=== PATIENT | female | born 1965 | race Caucasian/White ===

== ENCOUNTER 2017-07-15 03:47 | Emergency (ER) | payer SELFPAY ==
[2017-07-15 04:16] VITALS: BMI 27.4
[2017-07-15] MEDS ORDERED: morphine CARPU-JECT 10 MG/1 ML DISP.SYRIN IVPUSH ONE (05:07)
[2017-07-15] MEDS ORDERED: SODIUM CHLORIDE 1,000 ML IV STA (05:07)
[2017-07-15] MEDS ORDERED: PANTOPRAZOLE SODIUM 40 MG in SODIUM CHLORIDE 100 ML IVPB ONE (05:07)
[2017-07-15] MEDS ORDERED: ONDANSETRON 4 MG/2 ML VIAL IVPUSH ONE (05:07)
--- NOTE | 2017-07-15 05:13 | PDOC ---
History of Present Illness - General Chief Complaint: Pain, Acute Stated Complaint: ABDOMINAL PAIN, VOMITING Time Seen by Provider: 07/15/17 04:54 History Source: Patient Exam Limitations: No Limitations - History of Present Illness Travel History: No Initial Comments: 07/15/17 05:09 51yo Female patient w/ PmHx: Migraines, GERD, PID, Tubal Ligation, Chronic Back Pain, Gastritis, Cholecystectomy presents to ED c/o generalized abdominal pain starting yesterday that radiates to her back. Associated diarrhea, decreased appetite reported. Patient denies vomiting, fever, CP, diff breathing, rash, or any other complaints at this time. LNMP: Menopause Timing/Duration: reports: changing over time. denies: constant, getting worse, intermittent, resolved prior to arrival, gone now, other Quality: reports: moderate. denies: mild, severe, aching, burning, cramping, dullness, fullness, sharpness, stabbing, throbbing, other Abdominal Pain Onset Location: reports: generalized abdomen. denies: RUQ, LUQ, RLQ, LLQ, epigastric, periumbilical, suprapubic, flank, unknown, other Pain Radiation: reports: back. denies: no radiation, RUQ, LUQ, RLQ, LLQ, epigastric, periumbilical, flank, groin, scapula, shoulder, chest, other Activities at Onset: reports: no specific activity. denies: none, exertion, emotional upset, rest, sleep, eating, working, sexual intercourse, other Treatment Prior to Arrive: worse with: analgesics, antacids, cold pack, heat, laxative, enema, other Past History - Travel Traveled outside of the country in the last 30 days: No Close contact w/someone who was outside of country & ill: No - Past Medical History Allergies/Adverse Reactions: Allergies Allergy/AdvReac Type Severity Reaction Status Date / Time codeine Allergy Rash Verified 07/15/17 04:11 Home Medications: Ambulatory Orders NK [No Known Home Medication] 06/06/16 GI Disorders: Yes (GERD) Disorders: No Suicide Attempt (Hx): No - Surgical History Abdominal Surgery: Yes Cholecystectomy: Yes - Immunization History Immunization Up to Date: Yes - Psycho/Social/Smoking Cessation Hx Anxiety: No Suicidal Ideation: No Smoking Status: Yes Smoking History: Never smoked Have you smoked in the past 12 months: No Number of Cigarettes Smoked Daily: 10 Cigars Per Day: 0 Information on smoking cessation initiated: No 'Breaking Loose' booklet given: 12/12/15 Hx Alcohol Use: No Drug/Substance Use Hx: No Substance Use Type: None Abd/GI Specific PMHX - Complaint Specific PMHX Colitis: No Diverticulitis: No Gall Bladder Disease: No GERD: Yes Hepatitis: No Irritable Bowel Synd (IBS): No Pancreatitis: No GI Ulcer Disease: No Review of Systems - Review of Systems Able to Perform ROS?: Yes Is the patient limited [place] proficient: No Constitutional: No: Chills, Fever Respiratory: No: Cough, Shortness of Breath, Stridor, Wheezing Cardiac (ROS): No: Chest Pain, Chest Tightness ABD/GI: Yes: Diarrhea, Nausea, Abdominal cramping. No: Abdominal Distended, Difficulty Swallowing, Poor Appetite, Poor Fluid Intake, Rectal Bleeding, Vomiting : Yes: Flank Pain. No: Burning, Dysuria, Discharge, Hematuria, Pain Musculoskeletal: Yes: Back Pain. No: Muscle Weakness Integumentary: No: Bruising, Erythema, Rash, Sweating *Physical Exam - Vital Signs Last Vital Signs Temp Pulse Resp BP Pulse Ox 97.5 F L 64 18 114/57 98 07/15/17 04:11 07/15/17 04:11 07/15/17 04:11 07/15/17 04:15 07/15/17 04:11 - Physical Exam General Appearance: Yes: Appropriately Dressed, Thin. No: Apparent Distress, Mild Distress, Moderate Distress, Severe Distress Neck: positive: Trachea midline, Supple. negative: Decreased range of motion, Stridor, Lymphadenopathy (R), Lymphadenopathy (L) Respiratory/Chest: positive: Lungs Clear, Normal Breath Sounds. negative: Chest Tender, Respiratory Distress, Accessory Muscle Use, Labored Respiration, Rhonchi, Stridor, Wheezing Cardiovascular: positive: Regular Rhythm, Regular Rate Gastrointestinal/Abdominal: positive: Tender, Flat, Soft, Guarding, Rebound, Tenderness (Generalized abdomen). negative: Distended Musculoskeletal: positive: Normal Inspection, CVA Tenderness, CVA Tenderness (R) , CVA Tenderness (L). negative: Decreased Range of Motion, Muscle Spasm, Vertebral Tenderness Extremity: positive: Normal Capillary Refill, Normal Inspection, Normal Range of Motion. negative: Pedal Edema, Swelling, Calf Tenderness, Erythema, Inflammation Integumentary: positive: Normal Color, Dry Neurologic: positive: liaison planner II-XII NML intact, Fully Oriented, Alert, Normal Mood/ Affect, Normal Response, Motor Strength 03/11 ED Treatment Course - RADIOLOGY Radiology Studies Ordered: Category Date Time Status ABDOMEN CT WITHOUT CONTRAST [CT] Stat CT Scan 07/15/17 05:07 Ordered
--- NOTE | 2017-07-15 05:19 | PDOC ---
*Physical Exam - Vital Signs Last Vital Signs Temp Pulse Resp BP Pulse Ox 97.5 F L 64 18 114/57 98 07/15/17 04:11 07/15/17 04:11 07/15/17 04:11 07/15/17 04:15 07/15/17 04:11 ED Treatment Course - LABORATORY CBC & Chemistry Diagram: 07/15/17 05:32 07/15/17 05:32 Medical Decision Making - Medical Decision Making 07/15/17 05:18 agree with care from JUAN Esquivel *DC/Admit/Observation/Transfer Diagnosis at time of Disposition: Abdominal pain - Discharge Dispostion Disposition: HOME Condition at time of disposition: Good - Referrals Referrals: Keron Mason MD [Staff Physician] - - Patient Instructions Printed Discharge Instructions: DI for Abdominal Pain-Adult Additional Instructions: Please follow up with referred extension professor and eat well-balanced meals.
[2017-07-15] MEDS ORDERED: morphine CARPU-JECT 2 MG/1 ML DISP.SYRIN ONE (05:46)
[2017-07-15] MEDS ORDERED: morphine CARPU-JECT 4 MG/1 ML DISP.SYRIN ONE (05:47)
[2017-07-15] MEDS ORDERED: ONDANSETRON 4 MG/2 ML VIAL ONE (05:47)
[2017-07-15] MEDS ORDERED: PANTOPRAZOLE SODIUM 100 ML IVPB ONE (05:47)
[2017-07-15 05:55] LABS: BASOPHIL 0.5 % (0-2.0); EOSINOPHIL 1.2 % (0-4.5); MCH 30.9 pg (25.7-33.7); MCHC 33.9 g/dl (32.0-36.0); MEAN CELL VOLUME 91.1 fl (80-96); MEAN PLT VOLUME 8.4 fl (7.5-11.1); NEUTROPHILS 62.7 % (42.8-82.8); PLATELET COUNT 252 K/MM3 (134-434); RDW 12.6 % (11.6-15.6); WHITE BLOOD COUNT 9.5 K/mm3 (4.0-10.0)
[2017-07-15 06:19] LABS: ALBUMIN 3.9 g/dl (3.4-5.0); AMYLASE 31 U/L (25-115); ANION GAP 11 (8-16); BILIRUBIN,DIRECT < 0.1 mg/dL (0.0-0.2); BILIRUBIN,TOTAL 0.3 mg/dL (0.2-1.0); CO2 24 mmol/L (21-32); CREATININE 0.5 mg/dL (0.55-1.02); GLUCOSE,RANDOM 86 mg/dL (74-106); SGOT/AST 19 U/L (15-37); SGPT/ALT 28 U/L (12-78); TOT PROT 6.7 g/dl (6.4-8.2)
[2017-07-15 06:22] LABS: ALK PHOS 73 U/L (45-117)
--- NOTE | 2017-07-15 06:25 | PDOC ---
*Physical Exam - Vital Signs Last Vital Signs Temp Pulse Resp BP Pulse Ox 97.5 F L 64 18 114/57 98 07/15/17 04:11 07/15/17 04:11 07/15/17 04:11 07/15/17 04:15 07/15/17 04:11 07/15/17 09:12 CT shows no acute findings and the pelvis or abdomen. ED Treatment Course - LABORATORY CBC & Chemistry Diagram: 07/15/17 05:32 07/15/17 05:32 - ADDITIONAL ORDERS Additional order review: 07/15/17 05:32 RBC 4.04 MCV 91.1 MCHC 33.9 RDW 12.6 MPV 8.4 Neutrophils % 62.7 Lymphocytes % 28.7 D Monocytes % 6.9 Eosinophils % 1.2 Basophils % 0.5 - Medications Given in the ED: ED Medications Discontinued Medications Generic Name Dose Route Start Last Admin Trade Name Edilbertoq PRN Reason Stop Dose Admin Pantoprazole Sodium 40 mg/ 100 mls @ 200 mls/hr 07/15/17 05:07 07/15/17 06:00 Sodium Chloride IVPB 07/15/17 05:36 200 mls/hr ONCE ONE Administration Sodium Chloride 1,000 mls @ 1,000 mls/hr 07/15/17 05:07 07/15/17 06:00 Normal Saline - IV 07/15/17 06:06 1,000 mls/hr ASDIR STA Administration Morphine Sulfate 6 mg 07/15/17 05:07 07/15/17 05:59 Morphine Injection - IVPUSH 07/15/17 05:08 6 mg ONCE ONE Administration Ondansetron HCl 4 mg 07/15/17 05:07 07/15/17 06:00 Zofran Injection IVPUSH 07/15/17 05:08 4 mg ONCE ONE Administration Medical Decision Making - Medical Decision Making 07/15/17 06:20 Patient received in sign out from JUAN Arcos. Patient awaiting abdominal CT secondary nausea vomiting and abdominal pain. 07/15/17 07:47 Laboratory Tests 07/15/17 07/15/17 06:54 06:54 Urine Ketones Negative Urine Nitrite Negative Ur Leukocyte Esterase Negative Opiates Screen Positive Barbiturate Screen Positive Pt went for CT. Pt requesting more pain meds. MSO4 4mg ordered since pt refused toradol. 07/15/17 08:09 Laboratory Tests 07/15/17 07/15/17 06:54 06:54 Urine Ketones Negative Urine Nitrite Negative Ur Leukocyte Esterase Negative Opiates Screen Positive Barbiturate Screen Positive Pt requesting to leave before abdominal ct results. Will discharge patient as per her request. *DC/Admit/Observation/Transfer Diagnosis at time of Disposition: Abdominal pain Qualifiers: Abdominal location: generalized Qualified Code(s): R10.84 - Generalized abdominal pain - Discharge Dispostion Disposition: HOME Condition at time of disposition: Good - Referrals Referrals: Keron Mason MD [Staff Physician] - - Patient Instructions Printed Discharge Instructions: DI for Abdominal Pain-Adult Additional Instructions: Please follow up with referred glass lined tank repairer and eat well-balanced meals.
[2017-07-15] MEDS ORDERED: KETOROLAC TROMETHAMINE 30 MG/1 ML VIAL IVPUSH STA (06:55)
[2017-07-15 07:05] LABS: URINE APPEARANCE SLCLOUDY; URINE BILIRUBIN NEGATIVE (NEGATIVE); URINE BLOOD NEGATIVE (NEGATIVE); URINE COLOR YELLOW; URINE GLUCOSE (UA) NEGATIVE (NEGATIVE); URINE KETONE NEGATIVE (NEGATIVE); URINE LEUK ESTERASE NEGATIVE (NEGATIVE); URINE NITRITE NEGATIVE (NEGATIVE); URINE PROTEIN NEGATIVE (NEGATIVE); URINE UROBILINOGEN NEGATIVE mg/dL (0.2-1.0)
[2017-07-15 07:16] LABS: URINE MARIJUANA THC NEGATIVE ng/ml (CUTOFF=50)
[2017-07-15] MEDS ORDERED: morphine CARPU-JECT 2 MG/1 ML DISP.SYRIN IVPUSH ONE (07:26)
[2017-07-15 07:56] VITALS: BP 103/67; PULSE 63; TEMP 97.7
== END 2017-07-15 08:33 | disposition home or self-care (01) ==
LOC: JER 03:47
PROC: 3E033GC Introduction of Other Therapeutic Substance into Peripheral Vein, Percutaneous Approach (ICD-10-PCS; principal; 2017-07-15)
PROC: 3E033GC Introduction of Other Therapeutic Substance into Peripheral Vein, Percutaneous Approach (ICD-10-PCS; 2017-07-15)
PROC: 3E033NZ Introduction of Analgesics, Hypnotics, Sedatives into Peripheral Vein, Percutaneous Approach (ICD-10-PCS; 2017-07-15)
DX: R10.84 Generalized abdominal pain (principal); K21.9 Gastro-esophageal reflux disease without esophagitis; Z86.69 Personal history of other diseases of the nervous system and sense organs; M54.89 Other dorsalgia; G89.29 Other chronic pain
CPT/HCPCS: 36415; 74150-TC; 80048; 80076; 80307; 81003; 82150; 83690; 85025; 99284-25

== ENCOUNTER → 2017-07-26 | Emergency (ER) | payer SELFPAY ==
[~2017-07-26] MED LIST: LIDOCAINE VISCOUS 2% ORAL/TOP 20 ML UNIT-DOSE CUP MM ONE; MAG HYDROX/AL HYDROX/SIMETH 30 ML UNIT-DOSE CUP PO ONE; ONDANSETRON *ODT* 4 MG TABLET ONE; ONDANSETRON *ODT* 4 MG TABLET SL ONE
[2017-07-26 04:57] VITALS: BP 115/64; PULSE 73; TEMP 97.9; BMI 23.1
[2017-07-26 06:32] LABS: BASOPHIL 0.8 % (0-2.0); EOSINOPHIL 2.3 % (0-4.5); MCHC 33.3 g/dl (32.0-36.0); MEAN PLT VOLUME 9.1 fl (7.5-11.1); NEUTROPHILS 45.2 % (42.8-82.8); PLATELET COUNT 210 K/MM3 (134-434); RDW 12.7 % (11.6-15.6); WHITE BLOOD COUNT 7.1 K/mm3 (4.0-10.0)
[2017-07-26 06:48] LABS: ALBUMIN 3.7 g/dl (3.4-5.0); ANION GAP 8 (8-16); BILIRUBIN,TOTAL 0.3 mg/dL (0.2-1.0); CALCIUM 8.4 mg/dL (8.5-10.1); CO2 25 mmol/L (21-32); CREATININE 0.5 mg/dL (0.55-1.02); GLUCOSE,RANDOM 92 mg/dL (74-106); SGOT/AST 46 U/L (15-37); SGPT/ALT 63 U/L (12-78); TOT PROT 6.7 g/dl (6.4-8.2)
[2017-07-26 06:49] LABS: ALK PHOS 73 U/L (45-117)
--- NOTE | 2017-07-26 08:33 | PDOC ---
History of Present Illness - General Chief Complaint: Pain Stated Complaint: ABD PAIN, VOMITING History Source: Patient Exam Limitations: No Limitations - History of Present Illness Initial Comments: 07/26/17 08:31 51 yo F with h/o chronic abd pain, refererd to see pain management, here tody c/ o suprapubic and epigastric abd pain. no mod factors. pt was seen in emergency one week ago had ct a/p and ua all which were unremarkable. does not have any mod factors. tolerating po at homee. 07/26/17 08:34 Past History - Past Medical History Allergies/Adverse Reactions: Allergies Allergy/AdvReac Type Severity Reaction Status Date / Time codeine Allergy Rash Verified 07/26/17 04:52 Home Medications: Ambulatory Orders NK [No Known Home Medication] 06/06/16 GI Disorders: Yes (GERD) Disorders: No - Surgical History Abdominal Surgery: Yes Cholecystectomy: Yes - Immunization History Immunization Up to Date: Yes - Suicide/Smoking/Psychosocial Hx Smoking Status: Yes Smoking History: Never smoked Have you smoked in the past 12 months: No Number of Cigarettes Smoked Daily: 10 Cigars Per Day: 0 Information on smoking cessation initiated: No 'Breaking Loose' booklet given: 12/12/15 Hx Alcohol Use: No Drug/Substance Use Hx: No Substance Use Type: None Review of Systems - Review of Systems Constitutional: No: Chills, Diaphoresis, Fever Respiratory: No: Orthopnea Cardiac (ROS): No: Chest Pain, Edema ABD/GI: No: Abd. Pain w/ defecation, Blood Streaked Bowels Musculoskeletal: Yes: Back Pain, Other (abd pain) Integumentary: No: Bruising, Change in Color Psychiatric: No: Frequent Crying, Stressors All Other Systems: Reviewed and Negative *Physical Exam - Vital Signs Last Vital Signs Temp Pulse Resp BP Pulse Ox 97.9 F 73 14 115/64 96 07/26/17 04:55 07/26/17 04:55 07/26/17 04:55 07/26/17 04:55 07/26/17 04:55 - Physical Exam General Appearance: Yes: Appropriately Dressed HEENT: positive: [place] Neck: positive: Trachea midline Respiratory/Chest: positive: Lungs Clear, Normal Breath Sounds. negative: Chest Tender Cardiovascular: positive: Regular Rhythm, Regular Rate, S1, S2 Gastrointestinal/Abdominal: positive: Tender, Flat, Soft, Other (mild epigatric ttp, mild suprapubic ttp. no rebound no guarding) Neurologic: positive: carpet mechanic II-XII NML intact, Fully Oriented, Alert ED Treatment Course - LABORATORY CBC & Chemistry Diagram: 07/26/17 06:18 07/26/17 06:18 - ADDITIONAL ORDERS Additional order review: Laboratory Results 07/26/17 06:18 Sodium 143 Potassium 3.9 Chloride 110 H Carbon Dioxide 25 Anion Gap 8 BUN 15 D Creatinine 0.5 L Creat Clearance w eGFR > 60 Random Glucose 92 Calcium 8.4 L Total Bilirubin 0.3 AST 46 H D ALT 63 D Alkaline Phosphatase 73 Total Protein 6.7 Albumin 3.7 Lipase 212 07/26/17 06:18 RBC 3.84 MCV 93.0 MCHC 33.3 RDW 12.7 MPV 9.1 Neutrophils % 45.2 D Lymphocytes % 43.4 H D Monocytes % 8.3 Eosinophils % 2.3 D Basophils % 0.8 - Medications Given in the ED: ED Medications Discontinued Medications Generic Name Dose Route Start Last Admin Trade Name Freq PRN Reason Stop Dose Admin Ondansetron HCl 4 mg 07/26/17 07:00 07/26/17 07:24 Zofran Odt - SL 07/26/17 07:01 Not Given ONCE ONE Medical Decision Making - Medical Decision Making 07/26/17 08:35 51 yo F well known to ed with multiple evaluations and recently ct a/p here wtih epigastric pain. minimal tenderness on exam. plan treat for gerd, gastritis. celia avoid narcotics as pt to follow up with pain management. labs . reassess. *DC/Admit/Observation/Transfer Diagnosis at time of Disposition: Gastritis
== END | disposition left against medical advice (07) ==
LOC: JER 04:22
DX: K29.70 Gastritis, unspecified, without bleeding (principal)
CPT/HCPCS: 36415; 80053; 83690; 85025; 99281-25

== ENCOUNTER 2017-12-17 19:29 | Emergency (ER) | payer OTHER ==
[2017-12-17 19:41] VITALS: BP 90/64; PULSE 77; TEMP 97.9; BMI 16.1
--- NOTE | 2017-12-17 19:53 | PDOC ---
History of Present Illness - General Chief Complaint: Nausea/Vomiting Stated Complaint: VOMITING, WEAKNESS Time Seen by Provider: 12/17/17 19:53 - History of Present Illness Initial Comments: 12/17/17 20:16 Ms. Alcala is a 52 yo female w/ pmh of chronic back pain who reports to the ED c /o a 4 day history of left lower quadrant pain radiating around to her left flank. She reports that she has also had limited vomiting with nausea and that she has recently experienced pain during urination over this time. She denies any other symptoms. Allergies: Codeine Past History - Past Medical History Allergies/Adverse Reactions: Allergies Allergy/AdvReac Type Severity Reaction Status Date / Time codeine Allergy Rash Verified 12/17/17 19:38 Home Medications: Ambulatory Orders NK [No Known Home Medication] 06/06/16 COPD: No GI Disorders: Yes (GERD) Disorders: No - Surgical History Abdominal Surgery: Yes Cholecystectomy: Yes - Immunization History Immunization Up to Date: Yes - Suicide/Smoking/Psychosocial Hx Smoking Status: Yes Smoking History: Never smoked Have you smoked in the past 12 months: No Number of Cigarettes Smoked Daily: 10 Cigars Per Day: 0 Information on smoking cessation initiated: No 'Breaking Loose' booklet given: 12/12/15 Hx Alcohol Use: No Drug/Substance Use Hx: No Substance Use Type: None Review of Systems - Review of Systems Comments:: 12/17/17 20:17 GENERAL/CONSTITUTIONAL: +Isolated fever yesterday. No chills. No weakness. HEAD, EYES, EARS, NOSE AND THROAT: No change in vision. No ear pain or discharge. No sore throat. CARDIOVASCULAR: No chest pain or shortness of breath RESPIRATORY: No cough, wheezing, or hemoptysis. GASTROINTESTINAL: +Isolated nausea with vomiting, no diarrhea or constipation. GENITOURINARY: +Dysuria x4 days without frequency extending to left flank. MUSCULOSKELETAL: No joint or muscle swelling or pain. No neck or back pain. SKIN: No rash NEUROLOGIC: No headache, vertigo, loss of consciousness, or change in strength/ sensation. ENDOCRINE: No increased thirst. No abnormal weight change HEMATOLOGIC/LYMPHATIC: No anemia, easy bleeding, or history of blood clots. ALLERGIC/IMMUNOLOGIC: No hives or skin allergy. *Physical Exam - Vital Signs Last Vital Signs Temp Pulse Resp BP Pulse Ox 97.9 F 77 18 90/64 100 12/17/17 19:39 12/17/17 19:39 12/17/17 19:39 12/17/17 19:39 12/17/17 19:39 - Physical Exam Comments: 12/17/17 20:18 GENERAL: Awake, alert, and fully oriented, in no acute distress HEAD: No signs of trauma, normocephalic, atraumatic EYES: PERRLA, EOMI, sclera anicteric, conjunctiva clear ENT: Auricles normal inspection, hearing grossly normal, nares patent, oropharynx clear without exudates. Moist mucosa NECK: Normal ROM, supple, no lymphadenopathy, JVD, or masses LUNGS: No distress, speaks full sentences, clear to auscultation bilaterally HEART: Regular rate and rhythm, normal S1 and S2, no murmurs, rubs or gallops, peripheral pulses normal and equal bilaterally. ABDOMEN: +LLQ Pain to palpation. Soft, normoactive bowel sounds. No guarding, no rebound. No masses EXTREMITIES: Normal inspection, Normal range of motion, no edema. No clubbing or cyanosis. NEUROLOGICAL: Cranial nerves II through XII grossly intact. Normal speech, normal gait, no focal sensorimotor deficits SKIN: Warm, Dry, normal turgor, no rashes or lesions noted. ED Treatment Course - LABORATORY CBC & Chemistry Diagram: 12/17/17 20:10 12/17/17 21:09 Medical Decision Making - Medical Decision Making 12/17/17 22:14 Ms. Alcala is a well known patient presenting for abdominal pain. Noted to be hypotensive on exam but patient is refusing normal saline and demanding only pain medications be given. Origin of reported pain unclear, spiral CT currently pending read. Patient reports toradol did nothing for pain and is threatening she will leave if she does not receive more pain medications. Patient CT negative for acute findings, patient elected to leave AMA from ED. Patient explained risks of hypotension and leaving without further workup and signed/verbalized understanding. *DC/Admit/Observation/Transfer Diagnosis at time of Disposition: Abdominal pain in female - Discharge Dispostion Disposition: HOME - Referrals Referrals: Dino Beauchamp [Primary Care Provider] - - Patient Instructions Printed Discharge Instructions: DI for Abdominal Pain-Adult Additional Instructions: Please return if any increase or continuation of pain. We hope you feel better soon. - Post Discharge Activity
[2017-12-17] MEDS ORDERED: KETOROLAC TROMETHAMINE 15 MG/ML VIAL IVPUSH ONE (20:00)
[2017-12-17] MEDS ORDERED: ONDANSETRON 4 MG/2 ML VIAL IVPUSH ONE (20:14)
[2017-12-17 20:22] LABS: BASO % 0.8 % (0-2.0); EOS % 1.5 % (0-4.5); HEMATOCRIT 37.2 % (32.4-45.2); HEMOGLOBIN 12.2 GM/dL (10.7-15.3); LYMPH % 28.9 % (8-40); MCH 30.8 pg (25.7-33.7); MCHC 32.9 g/dl (32.0-36.0); MEAN CELL VOLUME 93.6 fl (80-96); MEAN PLT VOLUME 8.7 fl (7.5-11.1); MONO % 6.7 % (3.8-10.2); NEUT % 62.1 % (42.8-82.8); PLATELET COUNT 223 K/MM3 (134-434); RBC 3.98 M/mm3 (3.60-5.2); RDW 12.4 % (11.6-15.6); WHITE BLOOD COUNT 5.8 K/mm3 (4.0-10.0)
--- NOTE | 2017-12-17 20:59 | PDOC ---
Attending Attestation - Medical Decision Making 12/17/17 22:20 EXAM: CT ABDOMEN AND PELVIS WITHOUT IV CONTRAST TECHNIQUE: axial images from the lung bases to the symphysis pubis utilizing spiral imaging technique with multiplanar reconstructions from the axial data set. Oral contrast: Yes. INDICATION: Clinical concern for left renal stone COMPARISON: March 28, 2016 FINDINGS: The lung bases are: Unremarkable ABDOMEN: LIVER, SPLEEN, PANCREAS AND ADRENAL GLANDS ARE:The pancreas is displaced in the left abdomen possibly due to hypertrophy of the left lobe of the liver inferior margin. The solid organs are incompletely characterized without IV contrast, solid masses are not excluded. GALLBLADDER AND BILIARY SYSTEM: The gallbladder appears surgically absent. KIDNEYS: The bilateral kidneys are normal in size. There is no hydronephrosis, perinephric inflammation or urinary tract calculi. STOMACH AND BOWEL: The stomach, small bowel and colon appear unremarkable. There is no bowel dilatation, or evidence of obstruction. The appendix is visualized and appears normal. PERITONEUM/RETROPERITONEUM: There is no free intraperitoneal air or fluid. There is no bulky lymphadenopathy within the abdomen or pelvis. VESSELS: The abdominal aorta and its major branching vessels are remarkable for atherosclerotic changes, mild BONES: No acute or aggressive osseous lesion. VENTRAL ABDOMINAL WALL: unremarkable PELVIS: non acute. Several pelvic phleboliths. The gynecologic structures are incompletely characterized on CT. IMPRESSION: No hydroureteronephrosis or nephroureterolithiasis. Unremarkable appendix. No acute finding. Read by: Rebecca Baumann MD <Andrew Arguelles - Last Filed: 12/17/17 22:20> - Resident Resident Name: Gil Bliss - ED Attending Attestation I have performed the following: I have examined & evaluated the patient, The case was reviewed & discussed with the resident, I agree w/resident's findings & plan - HPI HPI: 12/17/17 22:23 Pt comes with flank pain and abd pain and she is demanding pain meds. Pt is afebrile and hypotensive. She is refusing IV hydration, and as we provide her with toradol she is demanding more pain meds, as the pain meds we are giving is not helping her. - Physicial Exam PE: 12/17/17 22:24 Agree with resident exam - Medical Decision Making 12/17/17 22:25 Pt wants to sign AMA. SHe is stable to go home, though we would have liked to hydrate her, as she is hypotensive. 12/17/17 22:26 Pt also didn't provide us with a urine sample so we were unable to assess her for dysuria. <Ginny Vazquez - Last Filed: 12/17/17 22:26> Attestations - Attestations 12/17/17 22:21 Documentation prepared by Andrew Arguelles, acting as medical tech for Ginny Vazquez MD. <Andrew Arguelles - Last Filed: 12/17/17 22:20>
[2017-12-17 21:53] LABS: ALBUMIN 3.7 g/dl (3.4-5.0); ALK PHOS 89 U/L (45-117); ANION GAP 5 (8-16); BILIRUBIN,TOTAL 0.1 mg/dL (0.2-1.0); BLOOD UREA NITROGEN 9 mg/dL (7-18); CALCIUM 8.2 mg/dL (8.5-10.1); CHLORIDE 113 mmol/L (98-107); CO2 24 mmol/L (21-32); CREATININE 0.4 mg/dL (0.55-1.02); GLUCOSE,RANDOM 79 mg/dL (74-106); POTASSIUM 3.8 mmol/L (3.5-5.1); SGOT/AST 50 U/L (15-37); SGPT/ALT 46 U/L (12-78); SODIUM 142 mmol/L (136-145); TOT PROT 6.7 g/dl (6.4-8.2)
[2017-12-17] MEDS ORDERED: SODIUM CHLORIDE 0.9% 500 ML INFUS.BAG IV ONE (21:58)
== END 2017-12-17 22:38 | disposition home or self-care (01) ==
LOC: JER 19:29
PROC: 3E0333Z Introduction of Anti-inflammatory into Peripheral Vein, Percutaneous Approach (ICD-10-PCS; principal; 2017-12-17)
PROC: 3E033GC Introduction of Other Therapeutic Substance into Peripheral Vein, Percutaneous Approach (ICD-10-PCS; 2017-12-17)
DX: R10.32 Left lower quadrant pain (principal)
CPT/HCPCS: 36415; 74176; 80053; 85025; 96374; 96375; 99282-25

== ENCOUNTER 2018-01-15 03:16 | Emergency (ER) | payer OTHER ==
[2018-01-15 04:01] VITALS: TEMP 98.2; BMI 20.9
--- NOTE | 2018-01-15 04:12 | PDOC ---
History of Present Illness - General History Source: Patient Exam Limitations: No Limitations - History of Present Illness Initial Comments: 01/15/18 05:12 The patient is a 52 year old female, with a significant past medical history of PID, GERD, and migraines, who presents to the emergency department with, left flank pain, suprapubic pain, and dysuria. The patient has had similar symptoms before. Secondary to her symptoms, she reports nausea and vomiting. She denies recent fevers, chills, headache or dizziness. She denies recent diarrhea or constipation. She denies recent frequency, urgency or hematuria. She denies recent chest pain or shortness of breath. Allergies: Codeine Primary Care Physician: Dr. Dino Beauchamp <Andrew Arguelles - Last Filed: 01/15/18 07:06> <Ginny Vazquez - Last Filed: 01/15/18 21:03> - General Chief Complaint: Pain, Acute Stated Complaint: VOMITING, PAIN Time Seen by Provider: 01/15/18 03:53 Past History <Andrew Arguelles - Last Filed: 01/15/18 07:06> - Past Medical History COPD: No GI Disorders: Yes (GERD) Disorders: No - Surgical History Abdominal Surgery: Yes Cholecystectomy: Yes - Immunization History Immunization Up to Date: Yes - Suicide/Smoking/Psychosocial Hx Smoking Status: Yes Smoking History: Never smoked Have you smoked in the past 12 months: No Number of Cigarettes Smoked Daily: 10 Cigars Per Day: 0 Information on smoking cessation initiated: No 'Breaking Loose' booklet given: 12/12/15 Hx Alcohol Use: No Drug/Substance Use Hx: No Substance Use Type: None <Ginny Vazquez - Last Filed: 01/15/18 21:03> - Past Medical History Allergies/Adverse Reactions: Allergies Allergy/AdvReac Type Severity Reaction Status Date / Time codeine Allergy Rash Verified 01/15/18 04:01 Home Medications: Ambulatory Orders Butalb/Acetaminophen/Caffeine [Fioricet 50-300-40 mg Capsule] 2 each PO BID #20 capsule 01/15/18 Metoclopramide HCl [Reglan] 10 mg PO TID #21 tablet 01/15/18 Review of Systems - Review of Systems Able to Perform ROS?: Yes Comments:: 01/15/18 05:13 GENERAL/CONSTITUTIONAL: No fever or chills. No weakness. HEAD, EYES, EARS, NOSE AND THROAT: No change in vision. No ear pain or discharge. No sore throat. CARDIOVASCULAR: No chest pain or shortness of breath. RESPIRATORY: No cough, wheezing, or hemoptysis. GASTROINTESTINAL: +Flank pain. +Nausea. +Emesis. No diarrhea or constipation. GENITOURINARY: No dysuria, frequency, or change in urination. MUSCULOSKELETAL: No joint or muscle swelling or pain. No neck. SKIN: No rash NEUROLOGIC: No headache, vertigo, loss of consciousness, or change in strength/ sensation. ENDOCRINE: No increased thirst. No abnormal weight change. HEMATOLOGIC/LYMPHATIC: No anemia, easy bleeding, or history of blood clots. ALLERGIC/IMMUNOLOGIC: No hives or skin allergy. All Other Systems: Reviewed and Negative <Andrew Arguelles - Last Filed: 01/15/18 07:06> *Physical Exam - Vital Signs Last Vital Signs Temp Pulse Resp BP Pulse Ox 98.2 F 82 16 99/56 100 01/15/18 03:51 01/15/18 03:51 01/15/18 03:51 01/15/18 03:51 01/15/18 03:51 - Physical Exam Comments: 01/15/18 07:07 GENERAL: Awake, alert, and fully oriented, in no acute distress HEAD: No signs of trauma EYES: PERRLA, EOMI, sclera anicteric, conjunctiva clear ENT: Auricles normal inspection, hearing grossly normal, nares patent, oropharynx clear without exudates. Moist mucosa NECK: Normal ROM, supple, no lymphadenopathy, JVD, or masses LUNGS: Breath sounds equal, clear to auscultation bilaterally. No wheezes, and no crackles HEART: Regular rate and rhythm, normal S1 and S2, no murmurs, rubs or gallops ABDOMEN: +Right upper and lower quadrant tenderness. Soft, normoactive bowel sounds. No guarding, no rebound. No masses EXTREMITIES: Normal range of motion, no edema. No clubbing or cyanosis. No cords, erythema, or tenderness NEUROLOGICAL: Cranial nerves II through XII grossly intact. Normal speech, normal gait SKIN: Warm, Dry, normal turgor, no rashes or lesions noted. <Andrew Arguelles - Last Filed: 01/15/18 07:06> - Vital Signs Last Vital Signs Temp Pulse Resp BP Pulse Ox 98.2 F 82 16 99/56 100 01/15/18 03:51 01/15/18 03:51 01/15/18 03:51 01/15/18 03:51 01/15/18 03:51 <Ginny Vazquez - Last Filed: 01/15/18 21:03> Medical Decision Making - Medical Decision Making 01/15/18 21:01 Pt comes requesting pain meds for her migraine and meds for nausea. SHe is refusing to give us a urine sample and she is refusing any blood draws. Pt will be given fioricet as well as reglan. She slept comfortably in the ER for a few hours and she is ready to go home. She is feeling well. <Ginny Vazquez - Last Filed: 01/15/18 21:03> *DC/Admit/Observation/Transfer - Attestations Scribe Attestion: 01/15/18 05:13 Documentation prepared by Andrew Arguelles, acting as hospital medical biller for Ginny Vazquez MD. <Andrew Arguelles - Last Filed: 01/15/18 07:06> - Discharge Dispostion Admit: No <Ginny Vazquez - Last Filed: 01/15/18 21:03> Diagnosis at time of Disposition: Medication refill - Discharge Dispostion Disposition: HOME Condition at time of disposition: Stable - Prescriptions Prescriptions: Butalb/Acetaminophen/Caffeine [Fioricet 50-300-40 mg Capsule] 2 each PO BID #20 capsule Metoclopramide HCl [Reglan] 10 mg PO TID #21 tablet - Referrals Referrals: Dino Beauchamp [Primary Care Provider] - - Patient Instructions Printed Discharge Instructions: Migraine -- Adult - Post Discharge Activity
[2018-01-15 07:47] VITALS: BP 106/74; PULSE 80
== END 2018-01-15 07:35 | disposition home or self-care (01) ==
LOC: JER 03:16
DX: G43.909 Migraine, unspecified, not intractable, without status migrainosus (principal); Z76.0 Encounter for issue of repeat prescription
CPT/HCPCS: 99283-25

== ENCOUNTER 2018-03-26 16:09 | Emergency (ER) | payer OTHER ==
[2018-03-26 16:21] VITALS: BP 92/57; PULSE 104; TEMP 98.2; BMI 18.6
[2018-03-26] MEDS ORDERED: ACETAMINOPHEN/CAFFEINE/BUTALBITAL 1 TAB PO ONE (17:06)
[2018-03-26] MEDS ORDERED: MAG HYDROX/AL HYDROX/SIMETH 30 ML UNIT-DOSE CUP PO ONE (17:06)
[2018-03-26] MEDS ORDERED: SODIUM CHLORIDE 1,000 ML IV STA (17:06)
[2018-03-26] MEDS ORDERED: METOCLOPRAMIDE HCL INJECTION 10 MG/2 ML VIAL IVPUSH ONE (17:06)
[2018-03-26] MEDS ORDERED: METOCLOPRAMIDE HCL 10 MG TABLET (FP) PO ONE ×2 (17:25→17:44)
[2018-03-26] MEDS ORDERED: ACETAMINOPHEN/CAFFEINE/BUTALBITAL 1 TAB ONE (17:44)
[2018-03-26] MEDS ORDERED: MAG HYDROX/AL HYDROX/SIMETH 30 ML UNIT-DOSE CUP ONE (17:44)
--- NOTE | 2018-03-26 17:48 | PDOC ---
History of Present Illness - General Chief Complaint: Pain Stated Complaint: STOMACH PAIN Time Seen by Provider: 03/26/18 16:50 History Source: Patient Exam Limitations: No Limitations - History of Present Illness Initial Comments: 03/26/18 17:44 Patient is a 52F with history of chronic abdominal pain and migraines here today complaining of epigastric abdominal pain and headache. She states the abdominal pain is burning with nausea, denies fevers, chills, vomiting. Denies pain with urination. Last bowel movement today. Headache onset insidiously two weeks ago and has associated light sensitivity. She describes it as her chronic headache but states that it is worse than normal. Patient is asking for additional fioricet prescription to take home. Past History - Past Medical History Allergies/Adverse Reactions: Allergies Allergy/AdvReac Type Severity Reaction Status Date / Time codeine Allergy Rash Verified 03/26/18 16:21 Home Medications: Ambulatory Orders Butalb/Acetaminophen/Caffeine [Fioricet 50-300-40 mg Capsule] 2 each PO BID #20 capsule 01/15/18 Metoclopramide HCl [Reglan] 10 mg PO TID #21 tablet 01/15/18 Acetaminophen/Caffeine/Butalb [Fioricet -] 1 tab PO Q6H #28 tablet MDD 3 Omeprazole 10 mg PO DAILY #30 capsule. 03/26/18 COPD: No GI Disorders: Yes (GERD) Disorders: No - Surgical History Abdominal Surgery: Yes Cholecystectomy: Yes - Immunization History Immunization Up to Date: Yes - Suicide/Smoking/Psychosocial Hx Smoking Status: Yes Smoking History: Never smoked Have you smoked in the past 12 months: No Number of Cigarettes Smoked Daily: 10 Cigars Per Day: 0 'Breaking Loose' booklet given: 12/12/15 Hx Alcohol Use: No Drug/Substance Use Hx: No Substance Use Type: None Review of Systems - Review of Systems Comments:: 03/26/18 17:46 GENERAL/CONSTITUTIONAL: No fever or chills. No weakness. HEAD, EYES, EARS, NOSE AND THROAT: No change in vision. No sore throat. CARDIOVASCULAR: No chest pain or shortness of breath RESPIRATORY: No cough, wheezing, or hemoptysis. GASTROINTESTINAL: Positive for nausea. Negative for vomiting, diarrhea or constipation. GENITOURINARY: No dysuria, frequency, or change in urination. MUSCULOSKELETAL: No joint or muscle swelling or pain. No neck or back pain. SKIN: No rash NEUROLOGIC: Positive for headache. Negative for vertigo, loss of consciousness, or change in strength/sensation. HEMATOLOGIC/LYMPHATIC: No anemia, easy bleeding, or history of blood clots. ALLERGIC/IMMUNOLOGIC: No hives or skin allergy. *Physical Exam - Vital Signs Last Vital Signs Temp Pulse Resp BP Pulse Ox 98.2 F 104 H 20 92/57 99 03/26/18 16:19 03/26/18 16:19 03/26/18 16:19 03/26/18 16:19 03/26/18 16:19 - Physical Exam Comments: 03/26/18 17:46 GENERAL: Awake, alert, and fully oriented, in no acute distress, sitting up comfortably with sunglasses on HEAD: No signs of trauma, normocephalic, atraumatic EYES: PERRLA, EOMI, sclera anicteric, conjunctiva clear ENT: Auricles normal inspection, hearing grossly normal, nares patent, oropharynx clear without exudates. Moist mucosa NECK: Normal ROM, supple, no lymphadenopathy, JVD, or masses LUNGS: No distress, speaks full sentences, clear to auscultation bilaterally HEART: Regular rate and rhythm, normal S1 and S2, no murmurs, rubs or gallops, peripheral pulses normal and equal bilaterally. ABDOMEN: Soft, nontender, normoactive bowel sounds. No guarding, no rebound. No masses EXTREMITIES: Normal inspection, Normal range of motion, no edema. No clubbing or cyanosis. NEUROLOGICAL: Cranial nerves II through XII grossly intact. Normal speech, normal gait, no focal sensorimotor deficits SKIN: Warm, Dry, normal turgor, no rashes or lesions noted. Medical Decision Making - Medical Decision Making 03/26/18 17:47 Patient is 52F with history of chronic abdominal pain and migraines here today with headache and abdominal pain. Vital signs notable for tachycardia. HR of 84 on my exam. Nontender abdomen. Normal neuro exam. Patient is refusing blood draws and IVs. Will give PO fioricet, reglan and maalox. 03/26/18 18:04 Patient states that her symptoms have greatly improved after medications. Asking to go home with refills of fioricet and omeprazole. Discharged with return precautions. *DC/Admit/Observation/Transfer Diagnosis at time of Disposition: Abdominal pain, Headache - Discharge Dispostion Disposition: HOME Condition at time of disposition: Good Decision to Admit order: No - Prescriptions Prescriptions: Acetaminophen/Caffeine/Butalb [Fioricet -] 1 tab PO Q6H #28 tablet MDD 3 Omeprazole 10 mg PO DAILY #30 capsule.dr - Referrals Referrals: Dino Beauchamp [Primary Care Provider] - - Patient Instructions Printed Discharge Instructions: DI for Abdominal Pain-Adult, DI for Headache Additional Instructions: Please follow up with your primary care physician this week. Please return if you have any new, worsening or concerning symptoms. - Post Discharge Activity
--- NOTE | 2018-03-26 18:19 | PDOC ---
Attending Attestation - Resident Resident Name: Jared Costa - ED Attending Attestation I have performed the following: I have examined & evaluated the patient, The case was reviewed & discussed with the resident, I agree w/resident's findings & plan, Exceptions are as noted - HPI HPI: 03/26/18 18:17 52 yo p/w migraine and acid reflux. She does not want any labs done. She wants to have her fiorocet amd omeprozole prescriptions renewed -no active vomiting,no focal abd pain - Physicial Exam PE: 03/26/18 18:23 thin 52 yo female in no acute distress 03/26/18 18:27 head ncat lungs cta b.l cvs [id number] abd flat ,no rebound ext no edema neuro axox3,ambulatory,no gross focal neuro deficits - Medical Decision Making 03/26/18 18:28 RX fiorocet pt to follow up with her PCP
[2018-03-26] MEDS ORDERED: FAMOTIDINE IV 20 MG/12 ML VIAL IVPUSH SCH (22:00)
== END 2018-03-26 18:25 | disposition home or self-care (01) ==
LOC: JER 16:09
DX: R10.84 Generalized abdominal pain (principal); G43.909 Migraine, unspecified, not intractable, without status migrainosus
CPT/HCPCS: 99282-25

== ENCOUNTER 2018-05-16 02:36 | Inpatient (IN) | payer OTHER ==
[2018-05-16] MEDS ORDERED: PANTOPRAZOLE SODIUM 40 MG in SODIUM CHLORIDE 100 ML IVPB ONE (03:33)
[2018-05-16] MEDS ORDERED: KETOROLAC TROMETHAMINE 30 MG/1 ML VIAL IVPUSH ONE (03:33)
[2018-05-16] MEDS ORDERED: ONDANSETRON 4 MG/2 ML VIAL IVPUSH STA (03:33)
--- NOTE | 2018-05-16 03:33 | PDOC ---
History of Present Illness - General History Source: Patient <Seema Bakeran - Last Filed: 05/16/18 03:32> - General Exam Limitations: No Limitations - History of Present Illness Initial Comments: 05/16/18 05:36 Patient is a n52 year old female with a significant past medical history of asthma, chronic abdominal pain, and migraines who presents to the ED with complaints of vomiting and diarrhea that began x3 days ago. Patient reports experiencing multiple episodes of vomiting and diarrhea that has increased in frequency over time, prompting her to come into the ED for further evaluation. Denies chest pain, Sob. Denies fevers,chills. Denies contact with sick individuals, out of state travelling. Denies any other symptoms. Allergies: Codeine Social History: Current smoker (6 cigarettes per day). No alcohol. No illicit drugs. Surgical history: Cholecystectomy, PMD: Dr. Dino mckay <Markus Pillai - Last Filed: 05/16/18 05:36> <Arie Pinzon - Last Filed: 05/16/18 14:02> - General Chief Complaint: Vomiting/Diarrhea Stated Complaint: VOMITING Time Seen by Provider: 05/16/18 03:31 Past History - Past Medical History COPD: No GI Disorders: Yes (GERD) Disorders: No - Surgical History Abdominal Surgery: Yes Cholecystectomy: Yes - Immunization History Immunization Up to Date: Yes - Suicide/Smoking/Psychosocial Hx Smoking Status: Yes Smoking History: Never smoked Have you smoked in the past 12 months: No Number of Cigarettes Smoked Daily: 10 Cigars Per Day: 0 Information on smoking cessation initiated: No 'Breaking Loose' booklet given: 04/17/18 Hx Alcohol Use: No Drug/Substance Use Hx: No Substance Use Type: None <DeandreGerardo esqueda - Last Filed: 05/16/18 03:32> <Markus Pillai - Last Filed: 05/16/18 05:36> <Arie Pinzon - Last Filed: 05/16/18 14:02> - Past Medical History Allergies/Adverse Reactions: Allergies Allergy/AdvReac Type Severity Reaction Status Date / Time codeine Allergy Rash Verified 05/16/18 03:19 Home Medications: Ambulatory Orders Butalb/Acetaminophen/Caffeine [Fioricet 50-300-40 mg Capsule] 1 each PO QID PRN #28 capsule 03/26/18 Omeprazole 10 mg PO DAILY #30 capsule. 03/26/18 Albuterol Sulfate [Proair Hfa] 2 inh IH QID PRN 05/06/18 Metoclopramide HCl [Reglan] 10 mg PO TID PRN 05/06/18 Review of Systems - Review of Systems Able to Perform ROS?: Yes Comments:: 05/16/18 05:36 CONSTITUTIONAL: Absent: fever, no chills, no fatigue EYES: Absent: visual changes ENT: Absent: ear pain, no sore throat CARDIOVASCULAR: Absent: chest pain, no palpitations RESPIRATORY: Absent: cough, no SOB GI: +Vomiting. +Diarrhea. Absent: abdominal pain, no nausea, no constipation, GENITOURINARY: Absent: dysuria, no frequency, no hematuria MUSCULOSKELETAL: Absent: back pain, no arthralgia, no myalgia SKIN: Absent: rash <Markus Pillai - Last Filed: 05/16/18 05:36> *Physical Exam - Vital Signs Last Vital Signs Temp Pulse Resp BP Pulse Ox 98.7 F 75 18 116/85 100 05/16/18 03:16 05/16/18 03:16 05/16/18 03:16 05/16/18 03:16 05/16/18 03:16 <Gerardo Baker - Last Filed: 05/16/18 03:32> - Vital Signs Last Vital Signs Temp Pulse Resp BP Pulse Ox 98.7 F 75 18 116/85 100 05/16/18 03:16 05/16/18 03:16 05/16/18 03:16 05/16/18 03:16 05/16/18 03:16 - Physical Exam Comments: 05/16/18 05:36 GENERAL: Well-appearing, well-nourished. No apparent distress. HEENT: +Very dry oral mucosa Normocephalic, atraumatic. PERRL, EOM intact. CARDIOVASCULAR: Normal S1, S2. Regular rate and rhythm. PULMONARY: Clear to auscultation bilaterally. ABDOMEN: Soft, non-distended, non-tender. EXTREMITIES: Normal ROM in all four extremities. No gross deformities. SKIN: Warm, dry. No rash NEUROLOGICAL: No focal neurological deficits. <Markus Pillai - Last Filed: 05/16/18 05:36> - Vital Signs Last Vital Signs Temp Pulse Resp BP Pulse Ox 98.7 F 75 18 116/85 100 05/16/18 03:16 05/16/18 03:16 05/16/18 03:16 05/16/18 03:16 05/16/18 03:16 <Arie Pinzon - Last Filed: 05/16/18 14:02> ED Treatment Course - LABORATORY CBC & Chemistry Diagram: 05/16/18 04:30 05/16/18 04:30 - ADDITIONAL ORDERS Additional order review: Laboratory Results 05/16/18 05/16/18 05/16/18 04:30 04:30 04:30 PT with INR 15.70 H INR 1.39 H D Sodium 141 Potassium 3.8 Chloride 106 Carbon Dioxide 21 Anion Gap 14 BUN 20 H Creatinine 1.0 Creat Clearance w eGFR 58.00 Random Glucose 110 H Calcium 9.0 Magnesium 2.5 H Total Bilirubin 0.4 AST 28 ALT 47 Alkaline Phosphatase 152 H D Creatine Kinase 91 Troponin I < 0.02 Total Protein 8.7 H Albumin 4.1 Lipase 160 Urine Color Corry Urine Appearance Cloudy Urine pH 5.0 Ur Specific Drummond 1.031 Urine Protein 2+ H Urine Glucose (UA) 1+ H Urine Ketones Trace H Urine Blood Negative Urine Nitrite Negative Urine Bilirubin 4.0 Urine Urobilinogen 2.0 H Ur Leukocyte Esterase Negative 05/16/18 04:30 RBC 4.77 MCV 91.2 MCHC 33.3 RDW 12.7 MPV 8.2 Neutrophils % 79.8 D Lymphocytes % 10.8 D Monocytes % 8.9 Eosinophils % 0.0 D Basophils % 0.5 - Medications Given in the ED: ED Medications Discontinued Medications Generic Name Dose Route Start Last Admin Trade Name Freq PRN Reason Stop Dose Admin Pantoprazole Sodium 40 mg/ 100 mls @ 200 mls/hr 05/16/18 03:33 05/16/18 04:30 Sodium Chloride IVPB 05/16/18 04:02 200 mls/hr ONCE ONE Administration Sodium Chloride 1,000 mls @ 1,000 mls/hr 05/16/18 03:34 05/16/18 04:30 Normal Saline - IV 05/16/18 04:33 1,000 mls/hr ASDIR STA Administration Sodium Chloride 1,000 mls @ 1,000 mls/hr 05/16/18 03:34 05/16/18 04:30 Normal Saline - IV 05/16/18 04:33 1,000 mls/hr ASDIR STA Administration Ketorolac Tromethamine 30 mg 05/16/18 03:33 05/16/18 04:30 Toradol Injection - IVPUSH 05/16/18 03:34 30 mg ONCE ONE Administration Ondansetron HCl 4 mg 05/16/18 03:33 05/16/18 04:30 Zofran Injection IVPUSH 05/16/18 03:34 4 mg ONCE STA Administration <RosasMarkus - Last Filed: 05/16/18 05:36> - LABORATORY CBC & Chemistry Diagram: 05/16/18 04:30 05/16/18 04:30 - ADDITIONAL ORDERS Additional order review: Laboratory Results 05/16/18 05/16/18 05/16/18 04:30 04:30 04:30 PT with INR 15.70 H INR 1.39 H D Sodium 141 Potassium 3.8 Chloride 106 Carbon Dioxide 21 Anion Gap 14 BUN 20 H Creatinine 1.0 Creat Clearance w eGFR 58.00 Random Glucose 110 H Calcium 9.0 Magnesium 2.5 H Total Bilirubin 0.4 AST 28 ALT 47 Alkaline Phosphatase 152 H D Creatine Kinase 91 Troponin I < 0.02 Total Protein 8.7 H Albumin 4.1 Lipase 160 Urine Color Corry Urine Appearance Cloudy Urine pH 5.0 Ur Specific [place] 1.031 Urine Protein 2+ H Urine Glucose (UA) 1+ H Urine Ketones Trace H Urine Blood Negative Urine Nitrite Negative Urine Bilirubin 4.0 Urine Urobilinogen 2.0 H Ur Leukocyte Esterase Negative Urine WBC (Auto) 33 Urine RBC (Auto) 5 Ur Epithelial Cells Moderate Hyaline Casts 160 Urine Mucus Many 05/16/18 04:30 RBC 4.77 MCV 91.2 MCHC 33.3 RDW 12.7 MPV 8.2 Neutrophils % 79.8 D Lymphocytes % 10.8 D Monocytes % 8.9 Eosinophils % 0.0 D Basophils % 0.5 - Medications Given in the ED: ED Medications Discontinued Medications Generic Name Dose Route Start Last Admin Trade Name Freq PRN Reason Stop Dose Admin Diphenhydramine HCl 25 mg 05/16/18 07:51 05/16/18 07:55 Benadryl Injection - IVPB 05/16/18 07:52 25 mg ONCE ONE Administration Pantoprazole Sodium 40 mg/ 100 mls @ 200 mls/hr 05/16/18 03:33 05/16/18 04:30 Sodium Chloride IVPB 05/16/18 04:02 200 mls/hr ONCE ONE Administration Sodium Chloride 1,000 mls @ 1,000 mls/hr 05/16/18 03:34 05/16/18 04:30 Normal Saline - IV 05/16/18 04:33 1,000 mls/hr ASDIR STA Administration Sodium Chloride 1,000 mls @ 1,000 mls/hr 05/16/18 03:34 05/16/18 04:30 Normal Saline - IV 05/16/18 04:33 1,000 mls/hr ASDIR STA Administration Ketorolac Tromethamine 30 mg 05/16/18 03:33 05/16/18 04:30 Toradol Injection - IVPUSH 05/16/18 03:34 30 mg ONCE ONE Administration Metoclopramide HCl 10 mg 05/16/18 07:51 05/16/18 07:55 Reglan Injection - IVPB 05/16/18 07:52 10 mg ONCE ONE Administration Ondansetron HCl 4 mg 05/16/18 03:33 05/16/18 04:30 Zofran Injection IVPUSH 05/16/18 03:34 4 mg ONCE STA Administration Sodium Chloride 1,000 ml 05/16/18 07:51 05/16/18 07:55 Normal Saline - IV 05/16/18 07:52 1,000 ml ONCE ONE Administration <Arie Pinzon - Last Filed: 05/16/18 14:02> Medical Decision Making - Medical Decision Making 05/16/18 14:01 Patient with multiple episodes of nausea vomiting diarrhea left-sided abdominal discomfort On CAT scan bilateral pneumonia left greater than right as well as left UVJ stone. Urinalysis does show some white blood cells as well as red cells but no obvious nitrites or leuk esterase At this point low suspicion for infected stone however we'll have urology consult No fever no significantly elevated white blood cell count Case discussed with Dr. Villafana we will admit to medicine for further management Levaquin given for pneumonia we'll hydrate pain management have urology and pulmonary consult on patient <Arie Pinzon - Last Filed: 05/16/18 14:02> *DC/Admit/Observation/Transfer <Gerardo Baker - Last Filed: 05/16/18 03:32> - Attestations Scribe Attestion: 05/16/18 05:36 Documentation prepared by Markus Pillai, acting as medical payment poster for Gerardo Baker DO. <Markus Pillai - Last Filed: 05/16/18 05:36> - Discharge Dispostion Decision to Admit order: Yes <Arie Pinzon - Last Filed: 05/16/18 14:02> Diagnosis at time of Disposition: Renal colic Pneumonia Qualifiers: Pneumonia type: due to unspecified organism Laterality: bilateral Lung location : lower lobe of lung Qualified Code(s): J18.1 - Lobar pneumonia, unspecified organism - Discharge Dispostion Condition at time of disposition: Fair
[2018-05-16] MEDS ORDERED: SODIUM CHLORIDE 1,000 ML IV STA ×2 (03:34)
[2018-05-16 04:35] LABS: BASO % 0.5 % (0-2.0); HEMATOCRIT 43.4 % (32.4-45.2); HEMOGLOBIN 14.5 GM/dL (10.7-15.3); LYMPH % 10.8 % (8-40); MCH 30.3 pg (25.7-33.7); MCHC 33.3 g/dl (32.0-36.0); MEAN CELL VOLUME 91.2 fl (80-96); MEAN PLT VOLUME 8.2 fl (7.5-11.1); MONO % 8.9 % (3.8-10.2); NEUT % 79.8 % (42.8-82.8); PLATELET COUNT 499 K/MM3 (134-434); RBC 4.77 M/mm3 (3.60-5.2); RDW 12.7 % (11.6-15.6); WHITE BLOOD COUNT 11.6 K/mm3 (4.0-10.0)
[2018-05-16 04:36] LABS: URINE APPEARANCE CLOUDY; URINE COLOR AMBER; URINE GLUCOSE (UA) 1+ (NEGATIVE); URINE KETONE TRACE (NEGATIVE); URINE LEUK ESTERASE NEGATIVE (NEGATIVE); URINE NITRITE NEGATIVE (NEGATIVE); URINE PROTEIN 2+ (NEGATIVE)
[2018-05-16 04:38] LABS: EPI CELLS MODERATE /HPF (FEW); URINE HYALINE CAST 160 /lpf; URINE MUCUS MANY
[2018-05-16 04:47] LABS: INR 1.39 (0.82-1.09); PROTHROMBIN TIME (PATIENT) 15.7 SEC (9.7-13.0)
[2018-05-16 04:57] LABS: ALBUMIN 4.1 g/dl (3.4-5.0); ANION GAP 14 (8-16); BILIRUBIN,TOTAL 0.4 mg/dL (0.2-1.0); BLOOD UREA NITROGEN 20 mg/dL (7-18); CHLORIDE 106 mmol/L (98-107); CO2 21 mmol/L (21-32); GLUCOSE,RANDOM 110 mg/dL (74-106); LIPASE 160 U/L (73-393); SGPT/ALT 47 U/L (12-78); SODIUM 141 mmol/L (136-145); TOT PROT 8.7 g/dl (6.4-8.2)
[2018-05-16 05:01] LABS: ALK PHOS 152 U/L (45-117)
[2018-05-16 05:19] LABS: MAGNESIUM 2.5 mg/dL (1.8-2.4); POTASSIUM 3.8 mmol/L (3.5-5.1); SGOT/AST 28 U/L (15-37)
[2018-05-16] MEDS ORDERED: METOCLOPRAMIDE HCL INJECTION 10 MG/2 ML VIAL IVPB ONE (07:51)
[2018-05-16] MEDS ORDERED: SODIUM CHLORIDE 0.9% 1000 ML INFUS.BAG IV ONE (07:51)
[2018-05-16] MEDS ORDERED: METOCLOPRAMIDE HCL INJECTION 10 MG/2 ML VIAL ONE (08:08)
[2018-05-16] MEDS ORDERED: ACETAMINOPHEN 325 MG TABLET (FP) PO ONE (10:14)
--- NOTE | 2018-05-16 15:01 | HP ---
Admitting History and Physical - Primary Care Physician PCP: Tab Fitzgerald - Admission Chief Complaint: FLANK PAIN/RESP DISTRESS History of Present Illness: PATIENT CAME TO ER WITH FLANK PAIN AND COUGH, SOB WITH COUGH. CT SCAN SHOWS LEFT LUNG INFILTRATE WITH LEFT RENAL CALCULI/COLLECTION. History Source: Patient, Medical Record - Past Medical History ...LMP: 04/07/10 - Past Surgical History Past Surgical History: Yes: , Cholecystectomy - Smoking History Smoking history: Never smoked Have you smoked in the past 12 months: No Aproximately how many cigarettes per day: 10 - Alcohol/Substance Use Hx Alcohol Use: No Home Medications - Allergies Allergies/Adverse Reactions: Allergies Allergy/AdvReac Type Severity Reaction Status Date / Time codeine Allergy Rash Verified 05/16/18 03:19 - Home Medications Home Medications: Ambulatory Orders Butalb/Acetaminophen/Caffeine [Fioricet 50-300-40 mg Capsule] 1 each PO QID PRN #28 capsule 03/26/18 Omeprazole 10 mg PO DAILY #30 capsule. 03/26/18 Albuterol Sulfate [Proair Hfa] 2 inh IH QID PRN 05/06/18 Metoclopramide HCl [Reglan] 10 mg PO TID PRN 05/06/18 Family Disease History - Family Disease History Family Disease History: Diabetes: Mother, Heart Disease: Mother, Other: Father ( Prostate) Review of Systems - Review of Systems Constitutional: reports: Chills Eyes: reports: No Symptoms HENT: reports: No Symptoms Neck: reports: No Symptoms Cardiovascular: reports: Shortness of Breath Respiratory: reports: Cough, SOB on Exertion Gastrointestinal: reports: Abdominal Pain Genitourinary: reports: Flank Pain Musculoskeletal: reports: No Symptoms Integumentary: reports: No Symptoms Neurological: reports: No Symptoms Endocrine: reports: No Symptoms Hematology/Lymphatic: reports: No Symptoms Psychiatric: reports: No Symptoms Physical Examination Vital Signs: Vital Signs Temperature 98.7 F 05/16/18 03:16 Pulse Rate 75 05/16/18 03:16 Respiratory Rate 18 05/16/18 03:16 Blood Pressure 116/85 05/16/18 03:16 O2 Sat by Pulse Oximetry (%) 100 05/16/18 03:16 Constitutional: Yes: Mild Distress Eyes: Yes: WNL HENT: Yes: WNL Neck: Yes: WNL Cardiovascular: Yes: WNL Respiratory: Yes: Cough, On Nasal O2, Rhonchi, SOB Gastrointestinal: Yes: Tenderness Renal/: Yes: CVA Tenderness - Left Musculoskeletal: Yes: WNL Extremities: Yes: WNL Edema: No Peripheral Pulses WNL: Yes Integumentary: Yes: WNL Wound/Incision: Yes: Clean/Dry Neurological: Yes: WNL ...Motor Strength: WNL Psychiatric: Yes: WNL Labs: CBC, BMP 05/16/18 04:30 05/16/18 04:30 Imaging - Results Cat Scan: Report Reviewed Problem List - Problems (1) Pneumonia Code(s): J18.9 - PNEUMONIA, UNSPECIFIED ORGANISM Qualifiers: Pneumonia type: due to unspecified organism Laterality: bilateral Lung location: lower lobe of lung Qualified Code(s): J18.1 - Lobar pneumonia, unspecified organism (2) Renal colic Code(s): N23 - UNSPECIFIED RENAL COLIC (3) Abdominal pain Code(s): R10.9 - UNSPECIFIED ABDOMINAL PAIN (4) Dysuria Code(s): R30.0 - DYSURIA (5) URI (upper respiratory infection) Code(s): J06.9 - ACUTE UPPER RESPIRATORY INFECTION, UNSPECIFIED Qualifiers: URI type: unspecified URI Qualified Code(s): J06.9 - Acute upper respiratory infection, unspecified Assessment/Plan TREAT PNEUMONIA AND RENAL COLLECTION WITH IV LEVAQUIN ID AND CONSULT CHECK LABS INCENTIVE SPIROMETRY NEBS 02 SUPPORT
[2018-05-16] MEDS ORDERED: ALBUTEROL SO4 2.5/IPRATROPIUM 0.5 INH SOL 3 ML VIAL.NEB. NEB PRN (17:38)
[2018-05-16] MEDS: traMADol HCL 50 MG TABLET PO PRN (19:07)
[2018-05-16] MEDS: ACETAMINOPHEN 325 MG TABLET (FP) PO ONE (23:26)
[2018-05-17] MEDS: ACETAMINOPHEN 325 MG TABLET (FP) PO ONE (00:33)
[2018-05-17 00:45] VITALS: BMI 15.5
[2018-05-17] MEDS ORDERED: KETOROLAC TROMETHAMINE 15 MG/ML VIAL IVPUSH ONE (01:15)
--- NOTE | 2018-05-17 08:47 | CON.GU ---
Consult Consult Specialty:: urology Referred by:: kelvin Reason for Consultation:: left ureteral stone with renal colic and hydro with nausea/vomiting and left lower lung infiltrate - History of Present Illness Chief Complaint: left renal colic History of Present Illness: Patient with lower ureteral 6+ mm stone with hydro and left lung infiltrate. Patient with severe left colic with nausea and vomiting - Past Medical History ...LMP: 04/07/10 ...: No - Past Surgical History Past Surgical History: Yes: , Cholecystectomy - Alcohol/Substance Use Hx Alcohol Use: Yes - Smoking History Smoking history: Current every day smoker Have you smoked in the past 12 months: Yes Aproximately how many cigarettes per day: 10 Home Medications - Allergies Allergies/Adverse Reactions: Allergies Allergy/AdvReac Type Severity Reaction Status Date / Time codeine Allergy Rash Verified 05/16/18 03:19 Family Disease History - Family Disease History Family Disease History: Diabetes: Mother, Heart Disease: Mother, Other: Father ( Prostate) Physical Exam- Vital Signs: Vital Signs Temperature 98.3 F 05/17/18 05:47 Pulse Rate 56 L 05/17/18 05:47 Respiratory Rate 20 05/17/18 05:47 Blood Pressure 125/72 05/17/18 05:47 O2 Sat by Pulse Oximetry (%) 99 05/16/18 23:00 Constitutional: Yes: Severe Distress, Other Eyes: Yes: WNL, Conjunctiva Clear HENT: Yes: WNL, Atraumatic Neck: Yes: WNL, Supple, Trachea Midline Cardiovascular: Yes: WNL Gastrointestinal: Yes: WNL, Hypoactive Bowel Sounds Renal/: Yes: CVA Tenderness - Left Kidneys: Yes: Flank Pain Left Pelvis: Yes: WNL External Genitalia: Yes: WNL Labs: CBC, BMP 05/16/18 04:30 05/16/18 04:30 Imaging - Results Cat Scan: Report Reviewed Assessment/Plan imp left renal colic left ureteral stone with hydro left lower lobe infiltrate plan will emergently schedule left ureteroscopic stone basketing and stent due to patient's severe distress, nause and vomiting discussed with patient x 20 minutes
--- NOTE | 2018-05-17 09:42 | PN ---
Progress Note, Physician - Current Medication List Current Medications: Active Medications Albuterol/Ipratropium (Duoneb -) 1 amp NEB Q6H PRN PRN Reason: SHORTNESS OF BREATH Levofloxacin (Levaquin 500 Mg Premixed Ivpb -) 500 mg in 100 mls @ 100 mls/hr IVPB DAILY KATIE; Protocol Ondansetron HCl (Zofran Odt -) 4 mg SL Q6H PRN PRN Reason: NAUSEA AND/OR VOMITING Pantoprazole Sodium (Protonix -) 40 mg PO DAILY KATIE Tramadol HCl (Ultram -) 50 mg PO Q6H PRN PRN Reason: PAIN LEVEL 7 - 10 Last Admin: 05/16/18 19:07 Dose: 50 mg - Objective Vital Signs: Vital Signs Temperature 98.3 F 05/17/18 05:47 Pulse Rate 56 L 05/17/18 05:47 Respiratory Rate 20 05/17/18 05:47 Blood Pressure 125/72 05/17/18 05:47 O2 Sat by Pulse Oximetry (%) 99 05/16/18 23:00 Cardiovascular: Yes: S1, S2 Respiratory: Yes: Diminished, Rales Gastrointestinal: Yes: Normal Bowel Sounds, Soft Labs: CBC, BMP 05/16/18 04:30 05/16/18 04:30 INR, PTT INR 1.39 (0.82-1.09) H D 05/16/18 04:30 Problem List - Problems (1) Pneumonia Assessment/Plan: -IV BAX -ID CONSULT -FOLLOW CXR AND CULTURES Code(s): J18.9 - PNEUMONIA, UNSPECIFIED ORGANISM Qualifiers: Pneumonia type: due to unspecified organism Laterality: bilateral Lung location: lower lobe of lung Qualified Code(s): J18.1 - Lobar pneumonia, unspecified organism (2) Renal colic Assessment/Plan: -IVF UROLOGY NOTED -OR ONCE CLEARED BY PULM AND ID Code(s): N23 - UNSPECIFIED RENAL COLIC
[2018-05-17 10:09] LABS: HEMATOCRIT 35.6 % (32.4-45.2); HEMOGLOBIN 11.9 GM/dL (10.7-15.3); MCH 30.5 pg (25.7-33.7); MCHC 33.4 g/dl (32.0-36.0); MEAN CELL VOLUME 91.4 fl (80-96); MEAN PLT VOLUME 8.2 fl (7.5-11.1); PLATELET COUNT 411 K/MM3 (134-434); RDW 12.7 % (11.6-15.6); WHITE BLOOD COUNT 9.3 K/mm3 (4.0-10.0)
[2018-05-17 11:22] LABS: ALBUMIN 3.1 g/dl (3.4-5.0); ALK PHOS 110 U/L (45-117); ANION GAP 8 (8-16); BILIRUBIN,TOTAL 0.4 mg/dL (0.2-1.0); BLOOD UREA NITROGEN 16 mg/dL (7-18); CALCIUM 8.6 mg/dL (8.5-10.1); CHLORIDE 108 mmol/L (98-107); CO2 26 mmol/L (21-32); CREATININE 0.5 mg/dL (0.55-1.02); GLUCOSE,RANDOM 145 mg/dL (74-106); POTASSIUM 3.2 mmol/L (3.5-5.1); SGOT/AST 76 U/L (15-37); SGPT/ALT 58 U/L (12-78); SODIUM 142 mmol/L (136-145); TOT PROT 6.4 g/dl (6.4-8.2)
[2018-05-17] MEDS: traMADol HCL 50 MG TABLET PO PRN (11:49)
[2018-05-17] MEDS: PANTOPRAZOLE 40 MG TABLET (FP) PO SCH (11:49)
[2018-05-17] MEDS: ONDANSETRON *ODT* 4 MG TABLET SL PRN (11:49)
--- NOTE | 2018-05-17 12:38 | CON.ID ---
Consult Consult Specialty:: infectious diseases Referred by:: Reason for Consultation:: pneumonia - History of Present Illness Chief Complaint: abd pain left side History of Present Illness: Patient is a 52 year old female with a significant past medical history of asthma, chronic abdominal pain, and migraines admitted to the hospital because she started having abd pain mainly on left side which was associated with nausea ,vomiting and dirrhoea patient after coming was worked up and on imaging was found to have stone in the left uvj for which urology wants to take the patient to the OR and get the stone removed also patient is found to have b/l lung infiltrates - History Source History Provided By: Patient Limitations to Obtaining History: Language Barrier - Past Medical History ...LMP: 04/07/10 ...: No - Past Surgical History Past Surgical History: Yes: , Cholecystectomy - Alcohol/Substance Use Hx Alcohol Use: Yes - Smoking History Smoking history: Current every day smoker Have you smoked in the past 12 months: Yes Aproximately how many cigarettes per day: 10 Home Medications - Allergies Allergies/Adverse Reactions: Allergies Allergy/AdvReac Type Severity Reaction Status Date / Time codeine Allergy Rash Verified 05/16/18 03:19 Family Disease History - Family Disease History Family Disease History: Diabetes: Mother, Heart Disease: Mother, Other: Father ( Prostate) Review of Systems - Review of Systems Constitutional: reports: Weakness Eyes: reports: No Symptoms HENT: reports: No Symptoms Neck: reports: No Symptoms Cardiovascular: reports: No Symptoms Respiratory: reports: No Symptoms Gastrointestinal: reports: No Symptoms Genitourinary: reports: Other (left suprapubic pain) Musculoskeletal: reports: No Symptoms Integumentary: reports: No Symptoms Neurological: reports: No Symptoms Endocrine: reports: No Symptoms Hematology/Lymphatic: reports: No Symptoms Psychiatric: reports: No Symptoms Physical Exam Vital Signs: Vital Signs Temperature 98.2 F 05/17/18 10:00 Pulse Rate 55 L 05/17/18 10:00 Respiratory Rate 18 05/17/18 10:00 Blood Pressure 114/65 05/17/18 10:00 O2 Sat by Pulse Oximetry (%) 99 05/16/18 23:00 Constitutional: Yes: Thin, Other Cardiovascular: Yes: Regular Rate and Rhythm Respiratory: Yes: Regular, Poor Air Entry (bases), Rhonchi Gastrointestinal: Yes: Normal Bowel Sounds, Soft Musculoskeletal: Yes: WNL Extremities: Yes: WNL Neurological: Yes: Alert, Oriented Psychiatric: Yes: Alert, Oriented Labs: CBC, BMP 05/17/18 09:45 05/17/18 09:45 Imaging - Results Cat Scan: Report Reviewed, Image Reviewed Assessment/Plan roblem List - Problems (1) Pneumonia Code(s): J18.9 - PNEUMONIA, UNSPECIFIED ORGANISM Qualifiers: Pneumonia type: due to unspecified organism Laterality: bilateral Lung location: lower lobe of lung Qualified Code(s): J18.1 - Lobar pneumonia, unspecified organism (2) Renal colic Code(s): N23 - UNSPECIFIED RENAL COLIC (3) Abdominal pain Code(s): R10.9 - UNSPECIFIED ABDOMINAL PAIN (4) Dysuria Code(s): R30.0 - DYSURIA (5) URI (upper respiratory infection) Code(s): J06.9 - ACUTE UPPER RESPIRATORY INFECTION, UNSPECIFIED Qualifiers: URI type: unspecified URI Qualified Code(s): J06.9 - Acute upper respiratory infection, unspecified plan will change abx to zosyn patient needs to get the stone removed discussed with the patient it seems her said not to get surgery and patients says she does not wants surgery await for all cx reports
[2018-05-17] MEDS ORDERED: PIPERACILLIN/TAZOBACTAM 3.375 GM VIAL IVPB ONE ×2 (13:54→17:02)
[2018-05-17] MEDS ORDERED: DEXTROSE 5%-WATER - 50 ML IVPB ONE ×2 (13:54→17:02)
--- NOTE | 2018-05-17 14:19 | EKG ---
Test Reason : Blood Pressure : / mmHG Vent. Rate : 058 BPM Atrial Rate : 058 BPM P-R Int : 152 ms QRS Dur : 078 ms QT Int : 462 ms P-R-T Axes : 032 045 064 degrees QTc Int : 453 ms SINUS BRADYCARDIA OTHERWISE NORMAL ECG WHEN COMPARED WITH ECG OF 06-JUN-2016 20:40, QRS AXIS SHIFTED RIGHT Confirmed by IRAIS GONZALEZ MD ([id number]) on 05/17/2018 2:19:19 PM Referred By: AL SEAY DR Confirmed By:IRAIS GONZALEZ MD
[2018-05-17] MEDS: PIPERACILLIN/TAZOB 3.375 GM 3.375 GM in DEXTROSE 5%-WATER - 50 ML IVPB SCH ×2 (14:32→17:20)
--- NOTE | 2018-05-17 14:53 | PN ---
Progress Note (short form) - Note Progress Note: PULMONARY CONSULTATION DICTATED 05/17/18 IMP LLL PNEUMONIA RENAL COLIC LEFT RENAL CALCULI WITH HYDRONEPHROSIS H/O ASTHMA TOBACCO ABUSE PLAN ABX PER ID IVF INHALED BRONCHODILATORS PRN CULTURES F/U CHEST X-RAY DR BOWSER Problem List - Problems (1) Pneumonia Code(s): J18.9 - PNEUMONIA, UNSPECIFIED ORGANISM Qualifiers: Pneumonia type: due to unspecified organism Laterality: bilateral Lung location: lower lobe of lung Qualified Code(s): J18.1 - Lobar pneumonia, unspecified organism (2) Renal colic Code(s): N23 - UNSPECIFIED RENAL COLIC (3) Abdominal pain Code(s): R10.9 - UNSPECIFIED ABDOMINAL PAIN (4) Vomiting Code(s): R11.10 - VOMITING, UNSPECIFIED Qualifiers: Vomiting type: bilious vomiting Nausea presence: with nausea Qualified Code(s): R11.14 - Bilious vomiting
[2018-05-17] MEDS ORDERED: POTASSIUM CHLORIDE TABS 20 MEQ TABLET.ER (FP) PO ONE (15:47)
[2018-05-17] MEDS: ACETAMINOPHEN/CAFFEINE/BUTALBITAL 1 TAB PO PRN (22:07)
--- NOTE | 2018-05-17 23:48 | CONS ---
DATE OF CONSULTATION: 05/17/2018 PULMONARY CONSULTATION REFERRING PHYSICIAN: Tab Fitzgerald M.D. HISTORY OF PRESENT ILLNESS: The patient is a 52-year-old female with a past medical history of asthma, chronic abdominal pain, migraine, admitted to [facility] on May 16 with complaint of abdominal pain, nausea, vomiting , as well as cough and shortness of breath. Patient denies any fevers, chills. Denies any hemoptysis. States that the cough is nonproductive. His symptoms started few days prior to admission. On admission in the emergency room she underwent a CT to the abdomen which revealed evidence of bilateral infiltrates. She was started on broad spectrum antibiotics. Patient was evaluated by Dr. Jayro Escobar for consultation. Patient was noted on CT abdomen to have a left ureteral 6-mm stone and with hydronephrosis and left lung infiltrate. Patient has a history of tobacco use, 8 to 10 cigarettes daily. Denies any history of occupational exposure to chemicals or fumes. PAST MEDICAL HISTORY: Again includes asthma, chronic abdominal pain. SOCIAL HISTORY: Born in [place] and moved to [facility] greater than 20 years ago. No occupational exposures. History of tobacco use. CURRENT MEDICATIONS: Include Zofran, piperacillin, DuoNeb, Ultram, and Protonix. REVIEW OF SYSTEMS: Positive cough. Positive shortness of breath. No wheezing. No bronchospasm. No chest pain. Positive nausea, abdominal pain. Positive flank pain. PHYSICAL EXAMINATION: General: The patient is a well-developed, well-nourished female, awake, alert, in no acute distress. Vital signs: She is currently afebrile. Blood pressure is 98/61, respiratory rate 18, O2 saturation 99% on room air. HEENT: Head is normocephalic, atraumatic. Neck: Supple. Heart: Regular. S1, S2. Chest: With crackles at the bases. Abdomen: Soft. Bowel sounds positive. Extremities: No cyanosis, edema. LABORATORY: Abdominal CT reveals infiltrates with atelectatic change in the left base, a 6-mm stone at left UV junction. There is also slight fulness to the left upper collecting system. WBC on admission was 11.6, currently 9.3 with hemoglobin 11.9, hematocrit 35.6 and platelet count of 411,000. BUN 16, creatinine 0.5, AST 76. Abdominal CT as noted. IMPRESSION: 1. Left renal colic. Nausea, vomiting secondary to left renal colic with hydronephrosis. 2. left lower lobe pneumonia 3. History of asthma. 4. Tobacco use. PLAN: Antibiotics. IV fluids. Analgesics. Supplemental O2 as needed. Supplemental O2 p.r.n. as well as followup chest x-ray. Obtain cultures. Yariel KEENAN/[id number] MTDD
[2018-05-18] MEDS ORDERED: PIPERACILLIN/TAZOBACTAM 3.375 GM VIAL IVPB ONE ×3 (01:18→17:09)
[2018-05-18] MEDS ORDERED: DEXTROSE 5%-WATER - 50 ML IVPB ONE ×3 (01:19→17:09)
[2018-05-18] MEDS: PIPERACILLIN/TAZOB 3.375 GM 3.375 GM in DEXTROSE 5%-WATER - 50 ML IVPB SCH ×3 (01:37→17:23)
[2018-05-18] MEDS: ACETAMINOPHEN/CAFFEINE/BUTALBITAL 1 TAB PO PRN ×4 (07:06→21:38)
--- NOTE | 2018-05-18 09:26 | PN ---
Progress Note, Physician History of Present Illness: pain improving says not much better - Current Medication List Current Medications: Active Medications Acetaminophen/Butalbital/Caffeine (Fioricet -) 1 tablet PO Q6H PRN PRN Reason: HEADACHE Last Admin: 05/18/18 07:06 Dose: 1 tablet Albuterol/Ipratropium (Duoneb -) 1 amp NEB Q6H PRN PRN Reason: SHORTNESS OF BREATH Piperacillin Sod/Tazobactam (Sod 3.375 gm/ Dextrose) 50 mls @ 100 mls/hr IVPB Q8H-IV KATIE; Protocol Last Admin: 05/18/18 01:37 Dose: 100 mls/hr Ondansetron HCl (Zofran Odt -) 4 mg SL Q6H PRN PRN Reason: NAUSEA AND/OR VOMITING Last Admin: 05/17/18 11:49 Dose: 4 mg Pantoprazole Sodium (Protonix -) 40 mg PO DAILY KATIE Last Admin: 05/17/18 11:49 Dose: 40 mg Tramadol HCl (Ultram -) 50 mg PO Q6H PRN PRN Reason: PAIN LEVEL 7 - 10 Last Admin: 05/16/18 19:07 Dose: 50 mg - Objective Vital Signs: Vital Signs Temperature 98.4 F 05/18/18 06:31 Pulse Rate 65 05/18/18 06:31 Respiratory Rate 18 05/18/18 06:31 Blood Pressure 109/56 05/18/18 06:31 O2 Sat by Pulse Oximetry (%) 99 05/17/18 21:00 Constitutional: Yes: No Distress, Calm Cardiovascular: Yes: Regular Rate and Rhythm Respiratory: Yes: Regular, CTA Bilaterally Gastrointestinal: Yes: Normal Bowel Sounds, Soft Musculoskeletal: Yes: WNL Extremities: Yes: WNL Neurological: Yes: Alert, Oriented Psychiatric: Yes: Alert, Oriented Labs: CBC, BMP 05/17/18 09:45 05/17/18 09:45 INR, PTT INR 1.39 (0.82-1.09) H D 05/16/18 04:30 Assessment/Plan Problem List - Problems (1) Pneumonia Code(s): J18.9 - PNEUMONIA, UNSPECIFIED ORGANISM Qualifiers: Pneumonia type: due to unspecified organism Laterality: bilateral Lung location: lower lobe of lung Qualified Code(s): J18.1 - Lobar pneumonia, unspecified organism (2) Renal colic Code(s): N23 - UNSPECIFIED RENAL COLIC (3) Abdominal pain Code(s): R10.9 - UNSPECIFIED ABDOMINAL PAIN (4) Vomiting Code(s): R11.10 - VOMITING, UNSPECIFIED Qualifiers: Vomiting type: bilious vomiting Nausea presence: with nausea Qualified Code(s): R11.14 - Bilious vomiting plan continue abx rest continue current mgmt still refusing surgery
[2018-05-18] MEDS: PANTOPRAZOLE 40 MG TABLET (FP) PO SCH (09:31)
--- NOTE | 2018-05-18 11:02 | PN ---
Progress Note (short form) - Note Progress Note: Congested cough. Some left posterior pleuritic type CP. No hemoptysis. Intake & Output 05/15/18 05/16/18 05/17/18 05/18/18 23:59 23:59 23:59 23:59 Intake Total 100 650 600 Balance 100 650 600 Weight 96 lb 7 oz Last Vital Signs Temp Pulse Resp BP Pulse Ox 98.3 F 71 20 100/61 99 05/18/18 09:36 05/18/18 09:36 05/18/18 09:36 05/18/18 09:36 05/18/18 09:00 Active Medications Acetaminophen/Butalbital/Caffeine (Fioricet -) 1 tablet PO Q6H PRN PRN Reason: HEADACHE Last Admin: 05/18/18 07:06 Dose: 1 tablet Albuterol/Ipratropium (Duoneb -) 1 amp NEB Q6H PRN PRN Reason: SHORTNESS OF BREATH Piperacillin Sod/Tazobactam (Sod 3.375 gm/ Dextrose) 50 mls @ 100 mls/hr IVPB Q8H-IV KATIE; Protocol Last Admin: 05/18/18 09:30 Dose: 100 mls/hr Ondansetron HCl (Zofran Odt -) 4 mg SL Q6H PRN PRN Reason: NAUSEA AND/OR VOMITING Last Admin: 05/17/18 11:49 Dose: 4 mg Pantoprazole Sodium (Protonix -) 40 mg PO DAILY KATIE Last Admin: 05/18/18 09:31 Dose: 40 mg Tramadol HCl (Ultram -) 50 mg PO Q6H PRN PRN Reason: PAIN LEVEL 7 - 10 Last Admin: 05/16/18 19:07 Dose: 50 mg Constitutional: Yes: No Distress, Calm Cardiovascular: Yes: Regular Rate and Rhythm Respiratory: Yes: few basilar rhonchi, no wheeze Gastrointestinal: Yes: Normal Bowel Sounds, Soft Musculoskeletal: Yes: WNL Extremities: Yes: WNL Neurological: Yes: Alert, Oriented Psychiatric: Yes: Alert, Oriented Labs: Laboratory Results - last 24 hr 05/17/18 05/17/18 09:45 09:45 Sodium 142 Potassium 3.2 L Chloride 108 H Carbon Dioxide 26 Anion Gap 8 BUN 16 Creatinine 0.5 L Creat Clearance w eGFR > 60 Random Glucose 145 H Hemoglobin A1c % 4.8 Calcium 8.6 Total Bilirubin 0.4 AST 76 H ALT 58 Alkaline Phosphatase 110 D Total Protein 6.4 D Albumin 3.1 L Problem List - Problems (1) Pneumonia Code(s): J18.9 - PNEUMONIA, UNSPECIFIED ORGANISM Qualifiers: Pneumonia type: due to unspecified organism Laterality: bilateral Lung location: lower lobe of lung Qualified Code(s): J18.1 - Lobar pneumonia, unspecified organism (2) Renal colic Code(s): N23 - UNSPECIFIED RENAL COLIC (3) Abdominal pain Code(s): R10.9 - UNSPECIFIED ABDOMINAL PAIN (4) Vomiting Code(s): R11.10 - VOMITING, UNSPECIFIED Qualifiers: Vomiting type: bilious vomiting Nausea presence: with nausea Qualified Code(s): R11.14 - Bilious vomiting IMP LLL PNEUMONIA RENAL COLIC LEFT RENAL CALCULI WITH HYDRONEPHROSIS H/O ASTHMA TOBACCO ABUSE PLAN ABX PER ID IVF INHALED BRONCHODILATORS PRN FOLLOW CULTURES DR PEREZ
[2018-05-18] MEDS: methylPREDNISolone NA SUCC 40 MG/1 ML VIAL IVPUSH SCH (12:18)
[2018-05-18] MEDS ORDERED: POTASSIUM CHLORIDE TABS 20 MEQ TABLET.ER (FP) PO ONE (12:43)
--- NOTE | 2018-05-18 12:57 | PN ---
Progress Note, Physician Chief Complaint: patient in bed eating still have left sided pain does not want surgery - Current Medication List Current Medications: Active Medications Acetaminophen/Butalbital/Caffeine (Fioricet -) 1 tablet PO Q6H PRN PRN Reason: HEADACHE Last Admin: 05/18/18 12:17 Dose: 1 tablet Albuterol/Ipratropium (Duoneb -) 1 amp NEB Q6H PRN PRN Reason: SHORTNESS OF BREATH Piperacillin Sod/Tazobactam (Sod 3.375 gm/ Dextrose) 50 mls @ 100 mls/hr IVPB Q8H-IV KATIE; Protocol Last Admin: 05/18/18 09:30 Dose: 100 mls/hr Methylprednisolone Sodium Succinate (Solu-Medrol -) 40 mg IVPUSH DAILY KATIE Stop: 05/22/18 10:01 Last Admin: 05/18/18 12:18 Dose: 40 mg Ondansetron HCl (Zofran Odt -) 4 mg SL Q6H PRN PRN Reason: NAUSEA AND/OR VOMITING Last Admin: 05/17/18 11:49 Dose: 4 mg Pantoprazole Sodium (Protonix -) 40 mg PO DAILY KATIE Last Admin: 05/18/18 09:31 Dose: 40 mg Potassium Chloride (K-Dur -) 40 meq PO ONCE ONE Stop: 05/18/18 12:44 Tramadol HCl (Ultram -) 50 mg PO Q6H PRN PRN Reason: PAIN LEVEL 7 - 10 Last Admin: 05/16/18 19:07 Dose: 50 mg - Objective Vital Signs: Vital Signs Temperature 98.3 F 05/18/18 09:36 Pulse Rate 71 05/18/18 09:36 Respiratory Rate 20 05/18/18 09:36 Blood Pressure 100/61 05/18/18 09:36 O2 Sat by Pulse Oximetry (%) 99 05/18/18 09:00 Constitutional: Yes: Calm, Thin Cardiovascular: Yes: Regular Rate and Rhythm, S1, S2 Respiratory: Yes: Diminished Gastrointestinal: Yes: Normal Bowel Sounds, Soft, Tenderness (cva left sided) Genitourinary: Yes: CVA Tenderness - Left Edema: No Neurological: Yes: Alert, Oriented Labs: CBC, BMP 05/17/18 09:45 05/17/18 09:45 INR, PTT INR 1.39 (0.82-1.09) H D 05/16/18 04:30 Problem List - Problems (1) Renal colic Assessment/Plan: spoke to patient today and explained to her need for surgery but she is refusing it patient has 6 mm calculus at left UVJ and hydronephrosis with renal colic seen by urology refusing uteroscopic stone basketing and stent placement Code(s): N23 - UNSPECIFIED RENAL COLIC (2) Pneumonia Assessment/Plan: LLL pna on zosyn Code(s): J18.9 - PNEUMONIA, UNSPECIFIED ORGANISM Qualifiers: Pneumonia type: due to unspecified organism Laterality: bilateral Lung location: lower lobe of lung Qualified Code(s): J18.1 - Lobar pneumonia, unspecified organism (3) Weight loss Assessment/Plan: will have GI see patient Code(s): R63.4 - ABNORMAL WEIGHT LOSS Assessment/Plan repeat BMP to check potassium level
[2018-05-18 16:20] LABS: ANION GAP 11 (8-16); BLOOD UREA NITROGEN 13 mg/dL (7-18); CALCIUM 8.4 mg/dL (8.5-10.1); CHLORIDE 108 mmol/L (98-107); CO2 23 mmol/L (21-32); CREATININE 0.6 mg/dL (0.55-1.02); GLUCOSE,RANDOM 152 mg/dL (74-106); POTASSIUM 3.9 mmol/L (3.5-5.1); SODIUM 142 mmol/L (136-145)
[2018-05-18 16:25] LABS: BASO % 0.7 % (0-2.0); EOS % 0.2 % (0-4.5); HEMATOCRIT 36.4 % (32.4-45.2); HEMOGLOBIN 12.2 GM/dL (10.7-15.3); LYMPH % 8.9 % (8-40); MCH 30.7 pg (25.7-33.7); MCHC 33.5 g/dl (32.0-36.0); MEAN CELL VOLUME 91.7 fl (80-96); MEAN PLT VOLUME 8.4 fl (7.5-11.1); MONO % 3.2 % (3.8-10.2); PLATELET COUNT 451 K/MM3 (134-434); RBC 3.97 M/mm3 (3.60-5.2); RDW 12.8 % (11.6-15.6)
[2018-05-19] MEDS ORDERED: PIPERACILLIN/TAZOBACTAM 3.375 GM VIAL IVPB ONE ×3 (01:20→15:06)
[2018-05-19] MEDS ORDERED: DEXTROSE 5%-WATER - 50 ML IVPB ONE ×3 (01:21→15:06)
[2018-05-19] MEDS: PIPERACILLIN/TAZOB 3.375 GM 3.375 GM in DEXTROSE 5%-WATER - 50 ML IVPB SCH ×3 (01:30→17:31)
[2018-05-19] MEDS: ACETAMINOPHEN/CAFFEINE/BUTALBITAL 1 TAB PO PRN ×4 (05:18→20:30)
[2018-05-19 08:15] LABS: CHLORIDE 106 mmol/L (98-107); POTASSIUM 3.6 mmol/L (3.5-5.1); SODIUM 142 mmol/L (136-145)
[2018-05-19 08:28] LABS: ALBUMIN 3.1 g/dl (3.4-5.0); ALK PHOS 109 U/L (45-117); ANION GAP 8 (8-16); BILIRUBIN,TOTAL 0.3 mg/dL (0.2-1.0); BLOOD UREA NITROGEN 16 mg/dL (7-18); CALCIUM 8.3 mg/dL (8.5-10.1); CO2 28 mmol/L (21-32); CREATININE 0.6 mg/dL (0.55-1.02); GLUCOSE,RANDOM 102 mg/dL (74-106); SGOT/AST 73 U/L (15-37); SGPT/ALT 105 U/L (12-78); TOT PROT 6.5 g/dl (6.4-8.2)
[2018-05-19] MEDS: methylPREDNISolone NA SUCC 40 MG/1 ML VIAL IVPUSH SCH (09:47)
[2018-05-19] MEDS: ONDANSETRON *ODT* 4 MG TABLET SL PRN (09:47)
[2018-05-19] MEDS: PANTOPRAZOLE 40 MG TABLET (FP) PO SCH (09:47)
--- NOTE | 2018-05-19 10:50 | PN ---
Progress Note, Physician History of Present Illness: pain improving says not much better pain improving - Current Medication List Current Medications: Active Medications Acetaminophen/Butalbital/Caffeine (Fioricet -) 1 tablet PO Q4H PRN PRN Reason: HEADACHE Last Admin: 05/19/18 05:18 Dose: 1 tablet Albuterol/Ipratropium (Duoneb -) 1 amp NEB Q6H PRN PRN Reason: SHORTNESS OF BREATH Piperacillin Sod/Tazobactam (Sod 3.375 gm/ Dextrose) 50 mls @ 100 mls/hr IVPB Q8H-IV KATIE; Protocol Last Admin: 05/19/18 09:47 Dose: 100 mls/hr Methylprednisolone Sodium Succinate (Solu-Medrol -) 40 mg IVPUSH DAILY KATIE Stop: 05/22/18 10:01 Last Admin: 05/19/18 09:47 Dose: 40 mg Ondansetron HCl (Zofran Odt -) 4 mg SL Q6H PRN PRN Reason: NAUSEA AND/OR VOMITING Last Admin: 05/19/18 09:47 Dose: 4 mg Pantoprazole Sodium (Protonix -) 40 mg PO DAILY KATIE Last Admin: 05/19/18 09:47 Dose: 40 mg Tramadol HCl (Ultram -) 50 mg PO Q6H PRN PRN Reason: PAIN LEVEL 7 - 10 Last Admin: 05/16/18 19:07 Dose: 50 mg - Objective Vital Signs: Vital Signs Temperature 97.9 F 05/19/18 09:30 Pulse Rate 77 05/19/18 09:30 Respiratory Rate 16 05/19/18 09:30 Blood Pressure 92/73 05/19/18 09:30 O2 Sat by Pulse Oximetry (%) 99 05/18/18 21:00 Constitutional: Yes: Calm, Mild Distress Eyes: Yes: Conjunctiva Clear Cardiovascular: Yes: Regular Rate and Rhythm Respiratory: Yes: Regular, CTA Bilaterally Gastrointestinal: Yes: Normal Bowel Sounds, Soft Musculoskeletal: Yes: WNL Extremities: Yes: WNL Neurological: Yes: Alert, Oriented Psychiatric: Yes: Alert, Oriented Labs: CBC, BMP 05/18/18 15:00 05/19/18 06:30 INR, PTT INR 1.39 (0.82-1.09) H D 05/16/18 04:30 Assessment/Plan Problem List - Problems (1) Pneumonia Code(s): J18.9 - PNEUMONIA, UNSPECIFIED ORGANISM Qualifiers: Pneumonia type: due to unspecified organism Laterality: bilateral Lung location: lower lobe of lung Qualified Code(s): J18.1 - Lobar pneumonia, unspecified organism (2) Renal colic Code(s): N23 - UNSPECIFIED RENAL COLIC (3) Abdominal pain Code(s): R10.9 - UNSPECIFIED ABDOMINAL PAIN (4) Vomiting Code(s): R11.10 - VOMITING, UNSPECIFIED Qualifiers: Vomiting type: bilious vomiting Nausea presence: with nausea Qualified Code(s): R11.14 - Bilious vomiting plan continue abx rest continue current mgmt still refusing surgery await for final plan will deescalate abx to oral tomorrow
--- NOTE | 2018-05-19 11:52 | PN ---
Progress Note, Physician Chief Complaint: left ureteral stone with renal colic and hydro with nausea/vomiting and left lower lung infiltrate History of Present Illness: NAD complaining of mild pain- not being controlled by Tramadol -Refusing any surgical intervention -Seenby ID -On IV abx - Current Medication List Current Medications: Active Medications Acetaminophen/Butalbital/Caffeine (Fioricet -) 1 tablet PO Q4H PRN PRN Reason: HEADACHE Last Admin: 05/19/18 10:53 Dose: 1 tablet Albuterol/Ipratropium (Duoneb -) 1 amp NEB Q6H PRN PRN Reason: SHORTNESS OF BREATH Piperacillin Sod/Tazobactam (Sod 3.375 gm/ Dextrose) 50 mls @ 100 mls/hr IVPB Q8H-IV KATIE; Protocol Last Admin: 05/19/18 09:47 Dose: 100 mls/hr Methylprednisolone Sodium Succinate (Solu-Medrol -) 40 mg IVPUSH DAILY KATIE Stop: 05/22/18 10:01 Last Admin: 05/19/18 09:47 Dose: 40 mg Ondansetron HCl (Zofran Odt -) 4 mg SL Q6H PRN PRN Reason: NAUSEA AND/OR VOMITING Last Admin: 05/19/18 09:47 Dose: 4 mg Pantoprazole Sodium (Protonix -) 40 mg PO DAILY KATIE Last Admin: 05/19/18 09:47 Dose: 40 mg Tramadol HCl (Ultram -) 50 mg PO Q6H PRN PRN Reason: PAIN LEVEL 7 - 10 Last Admin: 05/16/18 19:07 Dose: 50 mg - Objective Vital Signs: Vital Signs Temperature 97.9 F 05/19/18 09:30 Pulse Rate 77 05/19/18 09:30 Respiratory Rate 16 05/19/18 09:30 Blood Pressure 92/73 05/19/18 09:30 O2 Sat by Pulse Oximetry (%) 99 05/18/18 21:00 Constitutional: Yes: Well Nourished, No Distress, Calm Cardiovascular: Yes: Regular Rate and Rhythm Respiratory: Yes: Regular Gastrointestinal: Yes: Normal Bowel Sounds, Soft Musculoskeletal: Yes: WNL Extremities: Yes: WNL Edema: No Peripheral Pulses WNL: Yes Neurological: Yes: Alert, Oriented Psychiatric: Yes: Alert, Oriented Labs: CBC, BMP 05/18/18 15:00 05/19/18 06:30 INR, PTT INR 1.39 (0.82-1.09) H D 05/16/18 04:30 Problem List - Problems (1) Pneumonia Assessment/Plan: -ID consult -Pulmonary consult -IV abx -Afebrile -change to PO in AM as per ID -On IV steroids-> change to po in am -Bronchodilators PRN Code(s): J18.9 - PNEUMONIA, UNSPECIFIED ORGANISM Qualifiers: Pneumonia type: due to unspecified organism Laterality: bilateral Lung location: lower lobe of lung Qualified Code(s): J18.1 - Lobar pneumonia, unspecified organism (2) Renal colic Assessment/Plan: -Seen by Urology -refuses surgical stent placement -pain management -f/u outpatient Code(s): N23 - UNSPECIFIED RENAL COLIC Assessment/Plan see problem list
--- NOTE | 2018-05-19 11:57 | PN ---
Progress Note (short form) - Note Progress Note: PULMONARY APPEARS THIN AND CHRONICALLY ILL VSS/AFEBRILE OOB TO CHAIR ANICTERIC DIMINISHED BREATH SOUNDS S1S2 BS+ NO EDEMA LABS/MEDS/IMAGES/NOTES/MICRO REVIEWED LFT'S NOW INCREASED IMP LLL PNEUMONIA RENAL COLIC LEFT RENAL CALCULI WITH HYDRONEPHROSIS H/O ASTHMA TOBACCO ABUSE PLAN ABX PER ID IVF INHALED BRONCHODILATORS PRN FOLLOW CULTURES/CXR ORDERED Beatriz CRAWFORD MD
[2018-05-19] MEDS: traMADol HCL 50 MG TABLET PO PRN (21:32)
[2018-05-20] MEDS ORDERED: PIPERACILLIN/TAZOBACTAM 3.375 GM VIAL IVPB ONE ×2 (02:03→08:51)
[2018-05-20] MEDS ORDERED: DEXTROSE 5%-WATER - 50 ML IVPB ONE ×2 (02:03→08:51)
[2018-05-20] MEDS: PIPERACILLIN/TAZOB 3.375 GM 3.375 GM in DEXTROSE 5%-WATER - 50 ML IVPB SCH ×2 (02:31→09:29)
[2018-05-20] MEDS: ACETAMINOPHEN/CAFFEINE/BUTALBITAL 1 TAB PO PRN ×5 (04:43→20:53)
[2018-05-20] MEDS: traMADol HCL 50 MG TABLET PO PRN ×2 (06:12→14:22)
[2018-05-20] MEDS: PANTOPRAZOLE 40 MG TABLET (FP) PO SCH (09:30)
[2018-05-20] MEDS: methylPREDNISolone NA SUCC 40 MG/1 ML VIAL IVPUSH SCH (09:30)
--- NOTE | 2018-05-20 10:56 | PN ---
Progress Note, Physician Chief Complaint: AWAKE FAMILY BEDSIDE COUGH STILL +APPETITE AND BM NO FEVERS - Current Medication List Current Medications: Active Medications Acetaminophen/Butalbital/Caffeine (Fioricet -) 1 tablet PO Q4H PRN PRN Reason: HEADACHE Last Admin: 05/20/18 08:52 Dose: 1 tablet Albuterol/Ipratropium (Duoneb -) 1 amp NEB Q6H PRN PRN Reason: SHORTNESS OF BREATH Piperacillin Sod/Tazobactam (Sod 3.375 gm/ Dextrose) 50 mls @ 100 mls/hr IVPB Q8H-IV KATIE; Protocol Last Admin: 05/20/18 09:29 Dose: 100 mls/hr Methylprednisolone Sodium Succinate (Solu-Medrol -) 40 mg IVPUSH DAILY KATIE Stop: 05/22/18 10:01 Last Admin: 05/20/18 09:30 Dose: 40 mg Ondansetron HCl (Zofran Odt -) 4 mg SL Q6H PRN PRN Reason: NAUSEA AND/OR VOMITING Last Admin: 05/19/18 09:47 Dose: 4 mg Pantoprazole Sodium (Protonix -) 40 mg PO DAILY KATIE Last Admin: 05/20/18 09:30 Dose: 40 mg Tramadol HCl (Ultram -) 100 mg PO Q6H PRN PRN Reason: PAIN LEVEL 7 - 10 Last Admin: 05/20/18 06:12 Dose: 100 mg - Objective Vital Signs: Vital Signs Temperature 98.2 F 05/20/18 09:00 Pulse Rate 75 05/20/18 09:00 Respiratory Rate 18 05/20/18 09:00 Blood Pressure 96/60 05/20/18 09:00 O2 Sat by Pulse Oximetry (%) 99 05/19/18 20:36 Constitutional: Yes: Mild Distress Eyes: Yes: WNL HENT: Yes: WNL Neck: Yes: WNL Cardiovascular: Yes: WNL Respiratory: Yes: Cough, On Nasal O2, Rhonchi Gastrointestinal: Yes: WNL Genitourinary: Yes: WNL Musculoskeletal: Yes: WNL Extremities: Yes: WNL Edema: No Peripheral Pulses WNL: Yes Integumentary: Yes: WNL Wound/Incision: Yes: Clean/Dry Neurological: Yes: WNL ...Motor Strength: WNL Psychiatric: Yes: WNL Labs: CBC, BMP 05/18/18 15:00 05/19/18 06:30 INR, PTT INR 1.39 (0.82-1.09) H D 05/16/18 04:30 Problem List - Problems (1) Pneumonia Code(s): J18.9 - PNEUMONIA, UNSPECIFIED ORGANISM Qualifiers: Pneumonia type: due to unspecified organism Laterality: bilateral Lung location: lower lobe of lung Qualified Code(s): J18.1 - Lobar pneumonia, unspecified organism (2) Renal colic Code(s): N23 - UNSPECIFIED RENAL COLIC (3) Abdominal pain Code(s): R10.9 - UNSPECIFIED ABDOMINAL PAIN (4) Dysuria Code(s): R30.0 - DYSURIA (5) URI (upper respiratory infection) Code(s): J06.9 - ACUTE UPPER RESPIRATORY INFECTION, UNSPECIFIED Qualifiers: URI type: unspecified URI Qualified Code(s): J06.9 - Acute upper respiratory infection, unspecified Assessment/Plan CHANGING TO PO PREDNISONE AND ABX NEBS PAIN CONTROL DC PLANNING TOMORROW
--- NOTE | 2018-05-20 10:58 | PN ---
Progress Note (short form) - Note Progress Note: PULMONARY APPEARS THIN AND CHRONICALLY ILL OOB TO CHAIR VSS/AFEBRILE OOB TO CHAIR ANICTERIC DIMINISHED BREATH SOUNDS S1S2 BS+ NO EDEMA LABS/MEDS/IMAGES/NOTES/MICRO REVIEWED LFT'S NOW INCREASED IMP LLL PNEUMONIA RENAL COLIC LEFT RENAL CALCULI WITH HYDRONEPHROSIS H/O ASTHMA TOBACCO ABUSE PLAN ABX PER ID IVF INHALED BRONCHODILATORS PRN FOLLOW CULTURES/CXR ORDERED Beatriz CRAWFORD MD
--- NOTE | 2018-05-20 12:06 | CON.ID ---
Consult Consult Specialty:: infectious diseases Reason for Consultation:: tb/hemoptysis - Past Medical History ...LMP: 04/07/10 ...: No - Past Surgical History Past Surgical History: Yes: , Cholecystectomy - Alcohol/Substance Use Hx Alcohol Use: Yes - Smoking History Smoking history: Current every day smoker Have you smoked in the past 12 months: Yes Aproximately how many cigarettes per day: 10 Home Medications - Allergies Allergies/Adverse Reactions: Allergies Allergy/AdvReac Type Severity Reaction Status Date / Time codeine Allergy Rash Verified 05/16/18 03:19 Family Disease History - Family Disease History Family Disease History: Diabetes: Mother, Heart Disease: Mother, Other: Father ( Prostate) Physical Exam Vital Signs: Vital Signs Temperature 98.2 F 05/20/18 09:00 Pulse Rate 75 05/20/18 09:00 Respiratory Rate 18 05/20/18 09:00 Blood Pressure 96/60 05/20/18 09:00 O2 Sat by Pulse Oximetry (%) 99 05/19/18 20:36 Labs: CBC, BMP 05/18/18 15:00 05/19/18 06:30
--- NOTE | 2018-05-20 12:08 | PN ---
Progress Note, Physician History of Present Illness: stable no complaints - Current Medication List Current Medications: Active Medications Acetaminophen/Butalbital/Caffeine (Fioricet -) 1 tablet PO Q4H PRN PRN Reason: HEADACHE Last Admin: 05/20/18 08:52 Dose: 1 tablet Albuterol/Ipratropium (Duoneb -) 1 amp NEB Q6H PRN PRN Reason: SHORTNESS OF BREATH Piperacillin Sod/Tazobactam (Sod 3.375 gm/ Dextrose) 50 mls @ 100 mls/hr IVPB Q8H-IV KATIE; Protocol Last Admin: 05/20/18 09:29 Dose: 100 mls/hr Methylprednisolone Sodium Succinate (Solu-Medrol -) 40 mg IVPUSH DAILY KATIE Stop: 05/22/18 10:01 Last Admin: 05/20/18 09:30 Dose: 40 mg Ondansetron HCl (Zofran Odt -) 4 mg SL Q6H PRN PRN Reason: NAUSEA AND/OR VOMITING Last Admin: 05/19/18 09:47 Dose: 4 mg Pantoprazole Sodium (Protonix -) 40 mg PO DAILY KATIE Last Admin: 05/20/18 09:30 Dose: 40 mg Tramadol HCl (Ultram -) 100 mg PO Q6H PRN PRN Reason: PAIN LEVEL 7 - 10 Last Admin: 05/20/18 06:12 Dose: 100 mg - Objective Vital Signs: Vital Signs Temperature 98.2 F 05/20/18 09:00 Pulse Rate 75 05/20/18 09:00 Respiratory Rate 18 05/20/18 09:00 Blood Pressure 96/60 05/20/18 09:00 O2 Sat by Pulse Oximetry (%) 99 05/19/18 20:36 Constitutional: Yes: No Distress, Calm Cardiovascular: Yes: Regular Rate and Rhythm Respiratory: Yes: Regular, Poor Air Entry, Rhonchi Gastrointestinal: Yes: Normal Bowel Sounds, Soft Musculoskeletal: Yes: WNL Extremities: Yes: WNL Neurological: Yes: Alert, Oriented Psychiatric: Yes: Alert, Oriented Labs: CBC, BMP 05/18/18 15:00 05/19/18 06:30 INR, PTT INR 1.39 (0.82-1.09) H D 05/16/18 04:30 Assessment/Plan Problem List - Problems (1) Pneumonia Code(s): J18.9 - PNEUMONIA, UNSPECIFIED ORGANISM Qualifiers: Pneumonia type: due to unspecified organism Laterality: bilateral Lung location: lower lobe of lung Qualified Code(s): J18.1 - Lobar pneumonia, unspecified organism (2) Renal colic Code(s): N23 - UNSPECIFIED RENAL COLIC (3) Abdominal pain Code(s): R10.9 - UNSPECIFIED ABDOMINAL PAIN (4) Vomiting Code(s): R11.10 - VOMITING, UNSPECIFIED Qualifiers: Vomiting type: bilious vomiting Nausea presence: with nausea Qualified Code(s): R11.14 - Bilious vomiting plan continue abx rest continue current mgmt still refusing surgery await for final plan will change abx to oral augmentin
[2018-05-20] MEDS: ONDANSETRON *ODT* 4 MG TABLET SL PRN (16:59)
[2018-05-20] MEDS: AMOX TR/POT CLAV 500MG/125MG TABLETS (FP) PO SCH (18:00)
[2018-05-20] MEDS ORDERED: PT OWN MED DRAWER 7, Y5N ONE (20:46)
[2018-05-21] MEDS: ONDANSETRON *ODT* 4 MG TABLET SL PRN (05:59)
[2018-05-21] MEDS: ACETAMINOPHEN/CAFFEINE/BUTALBITAL 1 TAB PO PRN (05:59)
[2018-05-21 06:26] VITALS: TEMP 98.3
[2018-05-21] MEDS: AMOX TR/POT CLAV 500MG/125MG TABLETS (FP) PO SCH (07:57)
--- NOTE | 2018-05-21 08:06 | PN ---
Progress Note, Physician History of Present Illness: patient refusing to take oral abx has refused surgery so far pain continues - Current Medication List Current Medications: Active Medications Acetaminophen/Butalbital/Caffeine (Fioricet -) 1 tablet PO Q4H PRN PRN Reason: HEADACHE Last Admin: 05/21/18 05:59 Dose: 1 tablet Albuterol/Ipratropium (Duoneb -) 1 amp NEB Q6H PRN PRN Reason: SHORTNESS OF BREATH Amoxicillin/Clavulanate Potassium (Augmentin - 500mg Tablet) 1 tab PO BID@0800, 1730 [facility] Last Admin: 05/21/18 07:57 Dose: Not Given Methylprednisolone Sodium Succinate (Solu-Medrol -) 40 mg IVPUSH DAILY [facility] Stop: 05/22/18 10:01 Last Admin: 05/20/18 09:30 Dose: 40 mg Ondansetron HCl (Zofran Odt -) 4 mg SL Q6H PRN PRN Reason: NAUSEA AND/OR VOMITING Last Admin: 05/21/18 05:59 Dose: 4 mg Pantoprazole Sodium (Protonix -) 40 mg PO DAILY [facility] Last Admin: 05/20/18 09:30 Dose: 40 mg Tramadol HCl (Ultram -) 100 mg PO Q6H PRN PRN Reason: PAIN LEVEL 7 - 10 Last Admin: 05/20/18 14:22 Dose: 100 mg - Objective Vital Signs: Vital Signs Temperature 98.3 F 05/21/18 06:00 Pulse Rate 81 05/21/18 06:00 Respiratory Rate 20 05/21/18 06:00 Blood Pressure 114/67 05/21/18 06:00 O2 Sat by Pulse Oximetry (%) 99 05/20/18 21:04 Constitutional: Yes: Calm, Mild Distress Cardiovascular: Yes: Regular Rate and Rhythm Respiratory: Yes: Regular, CTA Bilaterally Gastrointestinal: Yes: Normal Bowel Sounds, Soft Musculoskeletal: Yes: WNL Extremities: Yes: WNL Neurological: Yes: Alert, Oriented Psychiatric: Yes: Alert, Oriented Labs: CBC, BMP 05/18/18 15:00 05/19/18 06:30 INR, PTT INR 1.39 (0.82-1.09) H D 05/16/18 04:30 Assessment/Plan Problem List - Problems (1) Pneumonia Code(s): J18.9 - PNEUMONIA, UNSPECIFIED ORGANISM Qualifiers: Pneumonia type: due to unspecified organism Laterality: bilateral Lung location: lower lobe of lung Qualified Code(s): J18.1 - Lobar pneumonia, unspecified organism (2) Renal colic Code(s): N23 - UNSPECIFIED RENAL COLIC (3) Abdominal pain Code(s): R10.9 - UNSPECIFIED ABDOMINAL PAIN (4) Vomiting Code(s): R11.10 - VOMITING, UNSPECIFIED Qualifiers: Vomiting type: bilious vomiting Nausea presence: with nausea Qualified Code(s): R11.14 - Bilious vomiting plan patient refusing oral abx patient stable needs final plan ret as per the team
--- NOTE | 2018-05-21 09:36 | DS ---
Physical Examination Vital Signs: Vital Signs Temperature 98.3 F 05/21/18 06:00 Pulse Rate 81 05/21/18 06:00 Respiratory Rate 20 05/21/18 06:00 Blood Pressure 114/67 05/21/18 06:00 O2 Sat by Pulse Oximetry (%) 99 05/20/18 21:04 Constitutional: Yes: No Distress Eyes: Yes: WNL HENT: Yes: WNL Neck: Yes: WNL Cardiovascular: Yes: WNL Respiratory: Yes: WNL Gastrointestinal: Yes: WNL Renal/: Yes: WNL Musculoskeletal: Yes: WNL Extremities: Yes: WNL Edema: No Peripheral Pulses WNL: Yes Integumentary: Yes: WNL Wound/Incision: Yes: Clean/Dry Neurological: Yes: WNL ...Motor Strength: WNL Psychiatric: Yes: WNL Labs: CBC, BMP 05/18/18 15:00 05/19/18 06:30 Discharge Summary Reason For Visit: RENAL COLIC, PNEUMONIA Current Active Problems Pneumonia (Acute) Renal colic (Acute) Weight loss (Acute) Procedures: Principal: CT ABD Hospital Course: ACUTE RENAL COLIC WITH URI BRONCHITIS REST DISTRESS, TREATED IV STEROIDS, IV ABX , CAN F/U OUTPATIENT WITH UROLOGY AND PMD. I MADE HER APPT AT 11AM WITH HER PMD DR DINO BEAUCHAMP TOMORROW Condition: Improved - Instructions Diet, Activity, Other Instructions: SEE DR BEAUCHAMP 11AM TOMORROW LIQUID DIET FOR 2 DAYS F/U ASOUTPATIENT FOR RENAL COLIC STONE Referrals: Dino Beauchamp [Primary Care Provider] - Disposition: HOME - Home Medications Comprehensive Discharge Medication List: Ambulatory Orders Albuterol 2.5/Ipratropium 0.5 [Duoneb -] 1 amp NEB Q6H PRN #120 amp 05/21/18 Amox-Tr/K Cl [Augmentin 500-125mg Tablet -] 1 tab PO BID@0800,1730 #10 tablet Methylprednisolone [Medrol Dose Bienvenido] 4 mg PO ASDIR #21 tablet 05/21/18 Ondansetron [Zofran Odt -] 4 mg SL Q6H PRN #30 tab.rapdis 05/21/18 Pantoprazole Sodium [Protonix -] 40 mg PO DAILY #30 tablet.ec 05/21/18
[2018-05-21 09:37] VITALS: BP 105/62; PULSE 90
[2018-05-21] MEDS: methylPREDNISolone NA SUCC 40 MG/1 ML VIAL IVPUSH SCH (09:38)
[2018-05-21] MEDS: PANTOPRAZOLE 40 MG TABLET (FP) PO SCH (09:38)
--- NOTE | 2018-05-21 09:58 | PN ---
Progress Note (short form) - Note Progress Note: PULMONARY DRESSED AND READY TO GO HOME VSS/AFEBRILE OOB TO CHAIR ANICTERIC DIMINISHED BREATH SOUNDS S1S2 BS+ NO EDEMA LABS/MEDS/IMAGES/NOTES/MICRO REVIEWED IMP LLL PNEUMONIA RENAL COLIC LEFT RENAL CALCULI WITH HYDRONEPHROSIS H/O ASTHMA TOBACCO ABUSE PLAN AGREE WITH CONTINUING RX AN OUTPATIENT(UROLOGY/PMD) INHALED BRONCHODILATORS PRN TAPER PRED OUTPATIENT SMOKING CESSATION Beatriz CRAWFORD MD
--- NOTE | 2018-06-09 06:19 | PN ---
Progress Note (short form) - Note Progress Note: ADDENDUM DIAGNOSIS: SEVERE MALNUTRITION Problem List - Problems (1) Pneumonia Code(s): J18.9 - PNEUMONIA, UNSPECIFIED ORGANISM Qualifiers: Pneumonia type: due to unspecified organism Laterality: bilateral Lung location: lower lobe of lung Qualified Code(s): J18.1 - Lobar pneumonia, unspecified organism (2) Renal colic Code(s): N23 - UNSPECIFIED RENAL COLIC (3) Abdominal pain Code(s): R10.9 - UNSPECIFIED ABDOMINAL PAIN (4) Dysuria Code(s): R30.0 - DYSURIA (5) URI (upper respiratory infection) Code(s): J06.9 - ACUTE UPPER RESPIRATORY INFECTION, UNSPECIFIED Qualifiers: URI type: unspecified URI Qualified Code(s): J06.9 - Acute upper respiratory infection, unspecified
== END 2018-05-21 10:40 | disposition home or self-care (01) | DRG 139 ==
LOC: JER 02:36 → JERBED 10:13 → J7W 22:45
PROVIDERS: ADMIT Family Medicine; ATTEND Family Medicine
DX: J18.9 Pneumonia, unspecified organism (principal); R10.9 Unspecified abdominal pain; R30.0 Dysuria; J06.9 Acute upper respiratory infection, unspecified; N13.2 Hydronephrosis with renal and ureteral calculous obstruction; R63.4 Abnormal weight loss; Z68.1 Body mass index [BMI] 19.9 or less, adult; F17.210 Nicotine dependence, cigarettes, uncomplicated; J45.909 Unspecified asthma, uncomplicated; K21.9 Gastro-esophageal reflux disease without esophagitis; E43 Unspecified severe protein-calorie malnutrition
CPT/HCPCS: 36415; 71046-TC-FY; 74176; 80048; 80053; 81003; 81015; 82378; 82550; 83036; 83690; 83735; 84484; 85025; 85027; 85610; 87040; 87081; 93005; 93010; 99283-25; J7030; Q0162

== ENCOUNTER 2018-08-27 00:30 | Emergency (ER) | payer MEDICARE, OTHER ==
[2018-08-27 00:59] VITALS: BP 85/62; PULSE 78; TEMP 98.6; BMI 18.0
--- NOTE | 2018-08-27 01:07 | PDOC ---
Attending Attestation - HPI HPI: 08/27/18 01:54 52 year old female with past medical history of GERD, migraines, asthma, s/p cholecystectomy who presents to the ED with complaints of 3 days of right sided abdominal pain and nausea. Denies any vomiting or diarrhea. Upon presentation patient is a poor historian, very fatigued and only giving one word answers. Denies any recent illness, fevers or chills. - Physicial Exam PE: 08/27/18 01:58 - Medical Decision Making 08/27/18 01:58 Documentation prepared by Brenda Gage, acting as biomedical engineering professor for Ginny Vazquez MD. <Brenda Gage - Last Filed: 08/27/18 01:56> - Resident Resident Name: Nela Rodas - ED Attending Attestation I have performed the following: I have examined & evaluated the patient, The case was reviewed & discussed with the resident, I agree w/resident's findings & plan - Physicial Exam PE: 08/27/18 23:00 Agree with resident exam. Pt is very thin. However at this time she has no abd pain and no flank pain and she appears well. Afebrile; she is neither tachycardic nor SOB. - Medical Decision Making 08/27/18 23:01 Pt is feeling vastly improved with IVF and she wants to go home and wants to sign out AMA. Labs were drawn but hemolyzed and she left before we could redraw bloods. <Ginny Vazquez - Last Filed: 08/27/18 23:02>
[2018-08-27] MEDS ORDERED: SODIUM CHLORIDE 1,000 ML IV SCH (01:15)
--- NOTE | 2018-08-27 01:52 | PDOC ---
History of Present Illness - General Chief Complaint: Pain, Acute Stated Complaint: ABDOMINAL PAIN Time Seen by Provider: 08/27/18 01:01 - History of Present Illness Initial Comments: 08/27/18 01:51 3 days of R sided abdominal pain and 3 days of diarrhea without vomiting or fever. And with 3 days of dysuria w/ NO hematuria Patient reports pain feels similar to her prior kidney stones. Past History - Past Medical History Allergies/Adverse Reactions: Allergies Allergy/AdvReac Type Severity Reaction Status Date / Time acetaminophen Allergy Intermediate Itching Verified 08/27/18 00:57 [From Tylenol-Codeine] codeine Allergy Intermediate Itching Verified 08/27/18 00:57 [From Tylenol-Codeine] Home Medications: Ambulatory Orders Acetaminophen/Caffeine/Butalb [Fioricet -] 1 tab PO Q6H PRN 07/08/18 Lactobacillus Acidophilus [Bacid -] 1 each PO DAILY #30 capsule 07/13/18 Ondansetron [Zofran -] 4 mg PO TID PRN #21 tablet 07/13/18 Pantoprazole Sodium [Protonix -] 40 mg PO DAILY #30 tablet.ec 07/13/18 Vancomycin Oral Solution 125 mg PO Q6HPO #140 ml 07/13/18 oxyCODONE HCL [Roxicodone -] 5 mg PO Q6H PRN #20 tablet MDD 4 07/13/18 Anemia: No Asthma: No Cancer: No Cardiac Disorders: No CVA: No COPD: No CHF: No Dementia: No Diabetes: No GI Disorders: Yes (GERD) Disorders: No HTN: No Hypercholesterolemia: No Liver Disease: No Seizures: No Thyroid Disease: No - Surgical History Abdominal Surgery: Yes Appendectomy: No Cardiac Surgery: No Cholecystectomy: Yes Lung Surgery: No Neurologic Surgery: No Orthopedic Surgery: No - Immunization History Immunization Up to Date: Yes - Suicide/Smoking/Psychosocial Hx Smoking Status: Yes Smoking History: Never smoked Have you smoked in the past 12 months: No Number of Cigarettes Smoked Daily: 10 Cigars Per Day: 0 Information on smoking cessation initiated: No 'Breaking Loose' booklet given: 07/12/18 Hx Alcohol Use: No Drug/Substance Use Hx: No Substance Use Type: None Hx Substance Use Treatment: Yes *Physical Exam - Vital Signs Last Vital Signs Temp Pulse Resp BP Pulse Ox 98.6 F 78 20 85/62 L 98 08/27/18 00:40 08/27/18 00:40 08/27/18 00:40 08/27/18 00:40 08/27/18 00:40 - Physical Exam Comments: 08/27/18 01:53 + RUQ tenderness to palpation L CVA tenderness ED Treatment Course - RADIOLOGY Radiology Studies Ordered: Category Date Time Status CHEST X-RAY PORTABLE* [RAD] Stat Radiology 08/27/18 01:08 Ordered *DC/Admit/Observation/Transfer Diagnosis at time of Disposition: Abdominal pain - Discharge Dispostion Disposition: AGAINST MEDICAL ADVICE Condition at time of disposition: Stable Decision to Admit order: No - Referrals Referrals: Dino Beauchamp [Primary Care Provider] - - Patient Instructions Printed Discharge Instructions: DI for Abdominal Pain-Adult Additional Instructions: It is recommended that you be worked up further in the ED for your abdominal pain. The risks of leaving the hospital without complete evaluation for your abdominal pain include , cardiac arrest, heart attack, stroke or internal bleeding. These risks have been discussed with your for > 35min. You express understanding of these risks and still desire to leave the hospital against medical advice. - Post Discharge Activity
[2018-08-27] MEDS ORDERED: ACETAMINOPHEN 1000 MG/100 ML VIAL (NON FORMULARY) IVPB ONE (02:05)
[2018-08-27 02:29] LABS: BASO % 0.8 % (0-2.0); EOS % 2.5 % (0-4.5); HEMATOCRIT 33.9 % (32.4-45.2); HEMOGLOBIN 11.3 GM/dL (10.7-15.3); LYMPH % 64.4 % (8-40); MCH 31.3 pg (25.7-33.7); MCHC 33.4 g/dl (32.0-36.0); MEAN CELL VOLUME 93.8 fl (80-96); MEAN PLT VOLUME 9.6 fl (7.5-11.1); MONO % 7.5 % (3.8-10.2); NEUT % 24.8 % (42.8-82.8); PLATELET COUNT 181 K/MM3 (134-434); RBC 3.61 M/mm3 (3.60-5.2); WHITE BLOOD COUNT 5.5 K/mm3 (4.0-10.0)
[2018-08-27 02:41] LABS: INR 1.08 (0.83-1.09); PROTHROMBIN TIME (PATIENT) 12.7 SEC (9.7-13.0)
[2018-08-27 02:43] LABS: ACTIVATED PTT 30.9 SECONDS (25.2-36.5)
--- NOTE | 2018-08-27 11:09 | EKG ---
Test Reason : Blood Pressure : / mmHG Vent. Rate : 060 BPM Atrial Rate : 060 BPM P-R Int : 180 ms QRS Dur : 072 ms QT Int : 426 ms P-R-T Axes : 057 -19 047 degrees QTc Int : 426 ms NORMAL SINUS RHYTHM POSSIBLE LEFT ATRIAL ENLARGEMENT BORDERLINE ECG WHEN COMPARED WITH ECG OF 17-MAY-2018 13:31, NO SIGNIFICANT CHANGE WAS FOUND Confirmed by SARAH FERMIN, JIM ([id number]) on 08/27/2018 11:09:27 AM Referred By: Confirmed By:JIM SMITH MD
== END 2018-08-27 03:10 | disposition left against medical advice (07) ==
LOC: JER 00:30
DX: R10.31 Right lower quadrant pain (principal)
CPT/HCPCS: 36415; 83605; 85025; 85610; 85730; 93005; 93010; 99282-25; J7030

== ENCOUNTER 2018-09-14 11:09 | Inpatient (IN) | payer SELFPAY ==
--- NOTE | 2018-09-14 12:24 | PDOC ---
History of Present Illness - General Chief Complaint: Pain Stated Complaint: DIARRHEA, VOMITING Time Seen by Provider: 09/14/18 12:06 History Source: Patient Exam Limitations: No Limitations - History of Present Illness Initial Comments: 09/14/18 12:17 The patient is a 52F with a PMH of GERD, asthma, migraines, and cholecystectomy who presents to the ER with complaints of abdominal pain. The patient states that she's had 2 days of epigastric and suprapubic abdominal pain. The suprapubic pain radiates to her L flank. The pain has been constant, worsening, and associated with nausea, vomiting, and diarrhea. She denies hematemesis, hematochezia, and melena. She denies hematuria and any history of nephrolithiasis. She denies any history of EtOH abuse. Past History - Past Medical History Allergies/Adverse Reactions: Allergies Allergy/AdvReac Type Severity Reaction Status Date / Time acetaminophen Allergy Intermediate Itching Verified 09/14/18 11:14 [From Tylenol-Codeine] codeine Allergy Intermediate Itching Verified 09/14/18 11:14 [From Tylenol-Codeine] Home Medications: Ambulatory Orders Acetaminophen/Caffeine/Butalb [Fioricet -] 1 tablet PO PRN 09/14/18 Omeprazole 20 mg PO DAILY 09/14/18 Anemia: No Asthma: No Cancer: No Cardiac Disorders: No CVA: No COPD: No CHF: No Dementia: No Diabetes: No GI Disorders: Yes (GERD) Disorders: No HTN: No Hypercholesterolemia: No Kidney Stones: (kidney problems??) Liver Disease: No Seizures: No Thyroid Disease: No - Surgical History Abdominal Surgery: Yes Appendectomy: No Cardiac Surgery: No Cholecystectomy: Yes Lung Surgery: No Neurologic Surgery: No Orthopedic Surgery: No - Immunization History Immunization Up to Date: Yes - Suicide/Smoking/Psychosocial Hx Smoking Status: Yes Smoking History: Never smoked Have you smoked in the past 12 months: No Number of Cigarettes Smoked Daily: 6 Cigars Per Day: 0 Information on smoking cessation initiated: Yes 'Breaking Loose' booklet given: 09/14/18 Hx Alcohol Use: No Drug/Substance Use Hx: No Substance Use Type: None Hx Substance Use Treatment: Yes Review of Systems - Review of Systems Able to Perform ROS?: Yes Comments:: 09/14/18 12:25 GENERAL/CONSTITUTIONAL: No fever or chills. No weakness. HEAD, EYES, EARS, NOSE AND THROAT: No change in vision. No ear pain or discharge. No sore throat. CARDIOVASCULAR: No chest pain, palpitations, or lightheadedness. RESPIRATORY: No cough, wheezing, shortness of breath, or hemoptysis. GASTROINTESTINAL: Positive for abdominal pain, nausea, vomiting, and diarrhea. GENITOURINARY: No dysuria, frequency, hematuria, or change in urination. MUSCULOSKELETAL: No joint or muscle swelling or pain. No neck or back pain. SKIN: No rash or lesions. NEUROLOGIC: No headache, numbness, tingling, focal weakness, loss of consciousness, or change in strength/sensation. Is the patient limited Thai proficient: No *Physical Exam - Vital Signs Last Vital Signs Temp Pulse Resp BP Pulse Ox 99 F 101 H 19 98/77 100 09/14/18 11:11 09/14/18 11:11 09/14/18 11:11 09/14/18 11:11 09/14/18 11:11 - Physical Exam Comments: 09/14/18 12:26 GENERAL: Well developed, well nourished. Awake and alert. No acute distress. HEENT: Normocephalic, atraumatic. Hearing grossly normal. Moist mucous membranes. PERRLA, EOMI. No conjunctival pallor. Sclera are non-icteric. NECK: Supple. Full ROM. CARDIOVASCULAR: Regular rate and rhythm. No murmurs, rubs, or gallops. PULMONARY: No evidence of respiratory distress. Lungs clear to auscultation bilaterally. No wheezing, rales or rhonchi. ABDOMINAL: Soft. Tenderness to palpation over epigastrium and suprapubic abdomen. Non-distended. No rebound or guarding. GENITOURINARY: L CVA tenderness. MUSCULOSKELETAL: Normal range of motion at all joints. No bony deformities or tenderness. EXTREMITIES: No cyanosis. No clubbing. No edema. No calf tenderness or swelling. SKIN: Warm and dry. Normal capillary refill. No rashes. No jaundice. NEUROLOGICAL: Alert, awake, appropriate. Cranial nerves 2-12 grossly intact. Normal speech. Gait is normal without ataxia. PSYCHIATRIC: Cooperative. Good eye contact. Appropriate mood and affect. ED Treatment Course - LABORATORY CBC & Chemistry Diagram: 09/14/18 12:15 09/14/18 12:59 - RADIOLOGY Radiology Studies Ordered: Category Date Time Status ABDOMEN & PELVIS CT W/O CONTR [CT] Stat CT Scan 09/14/18 12:14 Ordered Medical Decision Making - Medical Decision Making 09/14/18 12:26 The patient is a 52F with a PMH of GERD, asthma, migraines, and cholecystectomy who presents to the ER with complaints of abdominal pain concerning for pancreatitis, nephrolithiasis, cystitis. Pending labs and CTAP due to tenderness. Urine pending. Low risk for ACS as the patient has no risk factors except for age. Will r/o with EKG. 09/14/18 14:18 CBC, CMP, EKG, troponin, lipase negative. AST, ALT, alk phos WNL for patient. CTAP shows partial SBO. Pt made NPO, given pain and antiemetics and pepcid. 09/14/18 15:[address] Fitzgerald for admission. Dr. Christine jose for consultation. *DC/Admit/Observation/Transfer Diagnosis at time of Disposition: SBO (small bowel obstruction) - Discharge Dispostion Condition at time of disposition: Guarded Decision to Admit order: Yes - Referrals Referrals: Dino Beauchamp [Primary Care Provider] - - Patient Instructions - Post Discharge Activity
[2018-09-14 12:31] LABS: BASO % 0.6 % (0-2.0); EOS % 0.3 % (0-4.5); HEMOGLOBIN 14.6 GM/dL (10.7-15.3); LYMPH % 17.7 % (8-40); MCH 30.9 pg (25.7-33.7); MCHC 33.1 g/dl (32.0-36.0); MEAN CELL VOLUME 93.2 fl (80-96); MEAN PLT VOLUME 9.9 fl (7.5-11.1); MONO % 7.6 % (3.8-10.2); NEUT % 73.8 % (42.8-82.8); PLATELET COUNT 281 K/MM3 (134-434); RBC 4.72 M/mm3 (3.60-5.2); RDW 12.8 % (11.6-15.6)
[2018-09-14 13:30] LABS: ALBUMIN 4.5 g/dl (3.4-5.0); ALK PHOS 122 U/L (45-117); ANION GAP 10 MMOL/L (8-16); BILIRUBIN,TOTAL 0.3 mg/dL (0.2-1); BLOOD UREA NITROGEN 15 mg/dL (7-18); CALCIUM 9.7 mg/dL (8.5-10.1); CHLORIDE 106 mmol/L (98-107); CO2 24 mmol/L (21-32); CREATININE 0.6 mg/dL (0.55-1.3); GLUCOSE,RANDOM 93 mg/dL (74-106); LIPASE 169 U/L (73-393); POTASSIUM 3.9 mmol/L (3.5-5.1); SGOT/AST 59 U/L (15-37); SGPT/ALT 72 U/L (13-61); SODIUM 141 mmol/L (136-145); TOT PROT 8.1 g/dl (6.4-8.2)
[2018-09-14] MEDS ORDERED: ONDANSETRON 4 MG/2 ML VIAL IVPUSH ONE (14:19)
[2018-09-14] MEDS ORDERED: FAMOTIDINE 20 MG/50 ML IVPB 20 MG/50 ML MG IVPB ONE (14:22)
[2018-09-14] MEDS ORDERED: morphine CARPU-JECT 4 MG/1 ML DISP.SYRIN IVPUSH ONE ×2 (14:22→18:04)
[2018-09-14] MEDS ORDERED: SODIUM CHLORIDE 0.9% 1000 ML INFUS.BAG IV ONE (14:22)
[2018-09-14] MEDS ORDERED: ONDANSETRON 4 MG/2 ML VIAL ONE (14:22)
[2018-09-14] MEDS ORDERED: morphine SULFATE 4 MG/ML VIAL ONE (14:22)
--- NOTE | 2018-09-14 14:37 | PDOC ---
Attending Attestation - Resident Resident Name: Romario Maldonado - ED Attending Attestation I have performed the following: I have examined & evaluated the patient, The case was reviewed & discussed with the resident, I agree w/resident's findings & plan, Exceptions are as noted - Medical Decision Making 09/14/18 14:36 A portion of this note was documented by scribe services under my direction. I have reviewed the details of the note, within reason, and agree with the documentation with the following case summary and management plan written by me. Patient treated in the ED. Nursing notes are reviewed and incorporated into the medical decision-making. Vital signs reviewed. Peripheral IV access obtained by the nurse, laboratory studies are drawn and sent, reviewed and interpreted by myself. Vital Signs Temp Pulse Resp BP Pulse Ox 99 F 101 H 19 98/77 100 09/14/18 11:11 09/14/18 11:11 09/14/18 11:11 09/14/18 11:11 09/14/18 11:11 52-year-old female patient with gastritis, cholecystectomy, asthma, migraines presents with abdominal pain since yesterday. Patient reports several episodes of nausea, vomiting or diarrhea. Reports left-sided abdominal pain include left flank pain but denies dysuria. No fevers or chills. Patient's CAT scan demonstrates partial small bowel obstruction. We'll also need a urinalysis to rule out pyelonephritis or urinary tract infection. Given these finds, the patient should be admitted to the hospital for further management. <Pedro Ferrer - Last Filed: 09/14/18 14:36> - HPI HPI: 09/14/18 14:38 Patient is a 52 year old female with a significant past medical history of GERD , Cholecystectomy, who presents to the ED with complaints of Epigastric pain with associated superpubic pain. Patient reports pain began x2 days ago and has gradually increased over time, prompting her to come into the ED for further evaluation. She reports superpubic pain is a sharp worsening pain that she states has begun to radiate to her left flank. Patient reports experiencing associated symptoms of nausea, vomiting, and diarrhea. Denies chest pain, Sob. Denies nausea, vomiting. Denies contact with sick individuals, out of state travelling. Denies dysuria, hematuria. Denies any other symptoms. Allergies: Acetaminophen, Codeine Social history: Current smoker (6 cigarettes per day). No alcohol. No illicit drugs. Surgical history: None PMD: Dr. Beauchamp - Physicial Exam PE: 09/14/18 14:38 GENERAL: Awake, alert, and fully oriented, in no acute distress HEAD: No signs of trauma EYES: PERRLA, EOMI, sclera anicteric, conjunctiva clear ENT: Auricles normal inspection, hearing grossly normal, nares patent, oropharynx clear without exudates. Moist mucosa NECK: Normal ROM, supple, no lymphadenopathy, JVD, or masses LUNGS: Breath sounds equal, clear to auscultation bilaterally. No wheezes, and no crackles HEART: Regular rate and rhythm, normal S1 and S2, no murmurs, rubs or gallops ABDOMEN: +Tenderness to palpation of the epigastrium. +Left CVA tenderness. Left lower quadrant tenderness. +superpubic tenderness to palpation. Soft, nontender, normoactive bowel sounds. No guarding, no rebound. No masses EXTREMITIES: Normal range of motion, no edema. No clubbing or cyanosis. No cords, erythema, or tenderness NEUROLOGICAL: Cranial nerves II through XII grossly intact. Normal speech, normal gait SKIN: Warm, Dry, normal turgor, no rashes or lesions noted. <Markus Pillai - Last Filed: 09/14/18 14:38>
[2018-09-14] MEDS ORDERED: ACETAMINOPHEN/CAFFEINE/BUTALBITAL 1 TAB PO ONE ×2 (15:33→20:05)
[2018-09-14] MEDS ORDERED: ACETAMINOPHEN/CAFFEINE/BUTALBITAL 1 TAB ONE (15:39)
[2018-09-14] MEDS ORDERED: ACETAMINOPHEN 650 MG SUPP.RECT PR PRN (16:45)
[2018-09-14] MEDS ORDERED: PANTOPRAZOLE SODIUM 40 MG VIAL ONE (16:52)
[2018-09-14] MEDS: SODIUM CHLORIDE 1,000 ML IV SCH (16:55)
[2018-09-14] MEDS: PANTOPRAZOLE SODIUM 40 MG VIAL IVPUSH SCH (16:55)
--- NOTE | 2018-09-14 17:10 | EKG ---
Test Reason : Blood Pressure : / mmHG Vent. Rate : 078 BPM Atrial Rate : 078 BPM P-R Int : 158 ms QRS Dur : 074 ms QT Int : 368 ms P-R-T Axes : 071 -50 069 degrees QTc Int : 419 ms NORMAL SINUS RHYTHM WITH SINUS ARRHYTHMIA POSSIBLE LEFT ATRIAL ENLARGEMENT LEFT AXIS DEVIATION ABNORMAL ECG WHEN COMPARED WITH ECG OF 27-AUG-2018 01:28, NO SIGNIFICANT CHANGE WAS FOUND Confirmed by SARAH FERMIN, JIM ([id number]) on 09/14/2018 5:10:02 PM Referred By: Confirmed By:JIM SMITH MD
[2018-09-14] MEDS ORDERED: IBUPROFEN 800 MG/8 ML IJ IVPB ONE (17:25)
[2018-09-14] MEDS: IBUPROFEN 800 MG/8 ML IJ IVPB PRN (17:35)
[2018-09-14] MEDS ORDERED: MORPHINE SULFATE 2 MG/ML VIAL ONE ×2 (18:27→18:28)
--- NOTE | 2018-09-14 19:48 | CONSULT ---
Consult Consult Specialty:: General surgery Reason for Consultation:: partial SBO on CT scan - History of Present Illness Chief Complaint: abdominal pain History of Present Illness: 52yo female PMH GERD, asthma, migraines, and s/p cholecystectomy (estimated 10 years ago) who presents to the ER with complaints of abdominal pain. She has had >10 admissions from the ED with abdominal pain since 2013. with a The patient states that she's had 2 days of epigastric and suprapubic abdominal pain. The suprapubic pain radiates to her Left flank. The pain has been constant , worsening, and associated with nausea, vomiting, and diarrhea. She denies hematemesis, hematochezia, and melena. She denies hematuria and any history of nephrolithiasis. She denies any history of EtOH abuse. We were asked to assess. 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 Pulmonary: Yes: Pneumonia Gastrointestinal: Yes: Diverticulosis, Other (previous colitis/enteritis) Renal/: Yes: Renal Calculi ...LMP: 04/07/10 Infectious Disease: Yes: MRSA (in stool 2013, negative screening 05/24) - Past Surgical History Past Surgical History: Yes: Cholecystectomy (laparoscopic), Colonoscopy, Tubal Ligation (laparoscopic), Upper Endoscopy - Alcohol/Substance Use Hx Alcohol Use: No History of Substance Use: reports: None - Smoking History Smoking history: Never smoked Have you smoked in the past 12 months: No Aproximately how many cigarettes per day: 6 - Social History ADL: Independent Home Medications - Allergies Allergies/Adverse Reactions: Allergies Allergy/AdvReac Type Severity Reaction Status Date / Time acetaminophen Allergy Intermediate Itching Verified 09/14/18 11:14 [From Tylenol-Codeine] codeine Allergy Intermediate Itching Verified 09/14/18 11:14 [From Tylenol-Codeine] - Home Medications Home Medications: Ambulatory Orders Acetaminophen/Caffeine/Butalb [Fioricet -] 1 tablet PO PRN 09/14/18 Omeprazole 20 mg PO DAILY 09/14/18 Family Disease History - Family Disease History Family Disease History: Diabetes: Mother, Heart Disease: Mother, Other: Father ( Prostate) Review of Systems - Review of Systems Constitutional: denies: Chills, Fever Eyes: denies: Blurred Vision, Recent Change in Vision Cardiovascular: denies: Chest Pain, Palpitations Respiratory: denies: Cough, SOB Gastrointestinal: reports: Abdominal Pain, Diarrhea, Nausea. denies: Bloating, Constipation Genitourinary: denies: Discharge, Dysuria Breasts: reports: No Symptoms Reported. denies: Pain Musculoskeletal: denies: Back Pain, Muscle Pain, Muscle Weakness Integumentary: denies: Lesions, Lump, Pallor Neurological: denies: Syncope, Tremors Endocrine: denies: Unexplained Weight Gain, Unexplained Weight Loss Hematology/Lymphatic: denies: Easily Bruised, Excessive Bleeding Psychiatric: denies: Anxiety, Depression Physical Exam Vital Signs: Vital Signs Temperature 99.0 F 09/14/18 18:18 Pulse Rate 79 09/14/18 18:18 Respiratory Rate 18 09/14/18 18:18 Blood Pressure 102/64 09/14/18 18:18 O2 Sat by Pulse Oximetry (%) 100 09/14/18 11:11 Vital Signs Period Temp Pulse Resp BP Sys/Ruth Pulse Ox Last 24 Hr 98 F-99.6 F 63-101 16-19 91-102/54-77 100 Constitutional: Yes: No Distress, Calm, Thin Eyes: Yes: Conjunctiva Clear, EOM Intact HENT: Yes: Atraumatic, Normocephalic Neck: Yes: Supple, Trachea Midline Cardiovascular: Yes: Regular Rate and Rhythm, S1, S2 Respiratory: Yes: Regular, CTA Bilaterally Gastrointestinal: Yes: Normal Bowel Sounds, Soft. No: Distention, Tenderness, Tenderness, Epigastrium, Tenderness, Rebound, Vomiting ...Rectal Exam: Yes: Deferred Renal/: No: CVA Tenderness - Left, CVA Tenderness - Right Musculoskeletal: No: Muscle Pain, Muscle Weakness Extremities: No: Cool, Cyanosis Neurological: Yes: Alert, Oriented Psychiatric: Yes: Alert, Oriented Labs: CBC, BMP 09/14/18 12:15 09/14/18 12:59 Problem List - Problems (1) Abdominal pain in female Assessment/Plan: 52yo female with recurrent abdominal pain after lap cholecystectomy. not vomiting, no NGT, not distended. possible gastroenteritis. No acute surgical intervention indicated. Follow up abdominal xray show non obstructive pattern, all air is contouring the colon. advance diet as tolerated serial exams antiemetic and antidiarreahal therapy GI for screening upper and lower endoscopy discharge at the discharge at the discretion of the PMD Thank you for the opportunity to participate in the care of this patient. Code(s): R10.9 - UNSPECIFIED ABDOMINAL PAIN (2) Abnormal CT of the abdomen Code(s): R93.5 - ABN FINDINGS ON DX IMAGING OF ABD REGIONS, INC RETROPERITON (3) Asthma Code(s): J45.909 - UNSPECIFIED ASTHMA, UNCOMPLICATED Qualifiers: Asthma severity: mild Asthma persistence: intermittent Asthma complication type: uncomplicated Qualified Code(s): J45.20 - Mild intermittent asthma, uncomplicated (4) Gastroenteritis Code(s): K52.9 - NONINFECTIVE GASTROENTERITIS AND COLITIS, UNSPECIFIED (5) Headache Code(s): R51 - HEADACHE Qualifiers: Headache type: unspecified Headache chronicity pattern: unspecified pattern Intractability: not intractable Qualified Code(s): R51 - Headache
[2018-09-14] MEDS ORDERED: PT OWN MED DRAWER 7, Y5N ONE (21:56)
[2018-09-14] MEDS: morphine SULFATE 4 MG/ML VIAL IVPUSH PRN (22:53)
[2018-09-14] MEDS: ONDANSETRON 4 MG/2 ML VIAL IVPB PRN (23:00)
[2018-09-15] MEDS ORDERED: PT OWN MED DRAWER 7, Y5N ONE (00:22)
[2018-09-15] MEDS: morphine SULFATE 4 MG/ML VIAL IVPUSH PRN ×3 (05:32→18:39)
[2018-09-15] MEDS: SODIUM CHLORIDE 1,000 ML IV SCH ×2 (06:17→17:17)
[2018-09-15 06:24] LABS: URINE APPEARANCE SLCLOUDY; URINE BILIRUBIN NEGATIVE (<2.0 mg/dL); URINE COLOR YELLOW; URINE GLUCOSE (UA) NEGATIVE (NEGATIVE); URINE KETONE NEGATIVE (NEGATIVE); URINE LEUK ESTERASE NEGATIVE (NEGATIVE); URINE NITRITE NEGATIVE (NEGATIVE); URINE PROTEIN 1+ (NEGATIVE); URINE UROBILINOGEN NEGATIVE mg/dL (0.2-1.0)
[2018-09-15 06:53] LABS: EPI CELLS RARE /HPF (FEW); URINE HYALINE CAST 7 /lpf; URINE MUCUS MANY
--- NOTE | 2018-09-15 07:32 | PN ---
Progress Note, Physician - Current Medication List Current Medications: Active Medications Sodium Chloride (Normal Saline -) 1,000 mls @ 100 mls/hr IV ASDIR [facility] Last Admin: 09/15/18 06:17 Dose: 100 mls/hr Ibuprofen (Caldolor Injection -) 400 mg IVPB Q6H PRN PRN Reason: FEVER Last Admin: 09/14/18 17:35 Dose: 400 mg Morphine Sulfate (Morphine Sulfate) 4 mg IVPUSH Q6H PRN PRN Reason: PAIN LEVEL 7 - 10 Last Admin: 09/15/18 05:32 Dose: 4 mg Ondansetron HCl (Zofran Injection) 8 mg IVPB Q6H PRN PRN Reason: NAUSEA Last Admin: 09/14/18 23:00 Dose: 8 mg Pantoprazole Sodium (Protonix Iv) 40 mg IVPUSH DAILY [facility] Last Admin: 09/14/18 16:55 Dose: 40 mg - Objective Vital Signs: Vital Signs Temperature 98 F 09/15/18 05:59 Pulse Rate 63 09/15/18 05:59 Respiratory Rate 16 09/15/18 06:32 Blood Pressure 91/54 L 09/15/18 06:32 O2 Sat by Pulse Oximetry (%) 100 09/14/18 11:11 Labs: CBC, BMP 09/14/18 12:15 09/14/18 12:59
[2018-09-15] MEDS: IBUPROFEN 800 MG/8 ML IJ IVPB PRN (10:08)
[2018-09-15] MEDS: PANTOPRAZOLE SODIUM 40 MG VIAL IVPUSH SCH (10:08)
[2018-09-15] MEDS ORDERED: ACETAMINOPHEN/CAFFEINE/BUTALBITAL 1 TAB PO PRN (13:12)
--- NOTE | 2018-09-15 13:13 | HP ---
Admitting History and Physical - Primary Care Physician PCP: Tab Fitzgerald - Admission Chief Complaint: ABD PAIN History of Present Illness: 52F admitted for evaluation of abdominal pain. She states that the pain started yesterday with associated nausea / vomiting. The pain was located diffusely, in both the upper and lower abdomen. She described associated abdominal distention. She states that her last bowel movement was this morning and was liquid. She denies rectal bleeding or melena. She had an EGD [address] Phuong Burton that revealed mild gastritis and was otherwise normal. She had an EGD with Dr. Phuong Hernandez in 2006 that revealed a large hiatal hernia, moderate gastritis and was otherwise normal. She had an enteroscopy performed by Dr. Ginger Luis in 2011 that revealed an antral diverticulum and was otherwise normal. She had a colonoscopy in [address] Pete Parikh however a report was unavailable for review. She also believes that she may had had a colonoscopy at [facility] some years ago. Her AST/ALT were elevated on admission. It appears that there has been some level of transaminase elevation from at least 05/24. ALP was also mildly elevated. She had a non contrast CT scan on admission revealed distended small bowel loops suspicious for PSBO. She had an AXR today revealing dilated small bowel loops suggestive of PSBO. She currently denies abdominal pain. There is no family history of colorectal cancer or other GI malignancy. She has had 13 CT scans of the abdomen and pelvis spanning from 2013. In 2011 celiac panel was unrevealing and serum gastrin level was mildly elevated. She denies known history of liver disease. 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 Pulmonary: Yes: Pneumonia Gastrointestinal: Yes: Diverticulosis, Other (previous colitis/enteritis) Renal/: Yes: Renal Calculi ...LMP: 04/07/10 Infectious Disease: Yes: MRSA (in stool 2013, negative screening 05/24) - Past Surgical History Past Surgical History: Yes: Cholecystectomy (laparoscopic), Colonoscopy, Tubal Ligation (laparoscopic), Upper Endoscopy - Smoking History Smoking history: Never smoked Have you smoked in the past 12 months: No Aproximately how many cigarettes per day: 6 - Alcohol/Substance Use Hx Alcohol Use: No History of Substance Use: reports: None - Social History ADL: Independent Home Medications - Allergies Allergies/Adverse Reactions: Allergies Allergy/AdvReac Type Severity Reaction Status Date / Time acetaminophen Allergy Intermediate Itching Verified 09/14/18 11:14 [From Tylenol-Codeine] codeine Allergy Intermediate Itching Verified 09/14/18 11:14 [From Tylenol-Codeine] - Home Medications Home Medications: Ambulatory Orders Acetaminophen/Caffeine/Butalb [Fioricet -] 1 tablet PO PRN 09/14/18 Omeprazole 20 mg PO DAILY 09/14/18 Family Disease History - Family Disease History Family Disease History: Diabetes: Mother, Heart Disease: Mother, Other: Father ( Prostate) Review of Systems - Review of Systems Constitutional: reports: Loss of Appetite, Weakness Eyes: reports: No Symptoms HENT: reports: No Symptoms Neck: reports: No Symptoms Cardiovascular: reports: No Symptoms Respiratory: reports: No Symptoms Gastrointestinal: reports: Abdominal Pain Genitourinary: reports: No Symptoms Musculoskeletal: reports: No Symptoms Integumentary: reports: No Symptoms Neurological: reports: No Symptoms Endocrine: reports: No Symptoms Hematology/Lymphatic: reports: No Symptoms Psychiatric: reports: No Symptoms Physical Examination Vital Signs: Vital Signs Temperature 97.6 F 09/15/18 10:07 Pulse Rate 60 09/15/18 10:07 Respiratory Rate 18 09/15/18 10:07 Blood Pressure 92/57 L 09/15/18 10:07 O2 Sat by Pulse Oximetry (%) 100 09/14/18 11:11 Constitutional: Yes: Mild Distress Eyes: Yes: WNL HENT: Yes: WNL Neck: Yes: WNL Cardiovascular: Yes: WNL Respiratory: Yes: WNL Gastrointestinal: Yes: Soft, Tenderness Renal/: Yes: WNL Musculoskeletal: Yes: WNL Extremities: Yes: WNL Edema: No Peripheral Pulses WNL: Yes Integumentary: Yes: WNL Wound/Incision: Yes: Clean/Dry Neurological: Yes: WNL ...Motor Strength: WNL Psychiatric: Yes: WNL Labs: CBC, BMP 09/14/18 12:15 09/14/18 12:59 Imaging - Results Cat Scan: Report Reviewed Problem List - Problems (1) Abnormal liver function tests Code(s): R94.5 - ABNORMAL RESULTS OF LIVER FUNCTION STUDIES (2) SBO (small bowel obstruction) Code(s): K56.609 - UNSP INTESTNL OBST, UNSP TO PARTIAL VERSUS COMPLETE OBST (3) Abdominal pain Code(s): R10.9 - UNSPECIFIED ABDOMINAL PAIN (4) Abnormal CT of the abdomen Code(s): R93.5 - ABN FINDINGS ON DX IMAGING OF ABD REGIONS, INC RETROPERITON Assessment/Plan GI AND SURGERY EVAL CLEAR DIET STARTED OOB TO CHAIR CHECK LABS CONSERVATIVE THERAPY AT THIS TIME FOR SBO, MONITOR DAILY LFT ELEVATED, AVOID TOXIC LIVER MEDS CHECK HEPATITIS PANEL
--- NOTE | 2018-09-15 15:06 | CON.GI ---
Consult Consult Specialty:: GI: Dr. Tracy covering for Dr. Luis Referred by:: Dr. Tab Fitzgerald Reason for Consultation:: Abdominal pain - History of Present Illness Chief Complaint: Abdominal pain, nausea, vomiting History of Present Illness: 52F admitted for evaluation of abdominal pain. She states that the pain started yesterday with associated nausea / vomiting. The pain was located diffusely, in both the upper and lower abdomen. She described associated abdominal distention. She states that her last bowel movement was this morning and was liquid. She denies rectal bleeding or melena. She had an EGD [address] Phuong Burton that revealed mild gastritis and was otherwise normal. She had an EGD with Dr. Phuong Hernandez in 2006 that revealed a large hiatal hernia, moderate gastritis and was otherwise normal. She had an enteroscopy performed by Dr. Ginger Luis in 2011 that revealed an antral diverticulum and was otherwise normal. She had a colonoscopy in [address] Pete Parikh however a report was unavailable for review. She also believes that she may had had a colonoscopy at [facility] some years ago. Her AST/ALT were elevated on admission. It appears that there has been some level of transaminase elevation from at least 05/24. ALP was also mildly elevated. She had a non contrast CT scan on admission revealed distended small bowel loops suspicious for PSBO. She had an AXR today revealing dilated small bowel loops suggestive of PSBO. She currently denies abdominal pain. There is no family history of colorectal cancer or other GI malignancy. She has had 13 CT scans of the abdomen and pelvis spanning from 2012. In 2011 celiac panel was unrevealing and serum gastrin level was mildly elevated. She denies known history of liver disease. 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 hysterectomy per her description), Upper Endoscopy - Alcohol/Substance Use Hx Alcohol Use: No History of Substance Use: reports: None - Smoking History Smoking history: Current every day smoker Have you smoked in the past 12 months: No Aproximately how many cigarettes per day: 6 - Social History Usual Living Arrangement: With Spouse ADL: Independent Place of : Other ([place]) Came to [place]year[place] 1980 History of Recent Travel: No Home Medications - Allergies Allergies/Adverse Reactions: Allergies Allergy/AdvReac Type Severity Reaction Status Date / Time acetaminophen Allergy Intermediate Itching Verified 09/14/18 11:14 [From Tylenol-Codeine] codeine Allergy Intermediate Itching Verified 09/14/18 11:14 [From Tylenol-Codeine] - Home Medications Home Medications: Ambulatory Orders Acetaminophen/Caffeine/Butalb [Fioricet -] 1 tablet PO PRN 09/14/18 Omeprazole 20 mg PO DAILY 09/14/18 Family Disease History - Family Disease History Family Disease History: Diabetes: Mother (Alive: DM II), Heart Disease: Mother, Other: Father (: Prostate cancer), Mother, Brother (3, healthy), Sister (4, healthy), Son (1, healthy), Daughter (1, healthy) Other Family History: No family history of colorectal cancer or other GI malignancy Review of Systems - Review of Systems Constitutional: reports: Chills. denies: Unintentional Wgt. Loss Cardiovascular: denies: Chest Pain Respiratory: denies: Cough, SOB Gastrointestinal: reports: Abdominal Pain, Bloating, Diarrhea, Nausea, Vomiting. denies: Melena, Rectal Bleeding, Vomiting Blood Physical Exam-GI Vital Signs: Vital Signs Temperature 98.4 F 09/15/18 14:23 Pulse Rate 74 09/15/18 14:23 Respiratory Rate 18 09/15/18 14:23 Blood Pressure 95/53 L 09/15/18 14:23 O2 Sat by Pulse Oximetry (%) 100 09/14/18 11:11 Constitutional: Yes: Calm Eyes: No: Sclera Icterus Cardiovascular: Yes: Regular Rate and Rhythm. No: Murmur Respiratory: Yes: CTA Bilaterally Gastrointestinal Inspection: Yes: Scars (healed trochar scars). No: Distention ...Auscultate: Yes: Normoactive Bowel Sounds ...Palpate: No: Hepatomegaly, Splenomegaly, Tenderness ...Percussion: No: Tympanitic ...Rectal Exam: Yes: Other (No external lesions, no masses, formed light brown stool in rectal vault, guaiac negative) Edema: No (No LE edema) Neurological: Yes: Alert (awake) Labs: CBC, BMP 09/14/18 12:15 09/14/18 12:59 Hepatic Panel Total Bilirubin 0.3 mg/dL (0.2-1) 09/14/18 12:59 AST 59 U/L (15-37) H 09/14/18 12:59 ALT 72 U/L (13-61) H 09/14/18 12:59 Alkaline Phosphatase 122 U/L (45-117) H 09/14/18 12:59 Albumin 4.5 g/dl (3.4-5.0) 09/14/18 12:59 Laboratory Tests 07/12/18 09/14/18 06:20 12:59 AST 44 H 59 H ALT 95 H 72 H Alkaline Phosphatase 89 D 122 H Imaging - Results Cat Scan: Report Reviewed Problem List - Problems (1) Abdominal pain Assessment/Plan: Chronic symptomatology. ? of partial small bowel obstruction noted on imaging CT enterography to definitively evaluate small bowel. Outpatient EGD / Colonoscopy Code(s): R10.9 - UNSPECIFIED ABDOMINAL PAIN (2) Abnormal liver function tests Assessment/Plan: Discontinued fiorecet Avoid hepatotoxic agents Abdominal US hepatitis serologies Monitor LFTs Code(s): R94.5 - ABNORMAL RESULTS OF LIVER FUNCTION STUDIES
[2018-09-15] MEDS: ONDANSETRON 4 MG/2 ML VIAL IVPB PRN (18:47)
[2018-09-16] MEDS: morphine SULFATE 4 MG/ML VIAL IVPUSH PRN ×3 (00:22→16:44)
[2018-09-16] MEDS: SODIUM CHLORIDE 1,000 ML IV SCH ×2 (05:33→16:50)
--- NOTE | 2018-09-16 08:17 | PN ---
Progress Note, Physician Chief Complaint: AWAKE ALERT LESS ABD PAIN TODAY - Current Medication List Current Medications: Active Medications Sodium Chloride (Normal Saline -) 1,000 mls @ 100 mls/hr IV ASDIR [facility] Last Admin: 09/16/18 05:33 Dose: 100 mls/hr Ibuprofen (Caldolor Injection -) 400 mg IVPB Q6H PRN PRN Reason: FEVER Last Admin: 09/14/18 17:35 Dose: 400 mg Morphine Sulfate (Morphine Sulfate) 4 mg IVPUSH Q6H PRN PRN Reason: PAIN LEVEL 7 - 10 Last Admin: 09/16/18 00:22 Dose: 4 mg Ondansetron HCl (Zofran Injection) 8 mg IVPB Q6H PRN PRN Reason: NAUSEA Last Admin: 09/15/18 18:47 Dose: 8 mg Pantoprazole Sodium (Protonix Iv) 40 mg IVPUSH DAILY [facility] Last Admin: 09/15/18 10:08 Dose: 40 mg - Objective Vital Signs: Vital Signs Temperature 97.3 F L 09/16/18 06:00 Pulse Rate 61 09/16/18 06:00 Respiratory Rate 20 09/16/18 06:00 Blood Pressure 89/60 L 09/16/18 06:00 O2 Sat by Pulse Oximetry (%) 100 09/15/18 21:00 Constitutional: Yes: Mild Distress Eyes: Yes: WNL HENT: Yes: WNL Neck: Yes: WNL Cardiovascular: Yes: WNL Respiratory: Yes: WNL Gastrointestinal: Yes: Normal Bowel Sounds, Soft Genitourinary: Yes: WNL Musculoskeletal: Yes: WNL Extremities: Yes: WNL Edema: No Peripheral Pulses WNL: Yes Integumentary: Yes: WNL Wound/Incision: Yes: Clean/Dry Neurological: Yes: WNL ...Motor Strength: WNL Psychiatric: Yes: WNL Labs: CBC, BMP 09/14/18 12:15 09/14/18 12:59 Problem List - Problems (1) Abnormal liver function tests Code(s): R94.5 - ABNORMAL RESULTS OF LIVER FUNCTION STUDIES (2) SBO (small bowel obstruction) Code(s): K56.609 - UNSP INTESTNL OBST, UNSP TO PARTIAL VERSUS COMPLETE OBST (3) Abdominal pain Code(s): R10.9 - UNSPECIFIED ABDOMINAL PAIN (4) Abnormal CT of the abdomen Code(s): R93.5 - ABN FINDINGS ON DX IMAGING OF ABD REGIONS, INC RETROPERITON Assessment/Plan RADIOLOGY RECOMMENDS AN MRI OF ABD TO FOLLOW UP CBD/LIVER GI EVAL APPRECIATED CAN ADVANCE DIET SLOWLY PPI PAIN CONTROL
[2018-09-16] MEDS: PANTOPRAZOLE SODIUM 40 MG VIAL IVPUSH SCH (09:01)
[2018-09-16 09:22] LABS: HEMATOCRIT 33.8 % (32.4-45.2); HEMOGLOBIN 11.1 GM/dL (10.7-15.3); MCH 30.8 pg (25.7-33.7); MCHC 32.9 g/dl (32.0-36.0); MEAN CELL VOLUME 93.6 fl (80-96); MEAN PLT VOLUME 9.1 fl (7.5-11.1); PLATELET COUNT 171 K/MM3 (134-434); RDW 12.2 % (11.6-15.6); WHITE BLOOD COUNT 6.4 K/mm3 (4.0-10.0)
[2018-09-16 09:50] LABS: ALBUMIN 3.3 g/dl (3.4-5.0); ALK PHOS 92 U/L (45-117); ANION GAP 9 MMOL/L (8-16); BILIRUBIN,TOTAL 0.3 mg/dL (0.2-1); BLOOD UREA NITROGEN 6 mg/dL (7-18); CALCIUM 8.2 mg/dL (8.5-10.1); CHLORIDE 108 mmol/L (98-107); CO2 23 mmol/L (21-32); CREATININE 0.4 mg/dL (0.55-1.3); GLUCOSE,RANDOM 80 mg/dL (74-106); MAGNESIUM 1.6 mg/dL (1.8-2.4); POTASSIUM 3.6 mmol/L (3.5-5.1); SGOT/AST 38 U/L (15-37); SGPT/ALT 56 U/L (13-61); SODIUM 140 mmol/L (136-145); TOT PROT 5.9 g/dl (6.4-8.2)
--- NOTE | 2018-09-16 09:58 | PN ---
GI Progress Note - Objective Vital Signs: Vital Signs Temperature 97.3 F L 09/16/18 06:00 Pulse Rate 61 09/16/18 06:00 Respiratory Rate 20 09/16/18 06:00 Blood Pressure 89/60 L 09/16/18 06:00 O2 Sat by Pulse Oximetry (%) 100 09/15/18 21:00 Labs: CBC, BMP 09/16/18 08:40 09/16/18 08:45 Problem List - Problems (1) Abdominal pain Code(s): R10.9 - UNSPECIFIED ABDOMINAL PAIN (2) Abnormal liver function tests Code(s): R94.5 - ABNORMAL RESULTS OF LIVER FUNCTION STUDIES
--- NOTE | 2018-09-16 10:16 | PN ---
GI Progress Note Subjective: States feeling well Still complains of diarrhea No abdominal pain. No vomiting - Objective Vital Signs: Vital Signs Temperature 97.3 F L 09/16/18 06:00 Pulse Rate 61 09/16/18 06:00 Respiratory Rate 20 09/16/18 06:00 Blood Pressure 89/60 L 09/16/18 06:00 O2 Sat by Pulse Oximetry (%) 100 09/15/18 21:00 Constitutional: Calm Eyes: No: Sclera Icterus Cardiovascular: Yes: Regular Rate and Rhythm Respiratory: Yes: CTA Bilaterally Gastrointestinal Inspection: No: Distention ...Auscultate: Yes: Normoactive Bowel Sounds ...Palpate: No: Hepatomegaly, Splenomegaly, Tenderness ...Percussion: No: Tympanitic Edema: No (No LE edema) Neurological: Yes: Alert Labs: CBC, BMP 09/16/18 08:40 09/16/18 08:45 Hepatic Panel Total Bilirubin 0.3 mg/dL (0.2-1) 09/16/18 08:45 AST 38 U/L (15-37) H 09/16/18 08:45 ALT 56 U/L (13-61) 09/16/18 08:45 Alkaline Phosphatase 92 U/L (45-117) 09/16/18 08:45 Albumin 3.3 g/dl (3.4-5.0) L 09/16/18 08:45 - ....Imaging Cat Scan: Report Reviewed (CT enterography: partial resolution of thickening of multiple small bowel loops as well as colon. It questioned rectal wall thickening and periportal edema.) Problem List - Problems (1) Abdominal pain Assessment/Plan: No abdominal pain complaints currently. Main complaint now is diarrhea ? Resolving gastroenteritis. No small bowel obstruction noted on enterography. LFTs normalizing without intervention Colonoscopy when acute issues are resolved to follow-up on CT scan findings. This can be pursued as an outpatient Stool culture, O&P, C. Diff ordered if diarrhea persists Advanced to low fiber diet Code(s): R10.9 - UNSPECIFIED ABDOMINAL PAIN (2) Abnormal liver function tests Assessment/Plan: LFTs normalizing without intervention Hepatitis serologies pending Unclear if the periportal edema finding is of clinical concern at this point CBD was described as somewhat more prominent on CT enterography. This can be followed up with MRCP. Code(s): R94.5 - ABNORMAL RESULTS OF LIVER FUNCTION STUDIES
[2018-09-16] MEDS: ACETAMINOPHEN/CAFFEINE/BUTALBITAL 1 TAB PO PRN ×2 (12:26→21:32)
[2018-09-16 20:49] VITALS: BMI 16.2
[2018-09-17] MEDS: morphine SULFATE 4 MG/ML VIAL IVPUSH PRN ×4 (00:28→20:53)
[2018-09-17] MEDS: ACETAMINOPHEN/CAFFEINE/BUTALBITAL 1 TAB PO PRN ×3 (04:26→17:23)
[2018-09-17] MEDS: SODIUM CHLORIDE 1,000 ML IV SCH ×2 (06:39→17:18)
[2018-09-17] MEDS ORDERED: MAGNESIUM SULF 50% (8.12 MEQ/2 ML-1 GM VIAL) IVPB ONE (07:03)
[2018-09-17] MEDS ORDERED: PT OWN MED DRAWER 7, Y5N ONE (09:13)
[2018-09-17] MEDS: PANTOPRAZOLE SODIUM 40 MG VIAL IVPUSH SCH (09:16)
--- NOTE | 2018-09-17 09:18 | PN ---
GI Progress Note Subjective: No acute events States that diarrhea improved abdominal pain improved Had MRCP last night - Objective Vital Signs: Vital Signs Temperature 97.6 F 09/17/18 07:14 Pulse Rate 62 09/17/18 07:14 Respiratory Rate 20 09/17/18 07:14 Blood Pressure 95/53 L 09/17/18 07:14 O2 Sat by Pulse Oximetry (%) 99 09/16/18 21:00 Constitutional: Calm Eyes: No: Sclera Icterus Cardiovascular: Yes: Regular Rate and Rhythm Respiratory: Yes: CTA Bilaterally Gastrointestinal Inspection: No: Distention ...Auscultate: Yes: Normoactive Bowel Sounds ...Palpate: No: Hepatomegaly, Splenomegaly, Tenderness ...Percussion: No: Tympanitic Edema: No (No LE edema) Neurological: Yes: Alert Labs: No Repeat for today Problem List - Problems (1) Abdominal pain Assessment/Plan: Overall improved as has diarrhea. Tolerating PO Code(s): R10.9 - UNSPECIFIED ABDOMINAL PAIN (2) Abnormal liver function tests Assessment/Plan: Were on an improving trend. Continue to monitor. Await MRCP Code(s): R94.5 - ABNORMAL RESULTS OF LIVER FUNCTION STUDIES
--- NOTE | 2018-09-17 10:53 | PN ---
Progress Note, Physician Chief Complaint: abdominal pain - Current Medication List Current Medications: Active Medications Acetaminophen/Butalbital/Caffeine (Fioricet -) 1 tablet PO Q4H PRN PRN Reason: HEADACHE Last Admin: 09/17/18 04:26 Dose: 1 tablet Sodium Chloride (Normal Saline -) 1,000 mls @ 100 mls/hr IV ASDIR KATIE Last Admin: 09/17/18 06:39 Dose: 100 mls/hr Ibuprofen (Caldolor Injection -) 400 mg IVPB Q6H PRN PRN Reason: FEVER Last Admin: 09/14/18 17:35 Dose: 400 mg Morphine Sulfate (Morphine Sulfate) 4 mg IVPUSH Q6H PRN PRN Reason: PAIN LEVEL 7 - 10 Last Admin: 09/17/18 07:48 Dose: 4 mg Ondansetron HCl (Zofran Injection) 8 mg IVPB Q6H PRN PRN Reason: NAUSEA Last Admin: 09/15/18 18:47 Dose: 8 mg Pantoprazole Sodium (Protonix Iv) 40 mg IVPUSH DAILY [facility] Last Admin: 09/17/18 09:16 Dose: 40 mg - Objective Vital Signs: Vital Signs Temperature 97.6 F 09/17/18 07:14 Pulse Rate 62 09/17/18 07:14 Respiratory Rate 20 09/17/18 07:14 Blood Pressure 95/53 L 09/17/18 07:14 O2 Sat by Pulse Oximetry (%) 99 09/16/18 21:00 Constitutional: Yes: No Distress, Cachectic Cardiovascular: Yes: Regular Rate and Rhythm Respiratory: Yes: Regular Labs: CBC, BMP 09/16/18 08:40 09/16/18 08:45
[2018-09-17 20:59] VITALS: PULSE 70
[2018-09-18] MEDS: ACETAMINOPHEN/CAFFEINE/BUTALBITAL 1 TAB PO PRN ×2 (00:10→08:32)
[2018-09-18] MEDS: SODIUM CHLORIDE 1,000 ML IV SCH (03:58)
[2018-09-18 05:54] VITALS: BP 98/49; TEMP 97.6
--- NOTE | 2018-09-18 06:45 | PN ---
Progress Note, Physician - Current Medication List Current Medications: Active Medications Acetaminophen/Butalbital/Caffeine (Fioricet -) 1 tablet PO Q4H PRN PRN Reason: HEADACHE Last Admin: 09/18/18 00:10 Dose: 1 tablet Sodium Chloride (Normal Saline -) 1,000 mls @ 100 mls/hr IV ASDIR KATIE Last Admin: 09/18/18 03:58 Dose: 100 mls/hr Ibuprofen (Caldolor Injection -) 400 mg IVPB Q6H PRN PRN Reason: FEVER Last Admin: 09/14/18 17:35 Dose: 400 mg Morphine Sulfate (Morphine Sulfate) 4 mg IVPUSH Q6H PRN PRN Reason: PAIN LEVEL 7 - 10 Last Admin: 09/17/18 20:53 Dose: 4 mg Ondansetron HCl (Zofran Injection) 8 mg IVPB Q6H PRN PRN Reason: NAUSEA Last Admin: 09/15/18 18:47 Dose: 8 mg Pantoprazole Sodium (Protonix Iv) 40 mg IVPUSH DAILY [facility] Last Admin: 09/17/18 09:16 Dose: 40 mg - Objective Vital Signs: Vital Signs Temperature 97.6 F 09/18/18 05:53 Pulse Rate 70 09/18/18 05:53 Respiratory Rate 18 09/18/18 05:53 Blood Pressure 98/49 L 09/18/18 05:53 O2 Sat by Pulse Oximetry (%) 99 09/17/18 21:00 Labs: CBC, BMP 09/16/18 08:40 09/16/18 08:45 Problem List - Problems (1) Abnormal liver function tests Code(s): R94.5 - ABNORMAL RESULTS OF LIVER FUNCTION STUDIES (2) SBO (small bowel obstruction) Code(s): K56.609 - UNSP INTESTNL OBST, UNSP TO PARTIAL VERSUS COMPLETE OBST (3) Abdominal pain Code(s): R10.9 - UNSPECIFIED ABDOMINAL PAIN (4) Abnormal CT of the abdomen Code(s): R93.5 - ABN FINDINGS ON DX IMAGING OF ABD REGIONS, INC RETROPERITON
[2018-09-18] MEDS: morphine SULFATE 4 MG/ML VIAL IVPUSH PRN (06:46)
--- NOTE | 2018-09-18 06:58 | DS ---
Physical Examination Vital Signs: Vital Signs Temperature 97.6 F 09/18/18 05:53 Pulse Rate 70 09/18/18 05:53 Respiratory Rate 18 09/18/18 05:53 Blood Pressure 98/49 L 09/18/18 05:53 O2 Sat by Pulse Oximetry (%) 99 09/17/18 21:00 Findings/Remarks: EVENTS AND NOTES REVIEWED PATIENT IS FEELING BETTER TOLERATING MEALS Constitutional: Yes: No Distress Eyes: Yes: WNL HENT: Yes: WNL Neck: Yes: WNL Cardiovascular: Yes: WNL Respiratory: Yes: WNL Gastrointestinal: Yes: WNL Renal/: Yes: WNL Musculoskeletal: Yes: WNL Extremities: Yes: WNL Edema: No Peripheral Pulses WNL: Yes Integumentary: Yes: WNL Wound/Incision: Yes: Clean/Dry Neurological: Yes: WNL ...Motor Strength: WNL Psychiatric: Yes: WNL Labs: CBC, BMP 09/16/18 08:40 09/16/18 08:45 Discharge Summary Reason For Visit: SMALL BOWEL OBSTRUCTION Current Active Problems Abnormal liver function tests (Acute) SBO (small bowel obstruction) (Acute) Procedures: Principal: MRCP/CT SCAN Hospital Course: ADMITTED R/O SBO HOWEVER PATIENT HAD AN MRCP DONE TO R/U BILIARY TRACT DILATION VERSUS OTHER PROCESS. MRCP SHOWED NORMAL BILIARY AND NO LITHISIS NOTES. PERIHEPATIC/PORTAL FLUID SEEN ON MRCP. PATIENT WILL NEED GI F/U OUTPATIENT Condition: Improved - Instructions Diet, Activity, Other Instructions: WILL NEED GI APPT OUTPATIENT DR LUIS SEE YOUR PRIMARY DOCTOR IN 2-3 DAYS AVOID ANY MEDICATIONS THAT ARE HEPATOTOXIC Referrals: Dino Beauchamp [Primary Care Provider] - Ginger Luis MD [Staff Physician] - Disposition: HOME - Home Medications Comprehensive Discharge Medication List: Ambulatory Orders Acetaminophen/Caffeine/Butalb [Fioricet -] 1 tablet PO PRN 09/14/18 Omeprazole 20 mg PO DAILY 09/14/18
[2018-09-18 07:54] LABS: BILIRUBIN,DIRECT 0.1 mg/dL (0.0-0.2); BILIRUBIN,TOTAL 0.1 mg/dL (0.2-1); TOT PROT 5.8 g/dl (6.4-8.2)
[2018-09-19 00:07] LABS: HBSAG SCREEN Negative (Negative); HEP A AB, IGM Negative (Negative); HEP B CORE AB, TOT Negative (Negative)
--- NOTE | 2018-09-27 06:50 | PN ---
Progress Note (short form) - Note Progress Note: ADDENDUM DIAGNOSIS: PLEASE ADD SEVERE MALNUTRITION Problem List - Problems (1) Abnormal liver function tests Code(s): R94.5 - ABNORMAL RESULTS OF LIVER FUNCTION STUDIES (2) SBO (small bowel obstruction) Code(s): K56.609 - UNSP INTESTNL OBST, UNSP TO PARTIAL VERSUS COMPLETE OBST (3) Abdominal pain Code(s): R10.9 - UNSPECIFIED ABDOMINAL PAIN (4) Abnormal CT of the abdomen Code(s): R93.5 - ABN FINDINGS ON DX IMAGING OF ABD REGIONS, INC RETROPERITON
== END 2018-09-18 13:30 | disposition home or self-care (01) | DRG 247 ==
LOC: JER 11:09 → JERBED 14:24 → J8W 19:45
PROVIDERS: ADMIT Family Medicine; ATTEND Family Medicine
DX: K56.600 Partial intestinal obstruction, unspecified as to cause (principal); E43 Unspecified severe protein-calorie malnutrition; K52.9 Noninfective gastroenteritis and colitis, unspecified; R64 Cachexia; K21.9 Gastro-esophageal reflux disease without esophagitis; J45.909 Unspecified asthma, uncomplicated; G43.909 Migraine, unspecified, not intractable, without status migrainosus; Z68.1 Body mass index [BMI] 19.9 or less, adult; R94.5 Abnormal results of liver function studies
CPT/HCPCS: 36415; 74019-TC-FY; 74176-TC; 74177-TC; 74181-TC; 76705-TC; 80053; 80076; 81003; 81015; 82550; 83690; 83735; 84484; 84703; 85025; 85027; 86704; 86706; 86708; 86803; 86850; 86900; 86901; 87086; 87340; 93005; 93010; 99283-25; J7030

== ENCOUNTER 2018-10-10 07:25 | Inpatient (IN) | payer SELFPAY ==
--- NOTE | 2018-10-10 07:43 | PDOC ---
History of Present Illness - General History Source: Patient Exam Limitations: No Limitations - History of Present Illness Initial Comments: 10/10/18 07:55 52 year old female with PMH migraines, GERD, asthma presented to ED for abdominal pain x3 days. She stated her pain is located to her LLQ, suprapubic and RLQ, equal in all regions, sharp, constant, no alleviating or aggravating factors, radiating to her low back. She stated her pain is associated with three days of loose watery diarrhea ("Donna lost count how many times a day"), and vomiting (yellow, "Donna lost count how many times a day") starting yesterday. She denied blood in stool, hematemesis, fever, chest pain, cough, constipation. Pt was recently admitted for partial SBO with transaminitis. XR/CT showed partial bowel obstruction, biliary dilation. Pt was seen and evaluated by surgery, Dr. Gramajo, stated air progressed through to the colon, nonobstructive. Pt seen and evaluated by GI, Dr. Luis, MRCP was performed, showed normal biliary tree, transaminitis improved with no intervention, pt was discharged with instructions to follow up with GI. Pt did not follow up secondary to not having medical insurance. Past surgical history: cholecytectomy, tubal ligation PCP: Dr. Dino Beauchamp. <Negin Rodrigues - Last Filed: 10/10/18 17:58> <Candy Romero - Last Filed: 10/10/18 18:05> - General Chief Complaint: Nausea/Vomiting Stated Complaint: PAIN Time Seen by Provider: 10/10/18 07:43 Past History - Past Medical History Anemia: No Asthma: No Cancer: No Cardiac Disorders: No CVA: No COPD: No CHF: No Dementia: No Diabetes: No GI Disorders: Yes (GERD) Disorders: No HTN: No Hypercholesterolemia: No Kidney Stones: (kidney problems??) Liver Disease: No Seizures: No Thyroid Disease: No - Surgical History Abdominal Surgery: Yes Appendectomy: No Cardiac Surgery: No Cholecystectomy: Yes Lung Surgery: No Neurologic Surgery: No Orthopedic Surgery: No - Immunization History Immunization Up to Date: Yes - Suicide/Smoking/Psychosocial Hx Smoking Status: Yes Smoking History: Current every day smoker Have you smoked in the past 12 months: No Number of Cigarettes Smoked Daily: 5 Cigars Per Day: 0 Information on smoking cessation initiated: No 'Breaking Loose' booklet given: 09/14/18 Hx Alcohol Use: No Drug/Substance Use Hx: No Substance Use Type: None Hx Substance Use Treatment: Yes <Negin Rodrigues - Last Filed: 10/10/18 17:58> <Candy Romero - Last Filed: 10/10/18 18:05> - Past Medical History Allergies/Adverse Reactions: Allergies Allergy/AdvReac Type Severity Reaction Status Date / Time acetaminophen Allergy Intermediate Itching Verified 10/10/18 07:31 [From Tylenol-Codeine] codeine Allergy Intermediate Itching Verified 10/10/18 07:31 [From Tylenol-Codeine] Home Medications: Ambulatory Orders Omeprazole 20 mg PO DAILY 09/14/18 Ibuprofen 600 mg PO BID PRN #30 tablet MDD 2 09/18/18 Ondansetron [Ondansetron Odt] 8 mg PO TID PRN #30 tab.rapdis MDD 3 09/18/18 Acetaminophen/Caffeine/Butalb [Fioricet -] 1 tab PO Q6H PRN 10/10/18 Review of Systems - Review of Systems Able to Perform ROS?: Yes Comments:: 10/10/18 08:14 General: denied fever, chills, night sweats, generalized weakness. HEENT: denied sore throat, rhinorrhea, ear pain. Heart: denied chest pain, palpitations, syncope, lower extremity swelling, diaphoresis. Respiratory: denied shortness of breath, cough, sputum production, hemoptysis. Abdomen: admitted to abdominal pain, nausea, vomiting, diarrhea. denied hematemesis, constipation, blood in stool. : denied dysuria, increased urinary frequency, hematuria, urinary incontinence , flank pain. Back: admitted to back pain. Musculoskeletal: denied joint pain, muscle pain, joint swelling. Neurological: denied headache, dizziness, numbness, tingling, weakness. Skin: denied rash, laceration, abrasion. <RaviNegin - Last Filed: 10/10/18 17:58> *Physical Exam - Vital Signs Last Vital Signs Temp Pulse Resp BP Pulse Ox 98.7 F 100 H 18 106/69 100 10/10/18 07:31 10/10/18 07:31 10/10/18 07:31 10/10/18 07:31 10/10/18 07:31 - Physical Exam Comments: 10/10/18 08:15 Constitutional: Well-nourished, Well-developed, appearing stated age. appears in pain. HEENT: head is normocephalic, atraumatic. EOMI. PERRLA. Neck: supple. Full ROM. Heart: regular rhythm. no murmurs, rubs or gallops. Lungs: clear to auscultation bilaterally. no crackles, rhonchi or wheezing. no stridor. Abdomen: soft, flat. diffuse tenderness to palpation. decreased bowel sounds. no rebound, guarding, masses. Extremities: Peripheral pulses intact. No lower extremity edema. Neurological: CN 2-12 grossly intact. Moves all four extremities. Psych: awake, alert, oriented x3. Follows commands. Answers questions appropriately. <Negin Rodrigues - Last Filed: 10/10/18 17:58> - Vital Signs Last Vital Signs Temp Pulse Resp BP Pulse Ox 98.6 F 76 16 100/47 L 97 10/10/18 15:09 10/10/18 15:09 10/10/18 15:09 10/10/18 15:09 10/10/18 15:09 <Candy Romero - Last Filed: 10/10/18 18:05> Moderate Sedation - Procedure Monitoring Vital Signs: Procedure Monitoring Vital Signs Temperature 98.7 F 10/10/18 07:31 Pulse Rate 100 H 10/10/18 07:31 Respiratory Rate 18 10/10/18 07:31 Blood Pressure 106/69 10/10/18 07:31 O2 Sat by Pulse Oximetry (%) 100 10/10/18 07:31 <Negin Rodrigues - Last Filed: 10/10/18 17:58> - Procedure Monitoring Vital Signs: Procedure Monitoring Vital Signs Temperature 98.6 F 10/10/18 15:09 Pulse Rate 76 10/10/18 15:09 Respiratory Rate 16 10/10/18 15:09 Blood Pressure 100/47 L 10/10/18 15:09 O2 Sat by Pulse Oximetry (%) 97 10/10/18 15:09 <Candy Romero - Last Filed: 10/10/18 18:05> ED Treatment Course - LABORATORY CBC & Chemistry Diagram: 10/10/18 08:00 10/10/18 08:00 <Negin Rodrigues - Last Filed: 10/10/18 17:58> - LABORATORY CBC & Chemistry Diagram: 10/10/18 08:00 10/10/18 08:00 - ADDITIONAL ORDERS Additional order review: Laboratory Results 10/10/18 10/10/18 10/10/18 08:00 08:00 08:00 PT with INR 14.50 H INR 1.23 H PTT (Actin FS) Sodium Potassium Chloride Carbon Dioxide Anion Gap BUN Creatinine Creat Clearance w eGFR Random Glucose Calcium Magnesium Total Bilirubin AST ALT Alkaline Phosphatase Ammonia 32.20 H Creatine Kinase Troponin I Total Protein Albumin Lipase Blood Type A POSITIVE Antibody Screen Negative 10/10/18 10/10/18 08:00 08:00 PT with INR INR PTT (Actin FS) 29.9 Sodium 142 Potassium 3.7 Chloride 109 H Carbon Dioxide 22 Anion Gap 11 BUN 18 Creatinine 0.7 Creat Clearance w eGFR > 60 Random Glucose 110 H Calcium 9.3 Magnesium 2.1 Total Bilirubin 0.4 AST 28 ALT 44 Alkaline Phosphatase 131 H Ammonia Creatine Kinase 49 Troponin I < 0.02 Total Protein 8.0 Albumin 4.2 Lipase 132 Blood Type Antibody Screen 10/10/18 08:00 RBC 4.56 MCV 93.2 MCHC 34.5 RDW 13.0 MPV 9.3 Neutrophils % 78.0 Lymphocytes % 14.2 Monocytes % 7.4 Eosinophils % 0.1 Basophils % 0.3 - Medications Given in the ED: ED Medications Discontinued Medications Generic Name Dose Route Start Last Admin Trade Name Freq PRN Reason Stop Dose Admin Al Hydroxide/Mg Hydroxide 30 ml 10/10/18 08:09 10/10/18 08:20 Mylanta Oral Suspension - PO 10/10/18 08:10 30 ml ONCE ONE Administration Famotidine/Sodium Chloride 20 mg in 50 mls @ 100 mls/hr 10/10/18 08:09 08:20 Pepcid 20 Mg Premixed Ivpb - IVPB 10/10/18 08:38 100 mls/hr ONCE ONE Administration Sodium Chloride 1,000 mls @ 1,000 mls/hr 10/10/18 08:13 10/10/18 08:20 Normal Saline - IV 10/10/18 09:12 1,000 mls/hr ASDIR STA Administration Morphine Sulfate 2 mg 10/10/18 08:40 10/10/18 09:40 Morphine Injection - IVPUSH 10/10/18 08:41 2 mg ONCE ONE Administration Ondansetron HCl 4 mg 10/10/18 08:09 10/10/18 08:20 Zofran Injection IVPUSH 10/10/18 08:10 4 mg ONCE ONE Administration Ondansetron HCl 4 mg 10/10/18 13:22 10/10/18 13:28 Zofran Injection IVPUSH 10/10/18 13:23 4 mg ONCE ONE Administration <Candy Romero - Last Filed: 10/10/18 18:05> Medical Decision Making - Medical Decision Making 10/10/18 08:16 52 year old female with above PMH presented to ED for abdominal pain with n/v/d , recently admitted 09/14 for similar complaints. Initial Vital Signs Temp Pulse Resp BP Pulse Ox 98.7 F 100 H 18 106/69 100 10/10/18 07:31 10/10/18 07:31 10/10/18 07:31 10/10/18 07:31 10/10/18 07:31 Afebrile. Mildly tachycardic. No tachypnea. Mild hypotension. No hypoxia on room air. Pepcid, maalox, zofran ordered for nausea/vomiting. Morphine 2 mg ordered for pain, pt stated allergy, but received morphine during last admission with no adverse reaction. 1000 cc bolus normal saline ordered for hydration. Pending labs. Pending KUB, CXR, EKG. EKG performed at 0817: rate 69, regular rhythm, normal axis, normal intervals, flipped T in V2. Similar to prior 09/14/18. 10/10/18 08:34 CBC WBC 11.7 K/mm3 (4.0-10.0) H 10/10/18 08:00 RBC 4.56 M/mm3 (3.60-5.2) 10/10/18 08:00 Hgb 14.7 GM/dL (10.7-15.3) 10/10/18 08:00 Hct 42.4 % (32.4-45.2) D 10/10/18 08:00 MCV 93.2 fl (80-96) 10/10/18 08:00 MCH 32.2 pg (25.7-33.7) 10/10/18 08:00 MCHC 34.5 g/dl (32.0-36.0) 10/10/18 08:00 RDW 13.0 % (11.6-15.6) 10/10/18 08:00 Plt Count 284 K/MM3 (134-434) D 10/10/18 08:00 MPV 9.3 fl (7.5-11.1) 10/10/18 08:00 Absolute Neuts (auto) 9.1 K/mm3 (1.5-8.0) H 10/10/18 08:00 Neutrophils % 78.0 % (42.8-82.8) 10/10/18 08:00 Lymphocytes % 14.2 % (8-40) 10/10/18 08:00 Monocytes % 7.4 % (3.8-10.2) 10/10/18 08:00 Eosinophils % 0.1 % (0-4.5) 10/10/18 08:00 Basophils % 0.3 % (0-2.0) 10/10/18 08:00 Nucleated RBC % 0 % (0-0) 10/10/18 08:00 Mild leukocytosis with left shift. No anemia. CMP Sodium 142 mmol/L (136-145) 10/10/18 08:00 Potassium 3.7 mmol/L (3.5-5.1) 10/10/18 08:00 Chloride 109 mmol/L (98-107) H 10/10/18 08:00 Carbon Dioxide 22 mmol/L (21-32) 10/10/18 08:00 Anion Gap 11 MMOL/L (8-16) 10/10/18 08:00 BUN 18 mg/dL (7-18) 10/10/18 08:00 Creatinine 0.7 mg/dL (0.55-1.3) 10/10/18 08:00 Creat Clearance w eGFR > 60 (>60) 10/10/18 08:00 Random Glucose 110 mg/dL (74-106) H 10/10/18 08:00 Calcium 9.3 mg/dL (8.5-10.1) 10/10/18 08:00 Magnesium 2.1 mg/dL (1.8-2.4) 12/04/18 08:00 Total Bilirubin 0.4 mg/dL (0.2-1) 10/10/18 08:00 AST 28 U/L (15-37) 10/10/18 08:00 ALT 44 U/L (13-61) 10/10/18 08:00 Alkaline Phosphatase 131 U/L (45-117) H 10/10/18 08:00 Ammonia 32.20 umol/L (11-32) H 10/10/18 08:00 Creatine Kinase 49 IU/L (26-192) 10/10/18 08:00 Troponin I < 0.02 ng/ml (0.00-0.05) 10/10/18 08:00 Total Protein 8.0 g/dl (6.4-8.2) 10/10/18 08:00 Albumin 4.2 g/dl (3.4-5.0) 10/10/18 08:00 Lipase 132 U/L (73-393) 10/10/18 08:00 No electrolyte abnormalities. No MARIE. Mildly elevated ALP. Normal AST, ALT. Normal cardiac enzymes. Normal lipase. Pending Urine. 10/10/18 09:25 Pt reassessed, stated no improvement of pain, abdomen soft, flat, diffusely tender. 10/10/18 10:26 KUB report: dilated loops of small bowel, SBO vs ileus. - CT abdomen pelvis with IV and PO contrast ordered. CXR report: no acute pathology. 10/10/18 13:03 Vital Signs Temperature 98.3 F 10/10/18 12:06 Pulse Rate 57 L 10/10/18 12:06 Respiratory Rate 17 10/10/18 12:06 Blood Pressure 101/55 L 10/10/18 12:06 O2 Sat by Pulse Oximetry (%) 97 10/10/18 12:06 Pt reassessed, reported improvement of pain. Abdomen soft, flat, diffuse tenderness. 10/10/18 13:22 Pt reported nausea, last had zofran >5 hours ago. - Zofran 4 mg IV ordered. Pt going to CT now. 10/10/18 15:10 CT abdomen/pelvis report: no acute intrabdominal pathology. no SBO. Pt reassessed, stated pain is starting to increase again. Abdomen soft, flat, diffuse abdominal tenderness. Pt to be admitted for intractable abdominal pain, nausea/vomiting/diarrhea to Dr. Fitzgerald. 10/10/18 16:22 Pt reassessed, stated pain is 7/10. Abdomen soft, flat, diffuse abdominal tenderness. - Morphine 2 mg ordered. 10/10/18 16:47 Dr. Fitzgerald stated that he will admit the patient for obs med/surg to have EGD performed. - Janelle paged. 10/10/18 17:[address] Luis, who stated that he will come to evaluate the patient tonight or tomorrow morning. That it is unlikely that he will be able to do EGD in the morning, but that John can cover on Wednesdays. - Dr. Fitzgerald informed. <Negin Rodrigues - Last Filed: 10/10/18 17:58> - Medical Decision Making 10/10/18 15:30 Dr. Fitzgerald was paged and notified via phone service. Second page was placed at 16:15. 10/10/18 16:50 Dr. Luis was paged overhead. 10/10/18 17:34 Dr. Luis paged and notified via phone service. <Candy Romero - Last Filed: 10/10/18 18:05> *DC/Admit/Observation/Transfer - Discharge Dispostion Decision to Admit order: Yes <Negin Rodrigues - Last Filed: 10/10/18 17:58> <Candy Romero - Last Filed: 10/10/18 18:05> Diagnosis at time of Disposition: Intractable abdominal pain, Nausea vomiting and diarrhea - Discharge Dispostion Condition at time of disposition: Stable
[2018-10-10] MEDS ORDERED: FAMOTIDINE 20 MG/50 ML IVPB 20 MG/50 ML MG IVPB ONE ×2 (08:09→08:18)
[2018-10-10] MEDS ORDERED: ONDANSETRON 4 MG/2 ML VIAL IVPUSH ONE ×2 (08:09→13:22)
[2018-10-10] MEDS ORDERED: MAG HYDROX/AL HYDROX/SIMETH 30 ML UNIT-DOSE CUP PO ONE (08:09)
[2018-10-10] MEDS ORDERED: SODIUM CHLORIDE 1,000 ML IV STA (08:13)
[2018-10-10] MEDS ORDERED: MAG HYDROX/AL HYDROX/SIMETH 30 ML UNIT-DOSE CUP ONE (08:18)
[2018-10-10] MEDS ORDERED: ONDANSETRON 4 MG/2 ML VIAL ONE ×2 (08:18→13:22)
[2018-10-10 08:21] LABS: BASO % 0.3 % (0-2.0); EOS % 0.1 % (0-4.5); HEMATOCRIT 42.4 % (32.4-45.2); HEMOGLOBIN 14.7 GM/dL (10.7-15.3); LYMPH % 14.2 % (8-40); MCH 32.2 pg (25.7-33.7); MCHC 34.5 g/dl (32.0-36.0); MEAN CELL VOLUME 93.2 fl (80-96); MEAN PLT VOLUME 9.3 fl (7.5-11.1); MONO % 7.4 % (3.8-10.2); PLATELET COUNT 284 K/MM3 (134-434); RBC 4.56 M/mm3 (3.60-5.2); WHITE BLOOD COUNT 11.7 K/mm3 (4.0-10.0)
[2018-10-10 08:34] LABS: ALBUMIN 4.2 g/dl (3.4-5.0); ALK PHOS 131 U/L (45-117); ANION GAP 11 MMOL/L (8-16); BILIRUBIN,TOTAL 0.4 mg/dL (0.2-1); BLOOD UREA NITROGEN 18 mg/dL (7-18); CALCIUM 9.3 mg/dL (8.5-10.1); CHLORIDE 109 mmol/L (98-107); CO2 22 mmol/L (21-32); CREATININE 0.7 mg/dL (0.55-1.3); GLUCOSE,RANDOM 110 mg/dL (74-106); LIPASE 132 U/L (73-393); MAGNESIUM 2.1 mg/dL (1.8-2.4); POTASSIUM 3.7 mmol/L (3.5-5.1); SGOT/AST 28 U/L (15-37); SGPT/ALT 44 U/L (13-61); SODIUM 142 mmol/L (136-145)
[2018-10-10 08:38] LABS: INR 1.23 (0.83-1.09); PROTHROMBIN TIME (PATIENT) 14.5 SEC (9.7-13.0)
[2018-10-10] MEDS ORDERED: morphine CARPU-JECT 4 MG/1 ML DISP.SYRIN IVPUSH ONE (08:40)
[2018-10-10] MEDS ORDERED: MORPHINE SULFATE 2 MG/ML VIAL ONE ×2 (09:41→16:57)
--- NOTE | 2018-10-10 10:30 | PDOC ---
Attending Attestation - Resident Resident Name: Negin Rodrigues - ED Attending Attestation I have performed the following: I have examined & evaluated the patient, The case was reviewed & discussed with the resident, I agree w/resident's findings & plan - HPI HPI: 10/10/18 10:25 52-year-old female with history of GERD and cholecystectomy with admission one month ago for evaluation of abdominal pain, initially with concern for obstruction but ruled out, also with postsurgical biliary dilatation cleared with MRCP, presents now with another exacerbation of what appears to be a chronic/intermittent process, now describing 3 days of decreased appetite and one day of abdominal pain with nausea/vomiting/diarrhea. No fevers or chills, the pain is generalized but mostly located in the epigastric area, no blood in the vomit or stool. Similar to the prior visit but worse per patient, failed to follow-up with gastroenterology secondary to insurance reasons. Last endoscopy was about 10 years ago, diagnosed with gastritis per prior GI note, she does not remember whether she was placed on PPI's. - Physicial Exam PE: 10/10/18 10:30 Afebrile, thin, generally weak and chronically ill appearing No jaundice or pallor Heart is regular, lungs are clear Abdomen is soft and nondistended, diffusely tender but without guarding or rebound, tenderness is greatest in the epigastric region. Bowel sounds are normal to decreased, no CVA tenderness - Medical Decision Making 10/10/18 10:34 52y/o F with acute on chronic GI complaints, prior workups revealing gastritis but no EGD/colonoscopy in about 10 years. appears dehydrated, otherwise HD stable without peritoneal findings on exam. labs wnl, previously elevated LFTs resolved. lipase normal AXR again with dilated loops suspicious for SBO, will check CTAP again received pepcid/zofran without relief, received relief with morphine reassess, likely readmission 10/10/18 17:06 ct without acute pathology. persistent pain and inability to tolerate PO. difficult case, but recommended endoscopy/c-scopy by GI on prior admission and unable to f/u. place on obs for GI eval and consideration of scope. Dr. Fitzgerald accepts, Dr. Luis consulted. Heart Score/ECG Review #1 ECG reviewed & interpreted by me at: 08:17 General ECG Interpretation: Sinus Rhythm, Normal Rate (69), Normal Intervals ( qtc 426), No acute ischemic changes
[2018-10-10] MEDS ORDERED: morphine CARPU-JECT 2 MG/1 ML DISP.SYRIN IVPUSH ONE (16:22)
[2018-10-10] MEDS ORDERED: ONDANSETRON 4 MG/2 ML VIAL IVPUSH PRN (16:49)
[2018-10-10] MEDS ORDERED: IBUPROFEN 800 MG/8 ML IJ IVPB PRN (16:50)
--- NOTE | 2018-10-10 17:01 | EKG ---
Test Reason : Blood Pressure : / mmHG Vent. Rate : 069 BPM Atrial Rate : 069 BPM P-R Int : 158 ms QRS Dur : 086 ms QT Int : 398 ms P-R-T Axes : 054 -40 069 degrees QTc Int : 426 ms NORMAL SINUS RHYTHM WITH SINUS ARRHYTHMIA LEFT AXIS DEVIATION SEPTAL INFARCT , AGE UNDETERMINED ABNORMAL ECG Confirmed by MD JOCELIN, VANESSA ([id number]) on 10/10/2018 5:01:14 PM Referred By: Confirmed By:VANESSA MONREAL MD
[2018-10-10] MEDS ORDERED: PANTOPRAZOLE SODIUM 40 MG/100 ML BAG IVPB ONE (17:13)
[2018-10-10] MEDS: PANTOPRAZOLE SODIUM 40 MG VIAL IVPUSH SCH (17:15)
[2018-10-10] MEDS: SODIUM CHLORIDE 1,000 ML IV SCH ×2 (17:15→22:52)
[2018-10-10] MEDS: ACETAMINOPHEN/CAFFEINE/BUTALBITAL 1 TAB PO PRN (22:45)
[2018-10-11] MEDS: MORPHINE SULFATE 2 MG/ML VIAL IVPUSH PRN ×4 (01:06→21:40)
[2018-10-11 06:41] LABS: HEMATOCRIT 32.6 % (32.4-45.2); HEMOGLOBIN 10.7 GM/dL (10.7-15.3); MCH 31.1 pg (25.7-33.7); MCHC 32.7 g/dl (32.0-36.0); MEAN CELL VOLUME 95.3 fl (80-96); MEAN PLT VOLUME 8.8 fl (7.5-11.1); PLATELET COUNT 199 K/MM3 (134-434); RBC 3.42 M/mm3 (3.60-5.2); RDW 12.6 % (11.6-15.6)
[2018-10-11 07:20] LABS: ALBUMIN 3.1 g/dl (3.4-5.0); ALK PHOS 96 U/L (45-117); ANION GAP 7 MMOL/L (8-16); BILIRUBIN,TOTAL 0.3 mg/dL (0.2-1); BLOOD UREA NITROGEN 11 mg/dL (7-18); CHLORIDE 110 mmol/L (98-107); CO2 25 mmol/L (21-32); CREATININE 0.4 mg/dL (0.55-1.3); GLUCOSE,RANDOM 68 mg/dL (74-106); MAGNESIUM 1.9 mg/dL (1.8-2.4); POTASSIUM 3.4 mmol/L (3.5-5.1); SGOT/AST 23 U/L (15-37); SGPT/ALT 33 U/L (13-61); SODIUM 142 mmol/L (136-145); TOT PROT 5.7 g/dl (6.4-8.2)
--- NOTE | 2018-10-11 10:13 | HP ---
Admitting History and Physical - Admission History of Present Illness: 52-year-old female with history of GERD and cholecystectomy with admission one month ago for evaluation of abdominal pain, initially with concern for obstruction but ruled out, also with postsurgical biliary dilatation cleared with MRCP, presents now with another exacerbation of what appears to be a chronic/intermittent process, now describing 3 days of decreased appetite and one day of abdominal pain with nausea/vomiting/diarrhea. No fevers or chills, the pain is generalized but mostly located in the epigastric area, no blood in the vomit or stool. Similar to the prior visit but worse per patient, failed to follow-up with gastroenterology secondary to insurance reasons. Last endoscopy was about 10 years ago, diagnosed with gastritis per prior GI note, she does not remember whether she was placed on PPI's. 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 Pulmonary: Yes: Pneumonia Gastrointestinal: Yes: Diverticulosis, Other (previous colitis/enteritis) Renal/: Yes: Renal Calculi ...LMP: 04/07/10 Infectious Disease: Yes: MRSA (in stool 2013, negative screening 05/24) - Past Surgical History Past Surgical History: Yes: Cholecystectomy (laparoscopic), Colonoscopy, Tubal Ligation (laparoscopic), Upper Endoscopy - Smoking History Smoking history: Current every day smoker Have you smoked in the past 12 months: Yes Aproximately how many cigarettes per day: 5 - Alcohol/Substance Use Hx Alcohol Use: No History of Substance Use: reports: None - Social History ADL: Independent History of Recent Travel: No Home Medications - Allergies Allergies/Adverse Reactions: Allergies Allergy/AdvReac Type Severity Reaction Status Date / Time acetaminophen Allergy Intermediate Itching Verified 10/10/18 07:31 [From Tylenol-Codeine] codeine Allergy Intermediate Itching Verified 10/10/18 07:31 [From Tylenol-Codeine] - Home Medications Home Medications: Ambulatory Orders Omeprazole 20 mg PO DAILY 09/14/18 Ibuprofen 600 mg PO BID PRN #30 tablet MDD 2 09/18/18 Ondansetron [Ondansetron Odt] 8 mg PO TID PRN #30 tab.rapdis MDD 3 09/18/18 Acetaminophen/Caffeine/Butalb [Fioricet -] 1 tab PO Q6H PRN 10/10/18 Family Disease History - Family Disease History Family Disease History: Diabetes: Mother, Heart Disease: Mother, Other: Father ( Prostate), Brother (3, healthy), Sister (4, healthy), Son (1, healthy), Daughter (1, healthy) Review of Systems - Review of Systems Cardiovascular: denies: Chest Pain Respiratory: denies: SOB Gastrointestinal: reports: Abdominal Pain. denies: Rectal Bleeding Genitourinary: reports: No Symptoms Physical Examination Vital Signs: Vital Signs Temperature 97.6 F 10/11/18 06:00 Pulse Rate 67 10/11/18 06:00 Respiratory Rate 18 10/11/18 06:00 Blood Pressure 101/58 L 10/11/18 06:00 O2 Sat by Pulse Oximetry (%) 98 10/10/18 22:00 Cardiovascular: Yes: Regular Rate and Rhythm Respiratory: Yes: Regular, CTA Bilaterally Gastrointestinal: Yes: Normal Bowel Sounds, Soft, Tenderness, Epigastrium Labs: CBC, BMP 10/11/18 06:00 10/11/18 06:00 Problem List - Problems (1) Intractable abdominal pain Assessment/Plan: -NPO -IVF -PPI -GI CONSULT -REVIEW OLD RECORDS Code(s): R10.9 - UNSPECIFIED ABDOMINAL PAIN (2) Asthma Assessment/Plan: -STABLE Code(s): J45.909 - UNSPECIFIED ASTHMA, UNCOMPLICATED Qualifiers: Asthma severity: mild Asthma persistence: intermittent Asthma complication type: uncomplicated Qualified Code(s): J45.20 - Mild intermittent asthma, uncomplicated (3) GERD (gastroesophageal reflux disease) Code(s): K21.9 - GASTRO-ESOPHAGEAL REFLUX DISEASE WITHOUT ESOPHAGITIS
[2018-10-11] MEDS: ACETAMINOPHEN/CAFFEINE/BUTALBITAL 1 TAB PO PRN ×3 (10:19→23:52)
[2018-10-11] MEDS: SODIUM CHLORIDE 1,000 ML IV SCH ×3 (10:21→21:42)
[2018-10-11] MEDS: PANTOPRAZOLE SODIUM 40 MG VIAL IVPUSH SCH (10:21)
--- NOTE | 2018-10-11 14:58 | CON.GI ---
Consult Consult Specialty:: Gastroenterology Reason for Consultation:: Abdominal pain - History of Present Illness History of Present Illness: 52 yo female h/o cholecystectomy (more than 10 years ago) presents with worsening abdominal pain and diarrhea x 3 days. Pt states symptoms started on Tuesday with diffuse upper and lower abdominal pain , sharp in nature, with associated loose stool. Reports 3-4 episodes of loose- watery stools daily, denies blood. Reports associated nausea/vomiting, without blood. Denies fever/chills or weight loss. Currently feels slightly better, mild nausea and upper abdominal pain, no further vomiting, states she had 3 loose bms today however none observed or reported per nursing staff. At baseline states she has regular formed bm 1-2x daily. Pt reports similar symptoms previously, note recent hospitalization 09/14/[address] Tracy with similar complaints however concern for possible partial bowel obstruction on CT abd/pelvis s/p CT enterography without obvious bowel pathology however revealing prominent CBD. Pt then had MRCP (09/16/18) which was unremarkable. Symptoms had improved and advised outpt GI follow up for possible EGD/colonoscopy however had no interval follow up. Note multiple prior CT scans. Of note pt reports she had an EGD in [address] Phuong Burton that revealed mild gastritis and was otherwise normal, and also had an enteroscopy performed by Dr. Ginger Luis in 2011 that revealed an antral diverticulum and was otherwise normal. She had a colonoscopy in [address] Pete Parikh ( report not currently available for review). 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 Pulmonary: Yes: Pneumonia Gastrointestinal: Yes: Diverticulosis, Other (previous colitis/enteritis) Renal/: Yes: Renal Calculi ...LMP: 04/07/10 Infectious Disease: Yes: MRSA (in stool 2013, negative screening 05/24) - Past Surgical History Past Surgical History: Yes: Cholecystectomy (laparoscopic), Colonoscopy, Tubal Ligation (laparoscopic), Upper Endoscopy - Alcohol/Substance Use Hx Alcohol Use: No History of Substance Use: reports: None - Smoking History Smoking history: Current every day smoker Have you smoked in the past 12 months: Yes Aproximately how many cigarettes per day: 5 - Social History Usual Living Arrangement: With Spouse ADL: Independent History of Recent Travel: No Home Medications - Allergies Allergies/Adverse Reactions: Allergies Allergy/AdvReac Type Severity Reaction Status Date / Time acetaminophen Allergy Intermediate Itching Verified 10/10/18 07:31 [From Tylenol-Codeine] codeine Allergy Intermediate Itching Verified 10/10/18 07:31 [From Tylenol-Codeine] - Home Medications Home Medications: Ambulatory Orders Omeprazole 20 mg PO DAILY 09/14/18 Ibuprofen 600 mg PO BID PRN #30 tablet MDD 2 09/18/18 Ondansetron [Ondansetron Odt] 8 mg PO TID PRN #30 tab.rapdis MDD 3 09/18/18 Acetaminophen/Caffeine/Butalb [Fioricet -] 1 tab PO Q6H PRN 10/10/18 Family Disease History - Family Disease History Family Disease History: Diabetes: Mother, Heart Disease: Mother, Other: Father ( Prostate), Brother (3, healthy), Sister (4, healthy), Son (1, healthy), Daughter (1, healthy) Review of Systems - Review of Systems Constitutional: reports: No Symptoms Cardiovascular: reports: No Symptoms Respiratory: reports: No Symptoms Gastrointestinal: reports: Abdominal Pain, Nausea Neurological: reports: No Symptoms Physical Exam-GI Vital Signs: Vital Signs Temperature 98 F 10/11/18 10:00 Pulse Rate 73 10/11/18 10:00 Respiratory Rate 18 10/11/18 10:00 Blood Pressure 117/65 10/11/18 10:00 O2 Sat by Pulse Oximetry (%) 98 10/10/18 22:00 Constitutional: Yes: Well Nourished, No Distress (appears comfortable), Calm Cardiovascular: Yes: WNL, Regular Rate and Rhythm Respiratory: Yes: WNL, Regular, CTA Bilaterally Gastrointestinal Inspection: Yes: WNL (abdomen soft, mildly tender in epigastrium, nondistended +bs, no rebound, guarding or rigidity) Edema: No Labs: CBC, BMP 10/11/18 06:00 10/11/18 06:00 INR, PTT INR 1.23 (0.83-1.09) H 10/10/18 08:00 Imaging - Results Chest X-ray: Report Reviewed Cat Scan: Report Reviewed, Image Reviewed Problem List - Problems (1) Abdominal pain Code(s): R10.9 - UNSPECIFIED ABDOMINAL PAIN Assessment/Plan 52 yo female h/o cholecystectomy with acute on chronic abdominal pain worsening over the past 3 days with associated nausea/vomiting and loose stool, no evidence of bleeding. Note recent hospitalization with similar symptoms with CT enterography revealing prominent CBD however subsequent unremarkable MRCP. CT imaging (10/10/18) without obstruction or other obvious pathology to explain symptoms. LFTs and lipase normal. Exact etiology unclear and appears clinically improved, with no further vomiting or diarrhea observed per nursing staff. -Continue supportive management, monitor clinically and document stool output/ bms -If diarrhea, please send C difficile and stool ova/parasites r/o infectious etiologies -Can resume clear liquid diet and advance as tolerated -Pending stool studies, would consider colonoscopy +/- EGD for further evaluation (as pt also due for screening colonoscopy)
[2018-10-11 21:05] LABS: URINE APPEARANCE SLCLOUDY; URINE BILIRUBIN NEGATIVE (<2.0 mg/dL); URINE COLOR LTYELLOW; URINE GLUCOSE (UA) NEGATIVE (NEGATIVE); URINE KETONE 1+ (NEGATIVE); URINE LEUK ESTERASE NEGATIVE (NEGATIVE); URINE NITRITE NEGATIVE (NEGATIVE); URINE PROTEIN NEGATIVE (NEGATIVE); URINE UROBILINOGEN NEGATIVE mg/dL (0.2-1.0)
[2018-10-12] MEDS: MORPHINE SULFATE 2 MG/ML VIAL IVPUSH PRN ×3 (06:02→18:13)
[2018-10-12] MEDS: ACETAMINOPHEN/CAFFEINE/BUTALBITAL 1 TAB PO PRN ×3 (08:19→21:19)
[2018-10-12] MEDS: PANTOPRAZOLE SODIUM 40 MG VIAL IVPUSH SCH (09:09)
[2018-10-12] MEDS: SODIUM CHLORIDE 1,000 ML IV SCH ×2 (09:09→20:41)
[2018-10-12 11:06] VITALS: BMI 16.6
--- NOTE | 2018-10-12 13:34 | PN ---
Progress Note, Physician Chief Complaint: patient seen examined tolerated diet - Current Medication List Current Medications: Active Medications Acetaminophen/Butalbital/Caffeine (Fioricet -) 1 tablet PO Q6H PRN PRN Reason: HEADACHE Last Admin: 10/12/18 08:19 Dose: 1 tablet Sodium Chloride (Normal Saline -) 1,000 mls @ 100 mls/hr IV ASDIR KATIE Last Admin: 10/12/18 09:09 Dose: 100 mls/hr Ibuprofen (Caldolor Injection -) 600 mg IVPB Q6H PRN PRN Reason: FEVER Morphine Sulfate (Morphine Sulfate) 2 mg IVPUSH Q6H PRN PRN Reason: PAIN LEVEL 7 - 10 Last Admin: 10/12/18 12:07 Dose: 2 mg Ondansetron HCl (Zofran Injection) 4 mg IVPUSH Q4H PRN PRN Reason: NAUSEA AND/OR VOMITING Pantoprazole Sodium (Protonix Iv) 40 mg IVPUSH DAILY [facility] Last Admin: 10/12/18 09:09 Dose: 40 mg - Objective Vital Signs: Vital Signs Temperature 97.5 F L 10/12/18 08:15 Pulse Rate 60 10/12/18 08:15 Respiratory Rate 20 10/12/18 08:15 Blood Pressure 120/60 10/12/18 08:15 O2 Sat by Pulse Oximetry (%) 98 10/12/18 04:00 Constitutional: Yes: Calm Cardiovascular: Yes: Regular Rate and Rhythm, S1, S2 Respiratory: Yes: CTA Bilaterally Gastrointestinal: Yes: Normal Bowel Sounds, Soft Edema: No Neurological: Yes: Alert, Oriented Labs: CBC, BMP 10/11/18 06:00 10/11/18 06:00 INR, PTT INR 1.23 (0.83-1.09) H 10/10/18 08:00 Problem List - Problems (1) Nausea vomiting and diarrhea Assessment/Plan: no more nausea or vomiting will advance diet gi consult Code(s): R11.2 - NAUSEA WITH VOMITING, UNSPECIFIED; R19.7 - DIARRHEA, UNSPECIFIED (2) Abdominal pain Assessment/Plan: gi consult pain meds zofran prn Code(s): R10.9 - UNSPECIFIED ABDOMINAL PAIN
[2018-10-13] MEDS: MORPHINE SULFATE 2 MG/ML VIAL IVPUSH PRN ×2 (00:23→08:12)
[2018-10-13] MEDS: ACETAMINOPHEN/CAFFEINE/BUTALBITAL 1 TAB PO PRN ×3 (06:20→18:17)
[2018-10-13] MEDS: SODIUM CHLORIDE 1,000 ML IV SCH (06:21)
[2018-10-13] MEDS: PANTOPRAZOLE SODIUM 40 MG VIAL IVPUSH SCH (10:18)
--- NOTE | 2018-10-13 14:36 | DS ---
Physical Examination Vital Signs: Vital Signs Temperature 98 F 10/13/18 08:10 Pulse Rate 59 L 10/13/18 08:10 Respiratory Rate 20 10/13/18 08:10 Blood Pressure 117/69 10/13/18 08:10 O2 Sat by Pulse Oximetry (%) 98 10/13/18 04:00 Cardiovascular: Yes: Regular Rate and Rhythm Respiratory: Yes: Regular, CTA Bilaterally Gastrointestinal: Yes: Normal Bowel Sounds, Soft. No: Tenderness Labs: CBC, BMP 10/11/18 06:00 10/11/18 06:00 Discharge Summary Reason For Visit: NAUSEA; VOMITING; DIARRHEA Current Active Problems Intractable abdominal pain (Acute) Nausea vomiting and diarrhea (Acute) Hospital Course: - Problems (1) Nausea vomiting and diarrhea Assessment/Plan: no more nausea or vomiting Tolerating diet gi consult noted Code(s): R11.2 - NAUSEA WITH VOMITING, UNSPECIFIED; R19.7 - DIARRHEA, UNSPECIFIED (2) Abdominal pain Assessment/Plan: gi consult pain meds zofran prn Code(s): R10.9 - UNSPECIFIED ABDOMINAL PAIN (3) C.Dif Assessment/Plan: start [facility] home and gi work up as outpatient if ok with gi Condition: Stable - Instructions Referrals: [facility] [place] [Provider Group] Tab Fitzgerald MD [Staff Physician] - 2 Weeks Disposition: HOME - Home Medications Comprehensive Discharge Medication List: Ambulatory Orders Ondansetron [Zofran *Odt*] 8 mg PO TID PRN #30 tab.rapdis MDD 3 09/18/18 Acetaminophen/Caffeine/Butalb [Fioricet -] 1 tab PO Q6H PRN 10/10/18 Pantoprazole Sodium [Protonix -] 40 mg PO DAILY #30 tablet.ec 10/13/18 Vancomycin Oral Solution 125 mg PO Q6HPO #56 ml 10/13/18
[2018-10-13 16:48] LABS: BASO % 0.5 % (0-2.0); EOS % 0.7 % (0-4.5); HEMATOCRIT 34.1 % (32.4-45.2); HEMOGLOBIN 11.8 GM/dL (10.7-15.3); LYMPH % 24.6 % (8-40); MCH 32.5 pg (25.7-33.7); MCHC 34.7 g/dl (32.0-36.0); MEAN CELL VOLUME 93.7 fl (80-96); MEAN PLT VOLUME 9.6 fl (7.5-11.1); MONO % 9.4 % (3.8-10.2); NEUT % 64.8 % (42.8-82.8); PLATELET COUNT 232 K/MM3 (134-434); RBC 3.64 M/mm3 (3.60-5.2); RDW 12.5 % (11.6-15.6); WHITE BLOOD COUNT 6.6 K/mm3 (4.0-10.0)
[2018-10-13 16:58] LABS: ALBUMIN 3.3 g/dl (3.4-5.0); ALK PHOS 97 U/L (45-117); ANION GAP 8 MMOL/L (8-16); BILIRUBIN,TOTAL 0.4 mg/dL (0.2-1); BLOOD UREA NITROGEN 7 mg/dL (7-18); CALCIUM 7.9 mg/dL (8.5-10.1); CHLORIDE 110 mmol/L (98-107); CO2 25 mmol/L (21-32); CREATININE 0.4 mg/dL (0.55-1.3); GLUCOSE,RANDOM 93 mg/dL (74-106); POTASSIUM 3.4 mmol/L (3.5-5.1); SGOT/AST 28 U/L (15-37); SGPT/ALT 45 U/L (13-61); SODIUM 142 mmol/L (136-145)
[2018-10-13] MEDS: VANCOMYCIN 250 MG/5 ML ORAL SOLUTION PO SCH ×3 (17:12→23:30)
[2018-10-13] MEDS ORDERED: VANCOMYCIN 250 MG/5 ML ORAL SOLUTION PO SCH ×2 (18:00)
[2018-10-14] MEDS ORDERED: MORPHINE SULFATE 2 MG/ML VIAL IVPUSH ONE (01:14)
[2018-10-14] MEDS: VANCOMYCIN 250 MG/5 ML ORAL SOLUTION PO SCH ×3 (05:45→17:44)
[2018-10-14] MEDS: ACETAMINOPHEN/CAFFEINE/BUTALBITAL 1 TAB PO PRN ×2 (08:18→17:43)
[2018-10-14] MEDS: PANTOPRAZOLE 40 MG TABLET (FP) PO SCH (11:55)
--- NOTE | 2018-10-14 11:59 | PN ---
Progress Note, Physician - Current Medication List Current Medications: Active Medications Acetaminophen/Butalbital/Caffeine (Fioricet -) 1 tablet PO Q6H PRN PRN Reason: HEADACHE Last Admin: 10/14/18 08:18 Dose: 1 tablet Ibuprofen (Caldolor Injection -) 600 mg IVPB Q6H PRN PRN Reason: FEVER Ondansetron HCl (Zofran Injection) 4 mg IVPUSH Q4H PRN PRN Reason: NAUSEA AND/OR VOMITING Pantoprazole Sodium (Protonix -) 40 mg PO DAILY [facility] Last Admin: 10/14/18 11:55 Dose: 40 mg Vancomycin HCl (Vancomycin Oral Solution) 125 mg PO Q6HPO [facility] Last Admin: 10/14/18 11:55 Dose: 125 mg - Objective Vital Signs: Vital Signs Temperature 98.0 F 10/14/18 08:20 Pulse Rate 71 10/14/18 08:20 Respiratory Rate 18 10/14/18 08:20 Blood Pressure 120/63 10/14/18 08:20 O2 Sat by Pulse Oximetry (%) 98 10/13/18 12:00 Cardiovascular: Yes: Regular Rate and Rhythm Respiratory: Yes: Regular, CTA Bilaterally Gastrointestinal: Yes: Normal Bowel Sounds, Soft, Tenderness Labs: CBC, BMP 10/13/18 15:40 10/13/18 15:40 INR, PTT INR 1.23 (0.83-1.09) H 10/10/18 08:00 Problem List - Problems (1) Intractable abdominal pain Assessment/Plan: -Tolerating diet -Off IVF -PPI -GI CONSULT -REVIEW OLD RECORDS Code(s): R10.9 - UNSPECIFIED ABDOMINAL PAIN (2) Asthma Assessment/Plan: -STABLE Code(s): J45.909 - UNSPECIFIED ASTHMA, UNCOMPLICATED Qualifiers: Asthma severity: mild Asthma persistence: intermittent Asthma complication type: uncomplicated Qualified Code(s): J45.20 - Mild intermittent asthma, uncomplicated (3) GERD (gastroesophageal reflux disease) Assessment/Plan: on ppi Code(s): K21.9 - GASTRO-ESOPHAGEAL REFLUX DISEASE WITHOUT ESOPHAGITIS
[2018-10-14] MEDS ORDERED: traMADol HCL 50 MG TABLET PO PRN (13:24)
[2018-10-14] MEDS ORDERED: KCL 10 MEQ IVPB 10 MEQ/100 ML INFUS.BAG IVPB SCH (13:30)
[2018-10-14] MEDS: MORPHINE SULFATE 2 MG/ML VIAL IVPUSH PRN ×2 (14:52→21:41)
[2018-10-15] MEDS: ACETAMINOPHEN/CAFFEINE/BUTALBITAL 1 TAB PO PRN ×3 (02:06→17:42)
[2018-10-15] MEDS: VANCOMYCIN 250 MG/5 ML ORAL SOLUTION PO SCH ×5 (06:15→23:20)
[2018-10-15] MEDS: MORPHINE SULFATE 2 MG/ML VIAL IVPUSH PRN ×3 (07:43→22:02)
[2018-10-15 08:16] LABS: ALBUMIN 3.4 g/dl (3.4-5.0); ALK PHOS 103 U/L (45-117); ANION GAP 9 MMOL/L (8-16); BILIRUBIN,TOTAL 0.2 mg/dL (0.2-1); BLOOD UREA NITROGEN 13 mg/dL (7-18); CALCIUM 8.4 mg/dL (8.5-10.1); CHLORIDE 108 mmol/L (98-107); CO2 25 mmol/L (21-32); CREATININE 0.5 mg/dL (0.55-1.3); GLUCOSE,RANDOM 83 mg/dL (74-106); LIPASE 501 U/L (73-393); POTASSIUM 3.8 mmol/L (3.5-5.1); SGOT/AST 22 U/L (15-37); SGPT/ALT 47 U/L (13-61); SODIUM 141 mmol/L (136-145); TOT PROT 6.4 g/dl (6.4-8.2)
[2018-10-15] MEDS: PANTOPRAZOLE 40 MG TABLET (FP) PO SCH (10:24)
--- NOTE | 2018-10-15 14:17 | PN ---
Progress Note, Physician - Current Medication List Current Medications: Active Medications Acetaminophen/Butalbital/Caffeine (Fioricet -) 1 tablet PO Q6H PRN PRN Reason: HEADACHE Last Admin: 10/15/18 10:22 Dose: 1 tablet Morphine Sulfate (Morphine Sulfate) 2 mg IVPUSH Q6H PRN PRN Reason: PAIN SCALE 6-10 Last Admin: 10/15/18 07:43 Dose: 2 mg Pantoprazole Sodium (Protonix -) 40 mg PO DAILY [facility] Last Admin: 10/15/18 10:24 Dose: 40 mg Tramadol HCl (Ultram -) 50 mg PO Q6H PRN PRN Reason: PAIN LEVEL 6-10 Vancomycin HCl (Vancomycin Oral Solution) 125 mg PO Q6HPO KATIE Last Admin: 10/15/18 13:38 Dose: 125 mg - Objective Vital Signs: Vital Signs Temperature 97.5 F L 10/15/18 06:33 Pulse Rate 71 10/15/18 06:33 Respiratory Rate 20 10/15/18 06:33 Blood Pressure 89/51 L 10/15/18 06:33 O2 Sat by Pulse Oximetry (%) 98 10/13/18 12:00 Cardiovascular: Yes: S1, S2 Respiratory: Yes: Regular, CTA Bilaterally Gastrointestinal: Yes: Normal Bowel Sounds, Soft Labs: CBC, BMP 10/13/18 15:40 10/15/18 07:00 INR, PTT INR 1.23 (0.83-1.09) H 10/10/18 08:00 Problem List - Problems (1) Intractable abdominal pain Assessment/Plan: -Tolerating diet -Off IVF -PPI -GI CONSULT -REVIEW OLD RECORDS Code(s): R10.9 - UNSPECIFIED ABDOMINAL PAIN (2) Asthma Assessment/Plan: -STABLE Code(s): J45.909 - UNSPECIFIED ASTHMA, UNCOMPLICATED Qualifiers: Asthma severity: mild Asthma persistence: intermittent Asthma complication type: uncomplicated Qualified Code(s): J45.20 - Mild intermittent asthma, uncomplicated (3) GERD (gastroesophageal reflux disease) Assessment/Plan: on ppi Code(s): K21.9 - GASTRO-ESOPHAGEAL REFLUX DISEASE WITHOUT ESOPHAGITIS (4) C. difficile colitis Assessment/Plan: -PO vanco Code(s): A04.72 - ENTEROCOLITIS D/T CLOSTRIDIUM DIFFICILE, NOT SPCF RECUR
[2018-10-15 14:50] LABS: BASO % 0.7 % (0-2.0); HEMATOCRIT 37.5 % (32.4-45.2); HEMOGLOBIN 12.9 GM/dL (10.7-15.3); LYMPH % 23.9 % (8-40); MCH 32.2 pg (25.7-33.7); MCHC 34.3 g/dl (32.0-36.0); MEAN CELL VOLUME 93.9 fl (80-96); MONO % 8.2 % (3.8-10.2); NEUT % 66.2 % (42.8-82.8); PLATELET COUNT 251 K/MM3 (134-434); RBC 3.99 M/mm3 (3.60-5.2); RDW 12.8 % (11.6-15.6); WHITE BLOOD COUNT 7.2 K/mm3 (4.0-10.0)
[2018-10-15 15:05] LABS: ALBUMIN 3.4 g/dl (3.4-5.0); ALK PHOS 111 U/L (45-117); ANION GAP 9 MMOL/L (8-16); BILIRUBIN,TOTAL 0.2 mg/dL (0.2-1); BLOOD UREA NITROGEN 14 mg/dL (7-18); CALCIUM 8.4 mg/dL (8.5-10.1); CHLORIDE 105 mmol/L (98-107); CO2 26 mmol/L (21-32); CREATININE 0.6 mg/dL (0.55-1.3); GLUCOSE,RANDOM 93 mg/dL (74-106); POTASSIUM 3.6 mmol/L (3.5-5.1); SGOT/AST 26 U/L (15-37); SGPT/ALT 51 U/L (13-61); SODIUM 139 mmol/L (136-145); TOT PROT 6.8 g/dl (6.4-8.2)
[2018-10-16] MEDS: ACETAMINOPHEN/CAFFEINE/BUTALBITAL 1 TAB PO PRN ×2 (00:39→10:27)
[2018-10-16] MEDS: VANCOMYCIN 250 MG/5 ML ORAL SOLUTION PO SCH ×2 (05:36→11:47)
[2018-10-16] MEDS: MORPHINE SULFATE 2 MG/ML VIAL IVPUSH PRN (07:39)
[2018-10-16] MEDS: PANTOPRAZOLE 40 MG TABLET (FP) PO SCH (09:26)
[2018-10-16 10:23] VITALS: BP 110/60; PULSE 68; TEMP 97.9
--- NOTE | 2018-10-16 12:04 | PN ---
Progress Note, Physician Chief Complaint: Cdiff colitis History of Present Illness: NAD diarrhea stopped still with mild to moderate abdominal pain On PO Vanco - Current Medication List Current Medications: Active Medications Acetaminophen/Butalbital/Caffeine (Fioricet -) 1 tablet PO Q6H PRN PRN Reason: HEADACHE Last Admin: 10/16/18 10:27 Dose: 1 tablet Pantoprazole Sodium (Protonix -) 40 mg PO DAILY KATIE Last Admin: 10/16/18 09:26 Dose: 40 mg Tramadol HCl (Ultram -) 50 mg PO Q6H PRN PRN Reason: PAIN LEVEL 6-10 Vancomycin HCl (Vancomycin Oral Solution) 125 mg PO Q6HPO KATIE Last Admin: 10/16/18 11:47 Dose: 125 mg - Objective Vital Signs: Vital Signs Temperature 97.9 F 10/16/18 10:00 Pulse Rate 68 10/16/18 10:00 Respiratory Rate 20 10/16/18 10:00 Blood Pressure 110/60 10/16/18 10:00 O2 Sat by Pulse Oximetry (%) 98 10/13/18 12:00 Constitutional: Yes: Well Nourished, No Distress, Calm Cardiovascular: Yes: Regular Rate and Rhythm Respiratory: Yes: Regular Gastrointestinal: Yes: Normal Bowel Sounds, Soft, Tenderness (diffuse) Musculoskeletal: Yes: WNL Extremities: Yes: WNL Edema: No Peripheral Pulses WNL: Yes Neurological: Yes: Alert, Oriented Psychiatric: Yes: Alert, Oriented Labs: CBC, BMP 10/15/18 14:23 10/15/18 14:23 INR, PTT INR 1.23 (0.83-1.09) H 10/10/18 08:00 Problem List - Problems (1) Nausea vomiting and diarrhea Assessment/Plan: -PO Vanco Q6 H for another 10 days -Pantoprazole 40 mg po daily -F/U with GI outpatient for colonoscopy Code(s): R11.2 - NAUSEA WITH VOMITING, UNSPECIFIED; R19.7 - DIARRHEA, UNSPECIFIED (2) Abdominal pain Assessment/Plan: -CT abd/pelvis unremarkable -s/t to cdiff colitis -pantoprazole 40 mg po daily -PO Vanco Code(s): R10.9 - UNSPECIFIED ABDOMINAL PAIN Assessment/Plan see problem list
== END 2018-10-16 13:55 | disposition home or self-care (01) | DRG 248 ==
LOC: JER 07:25 → JERBED 15:27 → J5S 21:30 → OBSVTOIN 10-13 14:31 → J8W 10-13 18:23
PROVIDERS: ADMIT Family Medicine; ATTEND Family Medicine
DX: A04.72 Enterocolitis due to Clostridium difficile, not specified as recurrent (principal); K25.4 Chronic or unspecified gastric ulcer with hemorrhage; E43 Unspecified severe protein-calorie malnutrition; G43.909 Migraine, unspecified, not intractable, without status migrainosus; K21.9 Gastro-esophageal reflux disease without esophagitis; J45.20 Mild intermittent asthma, uncomplicated; R00.0 Tachycardia, unspecified
CPT/HCPCS: 36415; 71046-TC-FY; 74019-TC-FY; 74177-TC; 80053; 81003; 82140; 82550; 83690; 83735; 84484; 84703; 85025; 85027; 85610; 85651; 85730; 86140; 86850; 86900; 86901; 87086; 87324; 87449; 93005; 93010; 99284-25; G0378; J7030; Q9967

== ENCOUNTER 2019-01-05 03:26 | Emergency (ER) | payer SELFPAY ==
[2019-01-05 03:58] VITALS: BP 99/58; PULSE 73; TEMP 97.5; BMI 14.5
--- NOTE | 2019-01-05 04:01 | PDOC ---
History of Present Illness - General Stated Complaint: VOMITING,VAGINAL PAIN,BLEEDING Time Seen by Provider: 01/05/19 03:45 Past History - Past Medical History Allergies/Adverse Reactions: Allergies Allergy/AdvReac Type Severity Reaction Status Date / Time acetaminophen Allergy Intermediate Itching Verified 10/10/18 07:31 [From Tylenol-Codeine] codeine AdvReac Intermediate Itching Verified 10/14/18 22:54 [From Tylenol-Codeine] Home Medications: Ambulatory Orders Ondansetron [Zofran *Odt*] 8 mg PO TID PRN #30 tab.rapdis MDD 3 09/18/18 Acetaminophen/Caffeine/Butalb [Fioricet -] 1 tab PO Q6H PRN 10/10/18 Pantoprazole Sodium [Protonix -] 40 mg PO DAILY #30 tablet.ec 10/13/18 Vancomycin Oral Solution 125 mg PO Q6HPO #56 ml 10/13/18 Anemia: No Asthma: No Cancer: No Cardiac Disorders: No CVA: No COPD: No CHF: No Dementia: No Diabetes: No GI Disorders: Yes (GERD) Disorders: No HTN: No Hypercholesterolemia: No Kidney Stones: (kidney problems??) Liver Disease: No Seizures: No Thyroid Disease: No - Surgical History Abdominal Surgery: Yes Appendectomy: No Cardiac Surgery: No Cholecystectomy: Yes Lung Surgery: No Neurologic Surgery: No Orthopedic Surgery: No - Immunization History Immunization Up to Date: Yes - Suicide/Smoking/Psychosocial Hx Smoking Status: Yes Smoking History: Current every day smoker Have you smoked in the past 12 months: No Number of Cigarettes Smoked Daily: 5 Cigars Per Day: 0 'Breaking Loose' booklet given: 09/14/18 Hx Alcohol Use: No Drug/Substance Use Hx: No Substance Use Type: None Hx Substance Use Treatment: Yes *DC/Admit/Observation/Transfer - Referrals Referrals: Dino Beauchamp [Primary Care Provider] - - Patient Instructions - Post Discharge Activity
[2019-01-05] MEDS ORDERED: SODIUM CHLORIDE 1,000 ML IV STA (04:47)
[2019-01-05 04:54] LABS: BASO % 0.7 % (0-2.0); EOS % 1.5 % (0-4.5); HEMATOCRIT 32.6 % (32.4-45.2); HEMOGLOBIN 11.2 GM/dL (10.7-15.3); LYMPH % 38.7 % (8-40); MCH 32.5 pg (25.7-33.7); MCHC 34.5 g/dl (32.0-36.0); MEAN CELL VOLUME 94.4 fl (80-96); MEAN PLT VOLUME 8.3 fl (7.5-11.1); MONO % 7.8 % (3.8-10.2); NEUT % 51.3 % (42.8-82.8); PLATELET COUNT 196 K/MM3 (134-434); RBC 3.45 M/mm3 (3.60-5.2); RDW 13.4 % (11.6-15.6); WHITE BLOOD COUNT 8.8 K/mm3 (4.0-10.0)
[2019-01-05] MEDS ORDERED: ONDANSETRON 4 MG/2 ML VIAL IVPB ONE (05:05)
[2019-01-05] MEDS ORDERED: FAMOTIDINE 20 MG/50 ML IVPB 20 MG/50 ML MG IVPB ONE ×2 (05:05→05:27)
--- NOTE | 2019-01-05 05:11 | PDOC ---
History of Present Illness - General Chief Complaint: Nausea/Vomiting Stated Complaint: VOMITING,VAGINAL PAIN,BLEEDING Time Seen by Provider: 01/05/19 03:45 History Source: Patient Exam Limitations: Language Barrier - History of Present Illness Initial Comments: 01/05/19 05:08 Pt is a 53yo F with PMH of Migraines, Cholecystectomy 15 years ago, Chronic Abdominal Pain presenting to ED with complaints of vaginal spotting x 3 days associated with vaginal and lower abdominal pain. Pt states that she notices spots of blood on the pad and when she wipes. She also states she has burning with urination. Pain is located in the lower abdomen, is constant and radiates to the back. Pt also endorses epigastric abdominal pain with 3 episodes of nbnb emesis this morning. She denies fevers, chills, diarrhea, blood in stool, hematuria, cough, chest pain, SOB, weakness, numbness/tingling. LMP was 13 years ago. Last BM was yesterday. She has had decreased PO intake. PMD: Quynh PMH: see hpi PSH: see hpi Meds: Fioricet Social: denies Allergies: Tylenol 3 Past History - Past Medical History Allergies/Adverse Reactions: Allergies Allergy/AdvReac Type Severity Reaction Status Date / Time acetaminophen Allergy Intermediate Itching Verified 01/05/19 03:58 [From Tylenol-Codeine] codeine AdvReac Intermediate Itching Verified 01/05/19 03:58 [From Tylenol-Codeine] Home Medications: Ambulatory Orders Ondansetron [Zofran *Odt*] 8 mg PO TID PRN #30 tab.rapdis MDD 3 09/18/18 Acetaminophen/Caffeine/Butalb [Fioricet -] 1 tab PO Q6H PRN 10/10/18 Pantoprazole Sodium [Protonix -] 40 mg PO DAILY #30 tablet.ec 10/13/18 Vancomycin Oral Solution 125 mg PO Q6HPO #56 ml 10/13/18 Anemia: No Asthma: No Cancer: No Cardiac Disorders: No CVA: No COPD: No CHF: No Dementia: No Diabetes: No GI Disorders: Yes (GERD) Disorders: No HTN: No Hypercholesterolemia: No Kidney Stones: (kidney problems??) Liver Disease: No Seizures: No Thyroid Disease: No - Surgical History Abdominal Surgery: Yes Appendectomy: No Cardiac Surgery: No Cholecystectomy: Yes Lung Surgery: No Neurologic Surgery: No Orthopedic Surgery: No - Immunization History Immunization Up to Date: Yes - Suicide/Smoking/Psychosocial Hx Smoking Status: Yes Smoking History: Current every day smoker Have you smoked in the past 12 months: No Number of Cigarettes Smoked Daily: 5 Cigars Per Day: 0 Information on smoking cessation initiated: No 'Breaking Loose' booklet given: 09/14/18 Hx Alcohol Use: No Drug/Substance Use Hx: No Substance Use Type: None Hx Substance Use Treatment: Yes *Physical Exam - Vital Signs Last Vital Signs Temp Pulse Resp BP Pulse Ox 97.5 F L 73 16 99/58 L 100 01/05/19 03:30 01/05/19 03:30 01/05/19 03:30 01/05/19 03:30 01/05/19 03:30 Moderate Sedation - Procedure Monitoring Vital Signs: Procedure Monitoring Vital Signs Temperature 97.5 F L 01/05/19 03:30 Pulse Rate 73 01/05/19 03:30 Respiratory Rate 16 01/05/19 03:30 Blood Pressure 99/58 L 01/05/19 03:30 O2 Sat by Pulse Oximetry (%) 100 01/05/19 03:30 ED Treatment Course - LABORATORY CBC & Chemistry Diagram: 01/05/19 04:37 01/05/19 04:37 - ADDITIONAL ORDERS Additional order review: 01/05/19 04:37 RBC 3.45 L MCV 94.4 MCHC 34.5 RDW 13.4 MPV 8.3 Neutrophils % 51.3 D Lymphocytes % 38.7 D Monocytes % 7.8 Eosinophils % 1.5 Basophils % 0.7 Medical Decision Making - Medical Decision Making 01/05/19 05:11 Pt is a 53yo F with PMH of Migraines, Cholecystectomy 15 years ago, Chronic Abdominal Pain presenting to ED with complaints of vaginal spotting x 3 days associated with vaginal and lower abdominal pain. Pt states that she notices spots of blood on the pad and when she wipes. She also states she has burning with urination. Pain is located in the lower abdomen, is constant and radiates to the back. Pt also endorses epigastric abdominal pain with 3 episodes of nbnb emesis this morning. She denies fevers, chills, diarrhea, blood in stool, hematuria, cough, chest pain, SOB, weakness, numbness/tingling. LMP was 13 years ago. Last BM was yesterday. She has had decreased PO intake. : lower abdominal tenderness, adnexal tenderness, cmt, white thick discharge. normal appearing cervix. 01/05/19 05:39 pt refusing tramadol. Asked for Fioricet 01/05/19 07:08 pt refusing antibiotics and toradol. asking to go home. does not want further testing or medications. Not providing urine sample. will dc. given senior major gifts officer referral. will get call back for gc amp. *DC/Admit/Observation/Transfer Diagnosis at time of Disposition: Vagina bleeding, Vaginal pain Abdominal pain Qualifiers: Abdominal location: unspecified location Qualified Code(s): R10.9 - Unspecified abdominal pain - Discharge Dispostion Disposition: HOME Condition at time of disposition: Good - Referrals Referrals: Dino Beauchamp [Primary Care Provider] - Kacy Kulkarni MD [Staff Physician] - - Patient Instructions Printed Discharge Instructions: DI for Abdominal Pain-Adult, DI for Vaginal Bleeding Additional Instructions: Fue atendida hoy en la otilia de emergencias por sangrado vaginal, dolor abdominal inferior. Los anlisis de jose fueron normales. Creemos que puede tener chin infeccin plvica. Smiley requiere tratamiento con antibiticos, sin embargo, usted no quiso mariano antibiticos. Le recomiendo que kirill chin sosa con un mdico obstetra / gineclogo en los prximos mulligan. Dr. Kulkarni . Por favor, asegrese de hacer chin sosa. Tambin recomiendo hacer chin sosa con un mdico de GI. Si no tiene sneha, puede zoe al Dr. Barrientos . Regrese a la otilia de emergencias si el dolor empeora, desarrolla fiebre, nota jose en la orina, jose en el vmito o las heces o si aparece algn sntoma nuevo. Mika You were seen in the emergency room today for vaginal bleeding, lower abdominal pain. The blood tests were normal. We think that you may have a pelvic infection. This requires antibiotic treatment however you did not want to take antibiotics. I recommend that you make an appointment with an senior major gifts officer doctor in the next few days. Dr. Kulkarni . Please make sure you make an appointment. I also recommend making an appointment with a GI doctor. If you do not have one , you can see Dr. Barrientos . Come back to the emergency room if pain gets worse, you develop fever, you notice blood in the urine, you have blood in the vomit or stool or if any new concerning symptom develops. Thank you Print Language: L[place] - Post Discharge Activity
[2019-01-05] MEDS ORDERED: traMADol HCL 50 MG TABLET PO ONE (05:16)
[2019-01-05 05:21] LABS: ALBUMIN 3.3 g/dl (3.4-5.0); ALK PHOS 128 U/L (45-117); ANION GAP 6 MMOL/L (8-16); BILIRUBIN,TOTAL 0.2 mg/dL (0.2-1); BLOOD UREA NITROGEN 11 mg/dL (7-18); CALCIUM 7.7 mg/dL (8.5-10.1); CHLORIDE 109 mmol/L (98-107); CO2 27 mmol/L (21-32); CREATININE 0.5 mg/dL (0.55-1.3); GLUCOSE,RANDOM 95 mg/dL (74-106); SGOT/AST 35 U/L (15-37); SGPT/ALT 64 U/L (13-61); SODIUM 142 mmol/L (136-145); TOT PROT 6.2 g/dl (6.4-8.2)
[2019-01-05] MEDS ORDERED: ONDANSETRON 4 MG/2 ML VIAL ONE (05:27)
[2019-01-05] MEDS ORDERED: traMADol HCL 50 MG TABLET ONE (05:27)
[2019-01-05] MEDS ORDERED: ACETAMINOPHEN/CAFFEINE/BUTALBITAL 1 TAB PO ONE (05:38)
[2019-01-05] MEDS ORDERED: KETOROLAC TROMETHAMINE 30 MG/1 ML VIAL IVPUSH ONE (05:40)
[2019-01-05] MEDS ORDERED: AZITHROMYCIN 250 MG TABLET PO ONE (05:40)
--- NOTE | 2019-01-05 05:45 | PDOC ---
Attending Attestation - Resident Resident Name: NataliaSaJanie - ED Attending Attestation I have performed the following: I have examined & evaluated the patient, The case was reviewed & discussed with the resident, I agree w/resident's findings & plan - HPI HPI: 01/05/19 05:41 53y/o F h/o chronic epigastric pain with extensive workup in the past now p/w pelvic pain for 2-3 days and vaginal spotting. LMP per patient was about 13y ago , not recently sexually active. no h/o recurring UTI, no flank pain. nausea with exacerbation of her migraine, otherwise no v/d - Physicial Exam PE: 01/05/19 05:42 vss, no fever alert, ambulating, thin and in no acute distress no jaundice/pallor s1s2 rrr, ctab soft/nd. tender lower abd/pelvis with guarding, no rebound. BS nl pelvic per resident -- + discharge, + cmt - Medical Decision Making 01/05/19 05:43 53y/o F with pelvic pain/vaginal discharge/new onset bleeding, concern for PID, r/o UTI. 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 not consistent with GI. labs, ua gc/chl cxs sent will treat empirically for PID d/c to java enterprise architect f/u
[2019-01-05] MEDS ORDERED: AZITHROMYCIN 250 MG TABLET ONE (06:11)
[2019-01-05] MEDS ORDERED: cefTRIAXone SODIUM 1 GM VIAL ONE (06:11)
[2019-01-05] MEDS ORDERED: ACETAMINOPHEN/CAFFEINE/BUTALBITAL 1 TAB ONE (06:11)
[2019-01-05] MEDS ORDERED: KETOROLAC TROMETHAMINE 30 MG/1 ML VIAL ONE (06:11)
== END 2019-01-05 07:00 | disposition home or self-care (01) ==
LOC: JER 03:26
PROC: 3E02329 Introduction of Other Anti-infective into Muscle, Percutaneous Approach (ICD-10-PCS; principal; 2019-01-05)
PROC: 3E033GC Introduction of Other Therapeutic Substance into Peripheral Vein, Percutaneous Approach (ICD-10-PCS; 2019-01-05)
PROC: 3E0333Z Introduction of Anti-inflammatory into Peripheral Vein, Percutaneous Approach (ICD-10-PCS; 2019-01-05)
PROC: 3E0337Z Introduction of Electrolytic and Water Balance Substance into Peripheral Vein, Percutaneous Approach (ICD-10-PCS; 2019-01-05)
DX: R10.9 Unspecified abdominal pain (principal); N93.9 Abnormal uterine and vaginal bleeding, unspecified; R10.2 Pelvic and perineal pain; G89.29 Other chronic pain
CPT/HCPCS: 71045-TC-FY; 80053; 83690; 85025; 87491; 87591; 99283-25; J7030

== ENCOUNTER 2019-02-05 02:37 | Inpatient (IN) | payer OTHER ==
--- NOTE | 2019-02-05 03:09 | PDOC ---
History of Present Illness - General Chief Complaint: Pain Stated Complaint: VOMITING/PAIN/DIARRHEA Time Seen by Provider: 02/05/19 03:08 - History of Present Illness Initial Comments: 02/05/19 03:08 Ms. Alcala is a 53 yo female w/ pmh of migraines, distant cholecystectomy, chronic abdominal pain w/ significant workup in the past who presents for evaluation of 1 day history of left sided abdominal pain radiating to her flank with coinciding nausea and vomiting. Patient further reports she has had some pain with urination. Denies any other symptoms at this time. The patient denies chest pain, shortness of breath, headache and dizziness. Denies fever, chills, diarrhea and constipation. Denies dysuria, frequency, urgency and hematuria. Past History - Past Medical History Allergies/Adverse Reactions: Allergies Allergy/AdvReac Type Severity Reaction Status Date / Time acetaminophen Allergy Intermediate Itching Verified 01/05/19 03:58 [From Tylenol-Codeine] codeine AdvReac Intermediate Itching Verified 01/05/19 03:58 [From Tylenol-Codeine] Home Medications: Ambulatory Orders Ondansetron [Zofran *Odt*] 8 mg PO TID PRN #30 tab.rapdis MDD 3 09/18/18 Acetaminophen/Caffeine/Butalb [Fioricet -] 1 tab PO Q6H PRN 10/10/18 Pantoprazole Sodium [Protonix -] 40 mg PO DAILY #30 tablet.ec 10/13/18 Vancomycin Oral Solution 125 mg PO Q6HPO #56 ml 10/13/18 Anemia: No Asthma: No Cancer: No Cardiac Disorders: No CVA: No COPD: No CHF: No Dementia: No Diabetes: No GI Disorders: Yes (GERD) Disorders: No HTN: No Hypercholesterolemia: No Kidney Stones: (kidney problems??) Liver Disease: No Seizures: No Thyroid Disease: No - Surgical History Abdominal Surgery: Yes Appendectomy: No Cardiac Surgery: No Cholecystectomy: Yes Lung Surgery: No Neurologic Surgery: No Orthopedic Surgery: No - Immunization History Immunization Up to Date: Yes - Suicide/Smoking/Psychosocial Hx Smoking Status: Yes Smoking History: Never smoked Have you smoked in the past 12 months: No Number of Cigarettes Smoked Daily: 5 Cigars Per Day: 0 Information on smoking cessation initiated: No 'Breaking Loose' booklet given: 09/14/18 Hx Alcohol Use: No Drug/Substance Use Hx: No Substance Use Type: None Hx Substance Use Treatment: Yes Review of Systems - Review of Systems Comments:: 02/05/19 03:09 GENERAL/CONSTITUTIONAL: No fever or chills. No weakness. HEAD, EYES, EARS, NOSE AND THROAT: No change in vision. No ear pain or discharge. No sore throat. CARDIOVASCULAR: No chest pain or shortness of breath RESPIRATORY: No cough, wheezing, or hemoptysis. GASTROINTESTINAL: +N/V as described w/ Left sided abdominal pain. No diarrhea or constipation. GENITOURINARY: No dysuria, frequency, or change in urination. MUSCULOSKELETAL: No joint or muscle swelling or pain. No neck or back pain. SKIN: No rash NEUROLOGIC: No headache, vertigo, loss of consciousness, or change in strength/ sensation. ENDOCRINE: No increased thirst. No abnormal weight change HEMATOLOGIC/LYMPHATIC: No anemia, easy bleeding, or history of blood clots. ALLERGIC/IMMUNOLOGIC: No hives or skin allergy. *Physical Exam - Vital Signs Last Vital Signs Temp Pulse Resp BP Pulse Ox 98.2 F 87 18 91/63 100 02/05/19 02:58 02/05/19 02:58 02/05/19 02:58 02/05/19 02:58 02/05/19 02:58 - Physical Exam Comments: 02/05/19 03:09 GENERAL: Awake, alert, and fully oriented, in no acute distress HEAD: No signs of trauma, normocephalic, atraumatic EYES: PERRLA, EOMI, sclera anicteric, conjunctiva clear ENT: Auricles normal inspection, hearing grossly normal, nares patent, oropharynx clear without exudates. Moist mucosa NECK: Normal ROM, supple, no lymphadenopathy, JVD, or masses LUNGS: No distress, speaks full sentences, clear to auscultation bilaterally HEART: Regular rate and rhythm, normal S1 and S2, no murmurs, rubs or gallops, peripheral pulses normal and equal bilaterally. ABDOMEN: +LLQ and flank TTP. Soft, normoactive bowel sounds. No guarding, no rebound. No masses EXTREMITIES: Normal inspection, Normal range of motion, no edema. No clubbing or cyanosis. NEUROLOGICAL: Cranial nerves II through XII grossly intact. Normal speech, normal gait, no focal sensorimotor deficits SKIN: Warm, Dry, normal turgor, no rashes or lesions noted. ED Treatment Course - LABORATORY CBC & Chemistry Diagram: 02/05/19 03:45 02/05/19 03:45 Medical Decision Making - Medical Decision Making 02/05/19 06:39 Ms. Alcala is a 53 yo female w/ pmh as described who presents for evaluation of symptoms c/w UTI vs. pyelo vs. kidney stone vs. diverticulitis. Patient evaluated with labs as below and CT abdomen/pelvis. Labs grossly wnl. CT negative for acute process. Patient refused straight cath for urine. Patient currently pending UA for further evaluation. Patient will be signed out to oncoming team for further evaluation. 02/05/19 06:59 Patient complaining of continued pain and nausea. Zofran/morphine re-dosed. Laboratory Results - last 24 hr 02/05/19 02/05/19 03:45 03:45 WBC 9.5 RBC 4.02 Hgb 12.6 Hct 38.0 D MCV 94.6 MCH 31.4 MCHC 33.2 RDW 13.2 Plt Count 278 D MPV 8.4 Absolute Neuts (auto) 6.6 Neutrophils % 69.2 D Lymphocytes % 21.3 D Monocytes % 6.8 Eosinophils % 2.2 Basophils % 0.5 Nucleated RBC % 0 Sodium 142 Potassium 3.6 Chloride 108 H Carbon Dioxide 27 Anion Gap 7 L BUN 11 Creatinine 0.6 Creat Clearance w eGFR 104.18 Random Glucose 89 Calcium 8.7 Total Bilirubin 0.3 AST 17 ALT 34 Alkaline Phosphatase 161 H Total Protein 6.9 Albumin 3.6 *DC/Admit/Observation/Transfer Diagnosis at time of Disposition: Abdominal pain Qualifiers: Abdominal location: unspecified location Qualified Code(s): R10.9 - Unspecified abdominal pain - Referrals Referrals: Dino Beauchamp [Primary Care Provider] - - Patient Instructions - Post Discharge Activity
[2019-02-05] MEDS ORDERED: SODIUM CHLORIDE 1,000 ML IV STA ×2 (03:32→05:11)
[2019-02-05] MEDS ORDERED: ONDANSETRON 4 MG/2 ML VIAL IVPUSH ONE ×2 (03:32→06:59)
[2019-02-05] MEDS ORDERED: morphine CARPU-JECT 2 MG/1 ML DISP.SYRIN IVPUSH ONE (03:33)
[2019-02-05] MEDS ORDERED: MORPHINE SULFATE 2 MG/ML VIAL ONE ×2 (03:39→14:36)
[2019-02-05] MEDS ORDERED: ONDANSETRON 4 MG/2 ML VIAL ONE ×3 (03:39→14:36)
[2019-02-05 04:16] LABS: BASO % 0.5 % (0-2.0); EOS % 2.2 % (0-4.5); HEMOGLOBIN 12.6 GM/dL (10.7-15.3); LYMPH % 21.3 % (8-40); MCH 31.4 pg (25.7-33.7); MCHC 33.2 g/dl (32.0-36.0); MEAN CELL VOLUME 94.6 fl (80-96); MEAN PLT VOLUME 8.4 fl (7.5-11.1); MONO % 6.8 % (3.8-10.2); NEUT % 69.2 % (42.8-82.8); PLATELET COUNT 278 K/MM3 (134-434); RBC 4.02 M/mm3 (3.60-5.2); RDW 13.2 % (11.6-15.6); WHITE BLOOD COUNT 9.5 K/mm3 (4.0-10.0)
[2019-02-05 04:41] LABS: ALBUMIN 3.6 g/dl (3.4-5.0); ALK PHOS 161 U/L (45-117); ANION GAP 7 MMOL/L (8-16); BILIRUBIN,TOTAL 0.3 mg/dL (0.2-1); BLOOD UREA NITROGEN 11 mg/dL (7-18); CALCIUM 8.7 mg/dL (8.5-10.1); CHLORIDE 108 mmol/L (98-107); CO2 27 mmol/L (21-32); CREATININE 0.6 mg/dL (0.55-1.3); GLUCOSE,RANDOM 89 mg/dL (74-106); POTASSIUM 3.6 mmol/L (3.5-5.1); SGOT/AST 17 U/L (15-37); SGPT/ALT 34 U/L (13-61); SODIUM 142 mmol/L (136-145); TOT PROT 6.9 g/dl (6.4-8.2)
[2019-02-05] MEDS ORDERED: morphine CARPU-JECT 4 MG/1 ML DISP.SYRIN IVPUSH ONE (06:59)
[2019-02-05] MEDS ORDERED: morphine SULFATE 4 MG/ML VIAL ONE (07:01)
--- NOTE | 2019-02-05 07:25 | PDOC ---
*Physical Exam - Vital Signs Last Vital Signs Temp Pulse Resp BP Pulse Ox 98.2 F 87 18 91/63 100 02/05/19 02:58 02/05/19 02:58 02/05/19 02:58 02/05/19 02:58 02/05/19 02:58 - Physical Exam Comments: 02/05/19 07:24 Continuation of Care per Resident Cynthia evaluation, see note for further hx ED Treatment Course - LABORATORY CBC & Chemistry Diagram: 02/05/19 03:45 02/05/19 03:45 - ADDITIONAL ORDERS Additional order review: Laboratory Results 02/05/19 03:45 Sodium 142 Potassium 3.6 Chloride 108 H Carbon Dioxide 27 Anion Gap 7 L BUN 11 Creatinine 0.6 Creat Clearance w eGFR 104.18 Random Glucose 89 Calcium 8.7 Total Bilirubin 0.3 AST 17 ALT 34 Alkaline Phosphatase 161 H Total Protein 6.9 Albumin 3.6 02/05/19 03:45 RBC 4.02 MCV 94.6 MCHC 33.2 RDW 13.2 MPV 8.4 Neutrophils % 69.2 D Lymphocytes % 21.3 D Monocytes % 6.8 Eosinophils % 2.2 Basophils % 0.5 - Medications Given in the ED: ED Medications Discontinued Medications Generic Name Dose Route Start Last Admin Trade Name Freq PRN Reason Stop Dose Admin Sodium Chloride 1,000 mls @ 1,000 mls/hr 02/05/19 03:32 02/05/19 03:48 Normal Saline - IV 02/05/19 04:31 1,000 mls/hr ASDIR STA Administration Sodium Chloride 1,000 mls @ 1,000 mls/hr 02/05/19 05:11 02/05/19 05:24 Normal Saline - IV 02/05/19 06:10 1,000 mls/hr ASDIR STA Administration Morphine Sulfate 2 mg 02/05/19 03:33 02/05/19 03:48 Morphine Injection - IVPUSH 02/05/19 03:34 2 mg ONCE ONE Administration Morphine Sulfate 4 mg 02/05/19 06:59 02/05/19 07:05 Morphine Injection - IVPUSH 02/05/19 07:00 4 mg ONCE ONE Administration Ondansetron HCl 4 mg 02/05/19 03:32 02/05/19 03:48 Zofran Injection IVPUSH 02/05/19 03:33 4 mg ONCE ONE Administration Ondansetron HCl 4 mg 02/05/19 06:59 02/05/19 07:05 Zofran Injection IVPUSH 02/05/19 07:00 4 mg ONCE ONE Administration Medical Decision Making - Medical Decision Making 02/05/19 07:24 Patient reports she is still in pain pending UA for further decision making CT negative, pelvic congestion syndrome 02/05/19 11:02 UA negative Reglan for headache spoke to Dr. Espino for admission *DC/Admit/Observation/Transfer Diagnosis at time of Disposition: Abdominal pain Qualifiers: Abdominal location: unspecified location Qualified Code(s): R10.9 - Unspecified abdominal pain - Discharge Dispostion Decision to Admit order: Yes - Referrals - Patient Instructions - Post Discharge Activity
--- NOTE | 2019-02-05 07:29 | PDOC ---
Attending Attestation - Resident Resident Name: Gil Bliss - ED Attending Attestation I have performed the following: I have examined & evaluated the patient, The case was reviewed & discussed with the resident, I agree w/resident's findings & plan, Exceptions are as noted - HPI HPI: 02/05/19 07:26 53 yo F wit h/o abd pain, prior cholecystectomy her with c/o lower abd pain n/v pt states he pain is severe, no f/c does report mild dysuria. no f/c. has hadmutliple episodes of emesis today. all nonbloody nonbilious. no cough. - Physicial Exam PE: 02/05/19 07:27 awake alert lungs clear bilaterally heart rrr no mrg abd soft mild lower suprapubic ttp. no rebound no guarding. no cva tenderness. skin warm and dry. alert oriented x 3. - Medical Decision Making 02/05/19 07:28 differential pyelo, uti, diverticulitis, dehydration, hypokalemia or other electrolyte abnoramlity. plan ct a/p labs ivf. pt with intractable nausea, in ed will likely require admission. ua pending. ct with pelvic congestion otherwise unremarkable. signed out to oncoming physician. fu ua. likely admit for intractable nausea and abd pain.
[2019-02-05 08:45] LABS: PH,URINE 5.5 (5.0-8.0); URINE APPEARANCE CLEAR; URINE BILIRUBIN NEGATIVE (NEGATIVE); URINE COLOR YELLOW; URINE GLUCOSE (UA) NEGATIVE (NEGATIVE); URINE KETONE NEGATIVE (NEGATIVE); URINE NITRITE NEGATIVE (NEGATIVE); URINE PROTEIN NEGATIVE (NEGATIVE); URINE UROBILINOGEN 0.2 mg/dL (0.2-1.0)
[2019-02-05 08:46] LABS: URINE LEUK ESTERASE NEGATIVE (NEGATIVE)
[2019-02-05] MEDS ORDERED: METOCLOPRAMIDE HCL INJECTION 10 MG/2 ML VIAL IVPUSH ONE (10:08)
[2019-02-05] MEDS ORDERED: METOCLOPRAMIDE HCL INJECTION 10 MG/2 ML VIAL ONE (10:25)
--- NOTE | 2019-02-05 11:08 | HP ---
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 Pulmonary: Yes: Pneumonia Gastrointestinal: Yes: Diverticulosis, Other (previous colitis/enteritis) Renal/: Yes: Renal Calculi ...LMP: 04/07/10 Infectious Disease: Yes: MRSA (in stool 2013, negative screening 05/24) - Past Surgical History Past Surgical History: Yes: Cholecystectomy (laparoscopic), Colonoscopy, Tubal Ligation (laparoscopic), Upper Endoscopy - Smoking History Smoking history: Never smoked Have you smoked in the past 12 months: No Aproximately how many cigarettes per day: 5 - Alcohol/Substance Use Hx Alcohol Use: No History of Substance Use: reports: None - Social History ADL: Independent History of Recent Travel: No Home Medications - Allergies Allergies/Adverse Reactions: Allergies Allergy/AdvReac Type Severity Reaction Status Date / Time acetaminophen Allergy Intermediate Itching Verified 01/05/19 03:58 [From Tylenol-Codeine] codeine AdvReac Intermediate Itching Verified 01/05/19 03:58 [From Tylenol-Codeine] - Home Medications Home Medications: Ambulatory Orders Ondansetron [Zofran *Odt*] 8 mg PO TID PRN #30 tab.rapdis MDD 3 09/18/18 Acetaminophen/Caffeine/Butalb [Fioricet -] 1 tab PO Q6H PRN 10/10/18 Pantoprazole Sodium [Protonix -] 40 mg PO DAILY #30 tablet.ec 10/13/18 Vancomycin Oral Solution 125 mg PO Q6HPO #56 ml 10/13/18 Family Disease History - Family Disease History Family Disease History: Diabetes: Mother, Heart Disease: Mother, Other: Father ( Prostate), Brother (3, healthy), Sister (4, healthy), Son (1, healthy), Daughter (1, healthy) Review of Systems - Review of Systems Gastrointestinal: reports: Abdominal Pain, Nausea Physical Examination Vital Signs: Vital Signs Temperature 98.0 F 02/05/19 09:45 Pulse Rate 70 02/05/19 09:45 Respiratory Rate 17 02/05/19 09:45 Blood Pressure 91/54 L 02/05/19 09:45 O2 Sat by Pulse Oximetry (%) 100 02/05/19 09:45 Constitutional: Yes: Calm Cardiovascular: Yes: Regular Rate and Rhythm, S1, S2 Respiratory: Yes: CTA Bilaterally Gastrointestinal: Yes: Hypoactive Bowel Sounds, Tenderness Edema: No Labs: CBC, BMP 02/05/19 03:45 02/05/19 03:45 Imaging - Results Cat Scan: Report Reviewed (pelvic congestion syndrome) Problem List - Problems (1) Abdominal pain Assessment/Plan: clear liquis zofran ppi appreciate GI conuslt Code(s): R10.9 - UNSPECIFIED ABDOMINAL PAIN Qualifiers: Abdominal location: unspecified location Qualified Code(s): R10.9 - Unspecified abdominal pain
--- NOTE | 2019-02-05 12:23 | PN ---
Progress Note (short form) - Note Progress Note: Brief EGD report - see paper report in chart for full details No evidence of stricture in the esophagus 4cm hiatal hernia Gastritis, likely bile related, in the gastric remnant Possible fundoplication on retroflexion Post-billroth II anatomy Normal afferent and efferent limbs Advance diet as tolerated, patient should eat smaller, more frequent meals and remain upright for one hour afterwards Await biopsies If abdominal pain, can consider cholestyramine for bile gastritis
--- NOTE | 2019-02-05 13:52 | CON.GI ---
Consult Consult Specialty:: GI Referred by:: ED Reason for Consultation:: abdominal pain, N/V - History of Present Illness Chief Complaint: abdominal pain, N/V History of Present Illness: 53F with h/o remote cholecystectomy p/w acute onset abdominal pain with N/V x2 days. She reports no strange foods prior to onset. Unclear precipitant; started out of the blue. Began with nausea and vomiting, then pelvic abdominal pain that became most severe and radiated to L flank. Reports multiple episodes of yellow/ green emesis; no blood in emesis. Abdominal pain is worst in lower abdominal/ central pelvic area, has minimal epigastric pain as well. Reports that diarrhea began this morning; at [facility] she had 3-4 episodes of what she describes as watery stool. Reports similar presentation about 5 months ago and was admitted here. Per chart review looks like was admitted 10/2018 and 09/2018 for abdominal pain, imaging with concern for pSBO had CTE without pathology but prominent CBD; negative MRCP. Discharged with plan for OP follow up but no follow up. Has had multiple prior CTs. In ED, labs unremarkable, CT A/P with ? pelvic congestion syndrome, probable normal appendix, otherwise unremarkable h/o EGD 2008 (Dr. 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 Pulmonary: Yes: Pneumonia Gastrointestinal: Yes: Diverticulosis, Other (previous colitis/enteritis) Renal/: Yes: Renal Calculi ...LMP: 04/07/10 Infectious Disease: Yes: MRSA (in stool 2013, negative screening 05/24) - Past Surgical History Past Surgical History: Yes: Cholecystectomy (laparoscopic), Colonoscopy, Tubal Ligation (laparoscopic), Upper Endoscopy - Alcohol/Substance Use Hx Alcohol Use: No History of Substance Use: reports: None - Smoking History Smoking history: Never smoked Have you smoked in the past 12 months: No Aproximately how many cigarettes per day: 5 - Social History Usual Living Arrangement: With Spouse ADL: Independent History of Recent Travel: No Home Medications - Allergies Allergies/Adverse Reactions: Allergies Allergy/AdvReac Type Severity Reaction Status Date / Time acetaminophen Allergy Intermediate Itching Verified 01/05/19 03:58 [From Tylenol-Codeine] codeine AdvReac Intermediate Itching Verified 01/05/19 03:58 [From Tylenol-Codeine] - Home Medications Home Medications: Ambulatory Orders Ondansetron [Zofran *Odt*] 8 mg PO TID PRN #30 tab.rapdis MDD 3 09/18/18 Acetaminophen/Caffeine/Butalb [Fioricet -] 1 tab PO Q6H PRN 10/10/18 Pantoprazole Sodium [Protonix -] 40 mg PO DAILY #30 tablet.ec 10/13/18 Vancomycin Oral Solution 125 mg PO Q6HPO #56 ml 10/13/18 Family Disease History - Family Disease History Family Disease History: Diabetes: Mother, Heart Disease: Mother, Other: Father ( Prostate), Brother (3, healthy), Sister (4, healthy), Son (1, healthy), Daughter (1, healthy) Review of Systems - Review of Systems Constitutional: reports: No Symptoms. denies: Fever, Unintentional Wgt. Loss Cardiovascular: reports: No Symptoms Respiratory: reports: No Symptoms Gastrointestinal: reports: Abdominal Pain, Diarrhea, Nausea, Vomiting Genitourinary: reports: Dysuria, Flank Pain Musculoskeletal: reports: No Symptoms Integumentary: reports: No Symptoms Neurological: reports: No Symptoms Hematology/Lymphatic: reports: No Symptoms Physical Exam-GI Vital Signs: Vital Signs Temperature 98.0 F 02/05/19 09:45 Pulse Rate 70 02/05/19 09:45 Respiratory Rate 17 02/05/19 09:45 Blood Pressure 91/54 L 02/05/19 09:45 O2 Sat by Pulse Oximetry (%) 100 02/05/19 09:45 Constitutional: Yes: Well Nourished, No Distress Eyes: Yes: WNL, Conjunctiva Clear Cardiovascular: Yes: Regular Rate and Rhythm Respiratory: Yes: Regular, CTA Bilaterally ...Palpate: Yes: Soft, Tenderness (ttp in suprapubic and b/l lower quadrants without guarding or rebuond) ...Rectal Exam: Yes: Deferred Edema: No Integumentary: Yes: WNL Neurological: Yes: Alert, Oriented Psychiatric: Yes: Alert, Oriented Labs: CBC, BMP 02/05/19 03:45 02/05/19 03:45 Imaging - Results Cat Scan: Report Reviewed Assessment/Plan Abdominal pain N/V - unclear etiology. Patient has had repeated admissions with similar presentations. Differential includes gastroenteritis vs cyclical vomiting vs less likely PUD. May be related to pelvic congestion but unclear why that would manifest acutely and intermittently. Would manage symptomatically for now; if does not respond to symptomatic management may warrant endoscopic evaluation. - antiemetics - once daily PPI - clear liquids for now, advance as tolerated - if continues to have diarrhea, check stool for C. diff - can consider [employer]ATOR eval for pelvic congestion
[2019-02-05] MEDS ORDERED: ONDANSETRON 4 MG/2 ML VIAL IVPUSH PRN (14:13)
[2019-02-05] MEDS ORDERED: METOCLOPRAMIDE HCL INJECTION 10 MG/2 ML VIAL IVPUSH PRN (14:20)
[2019-02-05] MEDS: MORPHINE SULFATE 2 MG/ML VIAL IVPUSH PRN ×2 (14:50→21:27)
[2019-02-05] MEDS: SODIUM CHLORIDE 1,000 ML IV SCH ×2 (17:12→21:28)
[2019-02-05] MEDS: HEPARIN NA (PORCINE) 5,000 UNITS/ML 1ML VIAL SQ SCH (21:28)
[2019-02-05] MEDS ORDERED: ACETAMINOPHEN/CAFFEINE/BUTALBITAL 1 TAB PO ONE (21:45)
[2019-02-06] MEDS: MORPHINE SULFATE 2 MG/ML VIAL IVPUSH PRN ×3 (05:27→20:23)
[2019-02-06 07:16] LABS: BASO % 0.6 % (0-2.0); EOS % 1.7 % (0-4.5); HEMATOCRIT 32.5 % (32.4-45.2); LYMPH % 25.5 % (8-40); MCH 32.2 pg (25.7-33.7); MEAN CELL VOLUME 94.6 fl (80-96); MEAN PLT VOLUME 8.6 fl (7.5-11.1); MONO % 7.5 % (3.8-10.2); NEUT % 64.7 % (42.8-82.8); PLATELET COUNT 219 K/MM3 (134-434); RBC 3.43 M/mm3 (3.60-5.2); RDW 12.8 % (11.6-15.6); WHITE BLOOD COUNT 8.3 K/mm3 (4.0-10.0)
[2019-02-06 08:02] LABS: INR 1.18 (0.83-1.09); PROTHROMBIN TIME (PATIENT) 13.9 SEC (9.7-13.0)
[2019-02-06 08:04] LABS: ACTIVATED PTT 32.5 SECONDS (25.2-36.5)
[2019-02-06 08:26] LABS: AMYLASE 38 U/L (25-115); LIPASE 155 U/L (73-393)
[2019-02-06 08:36] LABS: ALBUMIN 2.8 g/dl (3.4-5.0); ALK PHOS 129 U/L (45-117); ANION GAP 7 MMOL/L (8-16); BILIRUBIN,TOTAL 0.2 mg/dL (0.2-1); BLOOD UREA NITROGEN 9 mg/dL (7-18); CALCIUM 8.3 mg/dL (8.5-10.1); CHLORIDE 109 mmol/L (98-107); CO2 23 mmol/L (21-32); CREATININE 0.4 mg/dL (0.55-1.3); GLUCOSE,RANDOM 70 mg/dL (74-106); POTASSIUM 3.5 mmol/L (3.5-5.1); SGOT/AST 24 U/L (15-37); SGPT/ALT 31 U/L (13-61); SODIUM 139 mmol/L (136-145); TOT PROT 5.7 g/dl (6.4-8.2)
[2019-02-06] MEDS: ACETAMINOPHEN/CAFFEINE/BUTALBITAL 1 TAB PO PRN ×3 (10:01→23:29)
[2019-02-06] MEDS: HEPARIN NA (PORCINE) 5,000 UNITS/ML 1ML VIAL SQ SCH ×2 (10:04→21:45)
[2019-02-06] MEDS: PANTOPRAZOLE SODIUM 40 MG VIAL IVPUSH SCH (10:04)
--- NOTE | 2019-02-06 16:30 | PN ---
Progress Note, Physician Chief Complaint: Abdominal Pain Diarrhea History of Present Illness: Previous notes and events reviewed awake and alert NAD complain of diarrhea x 5 episodes and epigastric pain - Current Medication List Current Medications: Active Medications Acetaminophen/Butalbital/Caffeine (Fioricet -) 1 tablet PO Q8H PRN PRN Reason: HEADACHE Last Admin: 02/06/19 10:01 Dose: 1 tablet Heparin Sodium (Porcine) (Heparin -) 5,000 unit SQ BID [facility] Last Admin: 02/06/19 10:04 Dose: Not Given Sodium Chloride (Normal Saline -) 1,000 mls @ 75 mls/hr IV ASDIR [facility] Last Admin: 02/05/19 21:28 Dose: 75 mls/hr Metoclopramide HCl (Reglan Injection -) 10 mg IVPUSH Q6H PRN PRN Reason: NAUSEA AND/OR VOMITING Morphine Sulfate (Morphine Sulfate) 2 mg IVPUSH Q6H PRN PRN Reason: PAIN LEVEL 7 - 10 Last Admin: 02/06/19 12:38 Dose: 2 mg Ondansetron HCl (Zofran Injection) 4 mg IVPUSH Q6H PRN PRN Reason: NAUSEA Last Admin: 02/05/19 14:51 Dose: 4 mg Pantoprazole Sodium (Protonix Iv) 40 mg IVPUSH DAILY [facility] Last Admin: 02/06/19 10:04 Dose: 40 mg - Objective Vital Signs: Vital Signs Temperature 98.4 F 02/06/19 14:00 Pulse Rate 74 02/06/19 14:00 Respiratory Rate 18 02/06/19 14:00 Blood Pressure 111/64 02/06/19 14:00 O2 Sat by Pulse Oximetry (%) 98 02/05/19 23:34 Constitutional: Yes: No Distress, Calm Eyes: Yes: Conjunctiva Clear HENT: Yes: Atraumatic Cardiovascular: Yes: Regular Rate and Rhythm Respiratory: Yes: Regular, CTA Bilaterally Gastrointestinal: Yes: Normal Bowel Sounds, Soft, Tenderness (LLQ and epigastric ) Musculoskeletal: Yes: Muscle Weakness Extremities: Yes: WNL Edema: No Neurological: Yes: Alert, Oriented Psychiatric: Yes: Alert, Oriented Labs: CBC, BMP 02/06/19 06:30 02/06/19 06:30 INR, PTT INR 1.18 (0.83-1.09) H 02/06/19 06:30 Laboratory Tests 02/05/19 02/05/19 02/05/19 03:45 03:45 07:00 WBC 9.5 RBC 4.02 Hgb 12.6 Hct 38.0 D MCV 94.6 MCH 31.4 MCHC 33.2 RDW 13.2 Plt Count 278 D MPV 8.4 Absolute Neuts (auto) 6.6 Neutrophils % 69.2 D Lymphocytes % 21.3 D Monocytes % 6.8 Eosinophils % 2.2 Basophils % 0.5 Nucleated RBC % 0 PT with INR INR PTT (Actin FS) Sodium 142 Potassium 3.6 Chloride 108 H Carbon Dioxide 27 Anion Gap 7 L BUN 11 Creatinine 0.6 Creat Clearance w eGFR 104.18 Random Glucose 89 Calcium 8.7 Magnesium Total Bilirubin 0.3 AST 17 ALT 34 Alkaline Phosphatase 161 H Total Protein 6.9 Albumin 3.6 Total Amylase Lipase Urine Color Yellow Urine Appearance Clear Urine pH 5.5 Ur Specific [place] 1.065 H Urine Protein Negative Urine Glucose (UA) Negative Urine Ketones Negative Urine Blood Negative Urine Nitrite Negative Urine Bilirubin Negative Urine Urobilinogen 0.2 Ur Leukocyte Esterase Negative 02/06/19 02/06/19 02/06/19 06:30 06:30 06:30 WBC 8.3 RBC 3.43 L Hgb 11.0 Hct 32.5 MCV 94.6 MCH 32.2 MCHC 34.0 RDW 12.8 Plt Count 219 D MPV 8.6 Absolute Neuts (auto) 5.4 Neutrophils % 64.7 Lymphocytes % 25.5 Monocytes % 7.5 Eosinophils % 1.7 Basophils % 0.6 Nucleated RBC % 0 PT with INR 13.90 H INR 1.18 H PTT (Actin FS) 32.5 Sodium 139 Potassium 3.5 Chloride 109 H Carbon Dioxide 23 Anion Gap 7 L BUN 9 Creatinine 0.4 L Creat Clearance w eGFR 166.34 Random Glucose 70 L Calcium 8.3 L Magnesium 2.0 Total Bilirubin 0.2 AST 24 ALT 31 Alkaline Phosphatase 129 H Total Protein 5.7 L Albumin 2.8 L Total Amylase Lipase Urine Color Urine Appearance Urine pH Ur Specific [place] Urine Protein Urine Glucose (UA) Urine Ketones Urine Blood Urine Nitrite Urine Bilirubin Urine Urobilinogen Ur Leukocyte Esterase 02/06/19 06:30 WBC RBC Hgb Hct MCV MCH MCHC RDW Plt Count MPV Absolute Neuts (auto) Neutrophils % Lymphocytes % Monocytes % Eosinophils % Basophils % Nucleated RBC % PT with INR INR PTT (Actin FS) Sodium Potassium Chloride Carbon Dioxide Anion Gap BUN Creatinine Creat Clearance w eGFR Random Glucose Calcium Magnesium Total Bilirubin AST ALT Alkaline Phosphatase Total Protein Albumin Total Amylase 38 Lipase 155 Urine Color Urine Appearance Urine pH Ur Specific [place] Urine Protein Urine Glucose (UA) Urine Ketones Urine Blood Urine Nitrite Urine Bilirubin Urine Urobilinogen Ur Leukocyte Esterase Problem List - Problems (1) Abdominal pain Assessment/Plan: -GI on board -will have Endoscopy in AM -pantoprazole daily -IV hydration -zofran and reglan Code(s): R10.9 - UNSPECIFIED ABDOMINAL PAIN Qualifiers: Abdominal location: unspecified location Qualified Code(s): R10.9 - Unspecified abdominal pain (2) Diarrhea Assessment/Plan: -c-diff stool collection Code(s): R19.7 - DIARRHEA, UNSPECIFIED (3) GERD (gastroesophageal reflux disease) Assessment/Plan: -GI on board -continue pantoprazole Code(s): K21.9 - GASTRO-ESOPHAGEAL REFLUX DISEASE WITHOUT ESOPHAGITIS (4) Hx of migraines Assessment/Plan: -continue with fiorecet Code(s): Z86.69 - PERSONAL HISTORY OF DIS OF THE NERVOUS SYS AND SENSE ORGANS Assessment/Plan see problem list dvt ppx
--- NOTE | 2019-02-06 17:56 | PN.GI ---
GI Progress Note Subjective: Complains of upper abdominal pain diarrhea "so so" per the patient. None noted by nursing - Objective Vital Signs: Vital Signs Temperature 98.4 F 02/06/19 14:00 Pulse Rate 74 02/06/19 14:00 Respiratory Rate 18 02/06/19 14:00 Blood Pressure 111/64 02/06/19 14:00 O2 Sat by Pulse Oximetry (%) 98 02/05/19 23:34 Constitutional: Calm Eyes: No: Sclera Icterus Cardiovascular: Yes: Regular Rate and Rhythm Respiratory: Yes: CTA Bilaterally Gastrointestinal Inspection: No: Distention ...Auscultate: Yes: Normoactive Bowel Sounds ...Palpate: Yes: Soft, Tenderness (TTP epigastrium) ...Percussion: No: Tympanitic Edema: No (No LE edema) Neurological: Yes: Alert Labs: CBC, BMP 02/06/19 06:30 02/06/19 06:30 INR, PTT INR 1.18 (0.83-1.09) H 02/06/19 06:30 Hepatic Panel Total Bilirubin 0.2 mg/dL (0.2-1) 02/06/19 06:30 AST 24 U/L (15-37) 02/06/19 06:30 ALT 31 U/L (13-61) 02/06/19 06:30 Alkaline Phosphatase 129 U/L (45-117) H 02/06/19 06:30 Albumin 2.8 g/dl (3.4-5.0) L 02/06/19 06:30 Problem List - Problems (1) Abdominal pain Assessment/Plan: epigastric currently Discussed EGD with Ms. Alcala. Discussed potential risks of the procedure like but not limited to bleeding, perforation requiring surgery to repair, infection , sedation medication effects all of which could be potentially life threatening. She has agreed to the procedure AM heparin held Consent obtained AM labs: added GGT given fluctuating ALP noted on previous admissions as well. If persistent elevation, will need further outpatient work-up. Code(s): R10.9 - UNSPECIFIED ABDOMINAL PAIN Qualifiers: Abdominal location: unspecified location Qualified Code(s): R10.9 - Unspecified abdominal pain
[2019-02-06] MEDS: SODIUM CHLORIDE 1,000 ML IV SCH (21:47)
[2019-02-07] MEDS: MORPHINE SULFATE 2 MG/ML VIAL IVPUSH PRN ×3 (02:52→18:47)
[2019-02-07] MEDS: ACETAMINOPHEN/CAFFEINE/BUTALBITAL 1 TAB PO PRN ×3 (06:34→21:00)
[2019-02-07 07:10] LABS: BASO % 0.7 % (0-2.0); EOS % 1.6 % (0-4.5); HEMATOCRIT 32.7 % (32.4-45.2); HEMOGLOBIN 10.8 GM/dL (10.7-15.3); MCH 31.1 pg (25.7-33.7); MEAN CELL VOLUME 94.1 fl (80-96); MEAN PLT VOLUME 8.5 fl (7.5-11.1); MONO % 7.5 % (3.8-10.2); NEUT % 59.2 % (42.8-82.8); PLATELET COUNT 219 K/MM3 (134-434); RBC 3.48 M/mm3 (3.60-5.2); RDW 12.7 % (11.6-15.6); WHITE BLOOD COUNT 7.9 K/mm3 (4.0-10.0)
[2019-02-07 07:45] LABS: ALBUMIN 2.8 g/dl (3.4-5.0); ALK PHOS 127 U/L (45-117); ANION GAP 6 MMOL/L (8-16); BILIRUBIN,TOTAL 0.3 mg/dL (0.2-1); BLOOD UREA NITROGEN 5 mg/dL (7-18); CALCIUM 7.7 mg/dL (8.5-10.1); CHLORIDE 110 mmol/L (98-107); CO2 25 mmol/L (21-32); CREATININE 0.4 mg/dL (0.55-1.3); GAMMA GLUTAMYL TRANSPEPTIDASE 352 U/L (5-85); GLUCOSE,RANDOM 88 mg/dL (74-106); POTASSIUM 3.2 mmol/L (3.5-5.1); SGOT/AST 25 U/L (15-37); SGPT/ALT 29 U/L (13-61); SODIUM 141 mmol/L (136-145); TOT PROT 5.4 g/dl (6.4-8.2)
[2019-02-07] MEDS: PANTOPRAZOLE SODIUM 40 MG VIAL IVPUSH SCH (09:32)
--- NOTE | 2019-02-07 10:35 | PN ---
Progress Note, Physician Chief Complaint: Abdominal Pain Diarrhea History of Present Illness: Seen by GI EGD today shows antral erythema - Current Medication List Current Medications: Active Medications Acetaminophen/Butalbital/Caffeine (Fioricet -) 1 tablet PO Q6H PRN PRN Reason: HEADACHE Last Admin: 02/07/19 06:34 Dose: 1 tablet Heparin Sodium (Porcine) (Heparin -) 5,000 unit SQ BID [facility] Last Admin: 02/06/19 21:45 Dose: 5,000 unit Sodium Chloride (Normal Saline -) 1,000 mls @ 75 mls/hr IV ASDIR [facility] Last Admin: 02/06/19 21:47 Dose: 75 mls/hr Metoclopramide HCl (Reglan Injection -) 10 mg IVPUSH Q6H PRN PRN Reason: NAUSEA AND/OR VOMITING Morphine Sulfate (Morphine Sulfate) 2 mg IVPUSH Q6H PRN PRN Reason: PAIN LEVEL 7 - 10 Last Admin: 02/07/19 02:52 Dose: 2 mg Ondansetron HCl (Zofran Injection) 4 mg IVPUSH Q6H PRN PRN Reason: NAUSEA Last Admin: 02/05/19 14:51 Dose: 4 mg Pantoprazole Sodium (Protonix Iv) 40 mg IVPUSH DAILY [facility] Last Admin: 02/07/19 09:32 Dose: 40 mg - Objective Vital Signs: Vital Signs Temperature 97.9 F 02/07/19 08:40 Pulse Rate 62 02/07/19 08:40 Respiratory Rate 16 02/07/19 08:40 Blood Pressure 106/62 02/07/19 08:40 O2 Sat by Pulse Oximetry (%) 99 02/06/19 21:00 Constitutional: Yes: No Distress, Calm, Cachectic Cardiovascular: Yes: Regular Rate and Rhythm Respiratory: Yes: Regular Gastrointestinal: Yes: Normal Bowel Sounds, Soft Musculoskeletal: Yes: WNL Extremities: Yes: WNL Edema: No Peripheral Pulses WNL: Yes Neurological: Yes: Alert, Oriented Psychiatric: Yes: Alert, Oriented Labs: CBC, BMP 02/07/19 05:30 02/07/19 05:30 INR, PTT INR 1.18 (0.83-1.09) H 02/06/19 06:30 Problem List - Problems (1) Abdominal pain Assessment/Plan: -GI on board -s/p EGD today -pantoprazole daily -IV hydration -zofran and reglan -Diet as per GI Code(s): R10.9 - UNSPECIFIED ABDOMINAL PAIN Qualifiers: Abdominal location: unspecified location Qualified Code(s): R10.9 - Unspecified abdominal pain (2) Diarrhea Assessment/Plan: -c diff pending Code(s): R19.7 - DIARRHEA, UNSPECIFIED (3) Migraine Assessment/Plan: -fioricet Code(s): G43.909 - MIGRAINE, UNSP, NOT INTRACTABLE, WITHOUT STATUS MIGRAINOSUS Qualifiers: Migraine type: chronic without aura Status migrainosus presence: without status migrainosus Intractability: not intractable Qualified Code(s): G43.709 - Chronic migraine without aura, not intractable, without status migrainosus (4) Hypokalemia Assessment/Plan: 2/2 to NPO status -Change IVF to NaCl 0.9%+ KCl 20 meq at 75cc/hr -give additional KCl 10 meq x 3 -repeat labs in AM Code(s): E87.6 - HYPOKALEMIA Assessment/Plan see problem list
--- NOTE | 2019-02-07 10:43 | PN ---
Progress Note (short form) - Note Progress Note: EGD performed today revealing antral erythema otherwise unremarkable s/p gastric and duodenal biopsies. See scanned report for details. -Recommend PPI daily for now -Follow up pathology results -Check stool C difficile
[2019-02-07] MEDS: KCL 10 MEQ IVPB 10 MEQ/100 ML INFUS.BAG IVPB SCH ×2 (11:54→13:35)
[2019-02-07] MEDS: SODIUM CHLORIDE 0.9%/KCL 20 MEQ/1,000 ML INFUS.BAG IV SCH (13:33)
[2019-02-08] MEDS: MORPHINE SULFATE 2 MG/ML VIAL IVPUSH PRN ×3 (03:38→18:31)
[2019-02-08] MEDS: ACETAMINOPHEN/CAFFEINE/BUTALBITAL 1 TAB PO PRN ×2 (07:00→14:12)
[2019-02-08 09:09] LABS: ALBUMIN 3.1 g/dl (3.4-5.0); ALK PHOS 146 U/L (45-117); ANION GAP 5 MMOL/L (8-16); BILIRUBIN,DIRECT 0.1 mg/dL (0.0-0.2); BILIRUBIN,TOTAL 0.2 mg/dL (0.2-1); BLOOD UREA NITROGEN 5 mg/dL (7-18); CALCIUM 8.1 mg/dL (8.5-10.1); CHLORIDE 110 mmol/L (98-107); CO2 27 mmol/L (21-32); CREATININE 0.5 mg/dL (0.55-1.3); GLUCOSE,RANDOM 92 mg/dL (74-106); POTASSIUM 3.8 mmol/L (3.5-5.1); SGOT/AST 49 U/L (15-37); SGPT/ALT 60 U/L (13-61); SODIUM 142 mmol/L (136-145); TOT PROT 6.1 g/dl (6.4-8.2)
[2019-02-08 09:16] LABS: BASO % 0.6 % (0-2.0); EOS % 1.1 % (0-4.5); HEMATOCRIT 36.9 % (32.4-45.2); HEMOGLOBIN 12.1 GM/dL (10.7-15.3); LYMPH % 26.3 % (8-40); MCH 30.8 pg (25.7-33.7); MCHC 32.7 g/dl (32.0-36.0); MEAN CELL VOLUME 94.4 fl (80-96); MEAN PLT VOLUME 9.2 fl (7.5-11.1); MONO % 7.2 % (3.8-10.2); NEUT % 64.8 % (42.8-82.8); PLATELET COUNT 265 K/MM3 (134-434); RBC 3.91 M/mm3 (3.60-5.2); RDW 12.5 % (11.6-15.6); WHITE BLOOD COUNT 6.7 K/mm3 (4.0-10.0)
[2019-02-08] MEDS: HEPARIN NA (PORCINE) 5,000 UNITS/ML 1ML VIAL SQ SCH ×2 (10:24→22:10)
[2019-02-08] MEDS: PANTOPRAZOLE SODIUM 40 MG VIAL IVPUSH SCH (10:24)
--- NOTE | 2019-02-08 10:54 | PN ---
Progress Note, Physician Chief Complaint: Abdominal Pain Diarrhea History of Present Illness: Previous notes and events reviewed awake and alert NAD complain of diarrhea x 2 episodes during the night s/p EGD on 02/06/19 - Current Medication List Current Medications: Active Medications Acetaminophen/Butalbital/Caffeine (Fioricet -) 1 tablet PO Q6H PRN PRN Reason: HEADACHE Last Admin: 02/08/19 07:00 Dose: 1 tablet Heparin Sodium (Porcine) (Heparin -) 5,000 unit SQ BID [facility] Last Admin: 02/08/19 10:24 Dose: 5,000 unit Potassium Chloride/Sodium Chloride (Ns+20 Meq Kcl -) 20 meq in 1,000 mls @ 75 mls/hr IV ASDIR [facility] Last Admin: 02/07/19 13:33 Dose: 75 mls/hr Metoclopramide HCl (Reglan Injection -) 10 mg IVPUSH Q6H PRN PRN Reason: NAUSEA AND/OR VOMITING Morphine Sulfate (Morphine Sulfate) 2 mg IVPUSH Q6H PRN PRN Reason: PAIN LEVEL 7 - 10 Last Admin: 02/08/19 10:23 Dose: 2 mg Ondansetron HCl (Zofran Injection) 4 mg IVPUSH Q6H PRN PRN Reason: NAUSEA Last Admin: 02/05/19 14:51 Dose: 4 mg Pantoprazole Sodium (Protonix Iv) 40 mg IVPUSH DAILY [facility] Last Admin: 02/08/19 10:24 Dose: 40 mg - Objective Vital Signs: Vital Signs Temperature 98.6 F 02/08/19 06:00 Pulse Rate 63 02/08/19 06:00 Respiratory Rate 18 02/08/19 06:00 Blood Pressure 103/65 02/08/19 06:00 O2 Sat by Pulse Oximetry (%) 100 02/08/19 00:00 Constitutional: Yes: No Distress, Calm Eyes: Yes: Conjunctiva Clear HENT: Yes: Atraumatic Cardiovascular: Yes: Regular Rate and Rhythm Respiratory: Yes: Regular, CTA Bilaterally Gastrointestinal: Yes: Normal Bowel Sounds, Soft, Tenderness (llq) Musculoskeletal: Yes: WNL Extremities: Yes: WNL Edema: No Neurological: Yes: Alert, Oriented Psychiatric: Yes: Alert, Oriented Labs: CBC, BMP 02/08/19 07:59 02/08/19 07:59 INR, PTT INR 1.18 (0.83-1.09) H 02/06/19 06:30 Problem List - Problems (1) Abdominal pain Assessment/Plan: -GI on board -EGD performed and shows antral erythema--pathology pending -pantoprazole daily -IV hydration -zofran and reglan Code(s): R10.9 - UNSPECIFIED ABDOMINAL PAIN Qualifiers: Abdominal location: unspecified location Qualified Code(s): R10.9 - Unspecified abdominal pain (2) Diarrhea Assessment/Plan: -c-diff stool pending -clear liquid diet Code(s): R19.7 - DIARRHEA, UNSPECIFIED (3) GERD (gastroesophageal reflux disease) Assessment/Plan: -GI on board -continue pantoprazole Code(s): K21.9 - GASTRO-ESOPHAGEAL REFLUX DISEASE WITHOUT ESOPHAGITIS (4) Hx of migraines Assessment/Plan: -continue with fiorecet Code(s): Z86.69 - PERSONAL HISTORY OF DIS OF THE NERVOUS SYS AND SENSE ORGANS (5) Hypokalemia Assessment/Plan: -K 3.8 -monitor electrolyte daily and replete as needed -continue 0.9%NS + KCl 20mEq at 75cc/hr Code(s): E87.6 - HYPOKALEMIA
[2019-02-08] MEDS: SODIUM CHLORIDE 0.9%/KCL 20 MEQ/1,000 ML INFUS.BAG IV SCH (11:31)
--- NOTE | 2019-02-08 16:06 | PN.GI ---
GI Progress Note Subjective: S/P EGD yesterday: antral erythema. biopsies taken to r/o h. pylori / celiac C. Diff stool Ag + Toxin neg. Improved consistency to bowel movements per patient Complains of abdominal pain but wants to eat more. She states that pain has improved - Objective Vital Signs: Vital Signs Temperature 98.4 F 02/08/19 13:55 Pulse Rate 75 02/08/19 13:55 Respiratory Rate 20 02/08/19 13:55 Blood Pressure 92/56 L 02/08/19 13:55 O2 Sat by Pulse Oximetry (%) 100 02/08/19 09:00 Constitutional: Calm Eyes: No: Sclera Icterus Cardiovascular: Yes: Regular Rate and Rhythm Respiratory: Yes: CTA Bilaterally Gastrointestinal Inspection: No: Distention ...Auscultate: Yes: Normoactive Bowel Sounds ...Palpate: Yes: Soft. No: Hepatomegaly, Tenderness Edema: No (No LE edema) Neurological: Yes: Alert Labs: CBC, BMP 02/08/19 07:59 02/08/19 07:59 INR, PTT INR 1.18 (0.83-1.09) H 02/06/19 06:30 Hepatic Panel Total Bilirubin 0.2 mg/dL (0.2-1) 02/08/19 07:59 Direct Bilirubin 0.1 mg/dL (0.0-0.2) 02/08/19 07:59 AST 49 U/L (15-37) H 02/08/19 07:59 ALT 60 U/L (13-61) 02/08/19 07:59 Alkaline Phosphatase 146 U/L (45-117) H 02/08/19 07:59 Albumin 3.1 g/dl (3.4-5.0) L 02/08/19 07:59 Laboratory Tests 09/16/18 02/07/19 06:00 05:30 GGT 352 H Hepatitis A Ab Total Pending Hep Bs Antigen Pending Hep Bs Antibody Pending Hep B Core Total Ab Pending Hep C Ab Diagnostic Pending Problem List - Problems (1) Abdominal pain Assessment/Plan: Improved Being r/o for C. Diff: Check C. Diff toxin PCR and advised nurse to call ID Code(s): R10.9 - UNSPECIFIED ABDOMINAL PAIN Qualifiers: Abdominal location: unspecified location Qualified Code(s): R10.9 - Unspecified abdominal pain (2) Elevated liver enzymes Assessment/Plan: GGT elevated Discointinue fiorecet Abd US Will need further evaluation as outpatient, possibly liver biopsy. No evidence of ductal abnormalities that would suggest PSC on recent MRCP hepatic panel in AM Code(s): R74.8 - ABNORMAL LEVELS OF OTHER SERUM ENZYMES
--- NOTE | 2019-02-08 16:42 | PATH ---
Surgical Pathology Report Patient Name: LAKISHA GARDINER [facility]. Rec. #: [id number] /Age/Gender: 1965 (Age: 53) / F Account: [id number] Location: [address] [place] [address] Taken: 02/07/2019 Received: 02/07/2019 Reported: 02/08/2019 Physicians: MD Tab Colon M.D. Specimen(s) Received A: SMALL BOWEL, BIOPSY B: DUODENAL BULB C: ANTRUM Clinical History Abdominal pain Postoperative diagnosis: Gastritis Final Diagnosis A. SMALL BOWEL, BIOPSY: SMALL INTESTINAL MUCOSA WITH NO DIAGNOSTIC ABNORMALITIES. NO HISTOLOGIC EVIDENCE OF INTRAEPITHELIAL LYMPHOCYTOSIS. B. DUODENUM BULB, BIOPSY: DUODENUM MUCOSA WITH MILD NONSPECIFIC CHRONIC DUODENITIS. NO HISTOLOGIC EVIDENCE OF INTRAEPITHELIAL LYMPHOCYTOSIS. C. ANTRUM, BIOPSY: GASTRIC MUCOSA WITH REACTIVE GASTROPATHY. IMMUNOSTAIN FOR H. PYLORI IS NEGATIVE. NEGATIVE FOR INTESTINAL METAPLASIA. Electronically Signed Morgan Radford M.D. Gross Description A. Received in formalin, labeled "biopsy small bowel" are 3 ruiz, irregular portions of soft tissue ranging from 0.3-0.6 cm. in greatest dimension. The specimens are submitted in toto in one cassette. B. Received in formalin, labeled "biopsy duodenal bulb" are 2 ruiz, irregular portions of soft tissue measuring 0.2 and 0.3 cm. in greatest dimension. The specimens are submitted in toto in one cassette. C. Received in formalin, labeled "biopsy antrum" are 2 ruiz, irregular portions of soft tissue measuring 0.2 and 0.5 cm. in greatest dimension. The specimens are submitted in toto in one cassette. 02/07/2019 [facility]02/07/2019
[2019-02-08] MEDS ORDERED: ACETAMINOPHEN/CAFFEINE/BUTALBITAL 1 TAB PO ONE (22:24)
[2019-02-09] MEDS: SODIUM CHLORIDE 0.9%/KCL 20 MEQ/1,000 ML INFUS.BAG IV SCH ×2 (00:38→10:45)
[2019-02-09] MEDS: MORPHINE SULFATE 2 MG/ML VIAL IVPUSH PRN ×3 (02:42→17:16)
[2019-02-09 04:12] LABS: HEP.C VIRUS AB <0.1 s/co ratio (0.0-0.9)
[2019-02-09 08:23] LABS: HEMATOCRIT 33.3 % (32.4-45.2); MCH 31.1 pg (25.7-33.7); MCHC 33.1 g/dl (32.0-36.0); MEAN PLT VOLUME 9.3 fl (7.5-11.1); PLATELET COUNT 237 K/MM3 (134-434); RBC 3.54 M/mm3 (3.60-5.2); RDW 12.9 % (11.6-15.6); WHITE BLOOD COUNT 7.6 K/mm3 (4.0-10.0)
[2019-02-09 08:28] LABS: ALBUMIN 2.8 g/dl (3.4-5.0); ALK PHOS 129 U/L (45-117); ANION GAP 8 MMOL/L (8-16); BILIRUBIN,TOTAL 0.1 mg/dL (0.2-1); BLOOD UREA NITROGEN 3 mg/dL (7-18); CHLORIDE 110 mmol/L (98-107); CO2 25 mmol/L (21-32); CREATININE 0.5 mg/dL (0.55-1.3); GLUCOSE,RANDOM 76 mg/dL (74-106); POTASSIUM 4.1 mmol/L (3.5-5.1); SGOT/AST 31 U/L (15-37); SGPT/ALT 49 U/L (13-61); SODIUM 143 mmol/L (136-145); TOT PROT 5.7 g/dl (6.4-8.2)
[2019-02-09] MEDS: PANTOPRAZOLE SODIUM 40 MG VIAL IVPUSH SCH (09:57)
[2019-02-09] MEDS: HEPARIN NA (PORCINE) 5,000 UNITS/ML 1ML VIAL SQ SCH ×2 (09:57→21:58)
--- NOTE | 2019-02-09 13:05 | PN.GI ---
GI Progress Note Subjective: No acute events States abdominal pain improved States diarrhea improved Wants to eat Abd US revealed fatty liver, otherwise normal - Objective Vital Signs: Vital Signs Temperature 98.0 F 02/09/19 06:10 Pulse Rate 64 02/09/19 06:10 Respiratory Rate 20 02/09/19 06:10 Blood Pressure 109/56 L 02/09/19 06:10 O2 Sat by Pulse Oximetry (%) 100 02/08/19 21:00 Constitutional: Calm Eyes: No: Sclera Icterus Cardiovascular: Yes: Regular Rate and Rhythm Respiratory: Yes: CTA Bilaterally Gastrointestinal Inspection: No: Distention ...Auscultate: Yes: Normoactive Bowel Sounds ...Palpate: Yes: Soft. No: Hepatomegaly, Splenomegaly, Tenderness Edema: No (No LE edema) Neurological: Yes: Alert Labs: CBC, BMP 02/09/19 06:25 02/09/19 06:25 INR, PTT INR 1.18 (0.83-1.09) H 02/06/19 06:30 Hepatic Panel Total Bilirubin 0.1 mg/dL (0.2-1) L 02/09/19 06:25 Direct Bilirubin 0.1 mg/dL (0.0-0.2) 02/08/19 07:59 AST 31 U/L (15-37) 02/09/19 06:25 ALT 49 U/L (13-61) 02/09/19 06:25 Alkaline Phosphatase 129 U/L (45-117) H 02/09/19 06:25 Albumin 2.8 g/dl (3.4-5.0) L 02/09/19 06:25 Laboratory Tests 02/08/19 07:59 CRISPIN Screen Pending Smooth Musc [employer] Intrp Pending Problem List - Problems (1) Abdominal pain Assessment/Plan: Clinically improved Advancing diet Code(s): R10.9 - UNSPECIFIED ABDOMINAL PAIN Qualifiers: Abdominal location: unspecified location Qualified Code(s): R10.9 - Unspecified abdominal pain (2) Elevated liver enzymes Assessment/Plan: fatty liver on US Continued outpatient follow-up Code(s): R74.8 - ABNORMAL LEVELS OF OTHER SERUM ENZYMES
--- NOTE | 2019-02-09 14:42 | DS ---
Physical Examination Vital Signs: Vital Signs Temperature 98.0 F 02/09/19 06:10 Pulse Rate 64 02/09/19 06:10 Respiratory Rate 20 02/09/19 06:10 Blood Pressure 109/56 L 02/09/19 06:10 O2 Sat by Pulse Oximetry (%) 100 02/08/19 21:00 Constitutional: Yes: Calm, Thin Cardiovascular: Yes: Regular Rate and Rhythm, S1, S2 Respiratory: Yes: CTA Bilaterally Gastrointestinal: Yes: Normal Bowel Sounds, Soft Edema: No Neurological: Yes: Alert, Oriented Labs: CBC, BMP 02/09/19 06:25 02/09/19 06:25 Discharge Summary Reason For Visit: ABDOMINAL PAIN Current Active Problems Abdominal pain (Acute) Elevated liver enzymes (Acute) Hypokalemia (Acute) Other Procedures: EGD normal mucosa of duodenum and antrum of staomach Hospital Course: - Admission Chief Complaint: came in vomitting and nausea and abdominal pain for 2 days History of Present Illness: patient is 53 yr old female h/o cholecystectomy came in with Nausea and vomitting for 2 days with abdominal pain no fever ,noted she is in hospital recently for abdominal pain and nausea vomiting.patient admitted in september in 2017 and then in october for same she didnot FU with GI as outpatient, previous admission for ct scan was negative as well ct scan done no acute pathology noted seen by GI c diff sent positive antigen and negative toxin Condition: Improved - Instructions Disposition: HOME - Home Medications Comprehensive Discharge Medication List: Ambulatory Orders Ondansetron [Zofran *Odt*] 8 mg PO TID PRN #30 tab.rapdis MDD 3 09/18/18 Acetaminophen/Caffeine/Butalb [Fioricet -] 1 tab PO Q6H PRN 10/10/18 Pantoprazole Sodium [Protonix -] 40 mg PO DAILY #30 tablet.ec 10/13/18 Vancomycin Oral Solution 125 mg PO Q6HPO #56 ml 10/13/18
--- NOTE | 2019-02-09 16:08 | PN ---
Progress Note (short form) - Note Progress Note: ID CONSULT DICTATED ? RECURRENT C DIFF ADVISED VANCOMYCIN 125MG PO QID X 10D OUTPATIENT GI F/U
[2019-02-09] MEDS: VANCOMYCIN 250 MG/5 ML ORAL SOLUTION PO SCH (17:20)
[2019-02-09] MEDS ORDERED: ACETAMINOPHEN/CAFFEINE/BUTALBITAL 1 TAB PO ONE (22:59)
[2019-02-09 23:37] VITALS: BMI 18.2
[2019-02-10] MEDS: VANCOMYCIN 250 MG/5 ML ORAL SOLUTION PO SCH ×3 (00:21→11:43)
[2019-02-10] MEDS: MORPHINE SULFATE 2 MG/ML VIAL IVPUSH PRN ×2 (03:34→09:41)
[2019-02-10] MEDS: PANTOPRAZOLE SODIUM 40 MG VIAL IVPUSH SCH (09:41)
[2019-02-10] MEDS: HEPARIN NA (PORCINE) 5,000 UNITS/ML 1ML VIAL SQ SCH (09:41)
[2019-02-10] MEDS: SODIUM CHLORIDE 0.9%/KCL 20 MEQ/1,000 ML INFUS.BAG IV SCH (10:04)
--- NOTE | 2019-02-10 12:26 | DS ---
Physical Examination Vital Signs: Vital Signs Temperature 97.8 F 02/10/19 06:00 Pulse Rate 68 02/10/19 06:00 Respiratory Rate 18 02/09/19 22:00 Blood Pressure 103/61 02/10/19 06:00 O2 Sat by Pulse Oximetry (%) 100 02/09/19 20:54 Cardiovascular: Yes: Regular Rate and Rhythm Respiratory: Yes: Regular, CTA Bilaterally Gastrointestinal: Yes: Normal Bowel Sounds, Soft. No: Tenderness Labs: CBC, BMP 02/09/19 06:25 02/09/19 06:25 Discharge Summary Reason For Visit: ABDOMINAL PAIN Current Active Problems Abdominal pain (Acute) Elevated liver enzymes (Acute) Hypokalemia (Acute) Hospital Course: patient is 53 yr old female h/o cholecystectomy came in with Nausea and vomitting for 2 days with abdominal pain no fever ,noted she is in hospital recently for abdominal pain and nausea vomiting.patient admitted in september in 2017 and then in october for same she didnot FU with GI as outpatient, previous admission for ct scan was negative as well ct scan done no acute pathology noted seen by GI c diff sent positive antigen and negative toxin--id consult--vanco Condition: Improved - Instructions Diet, Activity, Other Instructions: stop fiorcet Take Vancomycin 125 mg (2.5 mL) every 6 hours for 9 more days Referrals: Ginger Luis MD [Staff Physician] - 2 Weeks Disposition: HOME - Home Medications Comprehensive Discharge Medication List: Ambulatory Orders Ondansetron [Zofran *Odt*] 8 mg PO TID PRN #30 tab.rapdis MDD 3 09/18/18 Pantoprazole Sodium [Protonix -] 40 mg PO DAILY #30 tablet.ec 02/10/19 Vancomycin Oral Solution 125 mg PO Q6HPO #56 ml 02/10/19
[2019-02-11 07:17] VITALS: BP 98/58; PULSE 80; TEMP 98.2
== END 2019-02-10 13:02 | disposition home or self-care (01) | DRG 241 ==
LOC: JER 02:37 → JERBED 10:48 → J6S 19:53
PROVIDERS: ADMIT Family Medicine; ATTEND Family Medicine
PROC: 0DB68ZX Excision of Stomach, Via Natural or Artificial Opening Endoscopic, Diagnostic (ICD-10-PCS; 2019-02-07)
PROC: 0DB98ZX Excision of Duodenum, Via Natural or Artificial Opening Endoscopic, Diagnostic (ICD-10-PCS; principal; 2019-02-07 10:30)
DX: K29.70 Gastritis, unspecified, without bleeding (principal); R10.9 Unspecified abdominal pain; R11.2 Nausea with vomiting, unspecified; E87.6 Hypokalemia; R74.8 Abnormal levels of other serum enzymes; K21.9 Gastro-esophageal reflux disease without esophagitis; R64 Cachexia; Z68.1 Body mass index [BMI] 19.9 or less, adult; K76.0 Fatty (change of) liver, not elsewhere classified
CPT/HCPCS: 36415; 74177-TC; 76705-TC; 80048; 80053; 80074; 80076; 81003; 82150; 82977; 83516; 83690; 83735; 85025; 85027; 85610; 85730; 86038; 86376; 87086; 87324; 87449; 88305-TC; 99284-25; J1644; J7030

== ENCOUNTER 2019-03-04 19:12 | Emergency (ER) | payer SELFPAY ==
[2019-03-04 19:26] VITALS: BP 100/65; PULSE 68; TEMP 98.4; BMI 15.6
--- NOTE | 2019-03-04 21:03 | PDOC ---
History of Present Illness - General Chief Complaint: Pain Stated Complaint: ABD PAIN/NAUSEA Time Seen by Provider: 03/04/19 20:47 - History of Present Illness Initial Comments: 03/04/19 21:40 The patient is a 53 year old female with a history of GERD, Chronic Abdominal pain who presents for evaluation of abdominal pain. The patient reports a 1 day history of sharp diffuse abdominal pain worse on the right side with associated nausea and non-bloody, non-bilious vomiting prompting her presentation to the ED for further evaluation. She reports that she has been experiencing body aches over the past 3 days and notes some associated diarrhea. She otherwise denies chills, SOB, chest pain, or changes with urination or bowel movements. Past History - Past Medical History Allergies/Adverse Reactions: Allergies Allergy/AdvReac Type Severity Reaction Status Date / Time codeine AdvReac Intermediate Itching Verified 03/04/19 21:54 [From Tylenol-Codeine] acetaminophen AdvReac Mild Verified 03/04/19 21:54 [From Tylenol-Codeine] Home Medications: Ambulatory Orders NK [No Known Home Medication] 03/04/19 Anemia: No Asthma: No Cancer: No Cardiac Disorders: No CVA: No COPD: No CHF: No Dementia: No Diabetes: No GI Disorders: Yes (GERD) Disorders: No HTN: No Hypercholesterolemia: No Kidney Stones: (kidney problems??) Liver Disease: No Seizures: No Thyroid Disease: No Other medical history: Migraines - Surgical History Abdominal Surgery: Yes Appendectomy: No Cardiac Surgery: No Cholecystectomy: Yes Lung Surgery: No Neurologic Surgery: No Orthopedic Surgery: No - Immunization History Immunization Up to Date: Yes - Suicide/Smoking/Psychosocial Hx Smoking Status: Yes Smoking History: Current every day smoker Have you smoked in the past 12 months: No Number of Cigarettes Smoked Daily: 8 Cigars Per Day: 0 Information on smoking cessation initiated: Yes 'Breaking Loose' booklet given: 02/05/19 Hx Alcohol Use: No Drug/Substance Use Hx: No Substance Use Type: None Hx Substance Use Treatment: No Review of Systems - Review of Systems Comments:: 03/04/19 21:43 Constitutional: Fevers, fatigue, malaise, No Chills HEENT: No Rhinorrhea, nasal congestion, visual changes Cardiovascular: No chest pain, syncope, palpitations, lightheadedness Respiratory: No Cough, SOB, Hemoptysis, Gastrointestinal: Abdominal pain, Nausea, Vomiting, Diarrhea, No Constipation, Melena Genitourinary: No Dysuria, Frequency, Urgency, Hesitancy, Hematuria, Flank pain Musculoskeletal: No Myalgia, arthralgia Skin: No rashes, itching, bruising, pallor Neurologic: No Headache, Dizziness, Numbness, Weakness, or Tingling Psychiatric: No Hallucinations. No SI or HI *Physical Exam - Vital Signs Last Vital Signs Temp Pulse Resp BP Pulse Ox 98.4 F 68 20 100/65 98 03/04/19 19:22 03/04/19 19:22 03/04/19 19:22 03/04/19 19:22 03/04/19 19:22 - Physical Exam Comments: 03/04/19 21:44 General Appearance: Nourished. No Apparent Distress HEENT: No Pharyngeal Erythema, Tonsillar Exudate, Tonsillar Erythema Neck: No Cervical Lymphadenopathy Respiratory/Chest: Lungs Clear, Normal Breath Sounds. No Crackles, Rales, Rhonchi, Wheezing Cardiovascular: Regular Rhythm, Regular Rate. No Murmur, Gallops, Rubs Gastrointestinal/Abdominal: Normal Bowel Sounds, Soft. Diffusely uncomfortable with palpation of abdomen on exam. No Guarding, Rebound, or focal tenderness Musculoskeletal: No CVA Tenderness Extremity: Normal Capillary Refill Integumentary: Normal Color, Dry, Warm Neurologic: Fully Oriented, Alert, Normal Mood/Affect, Normal Response, 03/04/19 21:47 ED Treatment Course - LABORATORY CBC & Chemistry Diagram: 03/04/19 21:51 03/04/19 21:55 Medical Decision Making - Medical Decision Making 03/04/19 21:45 The patient is a 53 year old female with a history of GERD, Chronic Abdominal pain who presents for evaluation of abdominal pain. Differential includes but is not limited to: Gastritis, Gastroenteritis, Infectious, Metabolic Derangement. Given the patient's history and physical exam, we will obtain a cbc, cmp, lipase, ekg, troponin, to evaluate further. We will treat with banana bag, pepcid, maalox, tylenol and continue to monitor and reassess while here in the ED. 03/05/19 01:15 CBC, cmp, lipase, troponin were unremarkable. RUQ US demonstrates no acute findings with a normal CBD as preliminarily read by our stone and plate preparer apprentice radiologist. The patient appears clinically well on exam. We are comfortable discharging the patient home in stable condition. Patient made aware of impression and plan , return precautions discussed including but not limited to worsening pain or symptoms, fevers, or signs of infection, chest pain, respiratory distress, inability to tolerate oral intake, dehydration, syncope, or neurologic changes. The patient is to follow up with PMD and GI specialist as recommended within 1 week, follow up information provided and the patient will call for an appointment. The patient is to take medications as instructed for duration of time and continue with supportive care, avoid triggers and precipitants. Patient is safe for outpatient follow-up. *DC/Admit/Observation/Transfer Diagnosis at time of Disposition: Abdominal pain Qualifiers: Abdominal location: unspecified location Qualified Code(s): R10.9 - Unspecified abdominal pain - Discharge Dispostion Disposition: HOME Condition at time of disposition: Stable Decision to Admit order: No - Referrals - Patient Instructions Printed Discharge Instructions: DI for Abdominal Pain-Adult Additional Instructions: 1) Please follow-up with your primary care doctor in the next 2-3 days. Please call tomorrow to schedule a follow up appointment. If you cannot follow up with your doctor within 1 week please return to the Emergency Department for any urgent issues. 2) Your laboratory / imaging results were normal here in the ER. 3) If you have any worsening of symptoms or any other concerns please return to the ER immediately. Return if worsening symptoms including fevers, headache, vomiting, visual or hearing disturbances, abdominal pain, chest pain, shortness of breath, syncope, dehydration, inability to take things by mouth/vomiting, altered mental status, or worsening concerning symptoms. 4) Please continue taking your home medications as directed. 1) por favor, kirill un seguimiento con calderon mdico de atencin primaria en los prximos 2-3 mulligan. Por favor llame maana para programar chin sosa de seguimiento. Si no puede hacer un seguimiento con calderon mdico dentro de 1 semana, por favor regrese al Departamento de emergencias para cualquier problema urgente. 2) delbert resultados de laboratorio/imagen fueron normales aqu en el ER. 3) si usted tiene cualquier empeoramiento de los sntomas o cualquier otra inquietud por favor regrese a la ER inmediatamente. Regrese si empeora los sntomas incluyendo fiebres, dolor de nadia, vmitos, alteraciones visuales o auditivas, dolor abdominal, dolor en el pecho, dificultad para respirar, sncope , deshidratacin, incapacidad para mariano las cosas por la boca/vmitos, alteracin del estado mental o empeoramiento Acerca de los sntomas. 4) por favor, siga tomando delbert medicamentos caseros segn las indicaciones. - Post Discharge Activity
[2019-03-04] MEDS ORDERED: ONDANSETRON 4 MG/2 ML VIAL IVPUSH ONE (21:15)
[2019-03-04] MEDS ORDERED: FAMOTIDINE 20 MG/50 ML IVPB 20 MG/50 ML MG IVPB ONE ×2 (21:15→21:30)
[2019-03-04] MEDS ORDERED: SODIUM CHLORIDE 1,000 ML IV STA (21:15)
[2019-03-04] MEDS ORDERED: ACETAMINOPHEN 1000 MG/100 ML VIAL (NON FORMULARY) IVPB ONE (21:16)
[2019-03-04] MEDS ORDERED: ACETAMINOPHEN INJECTION 100 ML IVPB ONE (21:30)
[2019-03-04] MEDS ORDERED: ONDANSETRON 4 MG/2 ML VIAL ONE (21:30)
[2019-03-04] MEDS ORDERED: FOLIC ACID INJECTION - 1 MG, THIAMINE HCL 100 MG, MULTIVIT INJECTION ADULT 10 ML in SOD... IVPB ONE (21:36)
[2019-03-04] MEDS ORDERED: MAG HYDROX/AL HYDROX/SIMETH 30 ML UNIT-DOSE CUP PO ONE (21:39)
[2019-03-04 22:09] LABS: BASO % 0.6 % (0-2.0); EOS % 0.7 % (0-4.5); HEMATOCRIT 35.5 % (32.4-45.2); HEMOGLOBIN 12.1 GM/dL (10.7-15.3); MCH 31.9 pg (25.7-33.7); MEAN CELL VOLUME 93.8 fl (80-96); MEAN PLT VOLUME 8.7 fl (7.5-11.1); MONO % 8.7 % (3.8-10.2); PLATELET COUNT 256 K/MM3 (134-434); RBC 3.79 M/mm3 (3.60-5.2); RDW 12.8 % (11.6-15.6); WHITE BLOOD COUNT 7.7 K/mm3 (4.0-10.0)
[2019-03-04] MEDS ORDERED: KETOROLAC TROMETHAMINE 30 MG/1 ML VIAL IVPUSH ONE (22:12)
[2019-03-04] MEDS ORDERED: MAG HYDROX/AL HYDROX/SIMETH 30 ML UNIT-DOSE CUP ONE (22:37)
[2019-03-04] MEDS ORDERED: KETOROLAC TROMETHAMINE 30 MG/1 ML VIAL ONE (22:37)
--- NOTE | 2019-03-04 23:06 | PDOC ---
Documentation entered by Kathie Salazar SCRIBE, acting as scribe for Ginny Vazquez MD. Ginny Vazquez MD: This documentation has been prepared by the Marie aguilera Daisy, SCRIBE, under my direction and personally reviewed by me in its entirety. I confirm that the documentation accurately reflects all work, treatment, procedures, and medical decision making performed by me. Attending Attestation - Resident Resident Name: Pedrito Granados - ED Attending Attestation I have performed the following: I have examined & evaluated the patient, The case was reviewed & discussed with the resident, I agree w/resident's findings & plan - HPI HPI: 03/04/19 21:05 The patient is a 53 YOF with a PMH of migrains, distant cholecystectomy, chronic abdominal pain who presents to the ED for a 1 day history of right sided and lower abdominal pain, nausea, vomiting, discomfort when swallowing, and multiple episodes of NB diarrhea. She notes she been having generalized fatigue over the last 3 days. She also admits to subjective fevers at home. She reports having significant workup for her abdominal pain in the past. Last endoscopy was earlier this month and was found to be normal. The patient denies chest pain, shortness of breath, headache and dizziness. Denies chills, diarrhea and constipation. Denies dysuria, frequency, urgency and hematuria. Allergies: codeine, acetaminophen - Physicial Exam PE: 03/04/19 21:45 ADULT EXAM GENERAL: Awake, alert, and fully oriented, in no acute distress (+) Appears depressed and smells of smoke. EYES: PERRLA, EOMI, sclera anicteric, conjunctiva clear ENT: Auricles normal inspection, hearing grossly normal, nares patent. Moist mucosa. (+) Edentulous. NECK: Normal ROM, supple, no lymphadenopathy, JVD, or masses LUNGS: Breath sounds equal, clear to auscultation bilaterally. No wheezes, and no crackles HEART: Regular rate and rhythm, normal S1 and S2, no murmurs, rubs or gallops ABDOMEN: Soft, nontender, normoactive bowel sounds. No guarding, no rebound. No masses (+) Gasy. BACK: No spine tenderness. No flank tenderness. EXTREMITIES: Normal range of motion, no edema. No erythema or tenderness. DP/PT pulses 2+ and symmetric. Warm and well perfused. NEUROLOGICAL: Moves all extremities. Normal speech, normal gait SKIN: Warm, Dry, normal turgor, no rashes or lesions noted. - Medical Decision Making 03/04/19 22:40 CBC normal; chem pending 03/04/19 23:30 Pt's chem is normal; however alk phos and LFTs are higher than usual. She will be sent for CBD sono 03/05/19 00:57 Patient Name: LAKISHA GARDINER THIS IS A PRELIMINARY REPORT FROM [facility] DATE OF SERVICE: 2019-03-04 23:27:36 IMAGES: 29 EXAM: ABDOMEN US -LIMITED , right and upper quadrant and limited abdominal duplex HISTORY: Right upper quadrant pain status post cholecystectomy. COMPARISON: None. FINDINGS: Right upper quadrant ultrasound:The liver is normal, without mass or biliary duct dilation. The CBD is not dilated and measures3 millimeters in diameter. Right kidney measures 12.8centimeters in length and is unremarkable. The visualized aorta and IVC are normal. Pancreas is partially obscured, but appears normal. Abdominal duplex: The main portal vein demonstrates normal hepatopedal flow. IMPRESSION: Normal post operative exam 03/05/19 02:43 Pt will be discharged home. SHe states that she is not eating regular meals due to her lack of teeth and she is losing weight and her gastritis is worse. She will follow with GI, and I suggested that she cook her food until she can mash it up. Stable to go home.
[2019-03-04 23:08] LABS: ANION GAP 8 MMOL/L (8-16); BLOOD UREA NITROGEN 10 mg/dL (7-18); CHLORIDE 107 mmol/L (98-107); CO2 25 mmol/L (21-32); CREATININE 0.4 mg/dL (0.55-1.3); GLUCOSE,RANDOM 88 mg/dL (74-106); POTASSIUM 4.2 mmol/L (3.5-5.1); SODIUM 140 mmol/L (136-145)
[2019-03-04 23:09] LABS: ALBUMIN 3.2 g/dl (3.4-5.0); BILIRUBIN,TOTAL 0.4 mg/dL (0.2-1); CALCIUM 8.7 mg/dL (8.5-10.1); SGOT/AST 63 U/L (15-37); TOT PROT 7.1 g/dl (6.4-8.2)
[2019-03-04 23:10] LABS: ALK PHOS 210 U/L (45-117); SGPT/ALT 61 U/L (13-61)
[2019-03-04 23:25] LABS: LIPASE 125 U/L (73-393)
[2019-03-04] MEDS ORDERED: ACETAMINOPHEN/CAFFEINE/BUTALBITAL 1 TAB PO ONE (23:59)
[2019-03-05] MEDS ORDERED: ACETAMINOPHEN/CAFFEINE/BUTALBITAL 1 TAB PO ONE (00:07)
[2019-03-05] MEDS ORDERED: ACETAMINOPHEN/CAFFEINE/BUTALBITAL 1 TAB ONE (00:56)
== END 2019-03-05 01:10 | disposition home or self-care (01) ==
LOC: JER 19:12
PROC: 3E033GC Introduction of Other Therapeutic Substance into Peripheral Vein, Percutaneous Approach (ICD-10-PCS; principal; 2019-03-04)
PROC: 3E033GC Introduction of Other Therapeutic Substance into Peripheral Vein, Percutaneous Approach (ICD-10-PCS; 2019-03-04)
PROC: 3E033GC Introduction of Other Therapeutic Substance into Peripheral Vein, Percutaneous Approach (ICD-10-PCS; 2019-03-04)
PROC: 3E0333Z Introduction of Anti-inflammatory into Peripheral Vein, Percutaneous Approach (ICD-10-PCS; 2019-03-04)
DX: R10.9 Unspecified abdominal pain (principal); R11.2 Nausea with vomiting, unspecified; R19.7 Diarrhea, unspecified
CPT/HCPCS: 36415; 76705-TC; 80053; 82550; 83690; 84484; 85025; 99283-25; J7030

== ENCOUNTER 2019-05-06 00:44 | Emergency (ER) | payer SELFPAY ==
[2019-05-06 01:11] VITALS: BMI 15.7
[2019-05-06] MEDS ORDERED: SODIUM CHLORIDE 1,000 ML IV STA (01:15)
[2019-05-06] MEDS ORDERED: FAMOTIDINE 20 MG/50 ML IVPB 20 MG/50 ML MG IVPB ONE (01:15)
[2019-05-06] MEDS ORDERED: ACETAMINOPHEN 1000 MG/100 ML VIAL (NON FORMULARY) IVPB ONE (01:15)
[2019-05-06] MEDS ORDERED: MAG HYDROX/AL HYDROX/SIMETH 30 ML UNIT-DOSE CUP PO ONE (01:17)
[2019-05-06] MEDS ORDERED: LIDOCAINE VISCOUS 2% ORAL/TOP 20 ML UNIT-DOSE CUP MM ONE (01:17)
--- NOTE | 2019-05-06 01:24 | PDOC ---
History of Present Illness - General Stated Complaint: STOMACH PAIN Time Seen by Provider: 05/06/19 01:07 History Source: Patient Exam Limitations: No Limitations - History of Present Illness Initial Comments: 05/06/19 01:11 53YOF with h/o GERD, chronic abdominal pain, migraines, cholecystectomy, tobacco use (smoker); who p/w abdominal discomfort, nausea, vomiting, diarrhea, and malaise for the past day. She notes having had this same issue in the past before, but cannot say what the diagnosis was. She requests medication to help the pain and notes allergies to codeine and Tylenol, as well as stomach irritation whenever she gets NSAID medications. Her last BM was yesterday and was diarrhea but was not bloody/black/white. She denies f/c, chest pain, SOB, back pain, or any other symptoms. Past History - Past Medical History Allergies/Adverse Reactions: Allergies Allergy/AdvReac Type Severity Reaction Status Date / Time codeine AdvReac Intermediate Itching Verified 03/04/19 21:54 [From Tylenol-Codeine] acetaminophen AdvReac Mild Verified 03/04/19 21:54 [From Tylenol-Codeine] Home Medications: Ambulatory Orders NK [No Known Home Medication] 03/04/19 Anemia: No Asthma: No Cancer: No Cardiac Disorders: No CVA: No COPD: No CHF: No Dementia: No Diabetes: No GI Disorders: Yes (GERD) Disorders: No HTN: No Hypercholesterolemia: No Kidney Stones: (kidney problems??) Liver Disease: No Seizures: No Thyroid Disease: No - Surgical History Abdominal Surgery: Yes Appendectomy: No Cardiac Surgery: No Cholecystectomy: Yes Lung Surgery: No Neurologic Surgery: No Orthopedic Surgery: No - Immunization History Immunization Up to Date: Yes - Suicide/Smoking/Psychosocial Hx Smoking Status: Yes Smoking History: Unknown if ever smoked Have you smoked in the past 12 months: No Number of Cigarettes Smoked Daily: 8 Cigars Per Day: 0 'Breaking Loose' booklet given: 02/05/19 Hx Alcohol Use: No Drug/Substance Use Hx: No Substance Use Type: None Hx Substance Use Treatment: No Review of Systems - Review of Systems Able to Perform ROS?: Yes Comments:: 05/06/19 01:27 GEN: malaise, generalized weakness, no fever, chills, or weight change HEENT: no ear pain, sore throat, vision change, or eye pain CV: no chest pain, palpitations, lightheadedness, syncope, or edema RESP: no cough, wheezing, or SOB GI: abdominal pain, nausea, vomiting, diarrhea, no constipation, or white/black/ bloody stool : no dysuria, hematuria, incontinence, retention, bleeding, or discharge MSK: no neck/back pain, muscle weakness/pain, or joint swelling/pain NEURO: no headache, seizure, vertigo, numbness, tingling, or focal weakness PSYCH: no substance use, no behavior change SKIN: no jaundice, no rash ROS otherwise negative except as noted in HPI *Physical Exam - Vital Signs Last Vital Signs Temp Pulse Resp BP Pulse Ox 97.6 F 63 20 86/47 L 98 05/06/19 00:59 05/06/19 00:59 05/06/19 00:59 05/06/19 00:59 05/06/19 00:59 - Physical Exam Comments: 05/06/19 01:27 GENERAL: thin and frail and a bit ill-appearing, bizarre affect and actually appears a bit intoxicated, slightly slurred speech, A/Ox4, no distress, answers questions appropriately HEENT: PERRLA, EOMI, moist mucous membranes NECK/BACK: no midline ttp, no spinal stepoff or deformity, no hematoma, full ROM , neck supple CARDIOVASCULAR: regular rate/rhythm, normal S1S2, no MGR, strong peripheral pulses, capillary refill <2 seconds, extremities wwp, no edema LUNGS/RESPIRATORY: no respiratory distress, CTAB GI/ABDOMEN: symmetric [id number], normoactive BS, soft, mild left-sided abdominal pain diffusely, no midline pulsatile masses : no CVA tenderness EXTREMITIES: no muscle atrophy, no acute deformity SKIN: appears jaundiced, skin warm and dry, +tinting, no pallor, no rash, no bruising, no skin breakdown, no cuts, no lesions NEUROLOGICAL: GCS 15, CN II-XII grossly intact, 5/5 strength proximally and distally, no facial droop ED Treatment Course - LABORATORY CBC & Chemistry Diagram: 05/06/19 01:30 05/06/19 01:30 Medical Decision Making - Medical Decision Making 05/06/19 01:26 Adult female Pt p/w left-sided abdominal pain. Initial Vital Signs Temp Pulse Resp BP Pulse Ox 97.6 F 63 20 86/47 L 98 05/06/19 00:59 05/06/19 00:59 05/06/19 00:59 05/06/19 00:59 05/06/19 00:59 Exam: As noted in Physical Exam section. DDX IBNLT: UTI/pyelonephritis, diverticulitis wwo abscess or perforation, colitis, ovarian torsion, PID, TOA, ovarian cyst, malignancy, hernia, AAA/AD, pancreatitis, appendicitis, gastritis, PUD, ACS, renal colic, SBO, bowel ischemia, bowel perforation, cholecystitis, musculoskeletal, constipation, etc. W/U ordered: Labs as noted below, EKG, CXR TX ordered: IVF, Zofran, Pepcid, Maalox, Viscous lido Laboratory Tests 05/06/19 05/06/19 05/06/19 01:30 01:30 01:30 WBC 5.2 RBC 3.83 Hgb 11.8 Hct 36.3 MCV 94.9 MCH 30.9 MCHC 32.6 RDW 12.1 Plt Count 176 D MPV 9.1 Absolute Neuts (auto) 1.8 Neutrophils % 34.5 L D Lymphocytes % 52.7 H D Monocytes % 8.2 Eosinophils % 3.4 D Basophils % 1.2 Nucleated RBC % 0 PT with INR Cancelled INR Cancelled Sodium 143 Potassium 4.0 Chloride 110 H Carbon Dioxide 27 Anion Gap 6 L BUN 11.4 Creatinine 0.6 Est GFR (CKD-EPI)AfAm 119.77 Est GFR (CKD-EPI)NonAf 103.34 Random Glucose 67 L Lactic Acid Calcium 8.5 Magnesium Total Bilirubin 0.3 AST 28 ALT 40 Alkaline Phosphatase 112 Total Protein 6.6 Albumin 3.6 Lipase 84 05/06/19 05/06/19 01:30 01:30 WBC RBC Hgb Hct MCV MCH MCHC RDW Plt Count MPV Absolute Neuts (auto) Neutrophils % Lymphocytes % Monocytes % Eosinophils % Basophils % Nucleated RBC % PT with INR INR Sodium Potassium Chloride Carbon Dioxide Anion Gap BUN Creatinine Est GFR (CKD-EPI)AfAm Est GFR (CKD-EPI)NonAf Random Glucose Lactic Acid 0.5 Calcium Magnesium 2.2 Total Bilirubin AST ALT Alkaline Phosphatase Total Protein Albumin Lipase Reassessment: Patient has refused some meds and accepted others, refused EKG, wants to go home now. 05/06/19 02:37 This patient has gotten significant relief of symptoms while in the ED. On last reassessment, vitals are wnl, pain is reasonably controlled, and exam is benign. Workup is not concerning for emergency-level pathology at this time. This patient is appropriate for discharge with close outpatient follow up. She comfortable with this plan and will follow up with her primary care provider in 1-3 days. Specific return precautions are discussed and they will come back to the ER if necessary. *DC/Admit/Observation/Transfer Diagnosis at time of Disposition: Abdominal pain in female - Discharge Dispostion Disposition: AGAINST MEDICAL ADVICE Condition at time of disposition: Stable Decision to Admit order: No - Referrals - Patient Instructions Printed Discharge Instructions: DI for Abdominal Pain-Adult Additional Instructions: You were seen in the ER for abdominal pain. We did an exam and labs, and there were no lab abnormalities. We ordered an EKG and you refused it. We gave you IV fluids and some medications which helped with some of your symptoms. You refused some of the other medications we ordered. You decided to leave against our medical advice. Please follow up with your regular PCP in 1-3 days. Call their clinic, tell them you were seen in the ER, and tell them you need a follow -up. If you have any new or worsening symptoms, please come back to the ER at any time (24 hours a day). If you are having severe or life threatening symptoms , or symptoms that make it unsafe to drive or have someone drive you, please call 911. - Post Discharge Activity
--- NOTE | 2019-05-06 01:36 | PDOC ---
Attending Attestation - Resident Resident Name: JavierTisha - ED Attending Attestation I have performed the following: I have examined & evaluated the patient, The case was reviewed & discussed with the resident, I agree w/resident's findings & plan - HPI HPI: 05/06/19 01:35 Pt comes with abdominal pain and requesting meds to relieve the pain Pt has been here in the past for the same - Physicial Exam PE: 05/06/19 01:35 Agree with resident exam - Medical Decision Making 05/06/19 02:38 Pt received NSS and pepcid and she refused EKG and maalox and now she wants to AMA.
[2019-05-06 01:37] VITALS: BP 145/80; PULSE 52; TEMP 98.4
[2019-05-06 01:45] LABS: BASO % 1.2 % (0-2.0); EOS % 3.4 % (0-4.5); HEMATOCRIT 36.3 % (32.4-45.2); HEMOGLOBIN 11.8 GM/dL (10.7-15.3); LYMPH % 52.7 % (8-40); MCH 30.9 pg (25.7-33.7); MCHC 32.6 g/dl (32.0-36.0); MEAN CELL VOLUME 94.9 fl (80-96); MEAN PLT VOLUME 9.1 fl (7.5-11.1); MONO % 8.2 % (3.8-10.2); NEUT % 34.5 % (42.8-82.8); PLATELET COUNT 176 K/MM3 (134-434); RBC 3.83 M/mm3 (3.60-5.2); RDW 12.1 % (11.6-15.6); WHITE BLOOD COUNT 5.2 K/mm3 (4.0-10.0)
[2019-05-06] MEDS ORDERED: SODIUM CHLORIDE 0.9% 500 ML INFUS.BAG IV ONE (01:55)
[2019-05-06 02:03] LABS: ALBUMIN 3.6 g/dl (3.4-5.0); BILIRUBIN,TOTAL 0.3 mg/dL (0.2-1); BLOOD UREA NITROGEN 11.4 mg/dL (7-18); CALCIUM 8.5 mg/dL (8.5-10.1); CREATININE 0.6 mg/dL (0.55-1.3); TOT PROT 6.6 g/dl (6.4-8.2)
[2019-05-06] MEDS ORDERED: MAG HYDROX/AL HYDROX/SIMETH 30 ML UNIT-DOSE CUP ONE (02:15)
== END 2019-05-06 03:05 | disposition left against medical advice (07) ==
LOC: JER 00:44
PROC: 3E0337Z Introduction of Electrolytic and Water Balance Substance into Peripheral Vein, Percutaneous Approach (ICD-10-PCS; principal; 2019-05-06)
DX: R10.9 Unspecified abdominal pain (principal); K21.9 Gastro-esophageal reflux disease without esophagitis; F17.210 Nicotine dependence, cigarettes, uncomplicated; Z88.5 Allergy status to narcotic agent
CPT/HCPCS: 36415; 80053; 83605; 83690; 83735; 85025; 99281-25

== ENCOUNTER 2019-06-05 22:28 | Inpatient (IN) | payer OTHER ==
[2019-06-06 00:15] VITALS: BMI 15.1
--- NOTE | 2019-06-06 01:47 | HP ---
COWS - Scale Resting Pulse: 0= [place] 80 or Below Sweatin=Flushed/Facial Moisture Restless Observation: 0= Sits Still Pupil Size: 1= Pupils >than Normal Bone or Joint Aches: 4=Acute Joint/Muscle Pain Runny Nose/ Eye Tearin= Runny Nose/Eyes GI Upset > 30mins: 3= Vomiting/Diarrhea (vomiting x 3, diarrhea x5) Tremor Observation: 2= Slight Tremor Visible Yawning Observation: 1= 1-2x During Session Anxiety or Irritability: 1=Feels Anxious/Irritable Goose Flesh Skin: 3=Piloerection COWS Score: 19 CIWA Score - Admission Criteria OASAS Guidelines: Admission for Medically Managed Detox: Requires at least one of the followin. CIWA greater than 12 2. Seizures within the past 24 hours 3. Delirium tremens within the past 24 hours 4. Hallucinations within the past 24 hours 5. Acute intervention needed for co occurring medical disorder 6. Acute intervention needed for co occurring psychiatric disorder 7. Severe withdrawal that cannot be handled at a lower level of care (continued vomiting, continued diarrhea, abnormal vital signs) requiring intravenous medication and/or fluids 8. Admission ROS [facility] Chief Complaint: Opiates withdrawal symptoms Allergies/Adverse Reactions: Allergies Allergy/AdvReac Type Severity Reaction Status Date / Time codeine AdvReac Intermediate Itching Verified 06/06/19 00:03 [From Tylenol-Codeine] acetaminophen AdvReac Mild Verified 06/06/19 00:03 [From Tylenol-Codeine] History of Present Illness: 53 years old female with 13 years of opiate dependence is seeking admission to detox. Patient has been in previous detox and reports insignificant period of sobriety. She has medical history of GERD and migraines. She denies suicidal ideation at this time Exam Limitations: No Limitations - Ebola screening Have you traveled outside of the country in the last 21 days: No (N) Have you had contact with anyone from an Ebola affected area: No Do you have a fever: No - Review of Systems Constitutional: Chills, Malaise, Changes in sleep EENT: reports: Sinus Pressure Respiratory: reports: No Symptoms reported Cardiac: reports: No Symptoms Reported GI: reports: Blood Streaked Bowels, Constipated, Diarrhea, Poor Appetite, Poor Fluid Intake, Vomiting, Indigestion : reports: No Symptoms Reported Musculoskeletal: reports: Back Pain, Muscle Pain Integumentary: reports: Dryness, Flushing Neuro: reports: Headache, Tremors Endocrine: reports: No Symptoms Reported Hematology: reports: No Symptoms Reported Psychiatric: reports: Agitated, Anxious Other Systems: Reviewed and Negative Patient History - Patient Medical History Hx Anemia: No Hx Asthma: No Hx Chronic Obstructive Pulmonary Disease (COPD): No Hx Cancer: No Hx Cardiac Disorders: No Hx Congestive Heart Failure: No Hx Hypertension: No Hx Hypercholesterolemia: No Hx Pacemaker: No HX Cerebrovascular Accident: No Hx Seizures: No Hx Dementia: No Hx Diabetes: No Hx Gastrointestinal Disorders: Yes (GERD) Hx Liver Disease: No Hx Genitourinary Disorders: No Hx Renal Disease (ESRD): No Hx Thyroid Disease: No Hx Human Immunodeficiency Virus (HIV): No Hx Hepatitis C: No Hx Depression: No Hx Suicide Attempt: No Hx Bipolar Disorder: No Hx Schizophrenia: No Other Medical History: MIGRAINE - Patient Surgical History Past Surgical History: Yes Hx Neurologic Surgery: No Hx Cataract Extraction: No Hx Cardiac Surgery: No Hx Lung Surgery: No Hx Breast Surgery: No Hx Breast Biopsy: No Hx Abdominal Surgery: Yes Hx Appendectomy: No Hx Cholecystectomy: Yes Hx Genitourinary Surgery: No Hx Section: No Hx Orthopedic Surgery: No Hx Hysterectomy: No Anesthesia Reaction: No - PPD History Previous Implant?: Yes Documented Results: Negative w/o proof Implanted On Prior R Admission?: Yes PPD to be Administered?: Yes - Reproductive History Patient is a Female of Child Bearing Age (11 -55 yrs old): Yes Last Menstrual Period: 04/07/10 - Smoking Cessation Smoking history: Current every day smoker Have you smoked in the past 12 months: No Aproximately how many cigarettes per day: 8 Cigars Per Day: 0 Hx Chewing Tobacco Use: No Initiated information on smoking cessation: Yes 'Breaking Loose' booklet given: 06/06/19 - Substance & Tx. History Hx Alcohol Use: No Hx Substance Use: Yes Substance Use Type: Opiates Hx Substance Use Treatment: Yes - Substances abused Oxycontin Substance route: Oral Frequency: Daily Amount used: 8 10mg pills Age of first use: 41 Date of last use: 06/06/19 Family Disease History - Family Disease History Family Disease History: Diabetes: Mother, Heart Disease: Mother, Other: Father ( Prostate), Brother (3, healthy), Sister (4, healthy), Son (1, healthy), Daughter (1, healthy) Admission Physical Exam [facility] - Vital Signs Vital Signs: Vital Signs - 24 hr 06/06/19 00:03 Temperature 97.1 F L Pulse Rate 76 Respiratory 16 Rate Blood Pressure 99/65 - Physical General Appearance: Yes: Moderate Distress, Tremorous, Anxious HEENTM: Yes: Within Normal Limits Respiratory: Yes: Lungs Clear, Normal Breath Sounds, No Respiratory Distress Neck: Yes: Supple Breast: Yes: Breast Exam Deferred Cardiology: Yes: Regular Rhythm, Regular Rate Abdominal: Yes: Normal Bowel Sounds Genitourinary: Yes: Within Normal Limits Back: Yes: Normal Inspection Musculoskeletal: Yes: Back pain Extremities: Yes: Tremors Neurological: Yes: Alert, Normal Mood/Affect Integumentary: Yes: Warm Lymphatic: Yes: Within Normal Limits - Diagnostic (1) Opioid dependence with withdrawal Current Visit: Yes Status: Chronic (2) Nicotine dependence Current Visit: Yes Status: Acute Qualifiers: Nicotine product type: cigarettes Substance use status: uncomplicated Qualified Code(s): F17.210 - Nicotine dependence, cigarettes, uncomplicated (3) GERD (gastroesophageal reflux disease) Current Visit: Yes Status: Chronic (4) Migraine Current Visit: No Status: Acute Qualifiers: Migraine type: chronic without aura Status migrainosus presence: without status migrainosus Intractability: not intractable Qualified Code(s): G43.709 - Chronic migraine without aura, not intractable, without status migrainosus Cleared for Admission [facility] - Detox or Rehab [facility] Level of Care: Medically Managed Detox Regimen/Protocol: Methadone Inpatient Rehab Admission - Rehab Decision to Admit Inpatient rehab admission?: No
[2019-06-06] MEDS ORDERED: hydrOXYzine HCL 25 MG TABLET (FP) PO PRN (02:17)
[2019-06-06] MEDS ORDERED: ACETAMINOPHEN 325 MG TABLET (FP) PO PRN ×2 (02:17)
[2019-06-06] MEDS ORDERED: BISMUTH SUBSALICYLATE 524 MG/30 ML UD PO PRN (02:17)
[2019-06-06] MEDS ORDERED: NICOTINE POLACRILEX 2 MG GUM BUC PRN (02:17)
[2019-06-06] MEDS ORDERED: MAGNESIUM HYDROX 2400MG/30ML ORAL SUSPENSION 30 ML CUP PO PRN (02:17)
[2019-06-06] MEDS ORDERED: METHADONE HCL 10 MG TABLET (FOR DETOX USE ONLY) PO ONE (02:17)
[2019-06-06] MEDS ORDERED: MAGNESIUM CITRATE 300 ML BOTTLE PO PRN (02:17)
[2019-06-06] MEDS ORDERED: cloNIDine HCL 0.1 MG TABLET PO PRN (02:17)
[2019-06-06] MEDS ORDERED: MAG HYDROX/AL HYDROX/SIMETH 30 ML UNIT-DOSE CUP PO PRN (02:17)
[2019-06-06] MEDS ORDERED: METHOCARBAMOL 500 MG TABLET PO PRN (02:17)
[2019-06-06] MEDS ORDERED: MENTHOL/PHENOL 1 EACH UD MM PRN (02:17)
[2019-06-06] MEDS ORDERED: IBUPROFEN 400 MG TABLET (FP) PO PRN (02:17)
[2019-06-06] MEDS ORDERED: TUBERCULIN PPD 5 TU/0.1ML VIAL ID ONE (03:23)
--- NOTE | 2019-06-06 08:08 | EKG ---
Test Reason : Blood Pressure : / mmHG Vent. Rate : 053 BPM Atrial Rate : 053 BPM P-R Int : 160 ms QRS Dur : 068 ms QT Int : 440 ms P-R-T Axes : -06 006 032 degrees QTc Int : 412 ms SINUS BRADYCARDIA OTHERWISE NORMAL ECG WHEN COMPARED WITH ECG OF 10-OCT-2018 08:17, CRITERIA FOR SEPTAL INFARCT ARE NO LONGER PRESENT Confirmed by LISA FERMIN, IRAIS ([id number]) on 06/06/2019 8:08:14 AM Referred By: Lara Messer Confirmed By:IRAIS GONZALEZ MD
[2019-06-06] MEDS: PRENATAL VITAMINS W/ FOLIC ACID TABLET (FP) PO SCH (10:09)
[2019-06-06] MEDS: NICOTINE 14 MG/24 HOURS TOPICAL PATCH TD SCH (10:09)
--- NOTE | 2019-06-06 11:03 | PN ---
[facility] COWS - Scale Resting Pulse: 0= [place] 80 or Below Sweatin= Chills/Flushing Restless Observation: 1= Difficult to Sit Still Pupil Size: 1= Pupils >than Normal Bone or Joint Aches: 2= Severe Diffuse Aches Runny Nose/ Eye Tearin= Nasal Congestion GI Upset > 30mins: 1= Stomach Cramp Tremor Observation of Outstretched Hands: 2= Slight Tremor Visible Yawning Observation: 1= 1-2x During Session Anxiety or Irritability: 2=Irritable/Anxious Goose Flesh Skin: 3=Piloerection COWS Score: 15 S Progress Note (SOAP) Subjective: 53 years old female admitted on 06/06/19 for acute opiate withdrawal sx management received methadone 30 mg po today feeling better tolerate food and fluid well ambulating on hallway social with peers discuss medication assisted treatment program Objective: 06/06/19 11:07 Vital Signs Temperature 97.7 F 06/06/19 09:26 Pulse Rate 65 06/06/19 09:26 Respiratory Rate 18 06/06/19 09:26 Blood Pressure 92/57 L 06/06/19 09:26 O2 Sat by Pulse Oximetry (%) 06/06/19 11:08 admission lab ordered for 06/07/19 Assessment: 06/06/19 11:08 opiate withdrawal sx Plan: continue opiate detox
[2019-06-06] MEDS: MELATONIN 5 MG TABLETS PO PRN (22:10)
[2019-06-06] MEDS: THIAMINE HCL 100 MG TABLET (FP) PO SCH (22:10)
[2019-06-07] MEDS ORDERED: METHADONE HCL 5 MG TABLET (FOR DETOX USE ONLY) ONE (08:24)
[2019-06-07] MEDS ORDERED: METHADONE HCL 10 MG TABLET (FOR DETOX USE ONLY) ONE (08:24)
[2019-06-07] MEDS ORDERED: METHADONE (DETOX) 20 MG, METHADONE (DETOX) 5 MG PO ONE (10:00)
[2019-06-07] MEDS: NICOTINE 14 MG/24 HOURS TOPICAL PATCH TD SCH (10:41)
[2019-06-07] MEDS: PRENATAL VITAMINS W/ FOLIC ACID TABLET (FP) PO SCH (10:41)
[2019-06-07 11:57] LABS: HEMATOCRIT 35.1 % (32.4-45.2); HEMOGLOBIN 11.7 GM/dL (10.7-15.3); MCH 31.3 pg (25.7-33.7); MCHC 33.2 g/dl (32.0-36.0); MEAN CELL VOLUME 94.3 fl (80-96); MEAN PLT VOLUME 9.9 fl (7.5-11.1); PLATELET COUNT 169 K/MM3 (134-434); RBC 3.72 M/mm3 (3.60-5.2); RDW 12.5 % (11.6-15.6); WHITE BLOOD COUNT 6.9 K/mm3 (4.0-10.0)
[2019-06-07 12:09] LABS: ALBUMIN 3.4 g/dl (3.4-5.0); BILIRUBIN,TOTAL 0.2 mg/dL (0.2-1); BLOOD UREA NITROGEN 11.8 mg/dL (7-18); CALCIUM 8.4 mg/dL (8.5-10.1); CREATININE 0.5 mg/dL (0.55-1.3); POTASSIUM 4.3 mmol/L (3.5-5.1); TOT PROT 6.2 g/dl (6.4-8.2)
--- NOTE | 2019-06-07 12:19 | PN ---
[facility] COWS - Scale Resting Pulse: 0= [place] 80 or Below Sweatin= Chills/Flushing Restless Observation: 0= Sits Still Pupil Size: 1= Pupils >than Normal Bone or Joint Aches: 1= Mild Discomfort Runny Nose/ Eye Tearin= Nasal Congestion GI Upset > 30mins: 1= Stomach Cramp Tremor Observation of Outstretched Hands: 2= Slight Tremor Visible Yawning Observation: 2= >3x During Session Anxiety or Irritability: 2=Irritable/Anxious Goose Flesh Skin: 0=Smooth Skin COWS Score: 11 [facility] Progress Note (SOAP) Subjective: doing well with methadone detox regimen feeling tired otherwise feeling ok sleep better at night Objective: 06/07/19 12:19 Vital Signs Temperature 98.8 F 06/07/19 09:10 Pulse Rate 63 06/07/19 09:10 Respiratory Rate 18 06/07/19 09:10 Blood Pressure 93/62 06/07/19 09:10 O2 Sat by Pulse Oximetry (%) Laboratory Last Values WBC 6.9 K/mm3 (4.0-10.0) 06/07/19 07:30 RBC 3.72 M/mm3 (3.60-5.2) 06/07/19 07:30 Hgb 11.7 GM/dL (10.7-15.3) 06/07/19 07:30 Hct 35.1 % (32.4-45.2) 06/07/19 07:30 MCV 94.3 fl (80-96) 06/07/19 07:30 MCH 31.3 pg (25.7-33.7) 06/07/19 07:30 MCHC 33.2 g/dl (32.0-36.0) 06/07/19 07:30 RDW 12.5 % (11.6-15.6) 06/07/19 07:30 Plt Count 169 K/MM3 (134-434) 06/07/19 07:30 MPV 9.9 fl (7.5-11.1) 06/07/19 07:30 Sodium 141 mmol/L (136-145) 06/07/19 07:30 Potassium 4.3 mmol/L (3.5-5.1) 06/07/19 07:30 Chloride 110 mmol/L (98-107) H 06/07/19 07:30 Carbon Dioxide 27 mmol/L (21-32) 06/07/19 07:30 Anion Gap 5 MMOL/L (8-16) L 06/07/19 07:30 BUN 11.8 mg/dL (7-18) 06/07/19 07:30 Creatinine 0.5 mg/dL (0.55-1.3) L 06/07/19 07:30 Est GFR (CKD-EPI)AfAm 127.17 06/07/19 07:30 Est GFR (CKD-EPI)NonAf 109.72 06/07/19 07:30 Random Glucose 82 mg/dL (74-106) 06/07/19 07:30 Calcium 8.4 mg/dL (8.5-10.1) L 06/07/19 07:30 Total Bilirubin 0.2 mg/dL (0.2-1) 06/07/19 07:30 AST 25 U/L (15-37) 06/07/19 07:30 ALT 35 U/L (13-61) 06/07/19 07:30 Alkaline Phosphatase 89 U/L (45-117) 06/07/19 07:30 Total Protein 6.2 g/dl (6.4-8.2) L 06/07/19 07:30 Albumin 3.4 g/dl (3.4-5.0) 06/07/19 07:30 POC Urine HCG, Qual Negative 06/06/19 01:48 lab noted Assessment: 06/07/19 12:19 opiate withdrawal sx Plan: continue opiate detox
[2019-06-07] MEDS: THIAMINE HCL 100 MG TABLET (FP) PO SCH (22:07)
[2019-06-07] MEDS: MELATONIN 5 MG TABLETS PO PRN (22:07)
[2019-06-08 09:10] VITALS: BP 96/60; PULSE 70; TEMP 96.4
[2019-06-08] MEDS ORDERED: METHADONE HCL 10 MG TABLET (FOR DETOX USE ONLY) PO ONE (10:00)
--- NOTE | 2019-06-08 19:22 | PN ---
[facility] COWS - Scale Resting Pulse: 0= [place] 80 or Below Sweatin= Chills/Flushing Restless Observation: 1= Difficult to Sit Still Pupil Size: 0= Normal to Room Light Bone or Joint Aches: 2= Severe Diffuse Aches Runny Nose/ Eye Tearin= Nasal Congestion GI Upset > 30mins: 1= Stomach Cramp Tremor Observation of Outstretched Hands: 0= None Yawning Observation: 1= 1-2x During Session Anxiety or Irritability: 2=Irritable/Anxious Goose Flesh Skin: 0=Smooth Skin COWS Score: 9 [facility] Progress Note (SOAP) Subjective: Body Aches, Anxious, Fatigue. Objective: PATIENT A & O X 3, OBSERVED AMBULATING ON UNIT UNASSISTED. IN NO ACUTE DISTRESS. 06/08/19 19:20 Vital Signs Temperature 96.4 F L 06/08/19 09:09 Pulse Rate 70 06/08/19 09:09 Respiratory Rate 16 06/08/19 09:09 Blood Pressure 96/60 06/08/19 09:09 O2 Sat by Pulse Oximetry (%) Laboratory Tests 06/06/19 06/07/19 06/07/19 01:48 07:30 07:30 WBC 6.9 RBC 3.72 Hgb 11.7 Hct 35.1 MCV 94.3 MCH 31.3 MCHC 33.2 RDW 12.5 Plt Count 169 MPV 9.9 Sodium 141 Potassium 4.3 Chloride 110 H Carbon Dioxide 27 Anion Gap 5 L BUN 11.8 Creatinine 0.5 L Est GFR (CKD-EPI)AfAm 127.17 Est GFR (CKD-EPI)NonAf 109.72 Random Glucose 82 Calcium 8.4 L Total Bilirubin 0.2 AST 25 ALT 35 Alkaline Phosphatase 89 Total Protein 6.2 L Albumin 3.4 POC Urine HCG, Qual Negative RPR Titer 06/07/19 07:30 WBC RBC Hgb Hct MCV MCH MCHC RDW Plt Count MPV Sodium Potassium Chloride Carbon Dioxide Anion Gap BUN Creatinine Est GFR (CKD-EPI)AfAm Est GFR (CKD-EPI)NonAf Random Glucose Calcium Total Bilirubin AST ALT Alkaline Phosphatase Total Protein Albumin POC Urine HCG, Qual RPR Titer Nonreactive LABS NOTED. RESULTS OF DETOX ADMISSION QFT /TB TEST PENDING. 06/08/19 19:21 Assessment: 06/08/19 19:21 WITHDRAWAL SYMPTOMS. Plan: CONTINUE DETOX.
--- NOTE | 2019-06-08 19:28 | DS ---
[facility] Detox Discharge Summary Admission Date: 06/06/19 Discharge Date: 06/08/19 - History Present History: Opioid Dependence Additional Comments: DESPITE EFFORTS BY PUBLIC AFFAIRS DIRECTOR AND BY NURSING STAFF TO ADDRESS PATIENT'S MEDICAL NEEDS / CONCERNS, PATIENT DOES NOT WISH TO REMAIN TO COMPLETE DETOX REGIMEN. RISKS OF LEAVING DETOX UNIT AGAINST MEDICAL ADVICE AND PRIOR TO COMPLETION OF DETOX REGIMEN EXPLAINED TO PATIENT. PATIENT ADVISED TO GO IMMEDIATELY TO NEAREST ER SHOULD ANY INTOLERABLE WITHDRAWAL / DETOX SYMPTOMS DEVELOP AT ANY TIME. PATIENT VERBALIZED UNDERSTANDING OF ALL INFORMATION / RECOMMENDATIONS PRESENTED TO HIM PRIOR TO DEPARTURE FROM DETOX UNIT. PATIENT LEFT DETOX UNIT IN STABLE MEDICAL CONDITION. Pertinent Past History: History Of Migraine Headaches, Nicotine Dependence, G.E.R.D. - Physical Exam Results Vital Signs: Vital Signs Temperature 96.4 F L 06/08/19 09:09 Pulse Rate 70 06/08/19 09:09 Respiratory Rate 16 06/08/19 09:09 Blood Pressure 96/60 06/08/19 09:09 O2 Sat by Pulse Oximetry (%) Pertinent Admission Physical Exam Findings: WITHDRAWAL SYMPTOMS. Laboratory Tests 06/06/19 06/07/19 06/07/19 01:48 07:30 07:30 WBC 6.9 RBC 3.72 Hgb 11.7 Hct 35.1 MCV 94.3 MCH 31.3 MCHC 33.2 RDW 12.5 Plt Count 169 MPV 9.9 Sodium 141 Potassium 4.3 Chloride 110 H Carbon Dioxide 27 Anion Gap 5 L BUN 11.8 Creatinine 0.5 L Est GFR (CKD-EPI)AfAm 127.17 Est GFR (CKD-EPI)NonAf 109.72 Random Glucose 82 Calcium 8.4 L Total Bilirubin 0.2 AST 25 ALT 35 Alkaline Phosphatase 89 Total Protein 6.2 L Albumin 3.4 POC Urine HCG, Qual Negative RPR Titer 06/07/19 07:30 WBC RBC Hgb Hct MCV MCH MCHC RDW Plt Count MPV Sodium Potassium Chloride Carbon Dioxide Anion Gap BUN Creatinine Est GFR (CKD-EPI)AfAm Est GFR (CKD-EPI)NonAf Random Glucose Calcium Total Bilirubin AST ALT Alkaline Phosphatase Total Protein Albumin POC Urine HCG, Qual RPR Titer Nonreactive LABS NOTED. - Diagnosis (1) Migraine Status: Acute Qualifiers: Migraine type: chronic without aura Status migrainosus presence: without status migrainosus Intractability: not intractable Qualified Code(s): G43.709 - Chronic migraine without aura, not intractable, without status migrainosus (2) Nicotine dependence Status: Acute Qualifiers: Nicotine product type: cigarettes Substance use status: uncomplicated Qualified Code(s): F17.210 - Nicotine dependence, cigarettes, uncomplicated (3) GERD (gastroesophageal reflux disease) Status: Chronic Qualifiers: Esophagitis presence: esophagitis presence not specified Qualified Code(s) : K21.9 - Gastro-esophageal reflux disease without esophagitis (4) Opioid dependence with withdrawal Status: Acute - AMA Did Patient Leave Against Medical Advice: Yes (PATIENT DID NOT WISH TO REMAIN TO COMPLETE DETOX REGIMEN.)
[2019-06-09] MEDS ORDERED: METHADONE (DETOX) 10 MG, METHADONE (DETOX) 5 MG PO ONE (10:00)
[2019-06-10] MEDS ORDERED: METHADONE HCL 10 MG TABLET (FOR DETOX USE ONLY) PO ONE (10:00)
[2019-06-11] MEDS ORDERED: METHADONE HCL 5 MG TABLET (FOR DETOX USE ONLY) PO ONE (06:00)
== END 2019-06-08 09:25 | disposition left against medical advice (07) | DRG 770 ==
LOC: YASAS 22:28 → Y3N 06-06 01:20
PROVIDERS: ADMIT Surgery; ATTEND Surgery
PROC: HZ2ZZZZ Detoxification Services for Substance Abuse Treatment (ICD-10-PCS; principal; 2019-06-06)
DX: F11.23 Opioid dependence with withdrawal (principal); F17.210 Nicotine dependence, cigarettes, uncomplicated; K21.9 Gastro-esophageal reflux disease without esophagitis; Z87.898 Personal history of other specified conditions
CPT/HCPCS: 36415; 80053; 81025; 85027; 86480; 86593; 93005; 93010

== ENCOUNTER 2019-06-12 18:56 | Inpatient (IN) | payer OTHER ==
[2019-06-12 23:25] VITALS: BMI 16.1
--- NOTE | 2019-06-12 23:59 | HP ---
COWS - Scale Resting Pulse: 0= [place] 80 or Below Sweatin= Beads of Sweat on Face Restless Observation: 0= Sits Still Pupil Size: 0= Normal to Room Light Bone or Joint Aches: 4=Acute Joint/Muscle Pain Runny Nose/ Eye Tearin= None GI Upset > 30mins: 2= Nausea/Diarrhea Tremor Observation: 0= None Yawning Observation: 0= None Anxiety or Irritability: 0= None Goose Flesh Skin: 0=Smooth Skin COWS Score: 9 CIWA Score - Admission Criteria OASAS Guidelines: Admission for Medically Managed Detox: Requires at least one of the followin. CIWA greater than 12 2. Seizures within the past 24 hours 3. Delirium tremens within the past 24 hours 4. Hallucinations within the past 24 hours 5. Acute intervention needed for co occurring medical disorder 6. Acute intervention needed for co occurring psychiatric disorder 7. Severe withdrawal that cannot be handled at a lower level of care (continued vomiting, continued diarrhea, abnormal vital signs) requiring intravenous medication and/or fluids 8. Admission ROS [facility] Chief Complaint: c/o withdrawal sx's Allergies/Adverse Reactions: Allergies Allergy/AdvReac Type Severity Reaction Status Date / Time codeine Allergy Intermediate Itching Verified 06/12/19 23:06 [From Tylenol-Codeine] acetaminophen Allergy Mild Verified 06/12/19 23:06 [From Tylenol-Codeine] History of Present Illness: 53 Y.O. FEMALE WITH OXY DEPENDENCE HERE FOR DETOX. CLIENT IS SELF REFERRED. AMA 4 DAYS AGO DUE TO A MANDATED COURT APPEARANCE. NOW RETURNS TO COMPLETED HERE DETOX. SHE REPORTS DAILY USE OF NON RX-PERCOCETS LAST USE 1 DAY AGO. PRESENTS WITH C/O WITHDRAWAL SX'S +COWS. DENIES HX OF DRUG OVERDOSE. DENIES ANY SIGNIFICANT PERIOD OF CLEAN TIME. DOMICILED, UNEMPLOYED, DENIES LEGALS Exam Limitations: Language Barrier (FINNISH SPEAKING) - Ebola screening Have you traveled outside of the country in the last 21 days: No (N) Have you had contact with anyone from an Ebola affected area: No Do you have a fever: No - Review of Systems Constitutional: Chills, Loss of Appetite, Malaise, Night Sweats, Changes in sleep, Unintentional Wgt. Loss EENT: reports: Nose Congestion Respiratory: reports: No Symptoms reported Cardiac: reports: No Symptoms Reported GI: reports: Diarrhea, Poor Appetite, Poor Fluid Intake, Abdominal cramping : reports: No Symptoms Reported Musculoskeletal: reports: Back Pain, Joint Pain Integumentary: reports: No Symptoms Reported Neuro: reports: No Symptoms reported, Headache (MIGRAINES) Endocrine: reports: No Symptoms Reported Hematology: reports: No Symptoms Reported Psychiatric: reports: No Sypmtoms Reported, Orientated x3, Anxious Other Systems: Reviewed and Negative Patient History - Patient Medical History Hx Anemia: No Hx Asthma: No Hx Chronic Obstructive Pulmonary Disease (COPD): No Hx Cancer: No Hx Cardiac Disorders: No Hx Congestive Heart Failure: No Hx Hypertension: No Hx Hypercholesterolemia: No Hx Pacemaker: No HX Cerebrovascular Accident: No Hx Seizures: No Hx Dementia: No Hx Diabetes: No Hx Gastrointestinal Disorders: Yes (GERD) Hx Liver Disease: No Hx Genitourinary Disorders: No Hx Sexually Transmitted Disorders: No Hx Renal Disease (ESRD): No Hx Thyroid Disease: No Hx Human Immunodeficiency Virus (HIV): No Hx Hepatitis C: No Hx Depression: No Hx Suicide Attempt: No Hx Bipolar Disorder: No Hx Schizophrenia: No - Patient Surgical History Past Surgical History: Yes Hx Neurologic Surgery: No Hx Cataract Extraction: No Hx Cardiac Surgery: No Hx Lung Surgery: No Hx Breast Surgery: No Hx Breast Biopsy: No Hx Abdominal Surgery: Yes Hx Appendectomy: No Hx Cholecystectomy: Yes Hx Genitourinary Surgery: No Hx Section: No Hx Orthopedic Surgery: No Hx Hysterectomy: No Anesthesia Reaction: No - PPD History Previous Implant?: Yes Documented Results: Negative w/proof Implanted On Prior [facility] Admission?: Yes Date: 06/08/19 Results: 0MM PPD to be Administered?: No - Reproductive History Patient is a Female of Child Bearing Age (11 -55 yrs old): Yes Last Menstrual Period: 04/07/10 [facility] : [facility] - Smoking Cessation Smoking history: Current every day smoker Have you smoked in the past 12 months: No Aproximately how many cigarettes per day: 8 Cigars Per Day: 0 Hx Chewing Tobacco Use: No Initiated information on smoking cessation: Yes 'Breaking Loose' booklet given: 06/13/19 - Substance & Tx. History Hx Alcohol Use: Yes Hx Substance Use: Yes Substance Use Type: Alcohol, Opiates (OXY) Hx Substance Use Treatment: Yes ([facility]) - Substances abused Oxycontin Substance route: Oral Frequency: Daily Amount used: 8 10mg pills Age of first use: 41 Date of last use: 06/12/19 Other Other (specify): Percocet Substance route: Oral Frequency: Daily Amount used: 10 mg Age of first use: 41 Family Disease History - Family Disease History Family Disease History: Diabetes: Mother, Heart Disease: Mother, Other: Father ( Prostate), Brother (3, healthy), Sister (4, healthy), Son (1, healthy), Daughter (1, healthy) Admission Physical Exam [facility] - Vital Signs Vital Signs: Vital Signs - 24 hr 06/12/19 23:16 Temperature 97.7 F Pulse Rate 61 Respiratory 18 Rate Blood Pressure 84/59 L - Physical General Appearance: Yes: Anxious HEENTM: Yes: EOMI, Normocephalic, Normal Voice, MILAGROS, Pharynx Normal, Nasal Congestion Respiratory: Yes: Chest Non-Tender, Lungs Clear, Normal Breath Sounds, No Respiratory Distress, No Accessory Muscle Use Neck: Yes: No masses,lesions,Nodules, Supple, Trachea in good position Breast: Yes: Breast Exam Deferred Cardiology: Yes: Regular Rhythm, Regular Rate, S1, S2 Abdominal: Yes: Normal Bowel Sounds, Non Tender, Soft Genitourinary: Yes: Within Normal Limits Back: Yes: Normal Inspection Musculoskeletal: Yes: full range of Motion, Gait Steady Extremities: Yes: Normal Range of Motion, Non-Tender, Tremors (FELT) Neurological: Yes: Fully Oriented, Alert, Motor Strength 5/5 Integumentary: Yes: Dry, Warm Lymphatic: Yes: Within Normal Limits - Diagnostic (1) At risk for dehydration due to poor fluid intake Current Visit: Yes Status: Acute (2) Nicotine dependence Current Visit: No Status: Acute Qualifiers: Nicotine product type: cigarettes Substance use status: uncomplicated Qualified Code(s): F17.210 - Nicotine dependence, cigarettes, uncomplicated Cleared for Admission [facility] - Detox or Rehab [facility] Level of Care: Medically Managed Detox Regimen/Protocol: Methadone Claeared for Rehab Admission: No Breathalyzer - Breathalyzer Breathalyzer: 0 Urine Drug Screen - Test Device Lot number: [id number] Expiration date: 03/06/21 - Control Is test valid?: Yes - Results Drug screen NEGATIVE: No Urine drug screen results: OXY-Oxycodone, BAR-Barbiturates Inpatient Rehab Admission - Rehab Decision to Admit Inpatient rehab admission?: No
[2019-06-13] MEDS ORDERED: DICYCLOMINE HCL 10 MG CAPSULE PO PRN (00:08)
[2019-06-13] MEDS ORDERED: P-EPHED 60MG/TRIPROLIDI 2.5MG TABLET PO PRN (00:08)
[2019-06-13] MEDS ORDERED: MENTHOL/PHENOL 1 EACH UD MM PRN (00:08)
[2019-06-13] MEDS ORDERED: METHADONE HCL 10 MG TABLET (FOR DETOX USE ONLY) PO ONE (00:08)
[2019-06-13] MEDS ORDERED: cloNIDine HCL 0.1 MG TABLET PO PRN (00:08)
[2019-06-13] MEDS ORDERED: BISMUTH SUBSALICYLATE 524 MG/30 ML UD PO PRN (00:08)
[2019-06-13] MEDS ORDERED: NALOXONE HCL 0.4 MG/ML VIAL IM PRN (00:08)
[2019-06-13] MEDS ORDERED: IBUPROFEN 400 MG TABLET (FP) PO PRN (00:08)
[2019-06-13] MEDS ORDERED: guaiFENesin 200 MG/10 ML 10 ML UNIT-DOSE CUPS PO PRN (00:08)
[2019-06-13] MEDS ORDERED: MAG HYDROX/AL HYDROX/SIMETH 30 ML UNIT-DOSE CUP PO PRN (00:08)
[2019-06-13] MEDS ORDERED: MAGNESIUM HYDROX 2400MG/30ML ORAL SUSPENSION 30 ML CUP PO PRN (00:08)
[2019-06-13] MEDS ORDERED: NICOTINE POLACRILEX 2 MG GUM BUC PRN (00:08)
[2019-06-13] MEDS ORDERED: MAGNESIUM CITRATE 300 ML BOTTLE PO PRN (00:08)
[2019-06-13] MEDS: NICOTINE 14 MG/24 HOURS TOPICAL PATCH TD SCH (10:41)
[2019-06-13] MEDS: PRENATAL VITAMINS W/ FOLIC ACID TABLET (FP) PO SCH (10:41)
[2019-06-13 11:12] LABS: ALBUMIN 3.4 g/dl (3.4-5.0); BILIRUBIN,TOTAL 0.3 mg/dL (0.2-1); BLOOD UREA NITROGEN 11.4 mg/dL (7-18); CALCIUM 8.2 mg/dL (8.5-10.1); CREATININE 0.6 mg/dL (0.55-1.3); TOT PROT 6.2 g/dl (6.4-8.2)
[2019-06-13] MEDS ORDERED: ONDANSETRON *ODT* 4 MG TABLET SL PRN (11:20)
--- NOTE | 2019-06-13 11:20 | PN ---
[facility] COWS - Scale Resting Pulse: 0= [place] 80 or Below Sweatin= Chills/Flushing Restless Observation: 1= Difficult to Sit Still Pupil Size: 0= Normal to Room Light Bone or Joint Aches: 1= Mild Discomfort Runny Nose/ Eye Tearin= Nasal Congestion GI Upset > 30mins: 1= Stomach Cramp Tremor Observation of Outstretched Hands: 1= Tremor [place], Not Seen Yawning Observation: 1= 1-2x During Session Anxiety or Irritability: 1=Feels Anxious/Irritable Goose Flesh Skin: 0=Smooth Skin COWS Score: 8 [facility] Progress Note (SOAP) Subjective: body aches sweats diarrhea nausea Objective: 06/13/19 11:19 Vital Signs Temperature 97.5 F L 06/13/19 09:57 Pulse Rate 64 06/13/19 09:57 Respiratory Rate 16 06/13/19 09:57 Blood Pressure 90/57 L 06/13/19 09:57 O2 Sat by Pulse Oximetry (%) Laboratory Tests 06/13/19 07:00 Sodium 142 Potassium 4.0 Chloride 107 Carbon Dioxide 33 H Anion Gap 3 L BUN 11.4 Creatinine 0.6 Est GFR (CKD-EPI)AfAm 119.77 Est GFR (CKD-EPI)NonAf 103.34 Random Glucose 69 L Calcium 8.2 L Total Bilirubin 0.3 AST 21 ALT 30 Alkaline Phosphatase 88 Total Protein 6.2 L Albumin 3.4 rest of labs pending aaox3 ambulating no acute distress Assessment: 06/13/19 11:19 withdrawal sx Plan: continue detox increase fluids pending labs
[2019-06-13 11:48] LABS: HEMATOCRIT 32.1 % (32.4-45.2); HEMOGLOBIN 10.7 GM/dL (10.7-15.3); MCH 31.6 pg (25.7-33.7); MCHC 33.3 g/dl (32.0-36.0); MEAN CELL VOLUME 94.9 fl (80-96); MEAN PLT VOLUME 9.3 fl (7.5-11.1); PLATELET COUNT 177 K/MM3 (134-434); RBC 3.38 M/mm3 (3.60-5.2); RDW 12.7 % (11.6-15.6); WHITE BLOOD COUNT 6.1 K/mm3 (4.0-10.0)
[2019-06-13] MEDS: THIAMINE HCL 100 MG TABLET (FP) PO SCH (22:42)
[2019-06-13] MEDS: MELATONIN 5 MG TABLETS PO PRN (22:44)
[2019-06-13] MEDS: METHOCARBAMOL 500 MG TABLET PO PRN (22:44)
[2019-06-13] MEDS: hydrOXYzine PAMOATE 25 MG CAPSULE (FP) PO PRN (22:45)
[2019-06-14] MEDS ORDERED: METHADONE HCL 5 MG TABLET (FOR DETOX USE ONLY) PO ONE (10:00)
[2019-06-14] MEDS: PRENATAL VITAMINS W/ FOLIC ACID TABLET (FP) PO SCH (10:46)
[2019-06-14] MEDS: NICOTINE 14 MG/24 HOURS TOPICAL PATCH TD SCH (10:46)
--- NOTE | 2019-06-14 14:05 | PN ---
BHS COWS - Scale Resting Pulse: 0= [place] 80 or Below Sweatin= Chills/Flushing Restless Observation: 1= Difficult to Sit Still Pupil Size: 0= Normal to Room Light Bone or Joint Aches: 1= Mild Discomfort Runny Nose/ Eye Tearin= None GI Upset > 30mins: 2= Nausea/Diarrhea Tremor Observation of Outstretched Hands: 1= Tremor [place], Not Seen Yawning Observation: 1= 1-2x During Session Anxiety or Irritability: 1=Feels Anxious/Irritable Goose Flesh Skin: 0=Smooth Skin COWS Score: 8 BHS Progress Note (SOAP) Subjective: nausea body aches sweats Objective: 06/14/19 14:04 Vital Signs Temperature 97.3 F L 06/14/19 13:41 Pulse Rate 77 06/14/19 13:41 Respiratory Rate 18 06/14/19 13:41 Blood Pressure 105/56 L 06/14/19 13:41 O2 Sat by Pulse Oximetry (%) Laboratory Tests 06/13/19 06/13/19 06/13/19 07:00 07:00 07:00 WBC 6.1 RBC 3.38 L Hgb 10.7 Hct 32.1 L MCV 94.9 MCH 31.6 MCHC 33.3 RDW 12.7 Plt Count 177 MPV 9.3 Sodium 142 Potassium 4.0 Chloride 107 Carbon Dioxide 33 H Anion Gap 3 L BUN 11.4 Creatinine 0.6 Est GFR (CKD-EPI)AfAm 119.77 Est GFR (CKD-EPI)NonAf 103.34 Random Glucose 69 L Calcium 8.2 L Total Bilirubin 0.3 AST 21 ALT 30 Alkaline Phosphatase 88 Total Protein 6.2 L Albumin 3.4 RPR Titer Nonreactive labs noted aaox3 ambulating no acute distress Assessment: 06/14/19 14:05 withdrawal sx Plan: continue detox increase fluids zofran prn
[2019-06-14] MEDS: THIAMINE HCL 100 MG TABLET (FP) PO SCH (22:18)
[2019-06-14] MEDS: hydrOXYzine PAMOATE 25 MG CAPSULE (FP) PO PRN (22:18)
[2019-06-14] MEDS: MELATONIN 5 MG TABLETS PO PRN (22:18)
[2019-06-15] MEDS ORDERED: METHADONE HCL 10 MG TABLET (FOR DETOX USE ONLY) PO ONE (10:00)
[2019-06-15] MEDS: NICOTINE 14 MG/24 HOURS TOPICAL PATCH TD SCH (10:54)
[2019-06-15] MEDS: PRENATAL VITAMINS W/ FOLIC ACID TABLET (FP) PO SCH (10:54)
--- NOTE | 2019-06-15 12:18 | PN ---
BHS COWS - Scale Resting Pulse: 1= [place] 81-100 Sweatin= No chills or Flushing Restless Observation: 1= Difficult to Sit Still Pupil Size: 0= Normal to Room Light Bone or Joint Aches: 1= Mild Discomfort Runny Nose/ Eye Tearin= None GI Upset > 30mins: 0= None Tremor Observation of Outstretched Hands: 1= Tremor [place], Not Seen Yawning Observation: 1= 1-2x During Session Anxiety or Irritability: 1=Feels Anxious/Irritable Goose Flesh Skin: 0=Smooth Skin COWS Score: 6 BHS Progress Note (SOAP) Subjective: sweats Objective: 06/15/19 12:17 Vital Signs Temperature 97.9 F 06/15/19 10:13 Pulse Rate 83 06/15/19 10:13 Respiratory Rate 16 06/15/19 10:13 Blood Pressure 99/61 06/15/19 10:13 O2 Sat by Pulse Oximetry (%) aaox3 ambulating no acute distress Assessment: 06/15/19 12:18 mild withdrawal sx Plan: continue detox d/c in am
[2019-06-15] MEDS: METHOCARBAMOL 500 MG TABLET PO PRN (22:58)
[2019-06-15] MEDS: MELATONIN 5 MG TABLETS PO PRN (22:58)
[2019-06-15] MEDS: THIAMINE HCL 100 MG TABLET (FP) PO SCH (22:58)
[2019-06-16] MEDS ORDERED: METHADONE HCL 5 MG TABLET (FOR DETOX USE ONLY) PO ONE (06:00)
[2019-06-16 06:59] VITALS: BP 116/60; PULSE 72; TEMP 97.5
--- NOTE | 2019-06-16 08:41 | DS ---
[facility] Detox Discharge Summary Admission Date: 06/13/19 Discharge Date: 06/16/19 - History Present History: Opioid Dependence - Physical Exam Results Vital Signs: Vital Signs Temperature 97.5 F L 06/16/19 06:00 Pulse Rate 72 06/16/19 06:00 Respiratory Rate 16 06/16/19 06:00 Blood Pressure 116/60 06/16/19 06:00 O2 Sat by Pulse Oximetry (%) - Treatment Patient has Accepted a Rehab Referral to: pt declined - Medication Discharge Medications: Ambulatory Orders Acetaminophen/Caffeine/Butalb [Fioricet -] 15 mg PO QID 06/12/19 - Diagnosis (1) Acute hyperactive opioid withdrawal delirium Current Visit: Yes Status: Chronic (2) Abdominal pain Current Visit: Yes Status: Chronic Qualifiers: Abdominal location: unspecified location Qualified Code(s): R10.9 - Unspecified abdominal pain (3) Abdominal pain in female Current Visit: No Status: Acute (4) Abnormal CT of the abdomen Current Visit: No Status: Acute (5) Asthma Current Visit: Yes Status: Chronic Qualifiers: Asthma severity: mild Asthma persistence: intermittent Asthma complication type: uncomplicated Qualified Code(s): J45.20 - Mild intermittent asthma, uncomplicated (6) Chronic pain Current Visit: Yes Status: Chronic (7) DVT prophylaxis Current Visit: No Status: Acute (8) Gastroenteritis Current Visit: No Status: Acute (9) Generalized abdominal pain Current Visit: No Status: Acute (10) Hx of migraines Current Visit: No Status: Acute (11) Hypokalemia Current Visit: No Status: Acute (12) Intractable abdominal pain Current Visit: No Status: Acute (13) Nicotine dependence Current Visit: Yes Status: Chronic Qualifiers: Nicotine product type: cigarettes Substance use status: uncomplicated Qualified Code(s): F17.210 - Nicotine dependence, cigarettes, uncomplicated (14) Opioid dependence with withdrawal Current Visit: Yes Status: Chronic (15) SBO (small bowel obstruction) Current Visit: No Status: Resolved (16) GERD (gastroesophageal reflux disease) Current Visit: No Status: Chronic Qualifiers: Esophagitis presence: esophagitis presence not specified Qualified Code(s) : K21.9 - Gastro-esophageal reflux disease without esophagitis - AMA Did Patient Leave Against Medical Advice: No
== END 2019-06-16 09:44 | disposition home or self-care (01) | DRG 773 ==
LOC: YASAS 18:56 → Y6N 06-13 00:02
PROVIDERS: ADMIT Surgery; ATTEND Surgery
PROC: HZ2ZZZZ Detoxification Services for Substance Abuse Treatment (ICD-10-PCS; principal; 2019-06-13)
DX: F11.221 Opioid dependence with intoxication delirium (principal); F17.210 Nicotine dependence, cigarettes, uncomplicated; R93.5 Abnormal findings on diagnostic imaging of other abdominal regions, including retroperitoneum; J45.20 Mild intermittent asthma, uncomplicated; G89.29 Other chronic pain; E87.6 Hypokalemia; K21.9 Gastro-esophageal reflux disease without esophagitis; E63.8 Other specified nutritional deficiencies; Z88.5 Allergy status to narcotic agent; Z88.6 Allergy status to analgesic agent; Z29.9 Encounter for prophylactic measures, unspecified
CPT/HCPCS: 36415; 80053; 81025; 85027; 86593

== ENCOUNTER 2019-07-08 19:53 | Inpatient (IN) | payer OTHER ==
[2019-07-08 21:42] VITALS: BMI 13.5
--- NOTE | 2019-07-08 21:56 | HP ---
"COWS - Scale Resting Pulse: 0= [place] 80 or Below Sweatin= Chills/Flushing Restless Observation: 1= Difficult to Sit Still Pupil Size: 2= Moderately Dilated (Pupils = 4 mm) Bone or Joint Aches: 1= Mild Discomfort Runny Nose/ Eye Tearin= Nasal Congestion GI Upset > 30mins: 2= Nausea/Diarrhea Tremor Observation: 2= Slight Tremor Visible Yawning Observation: 0= None Anxiety or Irritability: 1=Feels Anxious/Irritable Goose Flesh Skin: 0=Smooth Skin COWS Score: 11 CIWA Score - Admission Criteria [facility] Guidelines: Admission for Medically Managed Detox: Requires at least one of the followin. CIWA greater than 12 2. Seizures within the past 24 hours 3. Delirium tremens within the past 24 hours 4. Hallucinations within the past 24 hours 5. Acute intervention needed for co occurring medical disorder 6. Acute intervention needed for co occurring psychiatric disorder 7. Severe withdrawal that cannot be handled at a lower level of care (continued vomiting, continued diarrhea, abnormal vital signs) requiring intravenous medication and/or fluids 8. Admission ROS [facility] Chief Complaint: Having withdrawal symptoms. Allergies/Adverse Reactions: Allergies Allergy/AdvReac Type Severity Reaction Status Date / Time codeine Allergy Intermediate Itching Verified 07/08/19 21:30 [From Tylenol-Codeine] acetaminophen Allergy Mild Verified 07/08/19 21:30 [From Tylenol-Codeine] History of Present Illness: 53 yo w/ opioid withdrawal seeking detox. Opiate used disorder since age 41. States current use is up to 180 mg oxycodone , 10- 10 mg percocet daily, which ever is available. UTox: + MET/OXY/BAR/BUP States only took 1 Suboxone yesterday. Denies BAR/MET use. Patient has been in previous detox and reports insignificant period of sobriety. PMHx: GERD, Migraine PAULA, Cough x 2-3 days. Overdose 5 years ago. No Narcan kit at home. [facility] Labs reviewed and (+) Quantiferon Gold test noted on 06/07/19. Patient admits to cough x a few days. Patient masked. Unable to reach Dr. Forte ([phone]: cell: [phone]), from ID. Will admit patient and have Provider contact ID in a.m. Consulted w/ Dr. Stephen and patient will be admitted but will be required to wear a mask until TB status evaluated. Last CXR: 01/05/19: Neg MHHx: Denies depression. She denies thoughts of harming self or others. SHx: Domiciles. Unemployed. Patient Name: Mehrdad Alcala Date: 1965 Address: [place] [address] Sex: Female Rx Written Rx Dispensed Drug Quantity Days Supply Prescriber Name 04/17/2019 04/17/2019 hydrocodone-acetaminophen 5-325 mg tablet 6 1 Ligia [place] 04/13/2019 04/13/2019 hydrocodone-acetaminophen 5-325 mg tablet 12 2 Audi Strong Patient Name: Mehrdad Alcala Date: 1965 Address: [address] [place] [address] Sex: Female Rx Written Rx Dispensed Drug Quantity Days Supply Prescriber Name 07/13/2018 07/13/2018 oxycodone hcl 5 mg tablet 20 5 Rito Jeffery Search Terms: Mehrdad Alcala, 1965 Search Date: 07/08/2019 09:54:31 PM States Searched: [place], [place], [place], [place], [place], [place], [place] The Drug Utilization Report below displays the controlled substance prescriptions, if any, that were dispensed in the indicated state(s). The information displayed on this report is compiled from requests submitted to other states' PMPs, and accurately reflects the information as returned by them. Blank sanchez indicate data not provided by other state. This report was requested by: Celeste Baca | Reference #: [id number] Exam Limitations: No Limitations - Ebola screening Have you traveled outside of the country in the last 21 days: No (N) Have you had contact with anyone from an Ebola affected area: No Have you been sick,other than usual withdrawal symptoms: No Do you have a fever: No - Review of Systems Constitutional: Chills, Night Sweats (In the past), Changes in sleep, Unexplained wgt Loss EENT: reports: Nose Congestion Respiratory: reports: Cough (x 2 days.) Cardiac: reports: No Symptoms Reported GI: reports: Diarrhea (Watery, brown), Nausea, Vomiting (Yellowish), Indigestion (heart burn) : reports: No Symptoms Reported Musculoskeletal: reports: Other (Muscle and bone pain) Integumentary: reports: No Symptoms Reported Neuro: reports: Tremors Endocrine: reports: No Symptoms Reported Hematology: reports: No Symptoms Reported Psychiatric: reports: Mood/Affect Appropiate, Orientated x3, Anxious Patient History - Patient Medical History Hx Anemia: No Hx Asthma: No Hx Chronic Obstructive Pulmonary Disease (COPD): No Hx Cancer: No Hx Cardiac Disorders: No Hx Congestive Heart Failure: No Hx Hypertension: No Hx Hypercholesterolemia: No Hx Pacemaker: No HX Cerebrovascular Accident: No Hx Seizures: No Hx Dementia: No Hx Diabetes: No Hx Gastrointestinal Disorders: Yes (GERD) Hx Liver Disease: No Hx Genitourinary Disorders: No Hx Sexually Transmitted Disorders: No Hx Renal Disease (ESRD): No Hx Thyroid Disease: No Hx Human Immunodeficiency Virus (HIV): No Hx Hepatitis C: No Hx Depression: No Hx Suicide Attempt: No Hx Bipolar Disorder: No Hx Schizophrenia: No - Patient Surgical History Past Surgical History: Yes Hx Neurologic Surgery: No Hx Cataract Extraction: No Hx Cardiac Surgery: No Hx Lung Surgery: No Hx Breast Surgery: No Hx Breast Biopsy: No Hx Abdominal Surgery: Yes Hx Appendectomy: No Hx Cholecystectomy: Yes Hx Genitourinary Surgery: No Hx Section: No Hx Orthopedic Surgery: No Hx Hysterectomy: No Anesthesia Reaction: No - PPD History Previous Implant?: No (Patient w/ positive TB Gold test) Documented Results: Positive w/proof (positive TB Gold test on 06/07/19) Implanted On Prior [facility] Admission?: Yes Date: 06/07/19 Results: + TB Gold PPD to be Administered?: No - Reproductive History Patient is a Female of Child Bearing Age (11 -55 yrs old): Yes Last Menstrual Period: 04/07/10 Patient : No - Smoking Cessation Smoking history: Current every day smoker Have you smoked in the past 12 months: No Aproximately how many cigarettes per day: 8 Cigars Per Day: 0 Hx Chewing Tobacco Use: No Initiated information on smoking cessation: Yes 'Breaking Loose' booklet given: 07/08/19 - Substance & Tx. History Hx Alcohol Use: No Hx Substance Use: Yes Substance Use Type: Heroin Hx Substance Use Treatment: Yes (detox, rehab) - Substances abused Oxycontin Substance route: Oral Frequency: Daily Amount used: 180mg Age of first use: 41 Date of last use: 07/07/19 Other Other (specify): Percocet Substance route: Oral Frequency: Daily Amount used: 10 mg Age of first use: 41 Date of last use: 07/07/19 Family Disease History - Family Disease History Family Disease History: Diabetes: Mother, Heart Disease: Mother, Other: Father ( Prostate), Brother (3, healthy), Sister (4, healthy), Son (1, healthy), Daughter (1, healthy) Admission Physical Exam [facility] - Vital Signs Vital Signs: Vital Signs - 24 hr 07/08/19 07/08/19 21:22 21:40 Temperature 98.2 F 98.2 F Pulse Rate 78 78 Respiratory 18 18 Rate Blood Pressure 98/63 - Physical General Appearance: Yes: Mild Distress, Thin, Tremorous, Sweating (Increased facial moisture), Anxious HEENTM: Yes: Hearing grossly Normal, Normocephalic, Normal Voice, [place], Pharynx Normal Respiratory: Yes: Lungs Clear (o2 = 98 %), Normal Breath Sounds, No Respiratory Distress, Other (Illicited cough quiet and non-productive.) Neck: Yes: No masses,lesions,Nodules, Supple Breast: Yes: Breast Exam Deferred Cardiology: Yes: Regular Rhythm, Regular Rate (HR: 68), S1, S2 Abdominal: Yes: Non Tender, Soft, Increased Bowel Sounds Genitourinary: Yes: Within Normal Limits Back: Yes: Normal Inspection Musculoskeletal: Yes: full range of Motion, Gait Steady Extremities: Yes: Normal Capillary Refill, Tremors Neurological: Yes: Fully Oriented, Alert, Motor Strength 5/5 Integumentary: Yes: Normal Color, Warm Lymphatic: Yes: Within Normal Limits - Diagnostic (1) Positive QuantiFERON-TB Gold test Current Visit: Yes Status: Acute Comment: Results from 06/07/19 (2) Hx of migraines Current Visit: No Status: Chronic (3) GERD (gastroesophageal reflux disease) Current Visit: Yes Status: Chronic Qualifiers: Esophagitis presence: esophagitis presence not specified Qualified Code(s) : K21.9 - Gastro-esophageal reflux disease without esophagitis (4) Nicotine dependence Current Visit: Yes Status: Chronic Qualifiers: Nicotine product type: cigarettes Substance use status: uncomplicated Qualified Code(s): F17.210 - Nicotine dependence, cigarettes, uncomplicated (5) Opioid dependence with withdrawal Current Visit: Yes Status: Acute (6) Underweight Current Visit: Yes Status: Chronic Cleared for Admission [facility] - Detox or Rehab [facility] Level of Care: Medically Managed Detox Regimen/Protocol: Methadone Claeared for Rehab Admission: No Breathalyzer - Breathalyzer Breathalyzer: 0 POC Urine test - Control test control: Yes - Result Urine Test Results: Negative - NO line present Urine Drug Screen - Test Device Lot number: [id number] Expiration date: 04/06/21 - Control Is test valid?: Yes - Results Drug screen NEGATIVE: No Urine drug screen results: MET-Methamphetamine, OXY-Oxycodone, BAR-Barbiturates , BUP-Suboxone Inpatient Rehab Admission - Rehab Decision to Admit Inpatient rehab admission?: No"
[2019-07-08] MEDS ORDERED: IBUPROFEN 400 MG TABLET (FP) PO PRN (23:13)
[2019-07-08] MEDS ORDERED: NICOTINE POLACRILEX 2 MG GUM BUC PRN (23:13)
[2019-07-08] MEDS ORDERED: NALOXONE HCL 0.4 MG/ML VIAL IM PRN (23:13)
[2019-07-08] MEDS ORDERED: BISMUTH SUBSALICYLATE 524 MG/30 ML UD PO PRN (23:13)
[2019-07-08] MEDS ORDERED: MAGNESIUM CITRATE 300 ML BOTTLE PO PRN (23:13)
[2019-07-08] MEDS ORDERED: MENTHOL/PHENOL 1 EACH UD MM PRN (23:13)
[2019-07-08] MEDS ORDERED: MAGNESIUM HYDROX 2400MG/30ML ORAL SUSPENSION 30 ML CUP PO PRN (23:13)
[2019-07-08] MEDS ORDERED: MAG HYDROX/AL HYDROX/SIMETH 30 ML UNIT-DOSE CUP PO PRN (23:13)
[2019-07-08] MEDS ORDERED: METHADONE HCL 10 MG TABLET (FOR DETOX USE ONLY) PO ONE (23:40)
[2019-07-09] MEDS: MELATONIN 5 MG TABLETS PO PRN ×2 (03:03→22:28)
[2019-07-09] MEDS ORDERED: METHADONE HCL 10 MG TABLET (FOR DETOX USE ONLY) ONE (09:05)
[2019-07-09] MEDS ORDERED: METHADONE HCL 5 MG TABLET (FOR DETOX USE ONLY) ONE (09:05)
[2019-07-09 09:46] LABS: ALK PHOS 107 U/L (45-117); ANION GAP 5 MMOL/L (8-16); BILIRUBIN,TOTAL < 0.1 mg/dL (0.2-1); CALCIUM 9.4 mg/dL (8.5-10.1); CHLORIDE 105 mmol/L (98-107); CO2 29 mmol/L (21-32); CREATININE 0.7 mg/dL (0.55-1.3); GLUCOSE,RANDOM 92 mg/dL (74-106); SGOT/AST 31 U/L (15-37); SGPT/ALT 38 U/L (13-61); SODIUM 139 mmol/L (136-145); TOT PROT 7.5 g/dl (6.4-8.2)
[2019-07-09 09:49] LABS: HEMATOCRIT 39.4 % (32.4-45.2); MCH 31.6 pg (25.7-33.7); MCHC 32.9 g/dl (32.0-36.0); MEAN CELL VOLUME 95.9 fl (80-96); MEAN PLT VOLUME 9.5 fl (7.5-11.1); PLATELET COUNT 216 K/MM3 (134-434); RBC 4.11 M/mm3 (3.60-5.2); RDW 12.5 % (11.6-15.6)
[2019-07-09] MEDS ORDERED: METHADONE (DETOX) 20 MG, METHADONE (DETOX) 5 MG PO ONE (10:00)
[2019-07-09] MEDS: NICOTINE 14 MG/24 HOURS TOPICAL PATCH TD SCH (10:37)
[2019-07-09] MEDS: PANTOPRAZOLE 20 MG TABLET (FP) PO SCH ×2 (10:37→22:27)
[2019-07-09] MEDS: PRENATAL VITAMINS W/ FOLIC ACID TABLET (FP) PO SCH (10:37)
--- NOTE | 2019-07-09 13:21 | PN ---
BHS COWS - Scale Resting Pulse: 1= [place] 81-100 Sweatin=Flushed/Facial Moisture Restless Observation: 1= Difficult to Sit Still Pupil Size: 0= Normal to Room Light Bone or Joint Aches: 2= Severe Diffuse Aches Runny Nose/ Eye Tearin= Runny Nose/Eyes GI Upset > 30mins: 1= Stomach Cramp Tremor Observation of Outstretched Hands: 2= Slight Tremor Visible Yawning Observation: 2= >3x During Session Anxiety or Irritability: 2=Irritable/Anxious Goose Flesh Skin: 0=Smooth Skin COWS Score: 15 BHS Progress Note (SOAP) Subjective: sweats shakes interrupted sleep agitation Objective: 07/09/19 13:20 Vital Signs Temperature 97.9 F 07/09/19 10:00 Pulse Rate 77 07/09/19 10:00 Respiratory Rate 18 07/09/19 10:00 Blood Pressure 101/56 L 07/09/19 10:00 O2 Sat by Pulse Oximetry (%) Laboratory Tests 07/08/19 07/09/19 07/09/19 21:48 07:30 07:30 WBC 8.0 RBC 4.11 Hgb 13.0 Hct 39.4 D MCV 95.9 MCH 31.6 MCHC 32.9 RDW 12.5 Plt Count 216 D MPV 9.5 Sodium 139 Potassium 4.0 Chloride 105 Carbon Dioxide 29 Anion Gap 5 L BUN 12.0 Creatinine 0.7 Est GFR (CKD-EPI)AfAm 113.84 Est GFR (CKD-EPI)NonAf 98.23 Random Glucose 92 Calcium 9.4 Total Bilirubin < 0.1 L AST 31 ALT 38 Alkaline Phosphatase 107 Total Protein 7.5 Albumin 4.0 POC Urine HCG, Qual Negative RPR Titer 07/09/19 07:30 WBC RBC Hgb Hct MCV MCH MCHC RDW Plt Count MPV Sodium Potassium Chloride Carbon Dioxide Anion Gap BUN Creatinine Est GFR (CKD-EPI)AfAm Est GFR (CKD-EPI)NonAf Random Glucose Calcium Total Bilirubin AST ALT Alkaline Phosphatase Total Protein Albumin POC Urine HCG, Qual RPR Titer Nonreactive labs noted aaox3 ambulating no acute distress Assessment: 07/09/19 13:20 withdrawal sx Plan: continue detox increase fluids
[2019-07-09 19:36] LABS: HYALINE CASTS 84 /lpf (0-8); PH,URINE 5.5 (5.0-8.0); URINE APPEARANCE CLOUDY; URINE BACTERIA 1697.7 /hpf (NEGATIVE); URINE BILIRUBIN NEGATIVE (NEGATIVE); URINE COLOR YELLOW; URINE GLUCOSE (UA) NEGATIVE (NEGATIVE); URINE KETONE NEGATIVE (NEGATIVE); URINE LEUK ESTERASE 1+ (NEGATIVE); URINE NITRITE POSITIVE (NEGATIVE); URINE PROTEIN NEGATIVE (NEGATIVE); URINE RBC 1 /hpf (0-4); URINE UROBILINOGEN 0.2 mg/dL (0.2-1.0); URINE WBC 30 /hpf (0-5)
[2019-07-09] MEDS: THIAMINE HCL 100 MG TABLET (FP) PO SCH (22:27)
[2019-07-10] MEDS ORDERED: METHADONE HCL 10 MG TABLET (FOR DETOX USE ONLY) PO ONE (10:00)
[2019-07-10] MEDS: PRENATAL VITAMINS W/ FOLIC ACID TABLET (FP) PO SCH (10:21)
[2019-07-10] MEDS: NICOTINE 14 MG/24 HOURS TOPICAL PATCH TD SCH (10:21)
[2019-07-10] MEDS: PANTOPRAZOLE 20 MG TABLET (FP) PO SCH ×2 (10:21→22:02)
[2019-07-10] MEDS: SULFAMETHOXAZOLE/TRIMETHOPRIM 800MG/160MG D.S. TABLET PO SCH ×2 (10:22→22:02)
--- NOTE | 2019-07-10 10:29 | PN ---
BHS COWS - Scale Resting Pulse: 1= [place] 81-100 Sweatin= Chills/Flushing Restless Observation: 1= Difficult to Sit Still Pupil Size: 0= Normal to Room Light Bone or Joint Aches: 1= Mild Discomfort Runny Nose/ Eye Tearin= Runny Nose/Eyes GI Upset > 30mins: 0= None Tremor Observation of Outstretched Hands: 1= Tremor [place], Not Seen Yawning Observation: 1= 1-2x During Session Anxiety or Irritability: 1=Feels Anxious/Irritable Goose Flesh Skin: 0=Smooth Skin COWS Score: 9 BHS Progress Note (SOAP) Subjective: sweats anxiety interrupted sleep body aches Objective: 07/10/19 10:29 Vital Signs Temperature 96.8 F L 07/10/19 09:26 Pulse Rate 67 07/10/19 09:26 Respiratory Rate 16 07/10/19 09:26 Blood Pressure 98/56 L 07/10/19 09:26 O2 Sat by Pulse Oximetry (%) Laboratory Tests 07/08/19 07/09/19 07/09/19 21:48 07:30 07:30 WBC 8.0 RBC 4.11 Hgb 13.0 Hct 39.4 D MCV 95.9 MCH 31.6 MCHC 32.9 RDW 12.5 Plt Count 216 D MPV 9.5 Sodium 139 Potassium 4.0 Chloride 105 Carbon Dioxide 29 Anion Gap 5 L BUN 12.0 Creatinine 0.7 Est GFR (CKD-EPI)AfAm 113.84 Est GFR (CKD-EPI)NonAf 98.23 Random Glucose 92 Calcium 9.4 Total Bilirubin < 0.1 L AST 31 ALT 38 Alkaline Phosphatase 107 Total Protein 7.5 Albumin 4.0 Urine Color Urine Appearance Urine pH Ur Specific [place] Urine Protein Urine Glucose (UA) Urine Ketones Urine Blood Urine Nitrite Urine Bilirubin Urine Urobilinogen Ur Leukocyte Esterase Urine WBC (Auto) Urine RBC (Auto) Urine Casts (Auto) U Epithel Cells (Auto) Urine Bacteria (Auto) POC Urine HCG, Qual Negative RPR Titer 07/09/19 07/09/19 07:30 11:51 WBC RBC Hgb Hct MCV MCH MCHC RDW Plt Count MPV Sodium Potassium Chloride Carbon Dioxide Anion Gap BUN Creatinine Est GFR (CKD-EPI)AfAm Est GFR (CKD-EPI)NonAf Random Glucose Calcium Total Bilirubin AST ALT Alkaline Phosphatase Total Protein Albumin Urine Color Yellow Urine Appearance Cloudy Urine pH 5.5 Ur Specific [place] 1.021 Urine Protein Negative Urine Glucose (UA) Negative Urine Ketones Negative Urine Blood Negative Urine Nitrite Positive H D Urine Bilirubin Negative Urine Urobilinogen 0.2 Ur Leukocyte Esterase 1+ H Urine WBC (Auto) 30 Urine RBC (Auto) 1 Urine Casts (Auto) 84 U Epithel Cells (Auto) 1.0 Urine Bacteria (Auto) 1697.7 POC Urine HCG, Qual RPR Titer Nonreactive labs noted pt denies of having a uti; however will resend for ua and urine culture bactrium ds bid ordered aaox3 ambulating no acute distress Assessment: 07/10/19 10:44 withdrawals sx Plan: continue detox increase fluids bactrium ds bid ua/culture ordered
[2019-07-10] MEDS: THIAMINE HCL 100 MG TABLET (FP) PO SCH (22:02)
[2019-07-10] MEDS: MELATONIN 5 MG TABLETS PO PRN (22:03)
[2019-07-11] MEDS ORDERED: METHADONE HCL 5 MG TABLET (FOR DETOX USE ONLY) ONE (09:06)
[2019-07-11] MEDS ORDERED: METHADONE HCL 10 MG TABLET (FOR DETOX USE ONLY) ONE (09:06)
[2019-07-11] MEDS: NICOTINE 14 MG/24 HOURS TOPICAL PATCH TD SCH (09:17)
[2019-07-11] MEDS: SULFAMETHOXAZOLE/TRIMETHOPRIM 800MG/160MG D.S. TABLET PO SCH ×2 (09:18→21:55)
[2019-07-11] MEDS: PANTOPRAZOLE 20 MG TABLET (FP) PO SCH ×2 (09:18→21:56)
[2019-07-11] MEDS: PRENATAL VITAMINS W/ FOLIC ACID TABLET (FP) PO SCH (09:18)
[2019-07-11] MEDS ORDERED: METHADONE (DETOX) 10 MG, METHADONE (DETOX) 5 MG PO ONE (10:00)
--- NOTE | 2019-07-11 11:51 | PN ---
S CIWA - CIWA Score Nausea/Vomitin-No Nausea/No Vomiting Muscle Tremors: 3 Anxiety: 2 Agitation: 2 Paroxysmal Sweats: 2 Orientation: 0-Oriented Tacttile Disturbances: 0-None Auditory Disturbances: 0-None Visual Disturbances: 0-None Headache: 0-None Present CIWA-Ar Total Score: 9 BHS Progress Note (SOAP) Subjective: sweats interrupted sleep anxiety Objective: 07/11/19 14:09 Vital Signs Temperature 98.1 F 07/11/19 13:10 Pulse Rate 82 07/11/19 13:10 Respiratory Rate 8 L 07/11/19 13:10 Blood Pressure 101/56 L 07/11/19 13:10 O2 Sat by Pulse Oximetry (%) Laboratory Tests 07/08/19 07/09/19 07/09/19 21:48 07:30 07:30 WBC 8.0 RBC 4.11 Hgb 13.0 Hct 39.4 D MCV 95.9 MCH 31.6 MCHC 32.9 RDW 12.5 Plt Count 216 D MPV 9.5 Sodium 139 Potassium 4.0 Chloride 105 Carbon Dioxide 29 Anion Gap 5 L BUN 12.0 Creatinine 0.7 Est GFR (CKD-EPI)AfAm 113.84 Est GFR (CKD-EPI)NonAf 98.23 Random Glucose 92 Calcium 9.4 Total Bilirubin < 0.1 L AST 31 ALT 38 Alkaline Phosphatase 107 Total Protein 7.5 Albumin 4.0 Urine Color Urine Appearance Urine pH Ur Specific [place] Urine Protein Urine Glucose (UA) Urine Ketones Urine Blood Urine Nitrite Urine Bilirubin Urine Urobilinogen Ur Leukocyte Esterase Urine WBC (Auto) Urine RBC (Auto) Urine Casts (Auto) U Epithel Cells (Auto) Urine Bacteria (Auto) POC Urine HCG, Qual Negative RPR Titer 07/09/19 07/09/19 07:30 11:51 WBC RBC Hgb Hct MCV MCH MCHC RDW Plt Count MPV Sodium Potassium Chloride Carbon Dioxide Anion Gap BUN Creatinine Est GFR (CKD-EPI)AfAm Est GFR (CKD-EPI)NonAf Random Glucose Calcium Total Bilirubin AST ALT Alkaline Phosphatase Total Protein Albumin Urine Color Yellow Urine Appearance Cloudy Urine pH 5.5 Ur Specific [place] 1.021 Urine Protein Negative Urine Glucose (UA) Negative Urine Ketones Negative Urine Blood Negative Urine Nitrite Positive H D Urine Bilirubin Negative Urine Urobilinogen 0.2 Ur Leukocyte Esterase 1+ H Urine WBC (Auto) 30 Urine RBC (Auto) 1 Urine Casts (Auto) 84 U Epithel Cells (Auto) 1.0 Urine Bacteria (Auto) 1697.7 POC Urine HCG, Qual RPR Titer Nonreactive labs noted aaox3 ambulating no acute distress continue ABX as ordered Assessment: 07/11/19 14:26 mild withdrawal sx Plan: continue detox increase fluids
[2019-07-11] MEDS: THIAMINE HCL 100 MG TABLET (FP) PO SCH (21:56)
[2019-07-11] MEDS: MELATONIN 5 MG TABLETS PO PRN (21:56)
[2019-07-12 09:25] VITALS: BP 117/61; PULSE 74; TEMP 97.9
[2019-07-12] MEDS: PRENATAL VITAMINS W/ FOLIC ACID TABLET (FP) PO SCH (09:57)
[2019-07-12] MEDS: PANTOPRAZOLE 20 MG TABLET (FP) PO SCH (09:57)
[2019-07-12] MEDS: NICOTINE 14 MG/24 HOURS TOPICAL PATCH TD SCH (09:57)
[2019-07-12] MEDS: SULFAMETHOXAZOLE/TRIMETHOPRIM 800MG/160MG D.S. TABLET PO SCH (09:57)
[2019-07-12] MEDS ORDERED: METHADONE HCL 10 MG TABLET (FOR DETOX USE ONLY) PO ONE (10:00)
--- NOTE | 2019-07-12 11:00 | DS ---
[facility] Detox Discharge Summary Admission Date: 07/08/19 Discharge Date: 07/12/19 - History Present History: Opioid Dependence - Physical Exam Results Vital Signs: Vital Signs Temperature 97.9 F 07/12/19 09:25 Pulse Rate 74 07/12/19 09:25 Respiratory Rate 18 07/12/19 09:25 Blood Pressure 117/61 07/12/19 09:25 O2 Sat by Pulse Oximetry (%) Pertinent Admission Physical Exam Findings: pt arrived in withdrawals Laboratory Tests 07/08/19 07/09/19 07/09/19 21:48 07:30 07:30 WBC 8.0 RBC 4.11 Hgb 13.0 Hct 39.4 D MCV 95.9 MCH 31.6 MCHC 32.9 RDW 12.5 Plt Count 216 D MPV 9.5 Sodium 139 Potassium 4.0 Chloride 105 Carbon Dioxide 29 Anion Gap 5 L BUN 12.0 Creatinine 0.7 Est GFR (CKD-EPI)AfAm 113.84 Est GFR (CKD-EPI)NonAf 98.23 Random Glucose 92 Calcium 9.4 Total Bilirubin < 0.1 L AST 31 ALT 38 Alkaline Phosphatase 107 Total Protein 7.5 Albumin 4.0 Urine Color Urine Appearance Urine pH Ur Specific [place] Urine Protein Urine Glucose (UA) Urine Ketones Urine Blood Urine Nitrite Urine Bilirubin Urine Urobilinogen Ur Leukocyte Esterase Urine WBC (Auto) Urine RBC (Auto) Urine Casts (Auto) U Epithel Cells (Auto) Urine Bacteria (Auto) POC Urine HCG, Qual Negative RPR Titer 07/09/19 07/09/19 07:30 11:51 WBC RBC Hgb Hct MCV MCH MCHC RDW Plt Count MPV Sodium Potassium Chloride Carbon Dioxide Anion Gap BUN Creatinine Est GFR (CKD-EPI)AfAm Est GFR (CKD-EPI)NonAf Random Glucose Calcium Total Bilirubin AST ALT Alkaline Phosphatase Total Protein Albumin Urine Color Yellow Urine Appearance Cloudy Urine pH 5.5 Ur Specific [place] 1.021 Urine Protein Negative Urine Glucose (UA) Negative Urine Ketones Negative Urine Blood Negative Urine Nitrite Positive H D Urine Bilirubin Negative Urine Urobilinogen 0.2 Ur Leukocyte Esterase 1+ H Urine WBC (Auto) 30 Urine RBC (Auto) 1 Urine Casts (Auto) 84 U Epithel Cells (Auto) 1.0 Urine Bacteria (Auto) 1697.7 POC Urine HCG, Qual RPR Titer Nonreactive today pt is aaox3 ambulating no acute distress pt is currently taking ABX for UTI rest of Rx will be sent to pts' pharmacy. pt was made aware - Treatment Hospital Course: Detox Protocol Followed, Detoxed Safely, Responded well, Discharged Condition Good, Rehab Referral Accepted Patient has Accepted a Rehab Referral to: pt declined rehab; referral provided - Medication Discharge Medications: Ambulatory Orders Sulfamethoxazole/Trimethoprim [Bactrim Ds Tablet] 1 each PO BID 07/12/19 - Diagnosis (1) Opioid dependence with withdrawal Current Visit: Yes Status: Chronic (2) Positive QuantiFERON-TB Gold test Current Visit: Yes Status: Chronic (3) GERD (gastroesophageal reflux disease) Current Visit: Yes Status: Chronic Qualifiers: Esophagitis presence: without esophagitis Qualified Code(s): K21.9 - Gastro -esophageal reflux disease without esophagitis (4) Nicotine dependence Current Visit: Yes Status: Chronic Qualifiers: Nicotine product type: cigarettes Substance use status: uncomplicated Qualified Code(s): F17.210 - Nicotine dependence, cigarettes, uncomplicated (5) Underweight Current Visit: Yes Status: Chronic (6) Asthma Current Visit: Yes Status: Chronic Qualifiers: Asthma severity: mild Asthma persistence: intermittent Asthma complication type: uncomplicated Qualified Code(s): J45.20 - Mild intermittent asthma, uncomplicated (7) Hx of migraines Current Visit: Yes Status: Chronic (8) SBO (small bowel obstruction) Current Visit: No Status: Resolved (9) UTI (urinary tract infection) Current Visit: Yes Status: Acute Qualifiers: Urinary tract infection type: site unspecified Hematuria presence: without hematuria Qualified Code(s): N39.0 - Urinary tract infection, site not specified - AMA Did Patient Leave Against Medical Advice: No
[2019-07-13] MEDS ORDERED: METHADONE HCL 5 MG TABLET (FOR DETOX USE ONLY) PO ONE (06:00)
== END 2019-07-12 11:05 | disposition home or self-care (01) | DRG 773 ==
LOC: YASAS 19:53 → Y6N 23:29
PROVIDERS: ADMIT Surgery; ATTEND Surgery
PROC: HZ2ZZZZ Detoxification Services for Substance Abuse Treatment (ICD-10-PCS; principal; 2019-07-08)
DX: F11.23 Opioid dependence with withdrawal (principal); F17.210 Nicotine dependence, cigarettes, uncomplicated; N39.0 Urinary tract infection, site not specified; J45.20 Mild intermittent asthma, uncomplicated; K21.9 Gastro-esophageal reflux disease without esophagitis; R63.6 Underweight; Z68.1 Body mass index [BMI] 19.9 or less, adult; R76.12 Nonspecific reaction to cell mediated immunity measurement of gamma interferon antigen response without active tuberculosis; Z86.69 Personal history of other diseases of the nervous system and sense organs
CPT/HCPCS: 36415; 80053; 81003; 81025; 85027; 86593; 87086; 87186

== ENCOUNTER 2021-05-24 18:07 | Emergency (ER) | payer OTHER ==
[2021-05-24 18:13] VITALS: BP 110/69; PULSE 87; TEMP 98.7; BMI 17.4
[2021-05-24] MEDS ORDERED: ACETAMINOPHEN/CAFFEINE/BUTALBITAL 1 TAB PO ONE (18:26)
[2021-05-24] MEDS ORDERED: ACETAMINOPHEN/CAFFEINE/BUTALBITAL 1 TAB ONE (18:29)
== END 2021-05-24 18:30 | disposition home or self-care (01) ==
LOC: JER 18:07
DX: R51.9 Headache, unspecified (principal)
CPT/HCPCS: 99283-25

== ENCOUNTER 2021-06-14 19:23 | Emergency (ER) | payer OTHER ==
[2021-06-14 19:38] VITALS: BP 109/64; PULSE 80; TEMP 98; BMI 17.4
== END 2021-06-14 21:04 | disposition left against medical advice (07) ==
LOC: JER 19:23
DX: R51.9 Headache, unspecified (principal)
CPT/HCPCS: 99281-25

== ENCOUNTER 2021-06-21 15:53 | Emergency (ER) | payer OTHER ==
[2021-06-21 16:13] VITALS: PULSE 80; TEMP 98.4; BMI 16.5
[2021-06-21 16:51] VITALS: BP 111/66
[2021-06-21] MEDS ORDERED: METOCLOPRAMIDE HCL 10 MG TABLET (FP) PO ONE ×2 (18:15→18:30)
[2021-06-21] MEDS ORDERED: ACETAMINOPHEN 500 MG TABLET (FP) PO ONE (18:15)
[2021-06-21] MEDS ORDERED: ACETAMINOPHEN 500 MG TABLET (FP) ONE (18:30)
== END 2021-06-21 18:36 | disposition home or self-care (01) ==
LOC: JER 15:53
DX: R51.9 Headache, unspecified (principal)
CPT/HCPCS: 99283-25

== ENCOUNTER 2024-04-08 13:21 | Emergency (ER) | payer SELFPAY ==
[2024-04-08 13:28] VITALS: BP 103/52; PULSE 59; RESP 18; TEMP 98.2; BMI 16.9
[2024-04-08] MEDS ORDERED: ACETAMINOPHEN/CAFFEINE/BUTALBITAL 1 TAB ONE (14:08)
[2024-04-08] MEDS: ACETAMINOPHEN/CAFFEINE/BUTALBITAL 1 TAB PO ONE (14:10)
== END 2024-04-08 15:17 | disposition home or self-care (01) ==
LOC: JER 13:21
DX: R51.9 Headache, unspecified (principal)
CPT/HCPCS: 99283-25